=== PATIENT | female | born 1985 | race Caucasian/White ===

== ENCOUNTER 2023-06-21 17:48 | Inpatient (IN) | payer BC, SELFPAY ==
[2023-06-21] MEDS: DUONEB 3 ML INH ×2 (11:49→12:17)
--- NOTE | 2023-06-21 11:57 | ED.GENMED ---
History of Present Illness
General
Chief Complaint: Breathing Problem
Source: patient
Time Seen by Provider: 06/21/23 11:47
Travel History
Have you had any contact with someone who has COVID-19?: No
Do you have any symptoms of coronavirus? Fever > 100 degrees, chills, cough, shortness of breath, sore throat, loss of taste or smell, muscle aches, or headache?: Yes
Symptoms:: sob/cough
History of Present Illness
History of Present Illness:
37-year-old female presents to the emergency room for evaluation of increasing short of breath. Patient developed URI symptoms about a week ago. She was seen by her primary care doctor and started on doxycycline. Over the past 2 or 3 days she has
been having increasing shortness of breath and wheezing. No improvement with inhaler at home. 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
Phy Exam
Physical Exam
Physical Exam:
General: Awake, Alert, Oriented X3. Mildly increased work of breathing
Vitals: unremarkable
Head: Atraumatic
Eyes: Pupils equal, EOMI
Throat: Airway intact, no exudates
Neck: Trachea midline
Lungs: Expiratory wheezing
Heart: Regular rate, no murmurs
Abd: Soft, Nontender, No pulsatile mass
Neuro: Nonfocal
Skin: Warm, dry, no rash
Extremities: pulses equal b/l, no edema
Course
Orders/Labs/Results
Orders:
Orders
06/21/23 11:39
Ipratropium/Albuterol Sulfate [Duoneb] 3 ml .ROUTE .STK-MED ONE
06/21/23 11:40
Albuterol Nebs [Ventolin Nebules] 2.5 mg .ROUTE .STK-MED ONE
Dexamethasone Pf [Decadron] 10 mg .ROUTE .STK-MED ONE
06/21/23 11:49
Ipratropium/Albuterol Sulfate [Duoneb] 3 ml INH R NOW ONE
06/21/23 11:56
Dexamethasone Sod Phosphate [Decadron] 10 mg IV NOW STA
Ipratropium/Albuterol Sulfate [Duoneb] 3 ml INH R NOW ONE
06/21/23 11:57
Test Result ONCE
CR Chest - 2 Views Urgent
Comment:
Reason For Exam: fever, chough, sob
06/21/23 12:03
Basic Metabolic Panel Urgent
Complete Blood Count/With Diff Urgent
HCG, Serum Qualitative Screen Urgent
06/21/23 13:57
Albuterol Nebs [Ventolin Nebules] 2.5 mg INH R NOW STA
06/21/23 14:01
Acetaminophen [Tylenol] 1,000 mg PO NOW STA
Ketorolac [Toradol] 15 mg .ROUTE .STK-MED ONE
Abnormal Lab Results
06/21/23
12:03
WBC 12.9 H 10^3/uL
(4.8-10.8)
Hct 36.8 L %
(37.0-47.0)
MCV 77.8 L fL
(81.0-99.0)
MCH 26.6 L pg
(27.0-31.0)
RDW 14.9 H %
(11.5-14.5)
Plt Count 431 H 10^3/uL
(130-400)
Abs Immat Gran (auto) 0.1 H 10^3/uL
(0-0.05)
Absolute Neuts (auto) 7.8 H 10^3/uL
(1.4-6.5)
Absolute Lymphs (auto) 3.9 H 10^3/uL
(1.2-3.4)
Absolute Monos (auto) 0.7 H 10^3/uL
(0.1-0.6)
Immature Gran % 0.7 H %
(0-0.5)
Carbon Dioxide 19 L mmol/L
(22-30)
Glucose 102 H mg/dl
(70-99)
06/21/23 12:03
06/21/23 12:03
Vital Signs
Initial and Last Documented VS:
Initial Vital Signs
Temp Pulse Resp Pulse Ox
98.5 F 120 24 95
06/21/23 11:34 06/21/23 11:34 06/21/23 11:34 06/21/23 11:34
Last Documented Vital Signs
Temp Pulse Resp Pulse Ox
98.5 F 118 24 97
06/21/23 11:34 06/21/23 14:29 06/21/23 11:34 06/21/23 14:29
MDM/Problems Addressed
Differential Diagnosis Includes:
Asthma exacerbation, pneumonia, pneumothorax
MDM/Problems Addressed:
Patient presents with persistent increased work of breathing despite oral prednisone, doxycycline and inhalers at home. Chest x-ray does not show any acute abnormality. Patient was treated with several DuoNebs and albuterol here. No significant
improvement. Will admit for further care
Acute Exacerbation and/or Progression of Chronic Illness: Asthma
*Radiology
Radiology exam reviewed: preliminary read by ED provider (Personally reviewed the patient's chest x-ray and see no acute disease)
*Pulse Oximetry
Patient hypoxic: no
*Critical Care Note
Total Time (30-74mins, 75-104mins- exclusive of procedures): Not Applicable
Patient Management
Social determinants of health affecting care: Strong social support
ED Attending Note
-
Portions of this chart may have been created with voice recognition software.� Occasional wrong word or��sound alike� substitutions may have occurred due to the inherent limitations of voice recognition software.
Discharge Plan
Departure
Patient Disposition: Admit
Date of Disposition: 06/21/23
Time of Disposition: 15:26
Admit to: Med/Surg
Presentation/result/management discussed w/ accepting MD/DO: Hospitalist
Condition: Fair
Discharge Problem:
Asthma with acute exacerbation
Prescriptions:
No Action
tizanidine 4 mg Tablet
4 mg PO BID
famotidine [Pepcid] 40 mg Tablet
40 mg PO HS
sulfamethoxazole-trimethoprim [Bactrim DS] 800-160 mg Tablet
1 tab PO BID
Patient Comments:
patient black pickler on 06/15/23
doxycycline monohydrate 100 mg Capsule
100 mg PO BID
Patient Comments:
patient black pickler on 06/15/23
cephalexin 500 mg Capsule
500 mg PO QID
Patient Comments:
patient black pickler on 06/15/23
pantoprazole [Protonix] 40 mg Tablet,Delayed Release (Dr/Ec)
40 mg PO DAILY
cyanocobalamin (vitamin B-12) 1,000 mcg/mL Solution
1,000 mcg IM QMONTH
montelukast [Singulair] 10 mg Tablet
10 mg PO HS
hydroxyzine HCl 25 mg Tablet
25 mg PO BID
furosemide [Lasix] 20 mg Tablet
20 mg PO DAILYPRN PRN (Reason: with steriods)
levalbuterol HCl 1.25 mg/3 mL solution for nebulization
1.25 mg INHALATION R QIDPRN PRN (Reason: sob)
eszopiclone [Lunesta] 2 mg Tablet
2 mg PO HS
Xarelto 20 mg Tablet
20 mg PO QPM
Emgality Syringe 120 mg/mL Syringe
120 mg SC QMONTH
Referrals:
Nato Callejas Jr., DO [Family Provider] -
Interventions
Interventions:
*ED COVID-19 Vaccine History Last Done: 06/21/23 11:34
ED- Cardiac Assessment Last Done: 06/21/23 11:47
ED- Pulmonary Assessment Last Done: 06/21/23 11:47
[2023-06-21] MEDS: DECADRON 10 MG IV (12:09)
[2023-06-21 12:21] LABS: % Basophils 0.9 % (0-2); % Eosinophils 2.3 % (0-6); % Immature Granulocytes 0.7 % (0-0.5); % Lymphocytes 30.4 % (20.5-51.1); % Monocytes 5.7 % (1.7-9.3); Absolute Basophils 0.1 10^3/uL (0-0.2); Absolute Eosinophils 0.3 10^3/uL (0-0.7); Absolute Immature Granulocytes 0.1 10^3/uL (0-0.05); Absolute Lymphocytes 3.9 10^3/uL (1.2-3.4); Absolute Monocytes 0.7 10^3/uL (0.1-0.6); Absolute Neutrophils 7.8 10^3/uL (1.4-6.5); Hematocrit 36.8 % (37.0-47.0); Hemoglobin 12.6 g/dL (12.0-16.0); Mean Corp Hgb Conc. 34.2 g/dL (33.0-37.0); Mean Corpuscular Hgb 26.6 pg (27.0-31.0); Mean Corpuscular Volume 77.8 fL (81.0-99.0); Mean Platelet Volume 10.3 fL (7.4-10.4); Nucleated Red Blood Cells % 0 %; Platelet Count 431 10^3/uL (130-400); Red Blood Cell Count 4.73 10^6/uL (4.20-5.40); Red Cell Dist. Width 14.9 % (11.5-14.5); White Blood Cell Count 12.9 10^3/uL (4.8-10.8)
[2023-06-21 12:50] LABS: HCG, Serum Qualitative Screen Negative
[2023-06-21 13:09] LABS: Blood Urea Nitrogen 13 mg/dl (7-17); Calcium 9.8 mg/dl (8.4-10.2); Carbon Dioxide 19 mmol/L (22-30); Chloride 102 mmol/L (98-107); Estimated Creatinine Clearance 104 ml/min; Glucose 102 mg/dl (70-99); Potassium 3.7 mmol/L (3.5-5.1); Sodium 135 mmol/L (135-145); eGFR > 60.00
[2023-06-21] MEDS: VENTOLIN NEBULES 2.5 MG INH (14:08)
[2023-06-21] MEDS: TYLENOL 1000 MG PO (14:19)
--- NOTE | 2023-06-21 17:07 | HPS.HSE ---
Family Physician
-
Family Physician: Nato Callejas Jr.
Chief Complaint
-
Shortness of breath and dry cough
History of Present Illness
Patient is a 37 years old female with history of GBS, asthma, migraine, antiphospholipid syndrome on anticoagulation with Xarelto who presents to the emergency room with days of gradually worsening shortness of breath, nonproductive cough. Patient
reports subjective fever at home day prior to presentation. She denies any sick contacts. She was seen by primary physician and started on oral antibiotics. She states that antibiotics along with nebulizers at home have no relief.
The emergency room patient is afebrile, hemodynamically stable. Her physical exam relevant for persistent wheezing and dry cough. Her oxygen saturations are stable with no evidence of respiratory distress.
She was initiated on treatment with IV steroids and serial nebulizers with no significant relief shortness of breath and wheezing.
Medical History
Past Medical History
Past Medical History: Reports Asthma and Other (GBS, migraine, antiphospholipid syndrome on anticoagulation.)
Past Surgical History: Reports None
Social History
Tobacco: Non-smoker
Alcohol: None
Drug: None
Personal:
Living: With Family
Employment: Employed
Family History
Family History: Not pertinent
Allergies / Home Medications
Allergies reflects when Allergies were last updated in [employer].
Home Medications with original date entered in [employer]
Allergy/Medication List:
Allergies
Allergy/AdvReac Type Severity Reaction Status Date / Time
apixaban Allergy Unknown Verified 06/21/23 11:46
dog dander Allergy Unknown Verified 06/21/23 11:46
duloxetine Allergy Unknown Verified 06/21/23 11:46
iodine Allergy Unknown Verified 06/21/23 11:46
latex Allergy Unknown Verified 06/21/23 11:46
lidocaine Allergy Unknown Verified 06/21/23 11:37
menthol Allergy Unknown Verified 06/21/23 11:46
NSAIDS (Non-Steroidal Allergy Unknown Verified 06/21/23 11:37
Anti-Inflamma
sumatriptan Allergy Unknown Verified 06/21/23 11:46
Home Medications
cephalexin 500 mg capsule 500 mg PO QID 06/21/23
cyanocobalamin (vitamin B-12) 1,000 mcg/mL injection solution 1,000 mcg IM QMONTH 06/21/23
doxycycline monohydrate 100 mg capsule 100 mg PO BID 06/21/23
eszopiclone 2 mg tablet (Lunesta) 2 mg PO HS 06/21/23
famotidine 40 mg tablet (Pepcid) 40 mg PO HS 06/21/23
furosemide 20 mg tablet (Lasix) 20 mg PO DAILYPRN PRN with steriods 06/21/23
galcanezumab-gnlm 120 mg/mL subcutaneous syringe (Emgality) 120 mg SC QMONTH 06/21/23
hydroxyzine HCl 25 mg tablet 25 mg PO BID 06/21/23
levalbuterol HCl 1.25 mg/3 mL solution for nebulization 1.25 mg inhalation R QIDPRN PRN sob 06/21/23
montelukast 10 mg tablet (Singulair) 10 mg PO HS 06/21/23
pantoprazole 40 mg tablet,delayed release (Protonix) 40 mg PO DAILY 06/21/23
rivaroxaban 20 mg tablet (Xarelto) 20 mg PO QPM 06/21/23
sulfamethoxazole 800 mg-trimethoprim 160 mg tablet (Bactrim DS) 1 tab PO BID 06/21/23
tizanidine 4 mg tablet 4 mg PO BID 06/21/23
Review of Systems
-
A 12 point ROS was completed and negative except as noted: Yes
Respiratory: Reports See HPI
Cardiac: Reports No Symptoms
Abdomen/GI: Reports No Symptoms
Physical Exam
Vital Signs
Vital Signs
Temp Pulse Resp Pulse Ox
98.5 F 118 24 97
06/21/23 11:34 06/21/23 14:29 06/21/23 11:34 06/21/23 14:29
Physical Exam
General: Well Developed, Well Nourished and No Apparent Distress
HEENT: NormoCephalic, Moist mucous membranes and Atraumatic
Respiratory: Wheezes (Biphasic) and Rhonchi
Cardiac: S1/S2 and Regular Rhythm; No Murmur or Rub
GI: Soft, Non Tender, Non Distended and Normal Bowel Sounds; No Organomegaly
Rectal: Deferred by Provider
Musculoskeletal: No Clubbing, No Cyanosis and No Edema
Skin: No Rash
Neuro: Nonfocal/grossly intact
Laboratory Results
-
06/21/23 12:03
06/21/23 12:03
Data Reviewed
-
Diagnostic Radiology: Report Reviewed by me
Lab Data: Labs Reviewed by me
Impression/Plan
-
IMPRESSION:
Acute asthma exacerbation
Moderate persistent asthma by history.
Acute bronchitis suspected.
Conditions prior to admission:
Asthma as above
History of GBS syndrome with respiratory failure (admitted to [facility]23. Treated with plasmapheresis).
Antiphospholipid syndrome with history of DVT and PE.
Anticoagulation with Xarelto
Migraine headache
Obesity with BMI of 42
PLAN:
Asthma exacerbation
Suspect acute bronchitis
Persistent biphasic wheezing on exam, although no evidence of respiratory distress or hypoxia.
Chest x-ray with no evidence of infiltrate/pneumonia
Did not respond to initial treatment while in the emergency room.
Admit for close monitoring
Peak flow.
Systemic steroids Decadron 4 mg IV every 6
Basal bolus protocol with insulin coverage.
Short acting bronchodilators/Xopenex.
Cough suppressants Robitussin with codeine.
Continue Singulair
Continue PPI
Oral Zithromax for antibacterial/anti-inflammatory
Antiphospholipid syndrome with prior history of DVT and PE
Continuing Xarelto
[2023-06-21 18:20] VITALS: BP 152/78
[2023-06-21 18:40] VITALS: BP 155/115
[2023-06-21] MEDS: XOPENEX 1.25 MG INHALANT SOLUTION INH (18:47)
[2023-06-21] MEDS: PROTONIX 40 MG PO (19:18)
[2023-06-21] MEDS: ZITHROMAX 500 MG PO (19:18)
[2023-06-21] MEDS: XARELTO 20 MG PO (19:18)
[2023-06-21] MEDS: ATARAX 25 MG PO (19:18)
[2023-06-21] MEDS: DECADRON 4 MG IV (19:19)
--- NOTE | 2023-06-21 19:19 | PTCARENOTE ---
Received patient from ED via wheelchair. AAOx3, ambulated to bed. BL expiratory wheezes throughout. Assessed and oriented to room.
[2023-06-21] MEDS: ROBITUSSIN AC 10 ML PO (19:21)
--- NOTE | 2023-06-21 19:45 | PTCARENOTE ---
Patient with c/o moderate generalized pain/ bilateral rib pain from cough and asking for pain med. Had Tylenol at ED but still in pain. also HR consistently staying in 129-130s. bp-149/99. Patient stated 'had shingles on right eye' and on acyclovir
1gm X TID which she didn't take any dose today. Updated MARIA DE JESUS Badillo. See MAR for new orders
--- NOTE | 2023-06-21 20:40 | PTCARENOTE ---
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 No need of isolation as per advise.
[2023-06-21] MEDS: ProAIR HFA INHALER 2 PUFF INH (20:42)
[2023-06-21] MEDS: MORPHINE SULFATE 2 MG IV (20:46)
[2023-06-21] MEDS: ZANAFLEX 4 MG PO (20:48)
[2023-06-21] MEDS: PEPCID 40 MG PO (21:31)
[2023-06-21] MEDS: VALTREX 1000 MG PO (21:32)
[2023-06-21] MEDS: SINGULAIR 10 MG PO (21:32)
[2023-06-21 22:09] LABS: Glucose - Point of Care 252 mg/dl (70-99)
[2023-06-21 22:24] VITALS: BMI 41.2
[2023-06-21 23:00] VITALS: BP 153/93
[2023-06-21] MEDS: AMBIEN PO (23:41)
[2023-06-22] MEDS: MORPHINE SULFATE 2 MG IV ×5 (01:05→21:29)
[2023-06-22] MEDS: DECADRON 4 MG IV ×3 (01:05→15:09)
[2023-06-22] MEDS: ROBITUSSIN AC 10 ML PO ×4 (01:34→22:42)
[2023-06-22 07:30] VITALS: BP 160/98
[2023-06-22 07:56] LABS: Glucose - Point of Care 181 mg/dl (70-99)
[2023-06-22] MEDS: VALTREX 1000 MG PO (08:15)
[2023-06-22] MEDS: PROTONIX 40 MG PO (08:15)
[2023-06-22] MEDS: ZITHROMAX 500 MG PO (08:15)
[2023-06-22] MEDS: ATARAX 25 MG PO ×2 (08:15→20:32)
[2023-06-22] MEDS: ZANAFLEX 4 MG PO ×2 (08:16→20:32)
[2023-06-22 08:18] LABS: % Basophils 0.2 % (0-2); % Immature Granulocytes 1.3 % (0-0.5); % Lymphocytes 8.9 % (20.5-51.1); % Monocytes 1.5 % (1.7-9.3); % Neutrophils 88.1 % (42.2-75.2); Absolute Immature Granulocytes 0.3 10^3/uL (0-0.05); Absolute Lymphocytes 2.1 10^3/uL (1.2-3.4); Absolute Monocytes 0.4 10^3/uL (0.1-0.6); Absolute Neutrophils 21.1 10^3/uL (1.4-6.5); Hematocrit 35.7 % (37.0-47.0); Hemoglobin 12.4 g/dL (12.0-16.0); Mean Corp Hgb Conc. 34.7 g/dL (33.0-37.0); Mean Corpuscular Hgb 26.7 pg (27.0-31.0); Mean Corpuscular Volume 76.8 fL (81.0-99.0); Mean Platelet Volume 10.2 fL (7.4-10.4); Nucleated Red Blood Cells % 0 %; Platelet Count 472 10^3/uL (130-400); Red Blood Cell Count 4.65 10^6/uL (4.20-5.40); Red Cell Dist. Width 15.3 % (11.5-14.5)
[2023-06-22] MEDS: NOVOLOG FLEXPEN-LOW RESISTANCE 1 UNITS SC ×3 (08:23→16:54)
[2023-06-22 08:42] VITALS: BMI 41.2
[2023-06-22] MEDS: XOPENEX 1.25 MG INHALANT SOLUTION INH ×4 (08:43→19:36)
[2023-06-22 08:58] LABS: Blood Urea Nitrogen 8 mg/dl (7-17); Carbon Dioxide 20 mmol/L (22-30); Chloride 107 mmol/L (98-107); Estimated Creatinine Clearance > 125 ml/min; Glucose 175 mg/dl (70-99); Potassium 4.7 mmol/L (3.5-5.1); Sodium 135 mmol/L (135-145); eGFR > 60.00
[2023-06-22 11:50] LABS: Glucose - Point of Care 192 mg/dl (70-99)
--- NOTE | 2023-06-22 15:02 | CON.PUL ---
Consultation
Consultation Request
Date/Time Consultation Requested: 06/22/2023 - 134
Date/Time Consultation Performed: 06/22/2023 - 1500
Requesting Provider: Dr. Rahman
Performing Provider: Dr. Austin
Reason for Consultation: Asthma flare
Medical History
-
Chief Complaint: SOB
History of Present Illness:
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
dry cough ongoing for about 1 week. She was put on antibiotics by her PCP, and is taking nebulizers at home but her symptoms have been persistent so she came to the ER. She was afebrile in the ER to 98.5 �F, tachycardic to 119, saturating 97% on
room air and tachypneic to 24 breaths/min. She was in moderate respiratory distress with inspiratory/expiratory wheezing in the ER. Labs showed a mildly reduced serum bicarbonate level of 19, leukocytosis to 12.9 with an absolute eosinophil count
of 300, Hb 12.6, platelets 431. CXR showed no active cardiopulmonary disease. She was given Tylenol, nebulizers and Decadron and then admitted to the hospitalist service. She continues on Decadron 4 mg IV q6hr, azithromycin and levalbuterol. She
has not required oxygen and is saturating 96% on room air. Pulmonary now consulted for additional recommendations.
When I saw the pt she was in bed in [facility] on room air. She still feels SOB. Has productive cough with difficulty expectorating. Phlegm is yellow/green with red specks. Also has nasal congestion and wants to have something for this. She was
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 This was Tx at [facility] in [place] - she was admitted last Wednesday (06/12/2023). She had GBS in February 2023 and was
intubated x 2 weeks. 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 She was placed on antacids, Abx and Symbicort + advair, and told to use it all. She follows with a PCP, Dr. Santacruz. She says she had the flu ~3 weeks
ago and has been feelin gSOB since that time. Her PCP Rx her doxy x 10 days. 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 Moise, at [facility]. She is currently on Symbicort 160mcg, Singulair, Albuterol MDI prn and also takes nebulized xopenex and albuterol as
needed. She currently denies CP, MUKHERJEE, abd pain, N/V/f/c.
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
PSHx: Bilateral toenail removal, COMPUTER HELP DESK REPRESENTATIVE shunt, screw in right foot
Past Medical History
Past Medical History: Other (Above as per HPI)
Past Surgical History: Other (Above as per HPI)
Social History
Tobacco: Non-smoker
Alcohol: Occasional
Drug: None
Family History
Family History: Reviewed & Not Pertinent
Allergies / Home Medications
Allergies
Allergy/AdvReac Type Severity Reaction Status Date / Time
apixaban Allergy Unknown Verified 06/21/23 11:46
dog dander Allergy Unknown Verified 06/21/23 11:46
duloxetine Allergy Unknown Verified 06/21/23 11:46
iodine Allergy Unknown Verified 06/21/23 11:46
latex Allergy Unknown Verified 06/21/23 11:46
lidocaine Allergy Unknown Verified 06/21/23 11:37
menthol Allergy Unknown Verified 06/21/23 11:46
NSAIDS (Non-Steroidal Allergy Unknown Verified 06/21/23 11:37
Anti-Inflamma
sumatriptan Allergy Unknown Verified 06/21/23 11:46
Home Medications
Medication Instructions Recorded Confirmed Last Taken Type
acyclovir 1,000 mg PO TID Infection 06/21/23 06/21/23 06/20/23 History
cephalexin 500 mg capsule 500 mg PO QID Infection 06/21/23 06/21/23 06/21/23 History
cyanocobalamin (vitamin B-12) 1,000 mcg IM QMONTH Supplement 06/21/23 06/21/23 Unknown History
1,000 mcg/mL injection solution
doxycycline monohydrate 100 mg 100 mg PO BID Infection 06/21/23 06/21/23 06/21/23 History
capsule
eszopiclone 2 mg tablet (Lunesta) 2 mg PO HS Sleep 06/21/23 06/21/23 06/20/23 History
famotidine 40 mg tablet (Pepcid) 40 mg PO HS Gastrointestinal Issue 06/21/23 06/21/23 06/20/23 History
furosemide 20 mg tablet (Lasix) 20 mg PO DAILYPRN PRN with steriods 06/21/23 06/21/23 Unknown History
galcanezumab-gnlm 120 mg/mL 120 mg SC QMONTH Headaches 06/21/23 06/21/23 Unknown History
subcutaneous syringe (Emgality)
hydroxyzine HCl 25 mg tablet 25 mg PO BID Mental Health/Anxiety 06/21/23 06/21/23 06/20/23 History
levalbuterol HCl 1.25 mg/3 mL 1.25 mg inhalation R QIDPRN PRN sob 06/21/23 06/21/23 Unknown History
solution for nebulization
montelukast 10 mg tablet 10 mg PO HS Allergies 06/21/23 06/21/23 06/20/23 History
(Singulair)
pantoprazole 40 mg tablet,delayed 40 mg PO DAILY Gastrointestinal 06/21/23 06/21/23 06/20/23 History
release (Protonix) Issue
rivaroxaban 20 mg tablet (Xarelto) 20 mg PO QPM Blood Clot 06/21/23 06/21/23 06/20/23 History
Prevention/Tx
sulfamethoxazole 800 1 tab PO BID Infection 06/21/23 06/21/23 06/21/23 History
mg-trimethoprim 160 mg tablet
(Bactrim DS)
tizanidine 4 mg tablet 4 mg PO BID Muscle Spasms 06/21/23 06/21/23 06/20/23 History
Review of Systems
-
History Source: Patient
All other systems: Negative unless noted (12 point ROS performed and is negative unless mentioned above.)
Vitals / Labs / Diagnostic Testing
Vital Signs
Temp Pulse Resp BP Pulse Ox
97.7 F 91 18 160/98 96
06/22/23 07:30 06/22/23 11:51 06/22/23 11:51 06/22/23 07:30 06/22/23 11:51
Lab Data
06/22/23 07:33
06/22/23 07:33
Diagnostic Testing:
Physical Exam
-
HEENT: Normocephalic, Anicteric and Other (no stridor)
Cardiovascular: S1/S2 and Other (tachycardic)
Respiratory: Wheeze, Rales (bibasilar) and Other (no stridor)
GI: Soft and Non Distended
Neurology: AO x 3 and Tremors (n)
Skin: Warm and Dry
General: Comfortable, Chills (Negative) and Good Appetite
Assessment
-
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
breath with dry cough ongoing for about 1 week. Patient tachycardic in the ER and tachypneic, with diffuse wheezing. CXR showed no acute cardiopulmonary pathology. Steroids and nebulized bronchodilators were started and she was admitted to the
hospitalist service. She also was started on azithromycin. She continues to be managed on the floor and pulmonary service now consulted for additional recommendations.
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
Impression:
#Acute asthmatic exacerbation
#Leukocytosis -likely reactive in the setting of steroids
#Obesity
#GERD
#Migraine headaches
#APS with Hx of PE on Xarelto
Plan:
- Continue systemic steroids - currently on decadron 4mg IV q6hr --> change to solumedrol 60mg IV q6hr + wean as tolerated
- Start nasal saline TID and taper as her Sx improve
- Continue xopenex and add atrovent with prn nebs in between
- Encourage up OOB as tolerated
- Encourage incentive spirometer
- No need for Abx however it appears she is on chronic doxy, so will change to azithro for now given its anti-inflammatory effect
- Maintain MAP>65
- Keep BG >100 and <180mg/dL
- outpatient PFTs with asthma action plan and peak flow meter
- DVT ppx
Pulmonary service will continue to follow along
Data:
CXR 06-21-2023: No active cardiopulmonary disease.
[2023-06-22 15:20] VITALS: BP 168/88
[2023-06-22] MEDS: COMPAZINE 5 MG IV (15:22)
--- NOTE | 2023-06-22 16:04 | W.PN.HOSP.TC ---
Today's Communication/Plan
-
Remains bronchospastic with coarse rhonchi on exam, although stable respiratory status.
Continue IV steroids with unchanged dose for another 24 to 48 hours
Continue Zithromax
Antitussives.
Short acting bronchodilators
Pulmonology consultation.
Hypercoagulable state/antiphospholipid syndrome on Xarelto.
Assessment / Plan
Assessment / Plan
IMPRESSION:
Acute asthma exacerbation
Moderate persistent asthma by history.
Acute bronchitis suspected.
Conditions prior to admission:
Asthma as above
History of GBS syndrome with respiratory failure (admitted to [facility] February 2023.� Treated with plasmapheresis).
Antiphospholipid syndrome with history of DVT and PE.
Anticoagulation with Xarelto
Migraine headache
Obesity with BMI of 42
PLAN:
Asthma exacerbation
Suspect acute bronchitis
Persistent biphasic wheezing on exam, although no evidence of respiratory distress or hypoxia.
Chest x-ray with no evidence of infiltrate/pneumonia
Did not respond to initial treatment while in the emergency room.
Admit for close monitoring
Peak flow.
Systemic steroids Decadron 4 mg IV every 6
Basal bolus protocol with insulin coverage.
Short acting bronchodilators/Xopenex.
Cough suppressants Robitussin with codeine.
Continue Singulair
Continue PPI
Oral Zithromax for antibacterial/anti-inflammatory
Antiphospholipid syndrome with prior history of DVT and PE
Continuing Xarelto
Anticipated Discharge: 24 - 48 hours
Subjective/Interval History
-
Date of Service: June 22, 2023
Objective Data
-
Labs:
Laboratory Results
06/22/23
07:33
WBC 24.0 H
Hgb 12.4
Hct 35.7 L
Plt Count 472 H
Sodium 135
Potassium 4.7 D
Chloride 107
Carbon Dioxide 20 L
BUN 8
Creatinine 0.7
Glucose 175 H
Calcium 10.0
Vital Signs:
Vital Signs
Temp Pulse Resp BP Pulse Ox
97.2 F 110 18 168/88 96
06/22/23 15:20 06/22/23 15:32 06/22/23 15:32 06/22/23 15:20 06/22/23 15:32
I&O
06/21/23 06/22/23 06/23/23
06:59 06:59 06:59
Intake Total 480 / 480
Balance 480 / 480
Physical Exam
-
General: Well Developed and No Apparent Distress
HEENT: Normocephalic, Atraumatic and Moist Mucous Membranes
Respiratory: Clear to Auscultation
Cardiac: Regular Rhythm and S1/S2; Negative Murmur, Rub or Gallop
GI: Soft, Nontender, Nondistended and Normal Bowel Sounds; Negative Organomegaly
Rectal: Deferred by Provider
Musculoskeletal: No Clubbing, No Cyanosis and No Edema
Skin: Negative Rash
Neuro: Nonfocal/Grossly Intact
[2023-06-22 16:45] LABS: Glucose - Point of Care 169 mg/dl (70-99)
[2023-06-22] MEDS: XARELTO 20 MG PO (16:54)
--- NOTE | 2023-06-22 17:27 | CM ---
CM following re: d/c planning
Chart reviewed
CM met with the patient and her S.O. at bedside; IA completed
[place]
LEG BREAKER patent reports [facility] at baseline
Pt has no previous SNF/VN hx and has the following DME for use as needed: a r/w, nebulizer, shower chair, & pair of crutches
Pt has prescription coverage and rx's are filled at [facility] on [facility]
Pt PCP-Nato Callejas
Per PT eval. pt has no skilled PT needs
CM will continue to follow patient progress and assist with any needs at d/c as indicated
PLAN; d/c home no needs anticipated
[2023-06-22] MEDS: OCEAN, SALINE MIST 1 SPRAYS NASAL (20:31)
[2023-06-22] MEDS: MUCINEX 600 MG PO (20:32)
[2023-06-22] MEDS: SOLU-MEDROL PF 60 MG IV (20:33)
[2023-06-22] MEDS: PEPCID 40 MG PO (20:34)
[2023-06-22] MEDS: SINGULAIR 10 MG PO (20:34)
[2023-06-22 21:22] LABS: Glucose - Point of Care 198 mg/dl (70-99)
[2023-06-22] MEDS: AMBIEN 10 MG PO (22:42)
[2023-06-22 23:39] VITALS: BP 134/74
[2023-06-23] MEDS: SOLU-MEDROL PF 60 MG IV ×3 (02:50→15:58)
[2023-06-23] MEDS: MORPHINE SULFATE 2 MG IV ×4 (02:58→20:09)
[2023-06-23 07:00] VITALS: BP 161/84
[2023-06-23] MEDS: XOPENEX 1.25 MG INHALANT SOLUTION INH ×4 (07:14→19:26)
[2023-06-23 07:57] LABS: Glucose - Point of Care 165 mg/dl (70-99)
[2023-06-23] MEDS: OCEAN, SALINE MIST 1 SPRAYS NASAL ×3 (10:10→19:57)
[2023-06-23] MEDS: ZANAFLEX 4 MG PO ×2 (10:10→19:57)
[2023-06-23] MEDS: PROTONIX 40 MG PO (10:10)
[2023-06-23] MEDS: ATARAX 25 MG PO ×2 (10:10→19:57)
[2023-06-23] MEDS: MUCINEX 600 MG PO ×2 (10:10→19:57)
[2023-06-23] MEDS: ZITHROMAX 500 MG PO (10:10)
[2023-06-23] MEDS: COMPAZINE 5 MG IV (10:13)
[2023-06-23] MEDS: NOVOLOG FLEXPEN-LOW RESISTANCE SC (10:17)
[2023-06-23] MEDS: ROBITUSSIN AC 10 ML PO (10:19)
[2023-06-23 12:01] LABS: Glucose - Point of Care 173 mg/dl (70-99)
[2023-06-23] MEDS: NOVOLOG FLEXPEN-LOW RESISTANCE 1 UNITS SC ×2 (12:26→16:06)
--- NOTE | 2023-06-23 13:25 | W.PN.PUL3 ---
Today's Communication / Plan
-
Steroids
Afrin
Up OOB
Start Symbicort --> may need LAMA upon discharge given her severity of SOB
Outpatient ENT follow up --> no need for inpatient consult as she is not stridorous currently; if SOB not better then vocal cord dysfunction could be at play and could consider inpatient ENT consult with outpatient stroboscopy
Anti-tussants
IS
DVT ppx
Assessment
-
Assessment: 37-year-old obese female non-smoker with past medical history of asthma, history of PE with antiphospholipid syndrome on Xarelto, history of NPH s/p SHOE TURNER shunt, history of AIDP, anxiety and primary insomnia who presents with shortness of
breath with dry cough ongoing for about 1 week. Patient tachycardic in the ER and tachypneic, with diffuse wheezing. CXR showed no acute cardiopulmonary pathology. Steroids and nebulized bronchodilators were started and she was admitted to the
hospitalist service. She also was started on azithromycin. She continues to be managed on the floor and pulmonary service now consulted for additional recommendations.
Chronic medical conditions [employer]: History of asthma, migraine headache, antiphospholipid syndrome on Xarelto, history of PE, history of NPH s/p SHOE TURNER shunt, primary insomnia, anxiety, history of AIDP, GERD
Impression:
#Acute asthmatic exacerbation (baseline moderate persistent asthma on Symbicort)
#Leukocytosis -likely reactive in the setting of steroids
#Acute on chronic rhinitis with nasal congestion/stuffiness leading to worsening SOB
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
#Obesity
#GERD
#Migraine headaches
#APS with Hx of PE on Xarelto
Plan:
- Continue systemic steroids - previously was on decadron 4mg IV q6hr --> changed to solumedrol 60mg IV q6hr on 06/22 --> I will start to wean to 40mg IV q6hr; continue to wean as tolerated
- Continue nasal saline TID and taper as her Sx improve
- Start Afrin nasal spray HS --> I did warn her that usually the symptoms of nasal congestion improve in the beginning of Afrin use but then may dissipate with continued use especially after 3-6 doses
- Continue xopenex and atrovent with prn nebs in between
- Anti-tussants --> I will increase the frequency to q4hr from q6hr, but half the dose from 10mL to 5mL to avoid worsening her SOB
- Start Symbicort 160mcg as this is her home medication; may need to go home on triple therapy (i.e., Spiriva vs tudorza)
- Encourage up OOB as tolerated
- Encourage incentive spirometer
- Continue azithro given its anti-inflammatory effect - will give x 5 days
- Maintain MAP>65
- Keep BG >100 and <180mg/dL
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 I will arrange for outpatient office visit with me.
- DVT ppx
Pulmonary service will continue to follow along.
Data:
CXR 06-21-2023: No active cardiopulmonary disease.
Subjective Data
-
Date of Service:
Date of Service: June 23, 2023
Chief Complaint: Pulmonary Follow Up
Subjective:
Patient seen and evaluated today at bedside. Saturating 96% on room air. She feels better today. Still has nasal congestion. Still coughing up phlegm and having coughing spells throughout the day. Wants to have more frequent cough medicine.
She denies chest pain, headache, fevers or chills.
Review of Systems
General: Other (12 point ROS performed and is negative unless mentioned above.)
Objective Data
Data Reviewed
Vital Signs / I&O / Oxygen:
Vital Signs
Temp Pulse Resp BP Pulse Ox
97.6 F 105 18 161/84 96
06/23/23 07:00 06/23/23 11:07 06/23/23 11:07 06/23/23 07:00 06/23/23 08:00
Intake and Output
06/22/23 06/23/23 06/24/23
06:59 06:59 06:59
Intake Total 480 / 480 2099
Balance 480 / 480 2099
SaO2 96
Physical Exam
General: Respiratory Distress (negative), Comfortable and Chills (negative)
HEENT: Normocephalic and Anicteric
Cardiovascular: S1-S2, Peripheral Edema (negative) and Other (Tachycardic)
Respiratory: Wheeze (during forced expiration just prior to coughing, which is triggered by inspiratory effort), Crackles (bibasilar), Accessory Resp Muscle Use (negative) and Stridor (negative)
GI: Soft, Non Distended, Non Tender and Normal Bowel Sounds
Neurology: AO x 3 and Tremors (negative)
Skin: Warm and Dry
Labs/Micro/Reports
Lab Data
06/22/23 07:33
06/22/23 07:33
[2023-06-23 15:00] VITALS: BP 128/73
[2023-06-23 16:06] LABS: Glucose - Point of Care 174 mg/dl (70-99)
[2023-06-23] MEDS: LASIX 20 MG PO (17:26)
[2023-06-23] MEDS: XARELTO 20 MG PO (17:27)
--- NOTE | 2023-06-23 18:48 | W.PN.HOSP.TC ---
Today's Communication/Plan
-
Stable respiratory status with less bronchospasm on exam today.
Continue current steroid dose.
Continue Zithromax
Continue short and long-acting bronchodilators.
Complaints of peripheral edema while on steroids. Will provide single dose of oral Lasix 20 mg.
Assessment / Plan
Assessment / Plan
IMPRESSION:
Acute asthma exacerbation
Moderate persistent asthma by history.
Acute bronchitis suspected.
Conditions prior to admission:
Asthma as above
History of GBS syndrome with respiratory failure (admitted to [facility] February 2023.� Treated with plasmapheresis).
Antiphospholipid syndrome with history of DVT and PE.
Anticoagulation with Xarelto
Migraine headache
Obesity with BMI of 42
PLAN:
Asthma exacerbation
Suspect acute bronchitis
Persistent biphasic wheezing on exam, although no evidence of respiratory distress or hypoxia.
Chest x-ray with no evidence of infiltrate/pneumonia
Did not respond to initial treatment while in the emergency room.
Admit for close monitoring
Peak flow.
Systemic steroids Solu-Medrol
Basal bolus protocol with insulin coverage.
Short acting bronchodilators/Xopenex.
Cough suppressants Robitussin with codeine.
Continue Singulair
Continue PPI
Oral Zithromax for antibacterial/anti-inflammatory
Antiphospholipid syndrome with prior history of DVT and PE
Continuing Xarelto
Anticipated Discharge: 24 - 48 hours
Subjective/Interval History
-
Date of Service: June 23, 2023
Objective Data
-
Vital Signs:
Vital Signs
Temp Pulse Resp BP Pulse Ox
98.0 F 102 14 128/73 97
06/23/23 15:00 06/23/23 17:26 06/23/23 15:20 06/23/23 17:26 06/23/23 15:00
I&O
06/22/23 06/23/23 06/24/23
06:59 06:59 06:59
Intake Total 480 / 480 2099
Balance 480 / 480 2099
Physical Exam
-
General: Well Developed and No Apparent Distress
HEENT: Normocephalic, Atraumatic and Moist Mucous Membranes
Respiratory: Clear to Auscultation
Cardiac: Regular Rhythm and S1/S2; Negative Murmur, Rub or Gallop
GI: Soft, Nontender, Nondistended and Normal Bowel Sounds; Negative Organomegaly
Rectal: Deferred by Provider
Musculoskeletal: No Clubbing, No Cyanosis and No Edema
Skin: Negative Rash
Neuro: Nonfocal/Grossly Intact
[2023-06-23] MEDS: ATROVENT NEBULES 0.5 MG INH (19:26)
[2023-06-23] MEDS: SYMBICORT 160/4.5 MCG INHALER 2 PUFF INH (19:26)
[2023-06-23] MEDS: AFRIN NASAL SPRAY 30 SPRAYS NASAL (19:57)
[2023-06-23] MEDS: PEPCID 40 MG PO (19:57)
[2023-06-23] MEDS: SINGULAIR 10 MG PO (19:57)
[2023-06-23 21:11] LABS: Glucose - Point of Care 208 mg/dl (70-99)
[2023-06-23] MEDS: ROBITUSSIN AC 5 ML PO (21:54)
[2023-06-23] MEDS: AMBIEN 10 MG PO (21:54)
[2023-06-23] MEDS: SOLU-MEDROL PF 40 MG IV (21:54)
[2023-06-23 23:12] VITALS: BP 133/73
[2023-06-24] MEDS: SOLU-MEDROL PF 40 MG IV ×2 (03:58→09:05)
[2023-06-24] MEDS: MORPHINE SULFATE 2 MG IV ×5 (03:58→21:33)
[2023-06-24] MEDS: ProAIR HFA INHALER 2 PUFF INH (04:39)
[2023-06-24] MEDS: ROBITUSSIN AC 5 ML PO ×5 (04:47→21:33)
[2023-06-24 07:00] VITALS: BP 160/95
[2023-06-24] MEDS: ATROVENT NEBULES 0.5 MG INH ×4 (07:25→21:03)
[2023-06-24] MEDS: XOPENEX 1.25 MG INHALANT SOLUTION INH ×4 (07:25→21:03)
[2023-06-24] MEDS: SYMBICORT 160/4.5 MCG INHALER 2 PUFF INH ×2 (07:25→21:03)
[2023-06-24 07:53] LABS: Glucose - Point of Care 147 mg/dl (70-99)
[2023-06-24] MEDS: ZANAFLEX 4 MG PO ×2 (08:42→20:25)
[2023-06-24] MEDS: ATARAX 25 MG PO ×2 (08:43→20:25)
[2023-06-24] MEDS: NOVOLOG FLEXPEN-LOW RESISTANCE SC (08:43)
[2023-06-24] MEDS: MUCINEX 600 MG PO ×2 (08:43→20:25)
[2023-06-24] MEDS: OCEAN, SALINE MIST 50 SPRAYS NASAL ×2 (08:43→21:32)
[2023-06-24] MEDS: ZITHROMAX 500 MG PO (08:43)
[2023-06-24] MEDS: PROTONIX 40 MG PO (08:43)
[2023-06-24] MEDS: LINZESS 290 MCG PO (11:06)
[2023-06-24 12:16] LABS: Glucose - Point of Care 154 mg/dl (70-99)
[2023-06-24] MEDS: NOVOLOG FLEXPEN-LOW RESISTANCE 1 UNITS SC ×2 (12:35→16:53)
[2023-06-24 15:00] VITALS: BP 158/91
--- NOTE | 2023-06-24 15:55 | W.PN.PUL3 ---
Today's Communication / Plan
-
Decrease steroids
Continue azithromycin
GERD therapy
Continue nystatin
Assessment
-
Assessment: 37-year-old obese female non-smoker with past medical history of asthma, history of PE with antiphospholipid syndrome on Xarelto, history of NPH s/p COMPACTOR DRIVER shunt, history of AIDP, anxiety and primary insomnia who presents with shortness of
breath with dry cough ongoing for about 1 week. Patient tachycardic in the ER and tachypneic, with diffuse wheezing. CXR showed no acute cardiopulmonary pathology. Steroids and nebulized bronchodilators were started and she was admitted to the
hospitalist service. She also was started on azithromycin. She continues to be managed on the floor and pulmonary service now consulted for additional recommendations.
Chronic medical conditions [employer]: History of asthma, migraine headache, antiphospholipid syndrome on Xarelto, history of PE, history of NPH s/p COMPACTOR DRIVER shunt, primary insomnia, anxiety, history of AIDP, GERD
Impression:
#Acute asthmatic exacerbation (baseline moderate persistent asthma on Symbicort)
#Leukocytosis -likely reactive in the setting of steroids
#Acute on chronic rhinitis with nasal congestion/stuffiness leading to worsening SOB
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
#Obesity
#GERD
#Migraine headaches
#APS with Hx of PE on Xarelto
Plan:
Patient had difficult night. She does get short of breath with simple ambulation to the room but appears comfortable during my examination
Currently on room air
Upper airway wheeze noted
Improved with pursed lip breathing
Mild and expiratory wheeze
No crackles on exam
Moving forward
Continue with current steroid course, no change
Reviewed importance of pursed lip breathing
Suspect shortness of breath is multifactorial
Will decreased IV steroids
Hopefully will be able to transition to oral prednisone in the a.m.
Continue with Symbicort, Atrovent nebulizer
Continue nystatin for thrush
Continue nasal regimen for rhinitis
Continue azithro given its anti-inflammatory effect - will give x 5 days, end /
DVT prophylaxis: Remains on Xarelto
GI prophylaxis: Pantoprazole
Encourage ambulation
Disposition efforts
Data:
CXR 06-21-2023: No active cardiopulmonary disease.
Subjective Data
-
Date of Service:
Date of Service: June 24, 2023
Chief Complaint: Pulmonary Follow Up
Subjective:
Patient had terrible night. She does get short of breath with ambulating to the bathroom. Appears comfortable on room air. Coughing and wheezing noted, primarily upper airway but no stridor. Denies abdominal pain, nausea. Boyfriend at bedside
Objective Data
Data Reviewed
Vital Signs / I&O / Oxygen:
Vital Signs
Temp Pulse Resp BP Pulse Ox
98 F 100 18 158/91 96
06/24/23 15:00 06/24/23 15:51 06/24/23 15:51 06/24/23 15:00 06/24/23 15:51
Intake and Output
06/23/23 06/24/23 06/25/23
06:59 06:59 06:59
Intake Total 2099 2400 / 2400
Balance 2099 2400 / 2400
SaO2 96
Physical Exam
General: Comfortable and Other (Large neck)
HEENT: Normocephalic, Anicteric and Thrush (Mild)
Cardiovascular: S1-S2, Regular Rhythm, Murmur (n) and Peripheral Edema (negative)
Respiratory: Wheeze (during forced expiration just prior to coughing, which is triggered by inspiratory effort, primarily upper airway), Crackles (n), Non-Labored Respirations and Stridor (negative)
GI: Soft, Non Distended (Obese), Non Tender and Normal Bowel Sounds
Neurology: Awake and Alert
Skin: Cyanosis (n), Jaundice (n) and Rash (n)
Labs/Micro/Reports
Lab Data
06/22/23 07:33
06/22/23 07:33
[2023-06-24] MEDS: OCEAN, SALINE MIST 1 SPRAYS NASAL (16:21)
[2023-06-24] MEDS: SOLU-MEDROL PF IV (16:21)
[2023-06-24 16:53] LABS: Glucose - Point of Care 184 mg/dl (70-99)
--- NOTE | 2023-06-24 17:01 | W.PN.HOSP.TC ---
Today's Communication/Plan
-
Taper steroids with plan to transition to oral in a.m.
Continue Zithromax
Add nystatin
Assessment / Plan
Assessment / Plan
IMPRESSION:
Acute asthma exacerbation
Moderate persistent asthma by history.
Acute bronchitis suspected.
Conditions prior to admission:
Asthma as above
History of GBS syndrome with respiratory failure (admitted to [facility] February 2023.� Treated with plasmapheresis).
Antiphospholipid syndrome with history of DVT and PE.
Anticoagulation with Xarelto
Migraine headache
Obesity with BMI of 42
PLAN:
Asthma exacerbation
Suspect acute bronchitis
Persistent biphasic wheezing on exam, although no evidence of respiratory distress or hypoxia.
Chest x-ray with no evidence of infiltrate/pneumonia
Did not respond to initial treatment while in the emergency room.
Admit for close monitoring
Peak flow.
Systemic steroids Solu-Medrol taper with plan to transition to prednisone in the morning
Basal bolus protocol with insulin coverage.
Short acting bronchodilators/Xopenex.
Cough suppressants Robitussin with codeine.
Continue Singulair
Continue PPI
Oral Zithromax for antibacterial/anti-inflammatory
Antiphospholipid syndrome with prior history of DVT and PE
Continuing Xarelto
Anticipated Discharge: 24 - 48 hours
Subjective/Interval History
-
Date of Service: June 24, 2023
Objective Data
-
Vital Signs:
Vital Signs
Temp Pulse Resp BP Pulse Ox
98 F 100 18 158/91 96
06/24/23 15:00 06/24/23 15:51 06/24/23 15:51 06/24/23 15:00 06/24/23 15:51
I&O
06/23/23 06/24/23 06/25/23
06:59 06:59 06:59
Intake Total 2099
Balance 2099
Physical Exam
-
General: Well Developed and No Apparent Distress
HEENT: Normocephalic, Atraumatic and Moist Mucous Membranes
Respiratory: Clear to Auscultation
Cardiac: Regular Rhythm and S1/S2; Negative Murmur, Rub or Gallop
GI: Soft, Nontender, Nondistended and Normal Bowel Sounds; Negative Organomegaly
Rectal: Deferred by Provider
Musculoskeletal: No Clubbing, No Cyanosis and No Edema
Skin: Negative Rash
Neuro: Nonfocal/Grossly Intact
--- NOTE | 2023-06-24 17:20 | CM ---
CM following re: d/c planning
Chart reviewed
Pt discharge anticipated within the next day or so
Pt being followed by Pulm for continued respiratory management
Pt was ambulating some around the unit with her S.O.
Pt to continue antibiotic course through tomorrow and also transition to oral steroid to be tapered as directed
Pt is currently stable on RA
CM will continue to monitor patient progress and assist with any needs at d/c as applicable
PLAN; d/c home no needs anticipated
[2023-06-24] MEDS: XARELTO 20 MG PO (17:24)
[2023-06-24] MEDS: MYCOSTATIN ORAL SUSPENSION 5 ML PO ×2 (17:24→21:33)
[2023-06-24 21:23] LABS: Glucose - Point of Care 208 mg/dl (70-99)
[2023-06-24] MEDS: PEPCID 40 MG PO (21:32)
[2023-06-24] MEDS: AMBIEN 10 MG PO (21:32)
[2023-06-24] MEDS: AFRIN NASAL SPRAY 2 SPRAYS NASAL (21:32)
[2023-06-24] MEDS: SINGULAIR 10 MG PO (21:32)
[2023-06-24 23:09] VITALS: BP 117/61
[2023-06-25] MEDS: MORPHINE SULFATE 2 MG IV ×3 (04:16→12:51)
[2023-06-25] MEDS: ROBITUSSIN AC 5 ML PO ×3 (04:18→12:47)
[2023-06-25 07:25] LABS: Glucose - Point of Care 99 mg/dl (70-99)
[2023-06-25 07:35] VITALS: BP 172/102
[2023-06-25] MEDS: XOPENEX 1.25 MG INHALANT SOLUTION INH ×3 (07:39→15:17)
[2023-06-25] MEDS: ATROVENT NEBULES 0.5 MG INH ×2 (07:39→11:37)
[2023-06-25] MEDS: SYMBICORT 160/4.5 MCG INHALER 2 PUFF INH (07:40)
[2023-06-25] MEDS: NOVOLOG FLEXPEN-LOW RESISTANCE SC ×2 (08:06→12:21)
[2023-06-25] MEDS: MYCOSTATIN ORAL SUSPENSION 5 ML PO ×2 (08:08→12:59)
[2023-06-25] MEDS: OCEAN, SALINE MIST 2 SPRAYS NASAL (08:08)
[2023-06-25] MEDS: PROTONIX 40 MG PO (08:08)
[2023-06-25] MEDS: ZANAFLEX 4 MG PO (08:09)
[2023-06-25] MEDS: ZITHROMAX 500 MG PO (08:09)
[2023-06-25] MEDS: DELTASONE 40 MG PO (08:09)
[2023-06-25] MEDS: ATARAX 25 MG PO (08:09)
[2023-06-25] MEDS: COMPAZINE 5 MG IV (08:09)
[2023-06-25] MEDS: LINZESS 290 MCG PO (08:09)
[2023-06-25] MEDS: MUCINEX 600 MG PO (08:09)
--- NOTE | 2023-06-25 08:45 | W.PN.PUL3 ---
Today's Communication / Plan
-
Prednisone 40 mg, taper slowly, decrease by 10 mg every 5 days
Continue GERD therapy
Continue outpatient Symbicort, Singulair. Discussed importance of compliance
Patient does have nebulizer, okay to use albuterol and Atrovent every 6 hours as needed
Recommend outpatient sleep evaluation
Close follow-up with pulmonary within 1 week postdischarge (Dr. Moise at [facility])
Left our information in case patient requires
Assessment
-
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
breath with dry cough ongoing for about 1 week. Patient tachycardic in the ER and tachypneic, with diffuse wheezing. CXR showed no acute cardiopulmonary pathology. Steroids and nebulized bronchodilators were started and she was admitted to the
hospitalist service. She also was started on azithromycin. She continues to be managed on the floor and pulmonary service now consulted for additional recommendations.
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
Impression:
#Acute asthmatic exacerbation (baseline moderate persistent asthma on Symbicort)
#Leukocytosis -likely reactive in the setting of steroids
#Acute on chronic rhinitis with nasal congestion/stuffiness leading to worsening SOB
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
#Obesity
#GERD
#Migraine headaches
#APS with Hx of PE on Xarelto
Plan:
Overall, patient has improved objectively and subjectively although still mild wheezing on exam
This is improved with pursed lip breathing
No use of accessory muscles
Per respiratory, ambulated without difficulty, 96% on room air
Moving forward
Continue with current steroid course, transition to 40 mg a day prednisone
Would pursue slow taper, decrease by 10 mg every 5 days
Reviewed importance of pursed lip breathing
Suspect shortness of breath is multifactorial
Continue with Symbicort, Atrovent nebulizer
Patient should resume her Symbicort, discussed importance of compliance, 2 puffs twice a day
Okay to use Atrovent at home nebulizer every 6 hours as needed
She will benefit from evaluating need for bump up of inhaler therapy, add on for transition to Trelegy
This will be deferred to her director of cardiac cath lab who she will be able to see within [address] [facility] (Dr. Moise)
Continue nystatin for thrush
Continue nasal regimen for rhinitis
Continue azithro given its anti-inflammatory effect - will give x 5 days, end 06/25
Recommend outpatient sleep apnea evaluation
DVT prophylaxis: Remains on Xarelto
GI prophylaxis: Pantoprazole, this should continue while on steroids
Reviewed with patient at length that her symptoms will slowly improve, but I do expect some wheeze, cough and some shortness of breath
Strongly recommend she contact her primary director of cardiac cath lab and see him within 1 week
Our information was left in chart if needed
Disposition efforts
Okay for discharge later today from pulmonary standpoint
Data:
CXR 06-21-2023: No active cardiopulmonary disease.
Subjective Data
-
Date of Service:
Date of Service: June 25, 2023
Chief Complaint: Pulmonary Follow Up
Subjective:
Patient feels somewhat improved today although still with cough, wheeze. Slept better through the night. Denies chest pain, nausea, abdominal pain. Presently on room air
Objective Data
Data Reviewed
Vital Signs / I&O / Oxygen:
Vital Signs
Temp Pulse Resp BP Pulse Ox
98.7 F 102 18 172/102 100
06/25/23 07:35 06/25/23 07:45 06/25/23 07:45 06/25/23 07:35 06/25/23 07:45
Intake and Output
06/24/23 06/25/23 06/26/23
06:59 06:59 06:59
Intake Total 2400 / 2400 2760 / 2760
Balance 2400 / 2400 2760 / 2760
SaO2 100
Physical Exam
General: Comfortable and Other (Large neck)
HEENT: Normocephalic, Anicteric and Thrush (Mild)
Cardiovascular: S1-S2, Regular Rhythm, Murmur (n) and Peripheral Edema (negative)
Respiratory: Wheeze (Mild expiratory wheezing throughout, improved with pursed lip breathing), Crackles (n), Rhonchi (n), Non-Labored Respirations and Stridor (negative)
GI: Soft, Non Distended (Obese), Non Tender and Normal Bowel Sounds
Neurology: Awake and Alert
Skin: Cyanosis (n), Jaundice (n) and Rash (n)
Labs/Micro/Reports
Lab Data
06/22/23 07:33
06/22/23 07:33
[2023-06-25 09:02] VITALS: O2SAT 95; O2SAT 96
[2023-06-25 12:04] LABS: Glucose - Point of Care 131 mg/dl (70-99)
[2023-06-25] MEDS: ATROVENT NEBULES INH (15:17)
--- NOTE | 2023-06-25 15:25 | W.DS.TRANS ---
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
-
Discharge Instructions:
Discharge Diagnosis/Procedures IMPRESSION:
Acute asthma exacerbation
Moderate persistent asthma by history.
Acute bronchitis suspected.
Conditions prior to admission:
Asthma as above
History of GBS syndrome with respiratory failure
(admitted to [facility] February 2023
. Treated with plasmapheresis).
Antiphospholipid syndrome with history of DVT
and PE.
Anticoagulation with Xarelto
Migraine headache
Obesity with BMI of 42
Diet Regular
Instructions:
Stand-Alone Forms:
Changes to Home Medications: Yes
Discharge Medications:
DC Medications w/original date entered in [employer]
cyanocobalamin (vitamin B-12) 1,000 mcg/mL injection solution 1,000 mcg IM QMONTH Supplement 06/21/23
eszopiclone 2 mg tablet (Lunesta) 2 mg PO HS Sleep 06/21/23
famotidine 40 mg tablet (Pepcid) 40 mg PO HS Gastrointestinal Issue 06/21/23
furosemide 20 mg tablet (Lasix) 20 mg PO DAILYPRN PRN with steriods 06/21/23
galcanezumab-gnlm 120 mg/mL subcutaneous syringe (Emgality) 120 mg SC QMONTH Headaches 06/21/23
hydroxyzine HCl 25 mg tablet 25 mg PO BID Mental Health/Anxiety 06/21/23
levalbuterol HCl 1.25 mg/3 mL solution for nebulization 1.25 mg inhalation R QIDPRN PRN sob 06/21/23
montelukast 10 mg tablet (Singulair) 10 mg PO HS Allergies 06/21/23
pantoprazole 40 mg tablet,delayed release (Protonix) 40 mg PO DAILY Gastrointestinal Issue 06/21/23
rivaroxaban 20 mg tablet (Xarelto) 20 mg PO QPM Blood Clot Prevention/Tx 06/21/23
tizanidine 4 mg tablet 4 mg PO BID Muscle Spasms 06/21/23
linaclotide 290 mcg capsule (Linzess) 290 mcg PO DAILY 06/24/23
budesonide-formoterol HFA 160 mcg-4.5 mcg/actuation aerosol inhaler (Symbicort) 2 puff inhalation R BID #10.2 grams 06/25/23
guaifenesin 600 mg tablet, extended release 12 hr 600 mg PO Q12 #60 tabs 06/25/23
nystatin 100,000 unit/mL oral suspension 5 ml PO QID #200 mL 06/25/23
prednisone 10 mg tablet 10 mg PO DAILY #50 tabs 06/25/23
Home Medication Changes
Steroid taper
Pending Results: No
--- NOTE | 2023-06-25 15:34 | CM ---
CM following re: d/c planning
Chart reviewed
Pt is medically stable for d/c
Pt will be discharged on prednisone taper
Follow-up with Pulm outpatient is advised within the next couple of weeks
Pt has remained stable on RA
Pt is functionally independent with no skilled needs identified
PLAN; d/c home no needs
[2023-06-25 15:35] VITALS: BP 176/105
== END 2023-06-25 15:53 | disposition home or self-care (01) | DRG 202 ==
LOC: 4 EAST ACU 17:48
PROVIDERS: ADMITTING PHYSICIAN Internal Medicine; CONSULT PHYSICIAN Internal Medicine Critical Care Medicine; EMERGENCY PHYSICIAN Emergency Medicine; FAMILY PHYSICIAN Family Medicine
DX: J45.41 Moderate persistent asthma with (acute) exacerbation (principal); D68.61 Antiphospholipid syndrome; G61.0 Guillain-Barre syndrome; Z68.41 Body mass index [BMI] 40.0-44.9, adult; J20.9 Acute bronchitis, unspecified; Z79.01 Long term (current) use of anticoagulants; Z86.711 Personal history of pulmonary embolism; Z86.718 Personal history of other venous thrombosis and embolism; E66.9 Obesity, unspecified; F41.9 Anxiety disorder, unspecified; Z98.2 Presence of cerebrospinal fluid drainage device; K21.9 Gastro-esophageal reflux disease without esophagitis
CPT/HCPCS: 71046; 80048; 82962; 83036; 84703; 85025; 94640; 94761; 99285

== ENCOUNTER → 2023-07-08 11:11 | Outpatient (REF) | payer BC, SELFPAY ==
[2023-07-08 15:54] LABS: Mumps Virus IgG Positive; Rubeola (Measles) IgG Positive; Varicella Zoster IgG (VZV) Positive
[2023-07-08 20:26] LABS: Rubella Positive
[2023-07-09 00:04] LABS: Hepatitis B Surface Antibody Indeterminate
[2023-07-10 16:26] LABS: Quantiferon Mitogen minus NIL 9.27 IU/mL; Quantiferon NIL 0.02 IU/mL; Quantiferon Plus TB1 minus NIL 0.05 IU/mL (0.00-0.34); Quantiferon Plus TB2 minus NIL 0.04 IU/mL (0.00-0.34); Quantiferon TB Gold Plus Negative (Negative)
== END ==
LOC: OHS 11:11
PROVIDERS: ATTENDING PHYSICIAN Nurse Practitioner Family
DX: Z23 Encounter for immunization (principal)
CPT/HCPCS: 36415; 86480; 86706; 86735; 86762; 86765; 86787

== ENCOUNTER 2023-10-11 22:06 | Inpatient (IN) | payer OTHER, SELFPAY ==
[2023-10-11 17:38] VITALS: BP 198/108
--- NOTE | 2023-10-11 19:39 | ED.GENMED ---
History of Present Illness
General
Chief Complaint: Back Pain
Source: patient
Exam Limitations: none
Time Seen by Provider: 10/11/23 19:10
Travel History
Have you had any contact with someone who has COVID-19?: No
Do you have any symptoms of coronavirus? Fever > 100 degrees, chills, cough, shortness of breath, sore throat, loss of taste or smell, muscle aches, or headache?: No
History of Present Illness
History of Present Illness:
This is a 38 year old female that comes in with c/o back pain for the past 4 weeks. States that she is allergic to NSAIDS to she can't take them. States that she did 40mg daily for 2 weeks and then she was put on a steroid taper and nothing is
helping. States that she has had nausea and diarrhea, chest pain for the past 2 days and some SOB but she states she has Asthma. States that she has a headache across her forehead and urinary burning. States that last night she was incontinent
twice. Denies any fever, chills, abd pain, vomiting, dizziness.
Past History
Past History
ED Past Medical History: Asthma, Psychiatric (Anxiety) and Other (Guillan-Barberton, Migraine, Demyelination Poly Neuropathy, PE/DVT, IBS, Anemia, )
ED Past Surgical History: Gynecological (Hysterectomy), Orthopedic (Screw right foot) and Other ([employer] shunt, )
Social History
Tobacco: Non-smoker
Alcohol: None
Personal: Single
Living: alone
Review of Systems
Review of Systems
All Other Systems: ROS reviewed and negative except as documented in HPI and ROS
Constitutional: Reports no symptoms; Denies fever or chills
EENT: Reports no symptoms
Respiratory: Reports trouble breathing; Denies cough
Cardiac: Reports chest pain (for 2 days comes and goes)
ABD/GI: Reports nausea and diarrhea; Denies abdominal pain or vomiting
: Reports dysuria; Denies frequency or urgency
Musculoskeletal: Reports back pain
Skin: Reports no symptoms
Neurological: Reports headache; Denies dizzy
Psychiatric: Reports no symptoms
Phy Exam
General Physical Exam
General Presentation: no apparent distress
General age: appears stated age
General Skin: warm and dry
General Habitus: normal
General Mental: alert
General Hydration: appears well hydrated
ENT Exam
ENT Exam: TM's normal, pharynx normal and neck supple
Eye Exam
Eye Exam: EOMI
Cardiovascular Exam
Cardiovascular Exam: regular rate/rhythm, no edema, no murmur and normal peripheral pulses
Pulmonary Exam
Pulmonary Exam: lungs clear, no respiratory distress, no rales, chest non tender, no crackles, no rhonchi, no wheezing and no cough
Gastrointestinal Exam
Gastrointestinal Exam: normal bowel sounds, soft, no organomegaly, no pulsatile mass, non distended, tender (Slight left sided tenderness with palpation) and other (Strong rectal tone)
Musculoskeletal Exam
Musculoskeletal Exam: full ROM, no edema and other (Tenderness over the spine from the base of the cervical neck down to the lumbar area. )
Skin Exam
Skin Exam: normal color, warm/dry, no rash and no petechia
Psychiatric Exam
Psychiatric Exam: normal mood/affect
Course
Orders/Labs/Results
Orders:
Orders
10/11/23 Dinner
Regular
At Your Request: Full Participation
10/11/23 19:38
Acetaminophen [Tylenol] 1,000 mg PO NOW STA
10/11/23 19:43
Electrocardiogram (*1) Urgent
Reason for Study: Chest Pain
EKG- Treatment ONCE
10/11/23 20:04
CRP [C-Reactive Protein] Urgent
Complete Blood Count/With Diff Urgent
Comprehensive Metabolic Panel Urgent
Sed Rate [Erythrocyte Sed Rate] Urgent
Troponin I Urgent
Urinalysis Reflex To Culture Urgent
Date Specimen was Collected: 10/11/23
Time Specimen was Collected: 19:50
10/11/23 21:15
HYDROmorphone [Dilaudid] 1 mg IV NOW STA
10/11/23 21:17
HYDROmorphone [Dilaudid] 1 mg IV NOW STA
10/11/23 21:38
Admit/Transfer Patient As Directed
Co-Sign Provider:
Level of Care: Inpatient admission
Assign to:: Medical/Surgical
Physician / Group: prince
Diagnosis: recurrent GBS
Reason for Hospitalization: recurrent GBS
Expected length of stay greater than two midnights?: Yes
ELOS- Estimated Length of Stay in days: 2
I certify the patient meets the requirements for IP care: Yes
10/11/23 21:39
Code Status As Directed
Resuscitation Status: Full Code
10/11/23 21:51
Bladder Scan As Directed
Follow Bladder Retention/Intermittent Cath Algorithm?: Yes
PRN if no void in __ hours: 6
Frequency: Per Retention Algorithm
If Bladder Scan Result >: 400
then:: Straight cath
10/11/23 21:52
Straight Cath As Directed
Frequency: Per Retention Algorithm
Additional Instructions: straight cath as needed per acute urinary retention algorithm for 24 hrs
Additional Instructions: for bladder scan greater than 400 mL
10/11/23 22:18
HYDROmorphone [Dilaudid] 0.5 mg IV Q4HPRN PRN
10/11/23 23:13
Albuterol [ProAIR HFA INHALER] 1 puff INH R Q4HPRN PRN
Famotidine [Pepcid] 40 mg PO HS
Levalbuterol [Xopenex 1.25 mg Inhalant Solution] 1.25 mg INH R QIDPRN PRN
Montelukast Sodium [Singulair] 10 mg PO HS
Ondansetron Injectable [Zofran] 4 mg IV Q6HPRN PRN
Promethazine [Phenergan] 25 mg PO [id number] PRN
Tizanidine [Zanaflex] 4 mg PO TID
10/11/23 23:13
MR Cervical Spine Without & W Routine
Comment:
Reason For Exam: guillan barre, headache, back pain
Recent pill cam endoscopy?: No
MR Lumbar W/o & With Contrast Routine
Comment:
Reason For Exam: incontinence, sciatica, GBS
Recent pill cam endoscopy?: No
MR Thoracic Spine W/o & With Routine
Comment:
Reason For Exam: guillan barre, headache, back pain
Recent pill cam endoscopy?: No
MRI Brain [MR Brain W/o & With Contrast] Routine
Comment:
Reason For Exam: guillan barre, headache, back pain
Recent pill cam endoscopy?: No
Activity As Directed
Activity Level: As Tolerated
Vital Signs As Directed
Frequency: Per unit guidelines
Xopenex Reason for Use As Directed
Reason for ordering Xopenex instead of Albuterol: tachy
DX Deep Vein Thrombosis Video Routine
10/11/23 23:17
Cyclobenzaprine HCl [Flexeril] 5 mg PO HSPRN PRN
10/12/23 06:00
Complete Blood Count/With Diff IN AM
Comprehensive Metabolic Panel IN AM
10/12/23 08:00
Budesonide/Formoterol 160/4.5 [Symbicort 160/4.5 Mcg Inhaler] 2 puff INH R BID
Cyanocobalamin 1,000 mcg IM Q30D
Furosemide [Lasix] 20 mg PO BID@0800,1200
Heparin 5,000 units SC Q12
HydrOXYZINE [Atarax] 50 mg PO BID
Pantoprazole [Protonix] 40 mg PO DAILY
10/12/23 22:00
Zolpidem Tartrate [Ambien] 10 mg PO HS
Abnormal Lab Results
10/11/23
20:04
WBC 14.2 H 10^3/uL
(4.8-10.8)
Hct 35.4 L %
(37.0-47.0)
MCV 76.6 L fL
(81.0-99.0)
MCH 26.8 L pg
(27.0-31.0)
RDW 14.7 H %
(11.5-14.5)
Plt Count 448 H 10^3/uL
(130-400)
Abs Immat Gran (auto) 0.1 H 10^3/uL
(0-0.05)
Absolute Neuts (auto) 8.3 H 10^3/uL
(1.4-6.5)
Absolute Lymphs (auto) 4.5 H 10^3/uL
(1.2-3.4)
Absolute Monos (auto) 0.7 H 10^3/uL
(0.1-0.6)
Immature Gran % 0.6 H %
(0-0.5)
10/11/23 20:04
10/11/23 20:04
Leukocytosis, Anemia. Plt slightly elevated. CRP normal at <5.0, Sed rate normal at 10, Troponin <0.012, Urine negative for infection.
Vital Signs
Initial and Last Documented VS:
Initial Vital Signs
Temp Pulse Resp BP Pulse Ox
98.8 F 117 20 198/108 100
10/11/23 17:38 10/11/23 17:38 10/11/23 17:38 10/11/23 17:38 10/11/23 17:38
Last Documented Vital Signs
Temp Pulse Resp BP Pulse Ox
98.6 F 94 15 154/93 98
10/11/23 23:20 10/11/23 23:20 10/11/23 22:45 10/11/23 23:20 10/11/23 23:20
MDM/Problems Addressed
Differential Diagnosis Includes:
Chronic back pain. Demyelination syndrome,
MDM/Problems Addressed:
This is a 38 year old female that comes in with c/o back pain for the past 4 weeks. States that she has done 2 rounds of steroids and nothing is helping. States that she also started with chest pain 2 days ago that comes and goes. States that she
also has urinary burning and was incont last night.
Will get labs. ECG, Urine
Attempted to get MRI due to patient symptoms. Unable to get tonight. Patient post residual void was 186. Explained to patient that her urine is negative. Will admit patient for further evaluation and possible MRI tomorrow. Hospitalist notified.
Chronic conditions affecting care:
Demyelination Poly Neuropathy,
Acute Exacerbation and/or Progression of Chronic Illness:
NA
*Pulse Oximetry
Patient hypoxic: no
*EKG
Interpreted by ED Provider?: Yes
*Ip/Mosaic Technician Interpretation
Rate: Ip/Mosaic Technician- N/A
*Critical Care Note
Total Time (30-74mins, 75-104mins- exclusive of procedures): Not Applicable
ED Attending Note
-
Portions of this chart may have been created with voice recognition software.� Occasional wrong word or��sound alike� substitutions may have occurred due to the inherent limitations of voice recognition software.
Discharge Plan
Departure
Patient Disposition: Admit
Date of Disposition: 10/11/23
Time of Disposition: 20:58
Admit to: Med/Surg
Presentation/result/management discussed w/ accepting MD/DO: Hospitalist
Patient with high blood pressure during this ER visit?: Yes
Condition: Good
Discharge Problem:
Back pain
Interventions
Interventions:
*Risk Screen - Suicide Last Done: 10/11/23 23:30
*General Assessment Last Done: 10/11/23 17:38
*Neglect/Abuse Screening Last Done: 10/11/23 17:38
*Nursing Disposition Last Done: 10/11/23 22:53
ED-Musculoskeletal Assessment Last Done: 10/11/23 20:35
Discharge Date and Time
Discharge Date/Time: 10/11/23 22:53
[2023-10-11] MEDS: TYLENOL 1000 MG PO (20:04)
[2023-10-11 20:17] LABS: % Basophils 1.2 % (0-2); % Eosinophils 2.7 % (0-6); % Immature Granulocytes 0.6 % (0-0.5); % Lymphocytes 31.9 % (20.5-51.1); % Monocytes 4.9 % (1.7-9.3); % Neutrophils 58.7 % (42.2-75.2); Absolute Basophils 0.2 10^3/uL (0-0.2); Absolute Eosinophils 0.4 10^3/uL (0-0.7); Absolute Immature Granulocytes 0.1 10^3/uL (0-0.05); Absolute Lymphocytes 4.5 10^3/uL (1.2-3.4); Absolute Monocytes 0.7 10^3/uL (0.1-0.6); Absolute Neutrophils 8.3 10^3/uL (1.4-6.5); Hematocrit 35.4 % (37.0-47.0); Hemoglobin 12.4 g/dL (12.0-16.0); Mean Corpuscular Hgb 26.8 pg (27.0-31.0); Mean Corpuscular Volume 76.6 fL (81.0-99.0); Mean Platelet Volume 9.5 fL (7.4-10.4); Nucleated Red Blood Cells % 0 %; Platelet Count 448 10^3/uL (130-400); Red Blood Cell Count 4.62 10^6/uL (4.20-5.40); Red Cell Dist. Width 14.7 % (11.5-14.5); White Blood Cell Count 14.2 10^3/uL (4.8-10.8)
[2023-10-11 20:18] LABS: Urine Albumin Negative (Neg - Trace); Urine Bilirubin Negative (Negative); Urine Character Clear (Clear); Urine Color Yellow; Urine Glucose Negative (Negative); Urine Ketone Negative (Negative); Urine Leukocyte Negative (Negative); Urine Nitrite Negative (Negative); Urine Occult Blood Negative (Negative); Urine Urobilinogen Negative (Neg - 1+); Urine pH 6.5 (5.0-9.0)
[2023-10-11 20:27] LABS: Erythrocyte Sed Rate 10 mm/hour (0-20)
[2023-10-11 20:41] LABS: Troponin I < 0.012 ng/ml
[2023-10-11 20:42] LABS: ALT (SGPT) 21 U/L (0-35); AST (SGOT) 26 U/L (14-36); Albumin 4.5 g/dl (3.5-5.0); Alkaline Phosphatase 59 U/L (38-126); Blood Urea Nitrogen 14 mg/dl (7-17); C-Reactive Protein < 5.00 mg/L (0.0-10.00); Calcium 9.5 mg/dl (8.4-10.2); Carbon Dioxide 24 mmol/L (22-30); Chloride 104 mmol/L (98-107); Glucose 94 mg/dl (70-99); Sodium 138 mmol/L (135-145); Total Bilirubin 0.6 mg/dl (0.2-1.3); Total Protein 7.3 g/dl (6.3-8.2); eGFR > 60.00
[2023-10-11] MEDS: DILAUDID 1 MG IV (21:20)
[2023-10-11 21:32] VITALS: BP 148/79
--- NOTE | 2023-10-11 21:49 | HPS.HSE ---
Family Physician
-
Family Physician: Nato Callejas Jr.
Chief Complaint
-
back pain
History of Present Illness
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
Xarelto, SVT, IBS, migraines, obesity, presenting with severe back pain starting in the mid back bilaterally and above for the past month. Pain also radiates down her right leg associated numbness but both of her legs have been weak. She also has
numbness in her right arm. She is also having severe headaches and neck pain. She has been having difficulty walking. She denies any falls.
Patient was treated with course of steroids and taper which she completed recently. It did not help with the pain. She has also been taking hydrocodone without improvement in pain.
She had a fever 103 last week and cough which was attributed to URI. Cough and fever have since resolved. She has been having chest pressure is worse with movement and breathing and she is not sure if this is pain radiating from her back. She had
2 episodes of urinary incontinence last night. Denies any anal or genital numbness.
She does have a history of IBS but since the pain started she has been having severe diarrhea. She is also been having nausea and vomiting.
Medical History
Past Medical History
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
Xarelto, SVT, IBS, migraines, obesity)
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
Social History
Tobacco: Non-smoker
Alcohol: None
Drug: None
Family History
Family History: Not pertinent
Allergies / Home Medications
Allergies reflects when Allergies were last updated in [employer].
Home Medications with original date entered in [employer]
Allergy/Medication List:
Allergies
Allergy/AdvReac Type Severity Reaction Status Date / Time
apixaban Allergy Unknown Verified 06/21/23 11:46
dog dander Allergy Unknown Verified 06/21/23 11:46
duloxetine Allergy Unknown Verified 06/21/23 11:46
iodine Allergy Unknown Verified 06/21/23 11:46
latex Allergy Unknown Verified 06/21/23 11:46
lidocaine Allergy Unknown Verified 06/21/23 11:37
menthol Allergy Unknown Verified 06/21/23 11:46
NSAIDS (Non-Steroidal Allergy Unknown Verified 06/21/23 11:37
Anti-Inflamma
sumatriptan Allergy Unknown Verified 06/21/23 11:46
Home Medications
cyanocobalamin (vitamin B-12) 1,000 mcg/mL injection solution 1,000 mcg IM QMONTH Supplement 06/21/23
eszopiclone 2 mg tablet (Lunesta) 4 mg PO HS Sleep 06/21/23
famotidine 40 mg tablet (Pepcid) 40 mg PO HS Gastrointestinal Issue 06/21/23
furosemide 20 mg tablet (Lasix) 20 mg PO BID@0800,1200 06/21/23
galcanezumab-gnlm 120 mg/mL subcutaneous syringe (Emgality) 120 mg SC QMONTH Headaches 06/21/23
hydroxyzine HCl 25 mg tablet 50 mg PO BID Mental Health/Anxiety 06/21/23
levalbuterol HCl 1.25 mg/3 mL solution for nebulization 1.25 mg inhalation R QIDPRN PRN sob 06/21/23
montelukast 10 mg tablet (Singulair) 10 mg PO HS Allergies 06/21/23
pantoprazole 40 mg tablet,delayed release (Protonix) 40 mg PO DAILY Gastrointestinal Issue 06/21/23
rivaroxaban 20 mg tablet (Xarelto) 20 mg PO QPM Blood Clot Prevention/Tx 06/21/23
tizanidine 4 mg tablet 4 mg PO TID Muscle Spasms 06/21/23
linaclotide 290 mcg capsule (Linzess) 290 mcg PO DAILY 06/24/23
budesonide-formoterol HFA 160 mcg-4.5 mcg/actuation aerosol inhaler (Symbicort) 2 puff inhalation R BID #10.2 grams 06/25/23
albuterol sulfate 90 mcg/actuation aerosol inhaler 1 puff inhalation R Q4 PRN sob/wheezing 10/11/23
cyclobenzaprine 5 mg tablet 5 mg PO HS PRN muscle spasms 10/11/23
hydrocodone 5 mg-acetaminophen 325 mg tablet 1 tab PO BID PRN severe pain 10/11/23
promethazine 25 mg tablet 25 mg PO Q12H PRN upset stomach 10/11/23
Review of Systems
-
History Source: Patient
A 12 point ROS was completed and negative except as noted: Yes
Constitutional: Reports No Symptoms
EENT: Reports No Symptoms
Respiratory: Reports No Symptoms
Cardiac: Reports No Symptoms
Abdomen/GI: Reports No Symptoms
: Reports No Symptoms
Musculoskeletal: Reports See HPI
Skin: Reports No Symptoms
Neurological: Reports See HPI
Endocrine: Reports No Symptoms
Hematologic/Lymphatic: Reports No Symptoms
Psych: Reports No Symptoms
Physical Exam
Vital Signs
Vital Signs
Temp Pulse Resp BP Pulse Ox
98.8 F 91 16 148/79 98
10/11/23 17:38 10/11/23 21:32 10/11/23 21:32 10/11/23 21:32 10/11/23 21:32
Physical Exam
General: Well Developed, Well Nourished and No Apparent Distress
HEENT: NormoCephalic, Moist mucous membranes and Atraumatic
Respiratory: Clear
Cardiac: S1/S2 and Regular Rhythm; No Murmur or Rub
GI: Soft, Non Tender, Non Distended and Normal Bowel Sounds; No Organomegaly
Rectal: Deferred by Provider
Musculoskeletal: No Clubbing, No Cyanosis and No Edema
Skin: No Rash
Neuro: Nonfocal/grossly intact
Laboratory Results
-
10/11/23 20:04
10/11/23 20:04
Laboratory Results
Total Bilirubin 0.6 mg/dl (0.2-1.3) 10/11/23 20:04
AST 26 U/L (14-36) 10/11/23 20:04
ALT 21 U/L (0-35) 10/11/23 20:04
Alkaline Phosphatase 59 U/L (38-126) 10/11/23 20:04
Troponin I < 0.012 ng/ml 10/11/23 20:04
Data Reviewed
-
Lab Data: Labs Reviewed by me
Old Records: Reviewed
Impression/Plan
-
IMPRESSION:
PLAN:
# Severe mid back pain with numbness of the right upper extremity right lower extremity/urinary incontinence concerning for recurrent GBS versus spinal cord compression
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
-Patient with urine incontinence last night
-Urinalysis negative
-Postvoid residual 186 cc, bladder scan protocol, UA negative
-CRP normal
-Hold Xarelto
-Check MRI brain, cervical, thoracic, lumbar spine
-Continue cyclobenzaprine
-Neurology consulted
# Chest pressure likely radiation of pain from back
-EKG shows normal sinus rhythm
-Check troponin
# Diarrhea likely secondary to IBS/autonomic dysfunction from GBS
# History of IBS
-Hold Linzess
Pseudotumor cerebri status post [employer]CH[employer]ICIAN shunt in 2011
Antiphospholipid syndrome
History of DVT/PE
-hold xarelto in case LP required
Asthma
-Continue inhalers
-Continue montelukast
Migraine history
-On Emgality
-Continue Lunesta
-On Emgality
Lower extremity edema
-Continue Lasix
Obesity
Full code
DVT prophylaxis�heparin
Regular diet
[2023-10-11 23:20] VITALS: BP 154/93
[2023-10-11 23:29] VITALS: BMI 40.0
[2023-10-11] MEDS: AMBIEN 10 MG PO (23:42)
[2023-10-11] MEDS: SINGULAIR 10 MG PO (23:42)
[2023-10-11] MEDS: PEPCID 40 MG PO (23:42)
[2023-10-11] MEDS: ZANAFLEX 4 MG PO (23:43)
[2023-10-12] MEDS: DILAUDID 0.5 MG IV ×3 (00:45→08:16)
[2023-10-12 02:19] LABS: Troponin I < 0.012 ng/ml
[2023-10-12] MEDS: ZOFRAN 4 MG IV ×3 (03:55→17:08)
[2023-10-12 05:12] LABS: % Basophils 1.3 % (0-2); % Eosinophils 3.8 % (0-6); % Immature Granulocytes 0.6 % (0-0.5); % Lymphocytes 33.6 % (20.5-51.1); % Monocytes 5.2 % (1.7-9.3); % Neutrophils 55.5 % (42.2-75.2); Absolute Basophils 0.2 10^3/uL (0-0.2); Absolute Eosinophils 0.4 10^3/uL (0-0.7); Absolute Immature Granulocytes 0.1 10^3/uL (0-0.05); Absolute Lymphocytes 3.8 10^3/uL (1.2-3.4); Absolute Monocytes 0.6 10^3/uL (0.1-0.6); Absolute Neutrophils 6.2 10^3/uL (1.4-6.5); Hematocrit 34.8 % (37.0-47.0); Hemoglobin 11.5 g/dL (12.0-16.0); Mean Corpuscular Hgb 26.3 pg (27.0-31.0); Mean Corpuscular Volume 79.6 fL (81.0-99.0); Mean Platelet Volume 9.7 fL (7.4-10.4); Nucleated Red Blood Cells % 0 %; Platelet Count 363 10^3/uL (130-400); Red Blood Cell Count 4.37 10^6/uL (4.20-5.40); Red Cell Dist. Width 14.5 % (11.5-14.5); White Blood Cell Count 11.2 10^3/uL (4.8-10.8)
[2023-10-12 05:42] LABS: ALT (SGPT) 20 U/L (0-35); AST (SGOT) 17 U/L (14-36); Albumin 3.8 g/dl (3.5-5.0); Alkaline Phosphatase 58 U/L (38-126); Blood Urea Nitrogen 14 mg/dl (7-17); Carbon Dioxide 24 mmol/L (22-30); Chloride 105 mmol/L (98-107); Estimated Creatinine Clearance 98 ml/min; Glucose 104 mg/dl (70-99); Potassium 3.9 mmol/L (3.5-5.1); Sodium 138 mmol/L (135-145); Total Bilirubin 0.3 mg/dl (0.2-1.3); Total Protein 6.4 g/dl (6.3-8.2); eGFR > 60.00
--- NOTE | 2023-10-12 07:12 | PTCARENOTE ---
38-year-old female arrived from ED at 23:20. 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
year, PE on Xarelto, SVT, IBS, migraines, obesity, presenting with severe back pain starting in the mid back bilaterally and above for the past month. Admitted as M/S pt EKG normal, Troponin x 2 negative. PT AOx3, bed in low position, call light
within reach of pt.
[2023-10-12 07:50] VITALS: BP 143/50
[2023-10-12] MEDS: PROTONIX 40 MG PO (08:18)
[2023-10-12] MEDS: ZANAFLEX 4 MG PO ×3 (08:18→21:29)
[2023-10-12] MEDS: ATARAX 50 MG PO ×2 (08:19→21:26)
[2023-10-12] MEDS: PHENERGAN 25 MG PO ×2 (08:19→21:47)
[2023-10-12] MEDS: LASIX 20 MG PO ×2 (08:19→11:47)
[2023-10-12] MEDS: HEPARIN 5000 UNITS SC ×2 (08:20→21:26)
[2023-10-12] MEDS: CYANOCOBALAMIN 1000 MCG IM (08:24)
--- NOTE | 2023-10-12 08:51 | W.PN.HOSP.TC ---
Today's Communication/Plan
-
Transfer to [facility]
Assessment / Plan
Assessment / Plan
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
PE on Xarelto, SVT, IBS, migraines, obesity, presenting with severe back pain starting in the mid back bilaterally and above for the past month. Pain also radiates down her right leg associated numbness but both of her legs have been weak. She
also has numbness in her right arm. She is also having severe headaches and neck pain. She has been having difficulty walking. She denies any falls.
Patient was treated with course of steroids and taper which she completed recently. It did not help with the pain. She has also been taking hydrocodone without improvement in pain.
# Severe mid back pain with numbness of the right upper extremity right lower extremity/urinary incontinence concerning for recurrent GBS versus spinal cord compression
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
-Patient with urine incontinence, Urinalysis negative
-CRP normal
-Hold Xarelto
-Check MRI brain, cervical, thoracic, lumbar spine
-Continue cyclobenzaprine
-Appreciate neurology input, recommend transfer to [facility] where her [employer] shunt was done to have [employer] shunt evaluated
-Accepting physician Dr. Larson, transfer to [facility] after insurance authorization has been obtained
# Chest pressure likely radiation of pain from back
-EKG shows normal sinus rhythm
-Troponins negative
# Diarrhea likely secondary to IBS/autonomic dysfunction from GBS
# History of IBS
-Hold Linzess
Pseudotumor cerebri status post [employer] shunt in 2011
Antiphospholipid syndrome
History of DVT/PE
-hold xarelto in case LP required
Asthma
-Continue inhalers
-Continue montelukast
Migraine history
-On Emgality
-Continue Lunesta
-On Emgality
Lower extremity edema
-Continue Lasix
Morbid obesity due to excess calories
-Affects all aspects of care
Full code
DVT prophylaxis�SQ heparin
Regular diet
Total time spent to see the patient on the floor, examine the patient, review data and lab results, discuss treatment plan with patient, nursing staff around 55 minutes.
Physical Exam
General: Morbidly obese, no acute distress
HEENT: Normocephalic, Atraumatic, EOMI, MMM
Respiratory: Clear to Auscultation bilaterally
Cardiac: Normal S1/S2, Regular Rate and Rhythm
GI: Soft, Nontender, Nondistended, Normal Bowel Sounds
Extremities: No Clubbing, Cyanosis, or Edema
Neuro:
Bilateral lower extremity weakness noted, right greater than left
Psych: Calm, Cooperative
Derm: No Visible lesions
Anticipated Discharge: Within 24 hours
Subjective/Interval History
-
Date of Service: October 12, 2023
Continues to have bilateral lower extremity weakness, right greater than left. Also has urinary incontinence. Denies stool incontinence. No fever, no vomiting.
Objective Data
-
Labs:
Laboratory Results
10/12/23
05:01
WBC 11.2 H
Hgb 11.5 L
Hct 34.8 L
Plt Count 363
Sodium 138
Potassium 3.9
Chloride 105
Carbon Dioxide 24
BUN 14
Creatinine 0.9
Glucose 104 H
Calcium 9.0
Total Bilirubin 0.3
AST 17
ALT 20
Alkaline Phosphatase 58
Vital Signs:
Vital Signs
Temp Pulse Resp BP Pulse Ox
97.8 F 85 16 143/50 100
10/12/23 07:50 10/12/23 07:50 10/12/23 07:50 10/12/23 08:19 10/12/23 07:50
[2023-10-12] MEDS: DILAUDID 1 MG IV ×5 (10:19→23:18)
[2023-10-12] MEDS: MIRALAX PO (10:21)
--- NOTE | 2023-10-12 10:38 | CM ---
Addendum entered by Lizett Zaman RN 10/12/23 16:47:
CM contacted [facility] regarding e-mail sent. Unable to open e-mail. MIS contacted. MIS offered for [facility] to contact them to assist with opening e-mail. They were not receptive to the idea. CM notified them
that the patient is in their system since she normally is seen at their facility. They responded her insurance has . fishing manager and RN notified of issue. voucher clerk will attempt to fax during the shift when hopefully fax traffic is less.
Addendum entered by Lizett Zaman RN 10/12/23 12:52:
Multiple attempts to fax insurance information to [facility] ([phone] and [phone]) from multiple fax machines. Sent via secure e-mail to [email or web address].
Original Note:
Reviewed the chart notes and spoke with the patient at the bedside. The patient resides with her spouse in a two story home with six steps to enter. The patient reports having a rolling walker, shower chair, and crutches in the home. The patient
confirmed her pharmacy of choice is the [facility]. The patient anticipates being transferred to [facility] today. CM continues to be available to patient/family and is monitoring medical plan for needs at discharge.
Plan: Transfer to [facility] for further treatment.
[2023-10-12] MEDS: SYMBICORT 160/4.5 MCG INHALER 2 PUFF INH ×2 (11:15→18:21)
[2023-10-12] MEDS: ROXICODONE 10 MG PO ×3 (11:47→21:26)
--- NOTE | 2023-10-12 14:01 | PTCARENOTE ---
Pt c/o increased pain, and numbness in b/l LE, as well as RUE. Increased numbness mainly in RLE and RUE reported by patient. MD notified. MD advised patient to limit movement and rest as it increased pain and numbness. No new orders at this time.
[2023-10-12 16:00] VITALS: BP 161/102
[2023-10-12] MEDS: SINGULAIR 10 MG PO (21:29)
[2023-10-12] MEDS: PEPCID 40 MG PO (21:29)
[2023-10-12] MEDS: AMBIEN 10 MG PO (21:29)
[2023-10-12 23:32] VITALS: BP 150/72
[2023-10-13] MEDS: DILAUDID 1 MG IV ×2 (03:43→07:18)
[2023-10-13] MEDS: ZOFRAN 4 MG IV ×3 (03:43→16:32)
[2023-10-13 07:06] VITALS: BP 129/86
--- NOTE | 2023-10-13 07:21 | W.PN.HOSP.TC ---
Today's Communication/Plan
-
Transfer to [facility], awaiting insurance precertification
Assessment / Plan
Assessment / Plan
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
PE on Xarelto, SVT, IBS, migraines, obesity, presenting with severe back pain starting in the mid back bilaterally and above for the past month. Pain also radiates down her right leg associated numbness but both of her legs have been weak. She
also has numbness in her right arm. She is also having severe headaches and neck pain. She has been having difficulty walking. She denies any falls.
Patient was treated with course of steroids and taper which she completed recently. It did not help with the pain. She has also been taking hydrocodone without improvement in pain.
# Severe mid back pain with numbness of the right upper extremity right lower extremity/urinary incontinence concerning for recurrent GBS versus spinal cord compression
# New onset bilateral lower extremity weakness, right greater than left
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
-Patient with urine incontinence, Urinalysis negative, CRP normal
-Hold Xarelto for possible LP. Continue cyclobenzaprine
-Unable to get MRI brain, cervical, thoracic, lumbar spine due to CP shunt
-Appreciate neurology input, recommend transfer to [facility] where her METHODS ANALYST DATA PROCESSING shunt was done to have METHODS ANALYST DATA PROCESSING shunt evaluated
-Neurology ordered CT head, CT lumbar spine, EMG, Lyrica 100 mg twice a day, obtain records from [facility]
-Accepting physician Dr. Larson, transfer to [facility] after insurance precertification has been obtained
#Headache
Status post Maxalt
# Chest pressure likely radiation of pain from back
-EKG shows normal sinus rhythm
-Troponins negative
# Constipation
# History of IBS
Resume Brigid laxatives
Pseudotumor cerebri status post METHODS ANALYST DATA PROCESSING shunt in 2011
Antiphospholipid syndrome
History of DVT/PE
-hold xarelto in case LP required
Asthma
-Continue inhalers
-Continue montelukast
Migraine history
-On Emgality
-Continue Lunesta
-On Emgality
Lower extremity edema
-Continue Lasix
Morbid obesity due to excess calories
-Affects all aspects of care
DVT prophylaxis�SQ heparin
Full Code
Total time spent to see the patient on the floor, examine the patient, review data and lab results, discuss treatment plan with patient, nursing staff around 50 minutes.
Physical Exam
General: Morbidly obese, no acute distress
HEENT: Normocephalic, Atraumatic, EOMI, MMM
Respiratory: Clear to Auscultation bilaterally
Cardiac: Normal S1/S2, Regular Rate and Rhythm
GI: Soft, Nontender, Nondistended, Normal Bowel Sounds
Extremities: No Clubbing, Cyanosis, or Edema
Neuro:
Bilateral lower extremity weakness noted, right greater than left
Psych: Calm, Cooperative
Derm: No Visible lesions
Anticipated Discharge: Within 24 hours
Subjective/Interval History
-
Date of Service: October 13, 2023
Patient reports her lower extremity weakness has worsened. She continues to have urinary incontinence mixed with difficulty urinating. No fever, no vomiting.
Objective Data
-
Vital Signs:
Vital Signs
Temp Pulse Resp BP Pulse Ox
97.5 F 89 16 150/72 96
10/12/23 23:32 10/12/23 23:32 10/12/23 23:32 10/12/23 23:32 10/13/23 02:40
I&O
10/12/23 10/13/23 10/14/23
06:59 06:59 06:59
Intake Total 960 / 960 720 / 720
Balance 960 / 960 720 / 720
[2023-10-13] MEDS: ZANAFLEX 4 MG PO ×2 (08:28→15:06)
[2023-10-13] MEDS: ATARAX 50 MG PO (08:28)
[2023-10-13] MEDS: MIRALAX 17 GRAMS PO (08:28)
[2023-10-13] MEDS: LASIX 20 MG PO ×2 (08:28→11:21)
[2023-10-13] MEDS: PROTONIX 40 MG PO (08:28)
[2023-10-13] MEDS: HEPARIN 5000 UNITS SC (08:31)
[2023-10-13] MEDS: DUPHALAC/CHRONULAC 20 GRAMS PO (08:39)
[2023-10-13] MEDS: SENOKOT-S 2 TABLET PO (08:39)
[2023-10-13] MEDS: SYMBICORT 160/4.5 MCG INHALER 2 PUFF INH ×2 (08:45→16:46)
[2023-10-13] MEDS: LINZESS 290 MCG PO (08:49)
[2023-10-13] MEDS: ROXICODONE 15 MG PO ×2 (08:53→14:49)
[2023-10-13] MEDS: DILAUDID 1.5 MG IV ×3 (10:30→17:19)
[2023-10-13] MEDS: PHENERGAN 25 MG PO (10:35)
--- NOTE | 2023-10-13 13:25 | CM ---
Call placed to [facility], spoke to Abena. I made Abena aware that we tried multiple fax numbers yesterday to send demographic information on this patient to them without success. She stated she was aware. I also stated that we
offered to send the information in a secured e-mail, however they were unable to open and declined offer to have someone from our Help Desk walk them through it. I stated we are trying to facilitate the transfer of this patient who had had a PRE WAVE ASSEMBLER
shunt placed by them to their hospital to have it evaluated. She then transferred me to her Director. I spoke to Kiya who took the demographic information over the phone , and confirmed it matched the information that they had in their system.
She stated that currently they are at capacity throughout their Network, once a bed becomes available she stated they will call the ammunition assembly i laborer on the [address] to make her aware that a bed is available. I asked if we needed to get an auth and she
stated no. She then asked me to confirm that we can not do neurosurgery of the brain here at , and I stated that is correct. Update to
--- NOTE | 2023-10-13 13:44 | CON.NEURO4 ---
Addendum entered and electronically signed by Esa Kendrick MD 10/13/23 15:30:
Studies reviewed.
I have personally examined the patient. I reviewed and agree with the LUTE PACKER OR APPLIER's Note.
My addenda:
Awake, alert, interactive. No acute distress.
Speech intact.
Follows 2-step requests w/o difficulty. No tremor.
Extra-ocular movements grossly intact.
Facial movements full and symmetric. Hearing intact to normal conversational volume.
Normal UE movements bilaterally.
Neck: full ROM.
Chest: no dyspnea
Heart: no JVD
Ext: (-) Clubbing, (-) Cyanosis, (-) Edema
IMPRESSIONS/RECOMMENDATIONS:
Abrupt onset of contract both thoracic back pain, subjective urinary incontinence, right greater than left lower extremity weakness which is variable on examination and reported history of diagnosed Guillain-Mello� syndrome
This is for the patient's current discomfort is unclear. 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 Unlikely that
the patient's history of ventriculoperitoneal shunt in 2011 is related to the patient symptomatology.
Continue to monitor urinary incontinence
Continue supportive care for the patient's back pain
Check CAT scan of head due to new onset of significant headache
Check CAT scan of lumbar spine due to the patient's intractable pain
Patient is unable to undergo MRI of brain in an expedient fashion due to her ventriculoperitoneal shunt
Continue rehabilitation evaluations
Check EMG studies
Obtain records from [facility] where the patient was previously evaluated and diagnosed with Guillain-Mello� syndrome
Initiate pregabalin 100 mg twice a day to assist with intractable discomfort, consider oxcarbazepine as alternative agent
D/W patient / nursing
Will continue to follow patient.
Original Note:
Documented by User: Ibis Almeida NP 10/13/23 15:11
Consultation - Neurology 4
-
CONSULTING PHYSICIAN: Esa Kendrick MD
REFERRING PHYSICIAN: Hospitalists/Dr. Reyes
DICTATED BY: MARIA DE JESUS Lawson
DATE/TIME OF REQUEST: 10/13/23
DATE/TIME OF CONSULTATION: 10/13/23
Reason for Consultation: Back pain
History of Present Illness:
This is a 38-year-old right-handed female who has presented to the hospital on 10/11/23 with report of back pain. Patient has a history of idiopathic intracranial hypertension (IIH) s/p VPS in 2011 at [facility]. She is followed by Neurology as an
outpatient, Dr. Lara, at [facility] for IIH, migraines, and more recently Guillain-Roxbury syndrome (GBS). There are no medical records available and all of this information is obtained from the patient. She reports that last December 2022 she
started having transient episodes of not being able to feel her legs and she would randomly collapse. In February 2023 she lost sensation from her waist down to her feet and fell down a flight of stairs. She was hospitalized at [facility] and reports
having a spinal tap that demonstrated a high protein level. She was intubated for two weeks and was treated with plasmapheresis. She is unsure if she had EMG testing. She reports doing extensive rehab after this and was just discharged from
outpatient PT 3-4 weeks ago. 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
5-6 weeks ago she reports developing severe mid-back pain that radiated down her RLE to her right calf. The pain is now in the back of her left thigh too. Her RUE intermittently has a tingling sensation as well. Around the onset of back pain her
lower extremities started feeling weak R>L. She had several weeks of diarrhea at the onset of her symptoms but that has subsided. She reports having a few episodes of urinary incontinence over the past week, and now today she feels like she can't
empty her bladder. The back pain is severe, 10/10 and wakes her up from sleep. it is worse with movement, sitting upright, crossing her arms. It is somewhat relieved lying completely still. She completed two Medrol dose packs prior to coming to the
ER with no relief of symptoms. She has a history of migraine headaches that improved greatly after her VPS was placed. She is taking Emgality and uses Ubrelvy PRN but reports headaches have been rare until 2-3 weeks ago. Her headache is now a 10/10
stabbing sensation on the right side of her head. She denies any photo/phonophobia, nausea, or vomiting. Her neck has been feeling stiff and today it feels sore. She denies any head/neck/back injuries. She reports having a 103F fever last week with
associated cough that has since resolved.
Past Medical History: Migraine, IIH, GBS, asthma, RLE DVT/PE (Xarelto), IBS, obesity, Lupus, antiphospholipid antibody syndrome, anxiety, insomnia
Surgical History: Right-sided VPS, screw in R foot, b/l toe nail removal
Family History: Reviewed and noncontributory.
Social History: Denies tobacco, alcohol, and illicit drug use.
Allergies: Apixaban, dog dander, duloxetine, iodine, latex, lidocaine, menthol, NSAIDS, sumatriptan.
Home Medications: See below.
Review of Symptoms:
Patient denies any fever, chest pain, shortness of breath, and GI symptoms.
�Per the HPI.�All systems are reviewed negative except above.
Physical Exam:
The patient is afebrile, abdomen is nondistended
Neurologic Examination:
The patient is awake, alert and oriented x 3. She is able to follow commands and answer questions appropriately. There is no aphasia or dysarthria. On cranial nerve assessment, pupils are 3 mm bilateral, round and reactive to light and
accommodation. Visual garcia are full. Extraocular movements are intact. Facial sensations are intact and bilaterally symmetrical, there is no facial asymmetry. Hearing is intact bilaterally to normal conversation volume. Tongue palate and uvula are
midline. Sternocleidomastoid strengths are full bilaterally. Motor strengths are 5/5 bilateral upper and 3/5 bilateral lower extremities on medical research [place] scale. There is no drift or involuntary movement noted. Deep tendon reflexes are 2+
bilateral upper and absent bilateral lower extremities and Babinski is absent bilaterally. Sensations of touch and temperature are intact and bilaterally symmetrical. Sensation of vibration is absent in the RUE. There was no extinction noted on
double simultaneous stimulation. Coordination is intact by finger to nose and heel to victor bilaterally.
Lab Results: See below.
Neuro Imaging: None.
Differentials for the patient's presentation include:
1. Severe back pain with some concern for structural spine abnormality or demyelinating process causing symptoms.
2. Intractable headache, likely migraine, low concern for VPS malfunction but possible.
Patient has the following risk factors for their symptoms: VPS, migraines, GBS
Recommendations:
-Patient needs transfer to a tertiary facility with Neurosurgery capabilitiies as soon as possible for MRI brain/spine imaging. Unable to have MRI at this facility due to VPS.
-CT head and thoracic/lumbar spine pending.
-EMG pending.
-Initiate pregabalin 100mg TID for pain.
-Provide rizatriptan 10mg x1 now for headache.
-Continue PT/OT evaluations.
-OAC for DVT prophylaxis.
-Will follow pending results.
Discussed patient care with: Dr. Kendrick, the patient
Vital Signs and Labs
-
Vital Signs and Labs:
Vital Signs
Temp Pulse Resp BP Pulse Ox
97.3 F 86 16 129/86 100
10/13/23 07:06 10/13/23 08:56 10/13/23 08:56 10/13/23 07:06 10/13/23 08:56
Lab Results
10/12/23 05:01
10/12/23 05:01
Sodium 138 mmol/L (135-145) 10/12/23 05:01
Potassium 3.9 mmol/L (3.5-5.1) 10/12/23 05:01
BUN 14 mg/dl (7-17) 10/12/23 05:01
Glucose 104 mg/dl (70-99) H 10/12/23 05:01
Calcium 9.0 mg/dl (8.4-10.2) 10/12/23 05:01
Medications
-
Active Medications
Generic Name Dose Route Start Last Admin
Trade Name Freq PRN Reason Stop Dose Admin
Albuterol 1 puff 10/11/23 23:13
Albuterol Hfa [90 Mcg/Dose] Inhaler INH
R Q4HPRN PRN
sob/wheezing
Protocol
Budesonide/Formoterol Fumarate 2 puff 10/12/23 08:00 10/13/23 08:45
Symbicort Inhaler 160/4.5 INH 11/09/23 07:59 2 puff
R BID MICHA Administration
Protocol
Cyanocobalamin 1,000 mcg 10/12/23 08:00 10/12/23 08:24
Cyanocobalamin (1000 Mcg/Ml) 1 Ml Vial IM 11/09/23 07:59 1,000 mcg
Q30D MICHA Administration
Cyclobenzaprine HCl 5 mg 10/11/23 23:17
Cyclobenzaprine 10 Mg Tablet PO 11/08/23 23:16
HSPRN PRN
muscle spasms
Famotidine 40 mg 10/11/23 23:13 10/12/23 21:29
Famotidine 40 Mg Tablet PO 11/08/23 23:12 40 mg
HS MICHA Administration
Furosemide 20 mg 10/12/23 08:00 10/13/23 11:21
Furosemide 20 Mg Tablet PO 11/09/23 07:59 20 mg
BID@0800,1200 MICHA Administration
Heparin Sodium 5,000 units 10/12/23 08:00 10/13/23 08:31
Heparin 5,000 Units/Ml 1 Ml Vial SC 11/09/23 07:59 5,000 units
Q12 MICHA Administration
Hydromorphone HCl 1.5 mg 10/13/23 08:25 10/13/23 13:35
Hydromorphone 1 Mg/Ml Carpuject IV 10/26/23 09:37 1.5 mg
Q3HPRN PRN Administration
severe pain
Hydroxyzine HCl 50 mg 10/12/23 08:00 10/13/23 08:28
Hydroxyzine 25 Mg Tablet PO 11/09/23 07:59 50 mg
BID MICHA Administration
Lactulose 20 grams 10/13/23 09:00 10/13/23 08:39
Lactulose Solution (20 Grams/30 Ml) 30 Ml Cup PO 11/10/23 08:59 20 grams
BID IMCHA Administration
Levalbuterol HCl 1.25 mg 10/11/23 23:13
Levalbuterol 1.25 Mg/3 Ml Ampul INH
R QIDPRN PRN
sob
Protocol
Linaclotide 290 mcg 10/13/23 09:00 10/13/23 08:49
Linaclotide 290 Mcg Capsule PO 11/10/23 08:59 290 mcg
DAILY MICHA Administration
Montelukast Sodium 10 mg 10/11/23 23:13 10/12/23 21:29
Montelukast Sodium 10 Mg Tablet PO 11/08/23 23:12 10 mg
HS MICHA Administration
Naloxone HCl 0.4 mg 10/13/23 08:23
Naloxone (0.4 Mg/Ml) 1 Ml Injection IV 11/10/23 08:22
ONCE PRN PRN
overdose
Ondansetron HCl 4 mg 10/11/23 23:13 10/13/23 10:30
Ondansetron 4 Mg/2 Ml Vial IV 11/08/23 23:12 4 mg
Q6HPRN PRN Administration
nausea and vomiting
Oxycodone HCl 15 mg 10/13/23 08:42 10/13/23 08:53
Oxycodone 15 Mg Regular Release Tablet PO 10/27/23 08:41 15 mg
Q4HPRN PRN Administration
moderate pain
Pantoprazole Sodium 40 mg 10/12/23 08:00 10/13/23 08:28
Pantoprazole 40 Mg Delayed Release Tablet PO 11/09/23 07:59 40 mg
DAILY MICHA Administration
Polyethylene Glycol 17 grams 10/12/23 10:00 10/13/23 08:28
Polyethylene Glycol Powder 17 Grams Packet PO 11/09/23 09:59 17 grams
DAILY MICHA Administration
Pregabalin 100 mg 10/13/23 16:00
Pregabalin 100 Mg Capsule PO 11/10/23 15:59
TID MICHA
Promethazine HCl 25 mg 10/11/23 23:13 10/13/23 10:35
Promethazine 25 Mg Tablet PO 11/08/23 23:12 25 mg
[id number] PRN Administration
upset stomach
Senna/Docusate Sodium 2 tablet 10/13/23 09:00 10/13/23 08:39
Docusate W/Senna (Cinda-Colace) Tablet PO 11/10/23 08:59 2 tablet
BID MICHA Administration
Sodium Chloride 0 flush 10/11/23 23:00
Sodium Chloride 0.9% (Flush) Syringe IV 11/08/23 22:59
PER PROTOCOL MICHA
Tizanidine HCl 4 mg 10/11/23 23:13 10/13/23 08:28
Tizanidine 4 Mg Tablet PO 11/08/23 23:12 4 mg
TID MICHA Administration
Zolpidem Tartrate 10 mg 10/11/23 23:00 10/12/23 21:29
Zolpidem Tartrate 10 Mg Tablet PO 11/08/23 22:59 10 mg
HS MICHA Administration
Home Medications
�Medication �Instructions �Recorded
cyanocobalamin (vitamin B-12) 1,000 mcg IM QMONTH Supplement 06/21/23
1,000 mcg/mL injection solution
eszopiclone 2 mg tablet (Lunesta) 4 mg PO HS Sleep 06/21/23
famotidine 40 mg tablet (Pepcid) 40 mg PO HS Gastrointestinal Issue 06/21/23
furosemide 20 mg tablet (Lasix) 20 mg PO BID@0800,1200 Fluid 06/21/23
Retention/Swelling
galcanezumab-gnlm 120 mg/mL 120 mg SC QMONTH Headaches 06/21/23
subcutaneous syringe (Emgality)
hydroxyzine HCl 25 mg tablet 50 mg PO BID Mental Health/Anxiety 06/21/23
levalbuterol HCl 1.25 mg/3 mL 1.25 mg inhalation R QIDPRN PRN sob 06/21/23
solution for nebulization
montelukast 10 mg tablet 10 mg PO HS Allergies 06/21/23
(Singulair)
pantoprazole 40 mg tablet,delayed 40 mg PO DAILY Gastrointestinal 06/21/23
release (Protonix) Issue
rivaroxaban 20 mg tablet (Xarelto) 20 mg PO QPM Blood Clot 06/21/23
Prevention/Tx
tizanidine 4 mg tablet 4 mg PO TID Muscle Spasms 06/21/23
linaclotide 290 mcg capsule 290 mcg PO DAILY DIARRHEA 06/24/23
(Linzess)
budesonide-formoterol HFA 160 2 puff inhalation R BID #10.2 grams 06/25/23
mcg-4.5 mcg/actuation aerosol
inhaler (Symbicort)
albuterol sulfate 90 mcg/actuation 1 puff inhalation R Q4 PRN 10/11/23
aerosol inhaler sob/wheezing
cyclobenzaprine 5 mg tablet 5 mg PO HS PRN muscle spasms 10/11/23
hydrocodone 5 mg-acetaminophen 325 1 tab PO BID PRN severe pain 10/11/23
mg tablet
promethazine 25 mg tablet 25 mg PO Q12H PRN upset stomach 10/11/23

Documented by User: Esa Kendrick MD 10/13/23 15:14
Consultation - Neurology 4
-
CONSULTING PHYSICIAN: Esa Kendrick MD
REFERRING PHYSICIAN: Hospitalists/Dr. Reyes
DICTATED BY: MARIA DE JESUS Lawson
DATE/TIME OF REQUEST: 10/13/23
DATE/TIME OF CONSULTATION: 10/13/23
Reason for Consultation: Back pain
History of Present Illness:
This is a 38-year-old right-handed female who has presented to the hospital on 10/11/23 with report of back pain. Patient has a history of idiopathic intracranial hypertension (IIH) s/p VPS in 2011 at [facility]. She is followed by Neurology as an
outpatient, Dr. Lara, at [facility] for IIH, migraines, and more recently Guillain-Roxbury syndrome (GBS). There are no medical records available and all of this information is obtained from the patient. She reports that last December 2022 she
started having transient episodes of not being able to feel her legs and she would randomly collapse. In February 2023 she lost sensation from her waist down to her feet and fell down a flight of stairs. She was hospitalized at [facility] and reports
having a spinal tap that demonstrated a high protein level. She was intubated for two weeks and was treated with plasmapheresis. She is unsure if she had EMG testing. She reports doing extensive rehab after this and was just discharged from
outpatient PT 3-4 weeks ago. 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
5-6 weeks ago she reports developing severe mid-back pain that radiated down her RLE to her right calf. The pain is now in the back of her left thigh too. Her RUE intermittently has a tingling sensation as well. Around the onset of back pain her
lower extremities started feeling weak R>L. She had several weeks of diarrhea at the onset of her symptoms but that has subsided. She reports having a few episodes of urinary incontinence over the past week, and now today she feels like she can't
empty her bladder. The back pain is severe, 10/10 and wakes her up from sleep. it is worse with movement, sitting upright, crossing her arms. It is somewhat relieved lying completely still. She completed two Medrol dose packs prior to coming to the
ER with no relief of symptoms. She has a history of migraine headaches that improved greatly after her VPS was placed. She is taking Emgality and uses Ubrelvy PRN but reports headaches have been rare until 2-3 weeks ago. Her headache is now a 10/10
stabbing sensation on the right side of her head. She denies any photo/phonophobia, nausea, or vomiting. Her neck has been feeling stiff and today it feels sore. She denies any head/neck/back injuries. She reports having a 103F fever last week with
associated cough that has since resolved.
Past Medical History: Migraine, IIH, GBS, asthma, RLE DVT/PE (Xarelto), IBS, obesity, Lupus, antiphospholipid antibody syndrome, anxiety, insomnia
Surgical History: Right-sided VPS, screw in R foot, b/l toe nail removal
Family History: Reviewed and noncontributory.
Social History: Denies tobacco, alcohol, and illicit drug use.
Allergies: Apixaban, dog dander, duloxetine, iodine, latex, lidocaine, menthol, NSAIDS, sumatriptan.
Home Medications: See below.
Review of Symptoms:
Patient denies any fever, chest pain, shortness of breath, and GI symptoms.
�Per the HPI.�All systems are reviewed negative except above.
Physical Exam:
The patient is afebrile, abdomen is nondistended
Neurologic Examination:
The patient is awake, alert and oriented x 3. She is able to follow commands and answer questions appropriately. There is no aphasia or dysarthria. On cranial nerve assessment, pupils are 3 mm bilateral, round and reactive to light and
accommodation. Visual garcia are full. Extraocular movements are intact. Facial sensations are intact and bilaterally symmetrical, there is no facial asymmetry. Hearing is intact bilaterally to normal conversation volume. Tongue palate and uvula are
midline. Sternocleidomastoid strengths are full bilaterally. Motor strengths are 5/5 bilateral upper and 3/5 bilateral lower extremities on medical research [place] scale. There is no drift or involuntary movement noted. Deep tendon reflexes are 2+
bilateral upper and absent bilateral lower extremities and Babinski is absent bilaterally. Sensations of touch and temperature are intact and bilaterally symmetrical. Sensation of vibration is absent in the RUE. There was no extinction noted on
double simultaneous stimulation. Coordination is intact by finger to nose and heel to victor bilaterally.
Lab Results: See below.
Neuro Imaging: None.
Differentials for the patient's presentation include:
1. Severe back pain with some concern for structural spine abnormality or demyelinating process causing symptoms.
2. Intractable headache, likely migraine, low concern for VPS malfunction but possible.
Patient has the following risk factors for their symptoms: VPS, migraines, GBS
Recommendations:
-Patient needs transfer to a tertiary facility with Neurosurgery capabilitiies as soon as possible for MRI brain/spine imaging. Unable to have MRI at this facility due to VPS.
-CT head and thoracic/lumbar spine pending.
-EMG pending.
-Initiate pregabalin 100mg TID for pain.
-Provide rizatriptan 10mg x1 now for headache.
-Continue PT/OT evaluations.
-OAC for DVT prophylaxis.
-Will follow pending results.
Discussed patient care with: Dr. Kendrick, the patient
[2023-10-13] MEDS: LYRICA 100 MG PO (15:06)
[2023-10-13] MEDS: MAXALT MLT (ORALLY DISINTEGRATING) 10 MG PO (15:06)
[2023-10-13 15:34] VITALS: BP 151/82
--- NOTE | 2023-10-13 15:36 | W.DCSUMMARY ---
Discharge Summary
Discharge Data
Date of Admission: 10/11/23
Date of Discharge: 10/13/23
-
Pending Results: No
Hospital Course
Discharge diagnosis:
Severe mid back pain
Right upper extremity weakness
Bilateral lower extremity weakness, right greater than left
Urinary incontinence
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
Headache
Neck pain
Chest pressure
Constipation
Pseudotumor cerebri status post shunt in 2011
Antiphospholipid syndrome
History of deep vein thrombosis/pulmonary embolism
Asthma
History of migraines
Lower extremity edema
Obesity due to excess calories
Consults: Neurology
Hospital course:
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
presented with worsening neck pain, back pain, headache. Associated symptoms include bilateral lower extremity weakness, right upper extremity numbness, and urinary incontinence. Patient was seen in conjunction with neurology, who recommended
transfer to [facility] where she had her INNER TUBE INSERTER shunt done. MRI studies were unable to be obtained secondary to her INNER TUBE INSERTER shunt.
The patient was treated with IV Dilaudid, oral oxycodone, Maxalt. Neurology started her on Lyrica 100 mg twice a day. She did complain of chest pressure, likely radiation from her back pain. Her troponins were negative, EKG nonischemic.
Her Xarelto was held in case she needed a lumbar puncture. She received subcu heparin for DVT prophylaxis.
She was accepted by Dr. Larson, and transferred to [facility] in stable condition.
Disposition: Transfer to [facility]
Discharge planning: Required 60 minutes
Discharge Plan
-
Patient Disposition: Acute Care Hospital
Condition: Fair
Discharge Orders:
Discharge Patient (As Directed); Ordered 10/12/23
Ordered By: Galo Reyes
Discharge Date and Time
Discharge Date/Time: 10/13/23 19:03
Print Language: GERMAN
[2023-10-13] MEDS: ProAIR HFA INHALER 1 PUFF INH (16:46)
== END 2023-10-13 19:03 | disposition short-term general hospital (02) | DRG 552 ==
LOC: 2 SOUTH 22:06
PROVIDERS: Clinical Nurse Specialist Family Health; ADMITTING PHYSICIAN Hospitalist; ATTENDING PHYSICIAN Family Medicine; CONSULT PHYSICIAN Psychiatry & Neurology Neurology; EMERGENCY PHYSICIAN Emergency Medicine; FAMILY PHYSICIAN Family Medicine
DX: M54.6 Pain in thoracic spine (principal); G61.81 Chronic inflammatory demyelinating polyneuritis; D68.61 Antiphospholipid syndrome; Z68.41 Body mass index [BMI] 40.0-44.9, adult; M54.31 Sciatica, right side; R32 Unspecified urinary incontinence; R07.89 Other chest pain; K58.0 Irritable bowel syndrome with diarrhea; G93.2 Benign intracranial hypertension; J45.998 Other asthma; R53.1 Weakness; E66.09 Other obesity due to excess calories; Z88.6 Allergy status to analgesic agent; Z86.711 Personal history of pulmonary embolism; Z86.718 Personal history of other venous thrombosis and embolism; Z98.2 Presence of cerebrospinal fluid drainage device
CPT/HCPCS: 80053; 81003; 84484; 85025; 85652; 86140; 93005; 94640; 96374; 99285

== ENCOUNTER 2024-05-17 13:42 | Emergency (ER) | payer OTHER, SELFPAY ==
[2024-05-17 14:08] VITALS: BP 193/88
[2024-05-17 15:09] LABS: COVID-19 Antigen Negative (Negative)
--- NOTE | 2024-05-17 16:18 | ED.GENMED ---
History of Present Illness
General
Chief Complaint: Cold/Flu/URI Symptoms
Time Seen by Provider: 05/17/24 16:05
History of Present Illness
History of Present Illness:
Patient is a 38-year-old female presenting to the emergency department with URI symptoms. Patient states for the past few days she has been having fever sore throat cough body aches ear congestion. She is been getting chest pain with the cough.
She is also been nauseous with some vomiting. She also feels of her asthma has been flaring up. She has been taking her inhaler and nebulizer without any relief. She has been admitted for her asthma in the past before. Never been intubated. 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 She is compliant with her Xarelto. Patient states that her TORPEDO MAN shunt was placed over 10 years ago. She has not had any complications and
no adjustments with it. She denies any head fullness vision changes.
Past History
Past History
ED Past Medical History: Asthma, Psychiatric (Anxiety) and Other (Guillan-Hanover, Migraine, Demyelination Poly Neuropathy, PE/DVT, IBS, Anemia, )
ED Past Surgical History: Gynecological (Hysterectomy), Orthopedic (Screw right foot) and Other (TORPEDO MAN shunt, )
Social History
Tobacco: Non-smoker
Alcohol: None
Personal: Single
Living: alone
Phy Exam
Physical Exam
Physical Exam:
GENERAL: in no acute distress
HEENT: normocephalic, extraocular movements intact, dry oral mucosa, posterior oropharynx is erythematous with no significant tonsillar enlargement or exudates. Uvula is midline
NECK: normal inspection
RESPIRATORY: no respiratory distress, minimal air movement bilaterally with occasional wheeze
CARDIOVASCULAR: regular rate and rhythm
ABDOMEN/: soft, non-distended, left lower quadrant tenderness to palpation, no rebound or guarding
EXTREMITIES: non-tender, no edema/swelling
NEUROLOGIC: awake and alert, moves all extremities
SKIN: warm
Course
Orders/Labs/Results
Orders:
Orders
05/17/24 13:42
Electrocardiogram (*1) Urgent
Reason for Study: Chest Pain
EKG- Treatment ONCE
05/17/24 14:09
EKG [Electrocardiogram (*1)] Urgent
Reason for Study: Chest Pain
05/17/24 14:10
EKG- Treatment ONCE
05/17/24 14:32
COVID-19 Antigen Urgent
Source: Nasal Swab
Influenza A+B Rapid Molecular Urgent
NIRAJ Source: Nasal Swab
Specimen Description:
05/17/24 16:06
CR Chest - 2 Views Urgent
Comment:
Reason For Exam: cough
05/17/24 16:15
CT Abd/pelvis W Iv Cont Urgent
Comment:
Reason For Exam: llq pain
Dexamethasone Sod Phosphate [Decadron] 8 mg IV NOW STA
Ipratropium/Albuterol Sulfate [Duoneb] 3 ml INH R NOW STA
05/17/24 16:17
0.9% Sodium Chloride 1000 ml [Nss] 1,000 ml IV BOLUS
05/17/24 16:25
Acetaminophen [Tylenol] 1,000 mg PO NOW STA
05/17/24 16:34
Promethazine [Phenergan] 25 mg IM NOW STA
05/17/24 16:45
Diphenhydramine [Benadryl] 50 mg IV NOW STA
Hydrocortisone Sod Succinate [Solu-Cortef] 200 mg IV NOW STA
05/17/24 17:15
Promethazine [Phenergan] 6.25 mg 0.9% Sodium Chloride 50 ml [Nss] 50 ml IV NOW
05/17/24 17:19
Basic Metabolic Panel Urgent
Complete Blood Count/With Diff Urgent
05/17/24 17:56
Potassium Urgent
05/17/24 18:17
Acetaminophen 1000MG/100Ml [Ofirmev] 1,000 mg in 100 ml .ROUTE .STK-MED
05/17/24 18:23
Acetaminophen 1000MG/100Ml [Ofirmev] 1,000 mg IV NOW STA
05/17/24 19:41
Metoclopramide [Reglan] 10 mg IV NOW STA
05/17/24 19:51
Lactic Acid Q4H
Comment: CANCEL 2nd LACTIC ACID IF 1st LACTIC ACID IS LESS THAN 2
05/17/24 20:49
Urinalysis Reflex To Culture Urgent
Date Specimen was Collected: 05/17/24
Time Specimen was Collected: 20:45
Abnormal Lab Results
05/17/24
17:19
WBC 11.0 H 10^3/uL
(4.8-10.8)
MCV 80.6 L fL
(81.0-99.0)
MPV 10.8 H fL
(7.4-10.4)
Absolute Neuts (auto) 9.7 H 10^3/uL
(1.4-6.5)
Absolute Lymphs (auto) 0.4 L 10^3/uL
(1.2-3.4)
Absolute Monos (auto) 0.8 H 10^3/uL
(0.1-0.6)
Neutrophils % 87.4 H %
(42.2-75.2)
Lymphocytes % 3.7 L %
(20.5-51.1)
Carbon Dioxide 15 L mmol/L
(22-30)
05/17/24 17:19
05/17/24 17:56
Vital Signs
Initial and Last Documented VS:
Initial Vital Signs
Temp Pulse Resp Pulse Ox
100.5 F H 111 20 97
05/17/24 14:05 05/17/24 14:05 05/17/24 14:05 05/17/24 14:05
Last Documented Vital Signs
Temp Pulse Resp BP Pulse Ox
98.1 F 92 17 121/98 98
05/17/24 18:58 05/17/24 20:45 05/17/24 20:45 05/17/24 20:43 05/17/24 19:30
MDM/Problems Addressed
Differential Diagnosis Includes:
Patient is a 38-year-old female with history of GBS, pseudotumor cerebri with TORPEDO MAN shunt, PE on Xarelto, asthma presenting to the emergency department with fever cough sore throat body aches as well as nausea vomiting. Patient is febrile here. On
exam patient does have minimal air movement bilaterally and does have tenderness in her left lower quadrant. Differential diagnosis of COVID flu diverticulitis pneumonia asthma exacerbation. Will check blood work respiratory swabs give fluids as
well as antiemetics and pain control. Will give nebulizer treatment as well as steroids.
*Critical Care Note
Total Time (30-74mins, 75-104mins- exclusive of procedures): Not Applicable
Update Note
Update Note:
On reevaluation patient with some difficulty tolerating p.o. Will trial different antiemetic.
Blood work does show anion gap acidosis. Will add on lactate and urine to evaluate for ketones. She is receiving IV fluids. Otherwise CBC is slightly elevated. Patient does feel much better after receiving the nebulizer treatment.
Chest x-ray per my interpretation with no acute abnormality. CT scan with no acute abnormality. COVID and flu is negative. Her lactate is normal. Patient has not been able to tolerate p.o. She is feeling much better and face timing her friend.
I did discuss observation given the metabolic acidosis however patient would prefer to go home. She does have good follow-up patient is very well-appearing. Will discharge home with prednisone for the asthma exacerbation as well as Zofran as
needed for the vomiting. Strict return precautions given. Patient advised to follow with her PCP to get repeat blood work as well to make sure her bicarb has normalized.
ED Attending Note
-
Portions of this chart may have been created with voice recognition software.� Occasional wrong word or��sound alike� substitutions may have occurred due to the inherent limitations of voice recognition software.
Discharge Plan
Departure
Patient Disposition: Home (Routine Discharge)
Date of Disposition: 05/17/24
Time of Disposition: 21:26
Patient with high blood pressure during this ER visit?: Yes
Discharge Problem:
Viral illness, Asthma exacerbation
Instructions: Viral Syndrome (DC)
Prescriptions:
New
ondansetron 4 mg tablet,disintegrating
4 mg PO Q8H PRN (Reason: nausea and vomiting) 2 Days Qty: 6 0RF
prednisone 50 mg tablet
50 mg PO DAILY Qty: 5 0RF
No Action
tizanidine 4 mg Tablet
4 mg PO TID
famotidine [Pepcid] 40 mg Tablet
40 mg PO HS
pantoprazole [Protonix] 40 mg Tablet,Delayed Release (Dr/Ec)
40 mg PO DAILY
cyanocobalamin (vitamin B-12) 1,000 mcg/mL Solution
1,000 mcg IM QMONTH
montelukast [Singulair] 10 mg Tablet
10 mg PO HS
hydroxyzine HCl 25 mg Tablet
50 mg PO BID
furosemide [Lasix] 20 mg Tablet
20 mg PO BID@0800,1200
levalbuterol HCl 1.25 mg/3 mL solution for nebulization
1.25 mg INHALATION R QIDPRN PRN (Reason: sob)
eszopiclone [Lunesta] 2 mg Tablet
4 mg PO HS
Patient Comments:
10/11/2023: last filled 09/29/23, 15 tabs for 25 days from [facility]
Xarelto 20 mg Tablet
20 mg PO QPM
Emgality Syringe 120 mg/mL Syringe
120 mg SC QMONTH
Linzess 290 mcg Capsule
290 mcg PO DAILY
budesonide-formoterol [Symbicort] 160-4.5 mcg/actuation Hfa Aerosol Inhaler
2 puff inhalation R BID Qty: 10.2 0RF
hydrocodone-acetaminophen 5-325 mg tablet
1 tab PO BID PRN (Reason: severe pain)
Patient Comments:
10/11/2023: last filled 10/06/23, 10 tabs for 5 days from [facility]
promethazine 25 mg tablet
25 mg PO Q12H PRN (Reason: upset stomach)
albuterol sulfate 90 mcg/actuation HFA aerosol inhaler
1 puff INHALATION R Q4 PRN (Reason: sob/wheezing)
cyclobenzaprine 5 mg tablet
5 mg PO HS PRN (Reason: muscle spasms)
Referrals:
Nato Callejas Jr., DO [Family Provider] -
Activity Restrictions/Additional Instructions:
You were seen in the Emergency Department today for URI symptoms as well as vomiting and an asthma exacerbation.. While you were here we performed blood work, which was reassuring. Please make sure you have repeat blood work drawn to follow-up with
your PCP to have your bicarb level rechecked. Please take prednisone as prescribed. I did prescribe you Zofran which is to help with the nausea vomiting as needed.
We would like for you to follow up with your primary care physician for further evaluation. If you experience fever, worsening of your symptoms, or develop any other new or concerning symptoms, please return to the Emergency Department immediately.
Please see the attached sheet for additional information.
Thank you for choosing us for your care!
Interventions
Interventions:
ED- Fall Risk Assessment Last Done: 05/17/24 18:01
*ED COVID-19 Vaccine History Last Done: 05/17/24 14:08
ED- Pulmonary Assessment Last Done: 05/17/24 18:01
Discharge Date and Time
Print Language: ICELANDIC
[2024-05-17] MEDS: DUONEB 3 ML INH (16:35)
[2024-05-17] MEDS: NSS 1000 IV (17:05)
[2024-05-17] MEDS: SOLU-CORTEF 200 MG IV (17:07)
[2024-05-17] MEDS: BENADRYL 50 MG IV (17:07)
[2024-05-17] MEDS: PHENERGAN 25 MG IM (17:16)
[2024-05-17 17:25] LABS: % Basophils 0.7 % (0-2); % Eosinophils 0.6 % (0-6); % Immature Granulocytes 0.4 % (0-0.5); % Lymphocytes 3.7 % (20.5-51.1); % Monocytes 7.2 % (1.7-9.3); % Neutrophils 87.4 % (42.2-75.2); Absolute Basophils 0.1 10^3/uL (0-0.2); Absolute Eosinophils 0.1 10^3/uL (0-0.7); Absolute Lymphocytes 0.4 10^3/uL (1.2-3.4); Absolute Monocytes 0.8 10^3/uL (0.1-0.6); Absolute Neutrophils 9.7 10^3/uL (1.4-6.5); Hematocrit 39.1 % (37.0-47.0); Hemoglobin 13.2 g/dL (12.0-16.0); Mean Corp Hgb Conc. 33.8 g/dL (33.0-37.0); Mean Corpuscular Hgb 27.2 pg (27.0-31.0); Mean Corpuscular Volume 80.6 fL (81.0-99.0); Mean Platelet Volume 10.8 fL (7.4-10.4); Nucleated Red Blood Cells % 0 %; Platelet Count 336 10^3/uL (130-400); Red Blood Cell Count 4.85 10^6/uL (4.20-5.40); Red Cell Dist. Width 14.5 % (11.5-14.5)
[2024-05-17 17:48] LABS: Blood Urea Nitrogen 8 mg/dl (7-17); Calcium 9.5 mg/dl (8.4-10.2); Carbon Dioxide 15 mmol/L (22-30); Chloride 104 mmol/L (98-107); Glucose 90 mg/dl (70-99); Sodium 135 mmol/L (135-145); eGFR > 60.00
[2024-05-17 18:00] VITALS: BMI 39.4
[2024-05-17 18:10] LABS: Potassium 3.7 mmol/L (3.5-5.1)
[2024-05-17] MEDS: OFIRMEV 1000 MG IV (18:33)
[2024-05-17] MEDS: REGLAN 10 MG IV (20:00)
[2024-05-17 20:16] LABS: Lactic Acid 1.4 mmol/L (0.7-2.0)
[2024-05-17 20:43] VITALS: BP 121/98
[2024-05-17 21:16] LABS: Urine Albumin Negative (Neg - Trace); Urine Bilirubin Negative (Negative); Urine Character Clear (Clear); Urine Color Yellow; Urine Glucose Negative (Negative); Urine Ketone Negative (Negative); Urine Leukocyte Negative (Negative); Urine Nitrite Negative (Negative); Urine Occult Blood Negative (Negative); Urine Urobilinogen Negative (Neg - 1+)
== END 2024-05-17 22:01 | disposition home or self-care (01) ==
LOC: EMR 13:42
PROVIDERS: Emergency Medicine; EMERGENCY PHYSICIAN Student in an Organized Health Care Education/Training Program; FAMILY PHYSICIAN Family Medicine
DX: B34.9 Viral infection, unspecified (principal); J45.901 Unspecified asthma with (acute) exacerbation; Z79.01 Long term (current) use of anticoagulants; F41.9 Anxiety disorder, unspecified; K58.9 Irritable bowel syndrome, unspecified; D64.9 Anemia, unspecified; Z45.41 Encounter for adjustment and management of cerebrospinal fluid drainage device; Z86.718 Personal history of other venous thrombosis and embolism; Z90.710 Acquired absence of both cervix and uterus; Z98.2 Presence of cerebrospinal fluid drainage device
CPT/HCPCS: 99284; 94640; 96374; 96375; 96361; 71046; 74177; 80048; 81003; 83605; 84132; 85025; 87502; 87811; 93005; Q9967

== ENCOUNTER 2024-05-18 21:46 | Inpatient (IN) | payer OTHER, SELFPAY ==
[2024-05-18] VITALS (7 sets, daily range): BP systolic 126–148; BP diastolic 53–90; BMI 40.0; BMI 38.2
--- NOTE | 2024-05-18 14:31 | ED.GENMED ---
ED Provider Triage
<Musa Greene PA-C - Last Filed: 05/22/24 07:02>
-
Patient seen by provider in Triage?: Seen in Triage
38-year-old female with history of asthma presents for reevaluation. She was here yesterday for fever nausea vomiting cough and wheezing. She had a CT scan of her abdomen pelvis as well as an x-ray of her chest yesterday.
She notes worsening symptoms today.
Does seem to be slightly tachypneic and wheezy through triage. Will check labs. Deferred on imaging secondary to recent studies performed yesterday
Patient seen by medical provider at triage but does warrant further assessment
History of Present Illness
<Musa Greene PA-C - Last Filed: 05/22/24 07:02>
General
Chief Complaint: Cold/Flu/URI Symptoms
Time Seen by Provider: 05/18/24 18:38
<Viktor Sharpe DO - Last Filed: 05/18/24 20:25>
General
Source: patient and records
Exam Limitations: none
Nursing documentation reviewed up to this point in time: agreed with
History of Present Illness
History of Present Illness:
38-year-old female returns with nausea vomiting fevers abdominal pain decreased p.o. intake wheezing seen here yesterday with the same had a chest x-ray CT of the abdomen pelvis discharged home with steroids states she has been out keeping down
likewise she has not able to keep down her Xarelto for 3 days, got a nebulizer here in triage feeling a bit better but still audibly wheezing, with cramps in her upper abdomen
Past History
<Musa Greene PA-C - Last Filed: 05/22/24 07:02>
Past History
ED Past Medical History: Asthma, Psychiatric (Anxiety) and Other (Guill[place], Migraine, Demyelination Poly Neuropathy, PE/DVT, IBS, Anemia, )
ED Past Surgical History: Gynecological (Hysterectomy), Orthopedic (Screw right foot) and Other ([employer] shunt, )
Social History
Tobacco: Non-smoker
Alcohol: None
Personal: Single
Living: alone
<Viktor Sharpe DO - Last Filed: 05/18/24 20:25>
Social History
Drug: None
Employment: Employed
Review of Systems
<Viktor Sharpe DO - Last Filed: 05/18/24 20:25>
Review of Systems
All Other Systems: Not applicable
Constitutional: Reports fever
Respiratory: Reports cough and trouble breathing
ABD/GI: Reports abdominal pain, nausea and vomiting
: Reports no symptoms
Musculoskeletal: Reports joint pain and muscle stiffness
Skin: Reports no symptoms
Neurological: Reports weakness
Phy Exam
<Viktor Sharpe DO - Last Filed: 05/18/24 20:25>
Physical Exam
Physical Exam:
Physical Exam
General: 38-year-old female warm to touch with rigors, wheezing audible
Neck: Lips are
Heart: Regular
Lungs: Diffuse wheeze fair air movement
Abdomen: Tender in the epigastric
Neuro: alert and oriented. no focal neurological deficits
Skin: no rash
Psychiatric: well kept. interactive and cooperative
Extremities: Edema is present
Course
<Musa Greene PA-C - Last Filed: 05/22/24 07:02>
Orders/Labs/Results
Orders:
Orders
05/18/24 Dinner
NPO
Allow oral meds: Yes
Allow clear liquids: Sips of Clears
NPO with Ice Chips: Yes
05/18/24 17:15
Ipratropium/Albuterol Sulfate [Duoneb] 3 ml .ROUTE .STK-MED ONE
05/18/24 17:55
Acetaminophen [Tylenol] 1,000 mg .ROUTE .STK-MED ONE
05/18/24 17:56
Acetaminophen [Tylenol] 1,000 mg PO NOW STA
05/18/24 18:18
Complete Blood Count/With Diff Urgent
Comprehensive Metabolic Panel Urgent
Lipase Urgent
05/18/24 18:48
Dexamethasone Sod Phosphate [Decadron] 10 mg IV NOW STA
05/18/24 18:49
Albuterol Sulfate [Ventolin Nebules] 10 mg INH R NOW STA
CR Chest Portable - 1 View Urgent
Comment:
Reason For Exam: fever
Reason Study Needs to be Portable: Patient Unstable
05/18/24 19:21
Rectal Temp- Treatment ONCE
05/18/24 19:33
Blood Culture Q30M
NIRAJ Source: Blood/Venous
Specimen Description:
Blood Culture Q30M
NIRAJ Source: Blood/Venous
Specimen Description:
05/18/24 19:43
Acetaminophen 1000MG/100Ml [Ofirmev] 1,000 mg in 100 ml IV ONCE
Acetaminophen IV Indication:: No VT & No Enteral Access
Lorazepam [Ativan] 1 mg IV NOW STA
05/18/24 20:08
Azithromycin [Zithromax] 500 mg PO NOW STA
05/18/24 20:25
Magnesium Sulfate 2 Gram/50 ml [Magnesium Sulfate] 2 gram in 50 ml IV NOW
05/18/24 20:49
Admit/Transfer Patient As Directed
Co-Sign Provider:
Level of Care: Inpatient admission
Assign to:: Telemetry
Physician / Group: David Shafer
Diagnosis: URI, viral gastritis
Reason for Telemetry: Arrhythmia
Date to Stop Telemetry: 05/21/24
Time to Stop Telemetry: 11:00
Reason for Hospitalization: URI, viral gastritis
Expected length of stay greater than two midnights?: Yes
ELOS- Estimated Length of Stay in days: 3
I certify the patient meets the requirements for IP care: Yes
PRN Pain Medication Management As Directed
May give lesser potent ordered pain med per pt: Yes
preference::
Protocol:: Medication orders for pain may be administered in a
manner that supports deferring to patient preference
when the pt is:
- Requesting an ordered lesser potent pain medication.
Least to most potent pain medications are defined
as: acetaminophen < NSAID < tramadol < opioids
(morphine, oxycodone, hydromorphone).
- Requesting a lesser dose of the same medication IF
ORDERED.
- Requesting a less intrusive route of administration
if both routes are prescribed by the provider (PO <
IV).
05/18/24 20:51
Code Status As Directed
Resuscitation Status: Full Code
05/18/24 20:59
Heparin Protocol- PTT Orders As Directed
PTT per Heparin protocol: -Obtain CBC and baseline PTT - if not already collected.
-Obtain PTT 6 hours from start of infusion. Then, every 6 hours until 2 consecutive
PTT's are therapeutic. Then, PTT Daily.
-With each rate change, obtain PTT every 6 hours until 2 consecutive PTT's are
therapeutic. Then, PTT Daily.
Notify MD As Directed
Notify physician if: PTT is greater than or equal to 200.
05/18/24 21:00
Heparin 46252 Units/250 ml 25,000 units in 250 ml IV PER PROTOCOL
Weight to be used for heparin protocol in kilograms (kg):: 105.5
Protocol:: DVT/PE
PTT Goal Range to be used:: PTT 73 to 111 seconds
Order type:: Initial
INITIAL Infusion Dose (UNITS/KG/hr) & then follow protocol:: 18 units/kg/hr
Infusion Dose in UNITS/hr & then follow protocol (UNITS/hr):: 1,900
INFUSION RATE in mL/hr & then follow protocol (mL/hr):: 19
For DVT/PE algorithm, re-bolus for low PTT?: Yes
PTT less than or equal to 64 seconds:: Re-bolus 80 units/kg (max 10,000units). Increase by 400 units/hr
(+ 4mL/hr)
PTT 64.1 to 72.9 seconds:: Re-bolus 40 units/kg (max 5,000 units). Increase by 200 units/hr
(+ 2mL/hr)
PTT 73 to 111 seconds:: Target Range. No change in rate.
PTT 111.1 to 130.9 seconds:: Decrease rate by 200 units/hr (- 2 mL/hr)
PTT 131 to 199.9 seconds:: HOLD for 1 hr. Then decrease by 300 units/hr (- 3mL/hr)
PTT greater than or equal to 200 seconds:: HOLD for 2 hrs & Notify Provider. Then decrease by 400 units/hr
(- 4mL/hr)
Lab follow-up:: Each change, PTT q6h until 2 consecutive are therapeutic. Then
PTT daily.
05/18/24 21:06
C DIFF [C difficile Antigen & Toxins] Routine
NIRAJ Source: Feces/Stool
Specimen Description:
Norovirus by PCR Routine
NIRAJ Source: Feces/Stool
Specimen Description:
05/18/24 21:22
Heparin 8,400 units IV PRN PRN
05/18/24 21:23
Heparin 4,200 units IV PRN PRN
05/18/24 21:26
PTT Stat
05/18/24 22:40
0.9% Sodium Chloride 1000 ml [Nss] 1,000 ml IV 100 mls/hr
Ipratropium/Albuterol Sulfate [Duoneb] 3 ml INH R Q4HPRN PRN
Ondansetron Injectable [Zofran] 4 mg IV Q6HPRN PRN
05/18/24 22:40
Activity As Directed
Activity Level: Out of Bed-Early Mobility
Vital Signs As Directed
Frequency: Per unit guidelines
Weight As Directed
Frequency: Once
O2 Therapy [RESP] Routine
Titrate/Wean O2 to maintain O2 sat greater than (%): 93
DX Deep Vein Thrombosis Video Routine
05/19/24 00:00
Doxycycline Hyclate [Vibramycin] 100 mg 0.9% Sodium Chloride 250 ml [Nss] 250 ml IV Q12H
05/19/24 02:00
Acetaminophen 1000MG/100Ml [Ofirmev] 1,000 mg in 100 ml IV Q6HPRN
Acetaminophen IV Indication:: Targeted Temp Management
Dexamethasone Sod Phosphate [Decadron] 4 mg IV Q6H
05/19/24 04:25
Basic Metabolic Panel IN AM
Complete Blood Count/No Diff IN AM
05/19/24 08:00
Ipratropium/Albuterol Sulfate [Duoneb] 3 ml INH R QID
05/21/24 11:00
DC Protocol for Telemetry ONCE
05/22/24 05:58
Complete Blood Count/No Diff Q2D
Comment: Notify MD if platelet count is <130,000 or decreases by 50% from baseline
05/24/24 06:00
Complete Blood Count/No Diff Q2D
Comment: Notify MD if platelet count is <130,000 or decreases by 50% from baseline
05/26/24 06:00
Complete Blood Count/No Diff Q2D
Comment: Notify MD if platelet count is <130,000 or decreases by 50% from baseline
05/28/24 06:00
Complete Blood Count/No Diff Q2D
Comment: Notify MD if platelet count is <130,000 or decreases by 50% from baseline
05/30/24 06:00
Complete Blood Count/No Diff Q2D
Comment: Notify MD if platelet count is <130,000 or decreases by 50% from baseline
06/01/24 06:00
Complete Blood Count/No Diff Q2D
Comment: Notify MD if platelet count is <130,000 or decreases by 50% from baseline
06/03/24 06:00
Complete Blood Count/No Diff Q2D
Comment: Notify MD if platelet count is <130,000 or decreases by 50% from baseline
Abnormal Lab Results
05/18/24
18:18
Hct 36.4 L %
(37.0-47.0)
MCV 80.2 L fL
(81.0-99.0)
RDW 14.9 H %
(11.5-14.5)
Absolute Lymphs (auto) 1.0 L 10^3/uL
(1.2-3.4)
Neutrophils % 78.6 H %
(42.2-75.2)
Lymphocytes % 12.2 L %
(20.5-51.1)
Carbon Dioxide 18 L mmol/L
(22-30)
05/18/24 20:59
05/18/24 18:18
Vital Signs
Initial and Last Documented VS:
Initial Vital Signs
Temp Pulse Resp BP Pulse Ox
98.3 F 100 18 148/79 100
05/18/24 14:28 05/18/24 14:28 05/18/24 14:28 05/18/24 14:28 05/18/24 14:28
Last Documented Vital Signs
Temp Pulse Resp BP Pulse Ox
97.6 F 56 16 112/53 97
05/22/24 02:33 05/22/24 02:33 05/22/24 02:33 05/22/24 02:33 05/22/24 02:33
mani;Viktor Sharpe, - Last Filed: 05/18/24 20:25>
Orders/Labs/Results
Orders:
Orders
05/18/24 Dinner
NPO
Allow oral meds: Yes
Allow clear liquids: Sips of Clears
NPO with Ice Chips: Yes
05/18/24 17:15
Ipratropium/Albuterol Sulfate [Duoneb] 3 ml .ROUTE .STK-MED ONE
05/18/24 17:55
Acetaminophen [Tylenol] 1,000 mg .ROUTE .STK-MED ONE
05/18/24 17:56
Acetaminophen [Tylenol] 1,000 mg PO NOW STA
05/18/24 18:18
Complete Blood Count/With Diff Urgent
Comprehensive Metabolic Panel Urgent
Lipase Urgent
05/18/24 18:48
Dexamethasone Sod Phosphate [Decadron] 10 mg IV NOW STA
05/18/24 18:49
Albuterol Sulfate [Ventolin Nebules] 10 mg INH R NOW STA
CR Chest Portable - 1 View Urgent
Comment:
Reason For Exam: fever
Reason Study Needs to be Portable: Patient Unstable
05/18/24 19:21
Rectal Temp- Treatment ONCE
05/18/24 19:33
Blood Culture Q30M
NIRAJ Source: Blood/Venous
Specimen Description:
Blood Culture Q30M
NIRAJ Source: Blood/Venous
Specimen Description:
05/18/24 19:43
Acetaminophen 1000MG/100Ml [Ofirmev] 1,000 mg in 100 ml IV ONCE
Acetaminophen IV Indication:: No VT & No Enteral Access
Lorazepam [Ativan] 1 mg IV NOW STA
05/18/24 20:08
Azithromycin [Zithromax] 500 mg PO NOW STA
05/18/24 20:25
Magnesium Sulfate 2 Gram/50 ml [Magnesium Sulfate] 2 gram in 50 ml IV NOW
05/18/24 20:49
Admit/Transfer Patient As Directed
Co-Sign Provider:
Level of Care: Inpatient admission
Assign to:: Telemetry
Physician / Group: David Shafer
Diagnosis: URI, viral gastritis
Reason for Telemetry: Arrhythmia
Date to Stop Telemetry: 05/21/24
Time to Stop Telemetry: 11:00
Reason for Hospitalization: URI, viral gastritis
Expected length of stay greater than two midnights?: Yes
ELOS- Estimated Length of Stay in days: 3
I certify the patient meets the requirements for IP care: Yes
PRN Pain Medication Management As Directed
May give lesser potent ordered pain med per pt: Yes
preference::
Protocol:: Medication orders for pain may be administered in a
manner that supports deferring to patient preference
when the pt is:
- Requesting an ordered lesser potent pain medication.
Least to most potent pain medications are defined
as: acetaminophen < NSAID < tramadol < opioids
(morphine, oxycodone, hydromorphone).
- Requesting a lesser dose of the same medication IF
ORDERED.
- Requesting a less intrusive route of administration
if both routes are prescribed by the provider (PO <
IV).
05/18/24 20:51
Code Status As Directed
Resuscitation Status: Full Code
05/18/24 20:59
Heparin Protocol- PTT Orders As Directed
PTT per Heparin protocol: -Obtain CBC and baseline PTT - if not already collected.
-Obtain PTT 6 hours from start of infusion. Then, every 6 hours until 2 consecutive
PTT's are therapeutic. Then, PTT Daily.
-With each rate change, obtain PTT every 6 hours until 2 consecutive PTT's are
therapeutic. Then, PTT Daily.
Notify MD As Directed
Notify physician if: PTT is greater than or equal to 200.
05/18/24 21:00
Heparin 95119 Units/250 ml 25,000 units in 250 ml IV PER PROTOCOL
Weight to be used for heparin protocol in kilograms (kg):: 105.5
Protocol:: DVT/PE
PTT Goal Range to be used:: PTT 73 to 111 seconds
Order type:: Initial
INITIAL Infusion Dose (UNITS/KG/hr) & then follow protocol:: 18 units/kg/hr
Infusion Dose in UNITS/hr & then follow protocol (UNITS/hr):: 1,900
INFUSION RATE in mL/hr & then follow protocol (mL/hr):: 19
For DVT/PE algorithm, re-bolus for low PTT?: Yes
PTT less than or equal to 64 seconds:: Re-bolus 80 units/kg (max 10,000units). Increase by 400 units/hr
(+ 4mL/hr)
PTT 64.1 to 72.9 seconds:: Re-bolus 40 units/kg (max 5,000 units). Increase by 200 units/hr
(+ 2mL/hr)
PTT 73 to 111 seconds:: Target Range. No change in rate.
PTT 111.1 to 130.9 seconds:: Decrease rate by 200 units/hr (- 2 mL/hr)
PTT 131 to 199.9 seconds:: HOLD for 1 hr. Then decrease by 300 units/hr (- 3mL/hr)
PTT greater than or equal to 200 seconds:: HOLD for 2 hrs & Notify Provider. Then decrease by 400 units/hr
(- 4mL/hr)
Lab follow-up:: Each change, PTT q6h until 2 consecutive are therapeutic. Then
PTT daily.
05/18/24 21:06
C DIFF [C difficile Antigen & Toxins] Routine
NIRAJ Source: Feces/Stool
Specimen Description:
Norovirus by PCR Routine
NIRAJ Source: Feces/Stool
Specimen Description:
05/18/24 21:22
Heparin 8,400 units IV PRN PRN
05/18/24 21:23
Heparin 4,200 units IV PRN PRN
05/18/24 21:26
PTT Stat
05/18/24 22:40
0.9% Sodium Chloride 1000 ml [Nss] 1,000 ml IV 100 mls/hr
Ipratropium/Albuterol Sulfate [Duoneb] 3 ml INH R Q4HPRN PRN
Ondansetron Injectable [Zofran] 4 mg IV Q6HPRN PRN
05/18/24 22:40
Activity As Directed
Activity Level: Out of Bed-Early Mobility
Vital Signs As Directed
Frequency: Per unit guidelines
Weight As Directed
Frequency: Once
O2 Therapy [RESP] Routine
Titrate/Wean O2 to maintain O2 sat greater than (%): 93
DX Deep Vein Thrombosis Video Routine
05/19/24 00:00
Doxycycline Hyclate [Vibramycin] 100 mg 0.9% Sodium Chloride 250 ml [Nss] 250 ml IV Q12H
05/19/24 02:00
Acetaminophen 1000MG/100Ml [Ofirmev] 1,000 mg in 100 ml IV Q6HPRN
Acetaminophen IV Indication:: Targeted Temp Management
Dexamethasone Sod Phosphate [Decadron] 4 mg IV Q6H
05/19/24 04:25
Basic Metabolic Panel IN AM
Complete Blood Count/No Diff IN AM
05/19/24 08:00
Ipratropium/Albuterol Sulfate [Duoneb] 3 ml INH R QID
05/21/24 11:00
DC Protocol for Telemetry ONCE
05/22/24 05:58
Complete Blood Count/No Diff Q2D
Comment: Notify if platelet count is <130,000 or decreases by 50% from baseline
05/24/24 06:00
Complete Blood Count/No Diff Q2D
Comment: Notify MD if platelet count is <130,000 or decreases by 50% from baseline
05/26/24 06:00
Complete Blood Count/No Diff Q2D
Comment: Notify MD if platelet count is <130,000 or decreases by 50% from baseline
05/28/24 06:00
Complete Blood Count/No Diff Q2D
Comment: Notify MD if platelet count is <130,000 or decreases by 50% from baseline
05/30/24 06:00
Complete Blood Count/No Diff Q2D
Comment: Notify MD if platelet count is <130,000 or decreases by 50% from baseline
06/01/24 06:00
Complete Blood Count/No Diff Q2D
Comment: Notify MD if platelet count is <130,000 or decreases by 50% from baseline
06/03/24 06:00
Complete Blood Count/No Diff Q2D
Comment: Notify MD if platelet count is <130,000 or decreases by 50% from baseline
Abnormal Lab Results
05/18/24
18:18
Hct 36.4 L %
(37.0-47.0)
MCV 80.2 L fL
(81.0-99.0)
RDW 14.9 H %
(11.5-14.5)
Absolute Lymphs (auto) 1.0 L 10^3/uL
(1.2-3.4)
Neutrophils % 78.6 H %
(42.2-75.2)
Lymphocytes % 12.2 L %
(20.5-51.1)
Carbon Dioxide 18 L mmol/L
(22-30)
05/18/24 20:59
05/18/24 18:18
Vital Signs
Initial and Last Documented VS:
Initial Vital Signs
Temp Pulse Resp BP Pulse Ox
98.3 F 100 18 148/79 100
05/18/24 14:28 05/18/24 14:28 05/18/24 14:28 05/18/24 14:28 05/18/24 14:28
Last Documented Vital Signs
Temp Pulse Resp BP Pulse Ox
97.6 F 56 16 112/53 97
05/22/24 02:33 05/22/24 02:33 05/22/24 02:33 05/22/24 02:33 05/22/24 02:33
<Viktor Sharpe DO - Last Filed: 05/18/24 20:25>
MDM/Problems Addressed
Differential Diagnosis Includes:
Asthma viral syndrome dehydration DVT PE chronically lupus anticoagulant
MDM/Problems Addressed:
Shortness of breath fever cough rigors
Chronic conditions affecting care: Asthma, Neurological disorder and Immunosuppressed
Acute Exacerbation and/or Progression of Chronic Illness: Asthma, Neurological disorder and Immunosuppressed
<Musa Greene PA-C - Last Filed: 05/22/24 07:02>
*Critical Care Note
Total Time (30-74mins, 75-104mins- exclusive of procedures): Not Applicable
<Viktor Sharpe DO - Last Filed: 05/18/24 20:25>
Update Note
Update Note:
Update still wheezing tachycardic prior pulmonary note noted
Zithromax ordered
Will try some IV magnesium she could require admission
ED Attending Note
<Musa Greene PA-C - Last Filed: 05/22/24 07:02>
-
Portions of this chart may have been created with voice recognition software.� Occasional wrong word or��sound alike� substitutions may have occurred due to the inherent limitations of voice recognition software.
Discharge Plan
Departure
Patient Disposition: Admit
Date of Disposition: 05/18/24
Time of Disposition: 20:25
Admit to: IMU
Presentation/result/management discussed w/ accepting MD/DO: Hospitalist
Patient with high blood pressure during this ER visit?: No
Condition: Fair
Covid-19: Not Applicable
Discharge Problem:
Asthma with acute exacerbation
Interventions
Interventions:
*Risk Screen - Suicide Last Done: 05/18/24 14:31
*General Assessment Last Done: 05/18/24 17:16
*Neglect/Abuse Screening Last Done: 05/18/24 14:31
ED- Fall Risk Assessment Last Done: 05/18/24 18:24
*ED COVID-19 Vaccine History Last Done: 05/18/24 17:16
*Nursing Disposition Last Done: 05/18/24 22:35
ED- Pulmonary Assessment Last Done: 05/18/24 18:07
Discharge Date and Time
Discharge Date/Time: 05/18/24 22:36
[2024-05-18] MEDS: TYLENOL 1000 MG PO (17:57)
[2024-05-18 18:25] LABS: % Basophils 0.9 % (0-2); % Eosinophils 0.6 % (0-6); % Immature Granulocytes 0.4 % (0-0.5); % Lymphocytes 12.2 % (20.5-51.1); % Monocytes 7.3 % (1.7-9.3); % Neutrophils 78.6 % (42.2-75.2); Absolute Basophils 0.1 10^3/uL (0-0.2); Absolute Eosinophils 0.1 10^3/uL (0-0.7); Absolute Monocytes 0.6 10^3/uL (0.1-0.6); Absolute Neutrophils 6.3 10^3/uL (1.4-6.5); Hematocrit 36.4 % (37.0-47.0); Hemoglobin 12.5 g/dL (12.0-16.0); Mean Corp Hgb Conc. 34.3 g/dL (33.0-37.0); Mean Corpuscular Hgb 27.5 pg (27.0-31.0); Mean Corpuscular Volume 80.2 fL (81.0-99.0); Mean Platelet Volume 9.8 fL (7.4-10.4); Nucleated Red Blood Cells % 0 %; Platelet Count 337 10^3/uL (130-400); Red Blood Cell Count 4.54 10^6/uL (4.20-5.40); Red Cell Dist. Width 14.9 % (11.5-14.5)
[2024-05-18 18:39] LABS: ALT (SGPT) 20 U/L (0-35); AST (SGOT) 19 U/L (14-36); Albumin 4.5 g/dl (3.5-5.0); Alkaline Phosphatase 72 U/L (38-126); Blood Urea Nitrogen 10 mg/dl (7-17); Calcium 9.3 mg/dl (8.4-10.2); Carbon Dioxide 18 mmol/L (22-30); Chloride 107 mmol/L (98-107); Estimated Creatinine Clearance 89 ml/min; Glucose 95 mg/dl (70-99); Lipase 119 U/L (23-300); Potassium 3.5 mmol/L (3.5-5.1); Sodium 138 mmol/L (135-145); Total Bilirubin 0.4 mg/dl (0.2-1.3); Total Protein 7.3 g/dl (6.3-8.2); eGFR > 60.00
[2024-05-18] MEDS: VENTOLIN NEBULES 10 MG INH (19:05)
[2024-05-18] MEDS: DECADRON 10 MG IV (19:32)
[2024-05-18] MEDS: OFIRMEV 100 IV (19:48)
[2024-05-18] MEDS: ATIVAN 1 MG IV (19:48)
--- NOTE | 2024-05-18 20:12 | HPS.HSE ---
Family Physician
-
Family Physician: Nato Callejas Jr.
Chief Complaint
-
URI
History of Present Illness
Patient is [id number] female with past medical history significant for asthma, Guillain-Mello� syndrome, hypercoagulable state, Hx PE, normal pressure hydrocephalus with shunt and acute inflammatory demyelinating polyneuropathy who presented to
[facility] for evaluation of persistent URI symptoms. Patient seen in ED yesterday for same symptoms, negative for covid and influenza and all imaging looked good. Patient returned today for worsening symptoms. Patient reported that yesterday
morning she woke with fever at 105 and significant wheezing and cough. Following treatment in ED she felt good enough to go home, on her ride home she stated was the first episode of emesis and then loose stools started this morning. She continues
with non-productive cough and wheezing. Patient denies any palpitations, chest pain, constipation or urinary symptoms.
Medical History
Past Medical History
Past Medical History: Reports Other
Additional Past Medical History:
asthma
Guillain-Mello� syndrome
hypercoagulable state
Hx PE
normal pressure hydrocephalus with shunt
acute inflammatory demyelinating polyneuropathy
Past Surgical History: Reports Other
Additional Past Surgical History:
DITCH RIDER shunt
right foot repair
cholecystectomy
hysterectomy
Social History
Tobacco: Non-smoker
Alcohol: None
Drug: None
Personal: Single
Living: With Roomate
Employment: Employed
Family History
Family History: Other (Brother: DM; Sister: GBS; Maternal Grandmother: Colon ca)
Allergies / Home Medications
Allergies reflects when Allergies were last updated in [facility].
Home Medications with original date entered in [facility]
Allergy/Medication List:
Allergies
Allergy/AdvReac Type Severity Reaction Status Date / Time
apixaban Allergy Unknown Verified 06/21/23 11:46
dog dander Allergy Unknown Verified 06/21/23 11:46
duloxetine Allergy Unknown Verified 06/21/23 11:46
iodine Allergy Unknown Verified 06/21/23 11:46
latex Allergy Unknown Verified 06/21/23 11:46
lidocaine Allergy Unknown Verified 06/21/23 11:37
menthol Allergy Unknown Verified 06/21/23 11:46
NSAIDS (Non-Steroidal Allergy Unknown Verified 06/21/23 11:37
Anti-Inflamma
sumatriptan Allergy Unknown Verified 06/21/23 11:46
Home Medications
cyanocobalamin (vitamin B-12) 1,000 mcg/mL injection solution 1,000 mcg IM QMONTH Supplement 06/21/23
furosemide 20 mg tablet (Lasix) 20 mg PO BID@0800,1200 Fluid Retention/Swelling 06/21/23
galcanezumab-gnlm 120 mg/mL subcutaneous syringe (Emgality) 120 mg SC QMONTH Headaches 06/21/23
hydroxyzine HCl 25 mg tablet 25 mg PO BID Mental Health/Anxiety 06/21/23
montelukast 10 mg tablet (Singulair) 10 mg PO HS Allergies 06/21/23
rivaroxaban 20 mg tablet (Xarelto) 20 mg PO QPM Blood Clot Prevention/Tx 06/21/23
tizanidine 4 mg tablet 4 mg PO TID Muscle Spasms 06/21/23
albuterol sulfate 90 mcg/actuation aerosol inhaler 1 puff inhalation R Q4HPRN PRN sob/wheezing 10/11/23
promethazine 25 mg tablet 25 mg PO Q12H upset stomach 10/11/23
eszopiclone 3 mg tablet (Lunesta) 3 mg PO HS 05/18/24
famotidine 20 mg tablet (Pepcid) 20 mg PO HS 05/18/24
potassium chloride 10 mEq tablet,extended release(part/cryst) (Klor-Con M) 10 meq PO DAILY 05/18/24
sertraline 50 mg tablet 50 mg PO HS 05/18/24
Review of Systems
-
History Source: Patient
Constitutional: Reports Fever, Fatigue, Sleep Disturbance, Night Sweats and Chills
EENT: Reports No Symptoms
Respiratory: Reports Cough and Other (wheezing)
Cardiac: Reports No Symptoms
Abdomen/GI: Reports Nausea, Vomiting and Diarrhea
: Reports No Symptoms
Musculoskeletal: Reports Other (body aches)
Skin: Reports No Symptoms
Neurological: Reports No Symptoms
Endocrine: Reports No Symptoms
Hematologic/Lymphatic: Reports No Symptoms
Psych: Reports No Symptoms
Physical Exam
Vital Signs
Vital Signs
Temp Pulse Resp BP Pulse Ox
101.2 F H 102 20 137/90 99
05/18/24 19:41 05/18/24 18:00 05/18/24 18:08 05/18/24 17:09 05/18/24 18:07
Physical Exam
General: Well Developed, Well Nourished, No Apparent Distress, Conversant, Fever and Poor Appetite
HEENT: NormoCephalic, Moist mucous membranes, Atraumatic, PERRLA, [place] Conjunctivae, Nose Appears Normal and Ears Appear Normal
Respiratory: Wheezes
Cardiac: S1/S2 and Tachycardia; No Murmur, Rub or Gallop
Breast: Deferred by me
GI: Soft, Non Tender, Non Distended and Normal Bowel Sounds; No Organomegaly
Rectal: Deferred by Provider
Genito-urinary: Deferred by me
Musculoskeletal: No Clubbing, No Cyanosis and No Edema
Skin: Warm and IV/Catheter Site; No Rash
Neuro: Awake, Alert, AO x 3 and Nonfocal/grossly intact
Psych: Calm and Intact Judgment/Insight
Laboratory Results
-
05/18/24 18:18
05/18/24 18:18
Laboratory Results
Total Bilirubin 0.4 mg/dl (0.2-1.3) 05/18/24 18:18
AST 19 U/L (14-36) 05/18/24 18:18
ALT 20 U/L (0-35) 05/18/24 18:18
Alkaline Phosphatase 72 U/L (38-126) 05/18/24 18:18
Lipase 119 U/L (23-300) 05/18/24 18:18
Data Reviewed
-
Diagnostic Radiology: Report Reviewed by me
CT Scan: Report Reviewed by me
Lab Data: Labs Reviewed by me
Impression/Plan
-
IMPRESSION/PLAN:
#Sepsis 2/2 acute bronchitis/asthma vs. viral gastroenteritis
CXR: no infiltrates seen although report pending
Abd/Pelvis CT: No acute findings in the abdomen or pelvis.
Partially visualized right-sided ventriculoperitoneal shunt catheter which appears continuous throughout its visualized course and terminates in the right lower quadrant.
Multiple cysts within the right ovary with a 2.4 cm dominant follicle.
Mild splenomegaly.
- Admit to Telemetry
- stool for c. diff and norovirus pending
- blood cultures pending
- supportive care
- IVF NSS 100cc/hr
- PRN Zofran
- PRN acetaminophen
- IV Doxycycline
#asthma
- PRN DuoNebs
- dexamethasone
#hypercoagulable state
#Hx PE
patient concerned unable to tolerate PO medications and will throw clot
- IV Heparin gtt until able to tolerate PO
#normal pressure hydrocephalus with shunt
#acute inflammatory demyelinating polyneuropathy
Code Status: Full Code
DVT Prophylaxis: Heparin gtt
--- NOTE | 2024-05-18 20:49 | W.PN.UPDATE ---
Update Note
Progress Note Update
This is an addendum to the H&P written by Ibis Clancy on 05/18/2024. Seen and examined independently with [employer].
38-year-old female past medical history of Guillain-Mello� syndrome status post plasmapheresis, pseudotumor cerebri status post shunt, antiphospholipid syndrome, DVT/PE on Eliquis, migraines, IBS, asthma, morbid obesity, who presented to the ER
yesterday with fever, nausea, vomiting, cough and wheezing.
She underwent CT abdomen pelvis yesterday which showed no acute findings and subsequently discharged. Chest x-ray was also negative. COVID and influenza were negative yesterday.
Patient has worsening symptoms today with fever of 101.
Bilateral wheezing with diminished air entry bilaterally.
Patient clinically with sepsis likely secondary to acute bronchitis/asthma flare. Also concern for viral gastroenteritis. Chest x-ray does not appear to show any infiltrates although report is pending. IV fluids. Check blood cultures.
Doxycycline. DuoNebs. Dexamethasone. Check stool studies, norovirus, C. difficile. Fever control.
Patient cannot tolerate p.o. medications and is concern for developing venous thromboembolism off of Xarelto. Will start IV heparin drip while patient cannot tolerate p.o. medications.
[2024-05-18] MEDS: MAGNESIUM SULFATE 50 IV (21:21)
[2024-05-18 21:44] LABS: APTT 34.1 Sec (23.4-35.0)
[2024-05-18] MEDS: HEPARIN 25000 UNITS/250 ML IV (22:15)
--- NOTE | 2024-05-18 22:30 | PTCARENOTE ---
Pt received from ED at 2210. Pt pleasant, AAOX3, VSS, and able to ambulate into room with assistance. Pt SOB and dizzy with movement and exhibits expiratory wheezing. Pt currently nauseous and complains of chest pain when coughing. [employer] notified and
ordered PRN medications administered, see MAR. Pt receptive to room and call avelar. Pt bed in lowest position and call avelar within reach. Pt educated on importance of call avelar usage, pt relays understanding and cooperation. Will continue with
current plan of care.
[2024-05-18] MEDS: DUONEB 3 ML INH (23:10)
[2024-05-18] MEDS: NSS 1000 IV (23:35)
[2024-05-18] MEDS: ZOFRAN 4 MG IV (23:35)
[2024-05-19] MEDS: ROBITUSSIN DM 10 ML PO (00:06)
[2024-05-19] MEDS: ATIVAN 0.5 MG IV ×2 (00:07→22:58)
[2024-05-19] MEDS: NSS (PRESERVATIVE FREE) 0.25 ML IV ×2 (00:09→22:58)
[2024-05-19] MEDS: VIBRAMYCIN 260 MG IV (01:03)
[2024-05-19] MEDS: DECADRON 4 MG IV ×4 (01:04→20:19)
[2024-05-19 03:05] VITALS: BP 132/73
[2024-05-19] MEDS: DILAUDID 0.5 MG IV ×3 (04:11→20:19)
[2024-05-19 04:38] LABS: Hematocrit 33.4 % (37.0-47.0); Hemoglobin 11.5 g/dL (12.0-16.0); Mean Corp Hgb Conc. 34.4 g/dL (33.0-37.0); Mean Corpuscular Hgb 27.2 pg (27.0-31.0); Mean Platelet Volume 9.8 fL (7.4-10.4); Platelet Count 319 10^3/uL (130-400); Red Blood Cell Count 4.23 10^6/uL (4.20-5.40); Red Cell Dist. Width 14.7 % (11.5-14.5); White Blood Cell Count 7.3 10^3/uL (4.8-10.8)
[2024-05-19 05:03] LABS: APTT 160.2 Sec (23.4-35.0)
[2024-05-19 05:33] LABS: Blood Urea Nitrogen 9 mg/dl (7-17); Calcium 8.2 mg/dl (8.4-10.2); Carbon Dioxide 15 mmol/L (22-30); Chloride 110 mmol/L (98-107); Estimated Creatinine Clearance 108 ml/min; Glucose 165 mg/dl (70-99); Potassium 4.3 mmol/L (3.5-5.1); Sodium 139 mmol/L (135-145); eGFR > 60.00
[2024-05-19] MEDS: ZOFRAN 4 MG IV ×3 (05:50→20:34)
[2024-05-19 07:45] VITALS: BP 144/83
[2024-05-19] MEDS: DUONEB 3 ML INH ×3 (07:53→19:36)
[2024-05-19] MEDS: MORPHINE SULFATE 2 MG IV (09:24)
[2024-05-19 10:06] LABS: D-Dimer < 0.27 ug/mlFEU (0.00-0.50)
[2024-05-19 10:32] LABS: Procalcitonin < 0.05 ng/ml (0.0-0.25)
[2024-05-19 11:22] VITALS: BP 132/80
--- NOTE | 2024-05-19 11:56 | CON.NEURO4 ---
Addendum entered and electronically signed by Esa Kendrick MD 05/19/24 13:54:
Studies reviewed.
I have personally examined the patient. I reviewed and agree with the DEVELOPMENT WRITER's Note.
My addenda:
Awake, alert, interactive. No acute distress.
Speech intact. Inappropriately tearful
Follows 2-step requests w/o difficulty. No tremor.
Extra-ocular movements grossly intact.
Facial movements full and symmetric. Hearing intact to normal conversational volume.
Normal UE movements bilaterally.
Neck: full ROM.
Chest: no dyspnea
Heart: no JVD
Ext: (-) Clubbing, (-) Cyanosis, (-) Edema
IMPRESSIONS/RECOMMENDATIONS:
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
Supportive care
Rehabilitation evaluations and treatment
Consider EMG study if the patient reports further worsening of gait and/or worsening of sensation
Again, attempt to obtain records from [facility]
Check blood work for potential metabolic abnormalities
Provide metoclopramide if needed for headache
D/W patient
All questions answered.
Will continue to follow pending results.
Original Note:
Documented by User: MARIA DE JESUS Souza 05/19/24 13:24
Consultation - Neurology 4
-
CONSULTING PHYSICIAN: Dr. Esa Kendrick
REFERRING PHYSICIAN: Dr. Huseyin Scott
DICTATED BY: MARIA DE JESUS Souza
DATE/TIME OF REQUEST: 05/19/2024
DATE/TIME OF CONSULTATION: 05/19/2024
Reason for Consultation: LE numbness/weakness
History of Present Illness:
This is a 38 year old female patient with a past medical history of Migraine, IIH, GBS, asthma, RLE DVT/PE (Xarelto), IBS, obesity, Lupus, antiphospholipid antibody syndrome, anxiety, insomnia who presented to the ER with GI and upper respiratory
symptoms. Today she reported to the hospitalist that she had numbness and weakness, b/l LE. She states she has numbness, weakness and shakiness that is that is intermittent. Symptoms had gradual onset a few days ago that started in b/l feet
first then gradually began to travel up in the legs. No upper extremity numbness or weakness. She is significantly concerned about leg numbness/weakness as she endorses a history of GB with complications requiring intubation last year. She can
stand and use the commode but requires assistance d/t leg weakness and shakiness. She does admit that this all started after GI and respiratory illness onset. She also reports chronic neck and back pain. She has a history of migraines and feels
her neck pain is worse today d/t onset of migraine. She has suffered with migraines for years that improved after shunt was placed fro [facility]. She continues to take Emgality as prevention but only uses Tylenol as a breaker. She has been having
migraines daily since . At baseline she gets them 1-2 times a month.
From Consultation Ibis Almeida 10/13/2023
'This is a 38-year-old right-handed female who has presented to the hospital on 10/11/23 with report of back pain. Patient has a history of idiopathic intracranial hypertension (IIH) s/p VPS in 2011 at [facility]. She is followed by Neurology as an
outpatient, Dr. Lara, at [facility] for IIH, migraines, and more recently Guillain-Sidney syndrome (GBS). There are no medical records available and all of this information is obtained from the patient. She reports that last December 2022 she
started having transient episodes of not being able to feel her legs and she would randomly collapse. In February 2023 she lost sensation from her waist down to her feet and fell down a flight of stairs. She was hospitalized at [facility] and reports
having a spinal tap that demonstrated a high protein level. She was intubated for two weeks and was treated with plasmapheresis. She is unsure if she had EMG testing. She reports doing extensive rehab after this and was just discharged from
outpatient PT 3-4 weeks ago. 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
5-6 weeks ago she reports developing severe mid-back pain that radiated down her RLE to her right calf. The pain is now in the back of her left thigh too. Her RUE intermittently has a tingling sensation as well. Around the onset of back pain her
lower extremities started feeling weak R>L. She had several weeks of diarrhea at the onset of her symptoms but that has subsided. She reports having a few episodes of urinary incontinence over the past week, and now today she feels like she can't
empty her bladder. The back pain is severe, 10/10 and wakes her up from sleep. it is worse with movement, sitting upright, crossing her arms. It is somewhat relieved lying completely still. She completed two Medrol dose packs prior to coming to the
ER with no relief of symptoms. She has a history of migraine headaches that improved greatly after her VPS was placed. She is taking Emgality and uses Ubrelvy PRN but reports headaches have been rare until 2-3 weeks ago. Her headache is now a 10/10
stabbing sensation on the right side of her head. She denies any photo/phonophobia, nausea, or vomiting. Her neck has been feeling stiff and today it feels sore. She denies any head/neck/back injuries. She reports having a 103F fever last week with
associated cough that has since resolved.'
Past Medical History: Migraine, IIH, GBS, asthma, RLE DVT/PE (Xarelto), IBS, obesity, Lupus, antiphospholipid antibody syndrome, anxiety, insomnia
Surgical History: Right-sided VPS, screw in R foot, b/l toe nail removal
Family History: Reviewed and noncontributory.
Social History: Denies tobacco, alcohol, and illicit drug use.
Allergies: Apixaban, dog dander, duloxetine, iodine, latex, lidocaine, menthol, NSAIDS, sumatriptan.
Home Medications: see below
Review of Symptoms:
Patient denies any fever, chest pain. She is currently using a nebulizer, audibly wheezing and reports N/V.
Physical Exam:
The patient is afebrile, abdomen is nondistended, currently on nebulizer
Neurologic Examination:
The patient is awake, alert and oriented x 3. She is able to follow commands and answer questions appropriately. There is no aphasia or dysarthria. On cranial nerve assessment, pupils are 3 mm bilateral, round and reactive to light and
accommodation. Visual garcia are full. Extraocular movements are intact. Facial sensations are intact and bilaterally symmetrical, there is no facial asymmetry. Hearing is intact bilaterally to normal conversation volume. Tongue palate and uvula are
midline. Sternocleidomastoid strengths are full bilaterally. Motor strengths are 5/5 bilateral upper and 4+/5 bilateral lower extremities on medical research Tribe scale. (+) fuchs's sign b/l. There is no drift or involuntary movement noted.
Deep tendon reflexes are 1+ bilateral upper and absent bilateral lower extremities and Babinski is absent bilaterally. Sensation of light touch intact bilaterally symmetrical. There was no extinction noted on double simultaneous stimulation.
Coordination is intact by finger to nose and heel to victor bilaterally.
Lab Results: See below.
Neuro Imaging:
CT head 05/19/2024-
1. No acute intracranial abnormalities appreciated.
2. Right frontal approach ventriculostomy catheter is in expected position. No significant ventricular dilation.
Impression:
REJI MAYS is a 38 year old F who has presented to the hospital with GI distress and upper respiratory symptoms with history or asthma who reports increased weakness/numbness of b/l LE.
Differentials for the patient's presentation include metabolic disturbance vs functional neurologic disorder, not likely exacerbation of GB, not likely related to VPS
Recommendations:
-reviewed CT head, no need for further neurologic imaging at this time
-consider EMG and imaging should symptoms worsen
-avoid narcotics if possible as narcotics can lead to rebound headache/migraine
-Tylenol as headache, migraine breaker
-continue to encourage hydration
-will draw labs for additional metabolic causes
-need records form [facility] admission and Shunt placement as well as follow up office visits, Dr. Ibarra
-PT/OT evaluation and treatment
-monitor neurologic status as was on Heparin gtt as unable tot tolerate Xarelto, Heparin gtt currently on hold d/t coffee ground emesis
-DVT prophylaxis
Discussed patient care with patient, hospitalist and Dr. Kendrick
Medication and Allergies
Home Medications
Home Medications
�Medication �Instructions �Recorded
cyanocobalamin (vitamin B-12) 1,000 mcg IM QMONTH Supplement 06/21/23
1,000 mcg/mL injection solution
furosemide 20 mg tablet (Lasix) 20 mg PO BID@0800,1200 Fluid 06/21/23
Retention/Swelling
galcanezumab-gnlm 120 mg/mL 120 mg SC QMONTH Headaches 06/21/23
subcutaneous syringe (Emgality)
hydroxyzine HCl 25 mg tablet 25 mg PO BID Mental Health/Anxiety 06/21/23
montelukast 10 mg tablet 10 mg PO HS Allergies 06/21/23
(Singulair)
rivaroxaban 20 mg tablet (Xarelto) 20 mg PO QPM Blood Clot 06/21/23
Prevention/Tx
tizanidine 4 mg tablet 4 mg PO TID Muscle Spasms 06/21/23
albuterol sulfate 90 mcg/actuation 1 puff inhalation R Q4HPRN PRN 10/11/23
aerosol inhaler sob/wheezing
promethazine 25 mg tablet 25 mg PO Q12H upset stomach 10/11/23
eszopiclone 3 mg tablet (Lunesta) 3 mg PO HS 05/18/24
famotidine 20 mg tablet (Pepcid) 20 mg PO HS 05/18/24
potassium chloride 10 mEq 10 meq PO DAILY 05/18/24
tablet,extended
release(part/cryst) (Klor-Con M)
sertraline 50 mg tablet 50 mg PO HS 05/18/24
Allergies
Allergies
Allergy/AdvReac Type Severity Reaction Status Date / Time
apixaban Allergy Unknown Verified 06/21/23 11:46
dog dander Allergy Unknown Verified 06/21/23 11:46
duloxetine Allergy Unknown Verified 06/21/23 11:46
iodine Allergy Unknown Verified 06/21/23 11:46
latex Allergy Unknown Verified 06/21/23 11:46
lidocaine Allergy Unknown Verified 06/21/23 11:37
menthol Allergy Unknown Verified 06/21/23 11:46
NSAIDS (Non-Steroidal Allergy Unknown Verified 06/21/23 11:37
Anti-Inflamma
sumatriptan Allergy Unknown Verified 06/21/23 11:46
Vital Signs / Labs
-
Vital Signs and Labs:
Temp Pulse Resp BP Pulse Ox
98.8 F 112 24 132/80 97
05/19/24 11:22 05/19/24 11:55 05/19/24 11:55 05/19/24 11:22 05/19/24 11:55
05/19/24 04:25
05/18/24 05/19/24 05/19/24
18:18 04:25 11:35
Hgb 11.5 L
Hct 36.4 L 33.4 L
MCV 80.2 L 79.0 L
RDW 14.9 H 14.7 H
Absolute Lymphs (auto) 1.0 L
Neutrophils % 78.6 H
Lymphocytes % 12.2 L
APTT 160.2 H*
Chloride 110 H
Carbon Dioxide 18 L 15 L
Glucose 165 H
Calcium 8.2 L
Urine Opiates Screen Positive H
U Benzodiazepines Scrn Positive H
U Marijuana (THC) Screen Positive H
05/19/24
11:37
Hgb
Hct
MCV
RDW
Absolute Lymphs (auto)
Neutrophils %
Lymphocytes %
APTT 199.8 H*
Chloride
Carbon Dioxide
Glucose
Calcium
Urine Opiates Screen
U Benzodiazepines Scrn
U Marijuana (THC) Screen

Documented by User: Esa Kendrick MD 05/19/24 13:41
Consultation - Neurology 4
-
CONSULTING PHYSICIAN: Dr. Esa Kendrick
REFERRING PHYSICIAN: Dr. Huseyin Scott
DICTATED BY: MARIA DE JESUS Souza
DATE/TIME OF REQUEST: 05/19/2024
DATE/TIME OF CONSULTATION: 05/19/2024
Reason for Consultation: LE numbness/weakness
History of Present Illness:
This is a 38 year old female patient with a past medical history of Migraine, IIH, GBS, asthma, RLE DVT/PE (Xarelto), IBS, obesity, Lupus, antiphospholipid antibody syndrome, anxiety, insomnia who presented to the ER with GI and upper respiratory
symptoms. Today she reported to the hospitalist that she had numbness and weakness, b/l LE. She states she has numbness, weakness and shakiness that is that is intermittent. Symptoms had gradual onset a few days ago that started in b/l feet
first then gradually began to travel up in the legs. No upper extremity numbness or weakness. She is significantly concerned about leg numbness/weakness as she endorses a history of GB with complications requiring intubation last year. She can
stand and use the commode but requires assistance d/t leg weakness and shakiness. She does admit that this all started after GI and respiratory illness onset. She also reports chronic neck and back pain. She has a history of migraines and feels
her neck pain is worse today d/t onset of migraine. She has suffered with migraines for years that improved after shunt was placed fro [facility]. She continues to take Emgality as prevention but only uses Tylenol as a breaker. She has been having
migraines daily since . At baseline she gets them 1-2 times a month.
From Consultation Ibis Almeida 10/13/2023
'This is a 38-year-old right-handed female who has presented to the hospital on 10/11/23 with report of back pain. Patient has a history of idiopathic intracranial hypertension (IIH) s/p VPS in 2011 at [facility]. She is followed by Neurology as an
outpatient, Dr. Lara, at [facility] for IIH, migraines, and more recently Guillain-Sidney syndrome (GBS). There are no medical records available and all of this information is obtained from the patient. She reports that last December 2022 she
started having transient episodes of not being able to feel her legs and she would randomly collapse. In February 2023 she lost sensation from her waist down to her feet and fell down a flight of stairs. She was hospitalized at [facility] and reports
having a spinal tap that demonstrated a high protein level. She was intubated for two weeks and was treated with plasmapheresis. She is unsure if she had EMG testing. She reports doing extensive rehab after this and was just discharged from
outpatient PT 3-4 weeks ago. 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
5-6 weeks ago she reports developing severe mid-back pain that radiated down her RLE to her right calf. The pain is now in the back of her left thigh too. Her RUE intermittently has a tingling sensation as well. Around the onset of back pain her
lower extremities started feeling weak R>L. She had several weeks of diarrhea at the onset of her symptoms but that has subsided. She reports having a few episodes of urinary incontinence over the past week, and now today she feels like she can't
empty her bladder. The back pain is severe, 10/10 and wakes her up from sleep. it is worse with movement, sitting upright, crossing her arms. It is somewhat relieved lying completely still. She completed two Medrol dose packs prior to coming to the
ER with no relief of symptoms. She has a history of migraine headaches that improved greatly after her VPS was placed. She is taking Emgality and uses Ubrelvy PRN but reports headaches have been rare until 2-3 weeks ago. Her headache is now a 10/10
stabbing sensation on the right side of her head. She denies any photo/phonophobia, nausea, or vomiting. Her neck has been feeling stiff and today it feels sore. She denies any head/neck/back injuries. She reports having a 103F fever last week with
associated cough that has since resolved.'
Past Medical History: Migraine, IIH, GBS, asthma, RLE DVT/PE (Xarelto), IBS, obesity, Lupus, antiphospholipid antibody syndrome, anxiety, insomnia
Surgical History: Right-sided VPS, screw in R foot, b/l toe nail removal
Family History: Reviewed and noncontributory.
Social History: Denies tobacco, alcohol, and illicit drug use.
Allergies: Apixaban, dog dander, duloxetine, iodine, latex, lidocaine, menthol, NSAIDS, sumatriptan.
Home Medications: see below
Review of Symptoms:
Patient denies any fever, chest pain. She is currently using a nebulizer, audibly wheezing and reports N/V.
Physical Exam:
The patient is afebrile, abdomen is nondistended, currently on nebulizer
Neurologic Examination:
The patient is awake, alert and oriented x 3. She is able to follow commands and answer questions appropriately. There is no aphasia or dysarthria. On cranial nerve assessment, pupils are 3 mm bilateral, round and reactive to light and
accommodation. Visual garcia are full. Extraocular movements are intact. Facial sensations are intact and bilaterally symmetrical, there is no facial asymmetry. Hearing is intact bilaterally to normal conversation volume. Tongue palate and uvula are
midline. Sternocleidomastoid strengths are full bilaterally. Motor strengths are 5/5 bilateral upper and 4+/5 bilateral lower extremities on medical research Tribe scale. (+) fuchs's sign b/l. There is no drift or involuntary movement noted.
Deep tendon reflexes are 1+ bilateral upper and absent bilateral lower extremities and Babinski is absent bilaterally. Sensation of light touch intact bilaterally symmetrical. There was no extinction noted on double simultaneous stimulation.
Coordination is intact by finger to nose and heel to victor bilaterally.
Lab Results: See below.
Neuro Imaging:
CT head 05/19/2024-
1. No acute intracranial abnormalities appreciated.
2. Right frontal approach ventriculostomy catheter is in expected position. No significant ventricular dilation.
Impression:
REJI MAYS is a 38 year old F who has presented to the hospital with GI distress and upper respiratory symptoms with history of asthma who reports increased weakness/numbness of b/l LE.
Differentials for the patient's presentation include metabolic disturbance vs functional neurologic disorder, not likely exacerbation of GB, not likely related to VPS
Recommendations:
-reviewed CT head, no need for further neurologic imaging at this time
-consider EMG and imaging should symptoms worsen
-avoid narcotics if possible as narcotics can lead to rebound headache/migraine
-Tylenol as headache, migraine breaker
-continue to encourage hydration
-will draw labs for additional metabolic causes
-need records form [facility] admission and Shunt placement as well as follow up office visits, Dr. Ibarra
-PT/OT evaluation and treatment
-monitor neurologic status as was on Heparin gtt as unable tot tolerate Xarelto, Heparin gtt currently on hold d/t coffee ground emesis
-DVT prophylaxis
Discussed patient care with patient, hospitalist and Dr. Kendrick
--- NOTE | 2024-05-19 12:10 | W.PN.HOSP.TC ---
Today's Communication/Plan
-
see PN
Assessment / Plan
Assessment / Plan
38yo F with PMHx of NPH s/p [employer] shunt, Asthma, anxiety, Hx of VTE on Xarelto, Hx of GBS, Hx of acute inflammatory demilyelinating neuropathy admitted with 3 days of nausea, vomiting, cough and SOB. FOund febrile in ED. CT abd/pelvis without signs of
acute pathology. Lipase and LFT WNL, ddimer neg, procalcitonin neg. Had episode of reported coffee ground emesis in CT. Also developed intermittent weakness in b/l LE with numbness, on physical exam had no effort to move but was able to ambulate for
CT scan
A/P:
#Asthma exacerbation most likely 2/2 viral disease/bronchitis
Bronchodilators/Steroids taper
Azythromycin for immunomodulatory properties
#Hematemesis, nausea
no clear reason
follow serial H&H
hold anticoagulation
PPI drip
GI consult
#b/l intermittent LE weakness
#Hx of GBS
#Hx of acute inflammatory demyelinating neuropathy
#NPH with [employer] shunt
#Migraine headaches
abdominal portion of the shunt in appropriate position without fluid collection
Head CT - no ventricular dilation, shunt in appropriate position
Neurology consult
#Severe epigastric and retrosternal pain
no signs of ST elevation on EKG
serial troponin
Possible 2/[address] to eval esophagus and mediastinum
#Hx of VTE
#Anxiety d/o
#Antiphospholipid syndrome
Challenging situation with hematemesis
DDimer neg, questionable benefit risk for acute AC since hematemesis
DVT ppx on SCDs
Full code
I have spent at least 59min reviewing chart, test results, communication with cosnultants and direct patient care
Anticipated Discharge: 24 - 48 hours
Subjective/Interval History
-
Date of Service: May 19, 2024
Objective Data
-
Labs:
Laboratory Results
05/19/24 05/19/24 05/19/24
04:25 11:37 11:41
WBC 7.3
Hgb 11.5 L Pending
Hct 33.4 L Pending
Plt Count 319
APTT 160.2 H* Pending
Sodium 139
Potassium 4.3
Chloride 110 H
Carbon Dioxide 15 L
BUN 9
Creatinine 0.8
Glucose 165 H
Calcium 8.2 L
Vital Signs:
Vital Signs
Temp Pulse Resp BP Pulse Ox
98.8 F 112 24 132/80 97
05/19/24 11:22 05/19/24 11:55 05/19/24 11:55 05/19/24 11:22 05/19/24 11:55
I&O
05/18/24 05/19/24 05/20/24
06:59 06:59 06:59
Intake Total 1250 / 1250
Output Total 200 / 200
Balance 1050 / 1050
Review of Systems
-
History Source: Patient
All other systems: Reviewed and negative
Respiratory: Reports Cough and Trouble Breathing
Cardiac: Reports Chest Pain
Abdomen/GI: Reports Abdominal Pain, Nausea and Vomiting
Musculoskeletal: Reports Muscle Weakness
Neuro: Reports Weakness and Numbness
Physical Exam
-
General: No Apparent Distress
HEENT: Normocephalic, Atraumatic and Moist Mucous Membranes
Respiratory: Wheezes
Cardiac: Regular Rhythm
GI: Soft, Nondistended and Tender (epigastrium)
Musculoskeletal: No Clubbing, No Cyanosis and No Edema
Skin: Warm
Neuro: Awake, Alert, Oriented, AO x 3 and Other (cannot assess LE strength since patient does not make effort)
Psych: Anxious
[2024-05-19] MEDS: PROTONIX IV 80 MG IV (12:15)
[2024-05-19] MEDS: NSS (PRESERVATIVE FREE) 20 ML IV (12:15)
[2024-05-19] MEDS: PROTONIX 100 IV (12:15)
[2024-05-19 12:26] LABS: Troponin I < 0.012 ng/ml
[2024-05-19 12:34] LABS: Amphetamines Negative (Negative); Barbiturates Negative (Negative); Benzodiazepines Positive (Negative); Buprenorphine Negative (Negative); Cocaine Negative (Negative); Marijuana Positive (Negative); Methadone Negative (Negative); Methamphetamines Negative (Negative); Opiates Positive (Negative); Phencyclidine Negative (Negative); Tricyclic Antidepressants Negative (Negative)
[2024-05-19 12:37] LABS: APTT 199.8 Sec (23.4-35.0)
[2024-05-19 12:54] LABS: Fentanyl, Urine Negative (Negative)
[2024-05-19 13:14] LABS: Hematocrit 33.5 % (37.0-47.0); Hemoglobin 11.8 g/dL (12.0-16.0)
[2024-05-19] MEDS: ZITHROMAX INFUSION 250 IV (14:02)
[2024-05-19 14:03] LABS: Erythrocyte Sed Rate 24 mm/hour (0-20)
[2024-05-19] MEDS: SOLU-CORTEF 200 MG IV (14:12)
[2024-05-19] MEDS: BENADRYL 25 MG IV (14:12)
[2024-05-19] MEDS: HEPARIN 25000 UNITS/250 ML IV (14:33)
[2024-05-19] MEDS: NSS 1000 IV (14:43)
--- NOTE | 2024-05-19 14:58 | CON.GI ---
Addendum entered and electronically signed by Phoenix Mock MD 05/19/24 18:30:
I saw and examined the patient.
The PA's note was reviewed and I agree with the note.
Comment:
38 year old female with multiple medical issues consulted for persistent nausea/vomiting and 1 episode of coffee ground emesis. No further emesis. Hgb stable. Agree with PPI, conservative mx and monitoring for her questionable coffee ground
emesis. Antiemetics. She can f/u with her GI at [facility].
Original Note:
Consultation
-
Date/Time Consultation Requested: 05/19/24 1144
Date/Time Consultation Performed: 05/19/24 1300
Requesting Provider: Dr. Scott
Performing Provider: Dr. Mock/MARIA DE JESUS Chen
Reason for Consultation: N/V/D
Medical History
Chief Complaint / HPI
Chief Complaint: persistent upper respiratory symptoms
History of Present Illness:
38-year-old female with past medical history of asthma, chronic pain, palpitations, insomnia, B12 deficiency, vitamin D deficiency, biliary colic status post cholecystectomy, normal pressure hydrocephalus status post RAILROAD CAR PAINTER shunt, acute inflammatory
demyelinating polyneuropathy, intermittent fevers, chronic edema, history of pulmonary embolism, antiphospholipid antibody syndrome, DVT, PE on chronic anticoagulation, history of chronic constipation resolved after cholecystectomy now with bile
salt diarrhea, Guilian Mello� syndrome, history of acute respiratory failure with intubation, anxiety, major depressive disorder with arthralgia multiple joints with recent referral to rheumatology who presents to the emergency room initially on
05/17/2024 with intermittent fevers, weakness, nausea, vomiting and diarrhea as well as cough and wheezing. The patient tested negative for COVID and flu. She was given a prescription for prednisone and Zofran. She went home and filled
prescription however vomited up the prednisone. She presented back to the emergency room on 05/18/2024 for worsening nonproductive cough and wheezing. Diarrhea resolved. We are asked to evaluate for persistent nausea and vomiting. She did have 1
episode of coffee-ground emesis. This is in the setting of chronic anticoagulation. 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 She did test negative for both.
She has been exposed to multiple illnesses. She states that she felt very weak. She also has had fevers which she states was up to 105.0 �F. Her Tmax here was 101.2 Fahrenheit. She states that she was not able to take her Xarelto for 2 days as
she had vomiting. She states that she is having continuous coughing and wheezing. She has a hoarse voice. She feels like her throat is raw. She was started on a heparin drip here. She did have 1 episode of emesis with some coffee grounds in it.
No signs of other bleeding. She has no black stools. No further bowel movement since arrival. Hemoglobin has remained stable and is currently 11.8. This is her baseline. BUN is currently 9. She continues on a pantoprazole drip. She continues
on Decadron and Zithromax. She does have some left sided chest discomfort which increases with movement, inspiration or cough. She has splenomegaly on CT imaging. She denies any melena, hematochezia, dysphagia or odynophagia. No early satiety or
unintentional weight loss. She does follow-up with GI at [facility].
Past Medical History
Past Medical History: Other (asthma, chronic pain, palpitations, insomnia, B12 deficiency, vitamin D deficiency, biliary colic status post cholecystectomy, normal pressure hydrocephalus status post RAILROAD CAR PAINTER shunt, acute inflammatory demyelinating
polyneuropathy, intermittent fevers, chronic edema, history of pulmonary embolism, antip)
Past Surgical History: Other (Bilateral toenail removal, RAILROAD CAR PAINTER shunt, screw right foot, cholecystectomy)
Social History
Tobacco: Non-Smoker
Alcohol: None
Drug: None
Employment: Employed
Family History
Family History: Other (Maternal grandmother history of colon cancer)
Allergies / Home Medications
Allergy/AdvReac Type Severity Reaction Status Date / Time
apixaban Allergy Unknown Verified 06/21/23 11:46
dog dander Allergy Unknown Verified 06/21/23 11:46
duloxetine Allergy Unknown Verified 06/21/23 11:46
iodine Allergy Unknown Verified 06/21/23 11:46
latex Allergy Unknown Verified 06/21/23 11:46
lidocaine Allergy Unknown Verified 06/21/23 11:37
menthol Allergy Unknown Verified 06/21/23 11:46
NSAIDS (Non-Steroidal Allergy Unknown Verified 06/21/23 11:37
Anti-Inflamma
sumatriptan Allergy Unknown Verified 06/21/23 11:46
�Medication �Instructions �Recorded
cyanocobalamin (vitamin B-12) 1,000 mcg IM QMONTH Supplement 06/21/23
1,000 mcg/mL injection solution
furosemide 20 mg tablet (Lasix) 20 mg PO BID@0800,1200 Fluid 06/21/23
Retention/Swelling
galcanezumab-gnlm 120 mg/mL 120 mg SC QMONTH Headaches 06/21/23
subcutaneous syringe (Emgality)
hydroxyzine HCl 25 mg tablet 25 mg PO BID Mental Health/Anxiety 06/21/23
montelukast 10 mg tablet 10 mg PO HS Allergies 06/21/23
(Singulair)
rivaroxaban 20 mg tablet (Xarelto) 20 mg PO QPM Blood Clot 06/21/23
Prevention/Tx
tizanidine 4 mg tablet 4 mg PO TID Muscle Spasms 06/21/23
albuterol sulfate 90 mcg/actuation 1 puff inhalation R Q4HPRN PRN 10/11/23
aerosol inhaler sob/wheezing
promethazine 25 mg tablet 25 mg PO Q12H upset stomach 10/11/23
eszopiclone 3 mg tablet (Lunesta) 3 mg PO HS Sleep 05/18/24
famotidine 20 mg tablet (Pepcid) 20 mg PO HS Gastrointestinal Issue 05/18/24
potassium chloride 10 mEq 10 meq PO DAILY Supplement 05/18/24
tablet,extended
release(part/cryst) (Klor-Con M)
sertraline 50 mg tablet 50 mg PO HS Depression 05/18/24
Review of Systems
-
All other systems: A 12 pt ROS was Negative except as stated above in HPI
Vital Signs
Temp Pulse Resp BP Pulse Ox
98.8 F 112 24 132/80 97
05/19/24 11:22 05/19/24 11:55 05/19/24 11:55 05/19/24 11:22 05/19/24 11:55
Physical Exam
Exam
General: No Apparent Distress
HEENT: Anicteric
Respiratory: Wheezes (Bilateral wheezes)
Cardiac: Regular Rhythm
GI: Soft, Non Tender, Non Distended, Normal Bowel Sounds and Other (Some left chest wall tenderness)
Musculoskeletal: Edema (Bilateral lower extremity +1 edema)
Skin: Warm and Dry
Neuro: AO x 3
Psych: Calm
Results
WBC 7.3 10^3/uL (4.8-10.8) 05/19/24 04:25
Hgb 11.8 g/dL (12.0-16.0) L 05/19/24 12:40
Hct 33.5 % (37.0-47.0) L 05/19/24 12:40
MCV 79.0 fL (81.0-99.0) L 05/19/24 04:25
Plt Count 319 10^3/uL (130-400) 05/19/24 04:25
Absolute Neuts (auto) 6.3 10^3/uL (1.4-6.5) 05/18/24 18:18
APTT 199.8 Sec (23.4-35.0) H* 05/19/24 11:37
Sodium 139 mmol/L (135-145) 05/19/24 04:25
Potassium 4.3 mmol/L (3.5-5.1) 05/19/24 04:25
Chloride 110 mmol/L (98-107) H 05/19/24 04:25
Carbon Dioxide 15 mmol/L (22-30) L 05/19/24 04:25
BUN 9 mg/dl (7-17) 05/19/24 04:25
Creatinine 0.8 mg/dL (0.6-1.0) 05/19/24 04:25
Calcium 8.2 mg/dl (8.4-10.2) L 05/19/24 04:25
Total Bilirubin 0.4 mg/dl (0.2-1.3) 05/18/24 18:18
AST 19 U/L (14-36) 05/18/24 18:18
ALT 20 U/L (0-35) 05/18/24 18:18
Alkaline Phosphatase 72 U/L (38-126) 05/18/24 18:18
Lipase 119 U/L (23-300) 05/18/24 18:18
Diagnostic Image Results:
CT Head 05/19/24:
1. No acute intracranial abnormalities appreciated.
2. Right frontal approach ventriculostomy catheter is in expected position. No significant ventricular dilation.
CXR 05/18/24:
IMPRESSION:
No acute disease of the chest.
CT Abd/Pelvis 05/17/24:
IMPRESSION:
No acute findings in the abdomen or pelvis.
Partially visualized right-sided ventriculoperitoneal shunt catheter which appears continuous throughout its visualized course and terminates in the right lower quadrant.
Multiple cysts within the right ovary with a 2.4 cm dominant follicle.
Mild splenomegaly.
Prior GI Procedures:
EGD: [facility], records unavailable to me
Colonoscopy: [facility], records unavaliable to me
Assessment / Plan
-
38-year-old female with past medical history of asthma, chronic pain, palpitations, insomnia, B12 deficiency, vitamin D deficiency, biliary colic status post cholecystectomy, normal pressure hydrocephalus status post RAILROAD CAR PAINTER shunt, acute inflammatory
demyelinating polyneuropathy, intermittent fevers, chronic edema, history of pulmonary embolism, antiphospholipid antibody syndrome, DVT, PE on chronic anticoagulation, history of chronic constipation resolved after cholecystectomy now with bile
salt diarrhea, Guilian Mello� syndrome, history of acute respiratory failure with intubation, anxiety, major depressive disorder with arthralgia multiple joints with recent referral to rheumatology who presents to the emergency room initially on
05/17/2024 with intermittent fevers, weakness, nausea, vomiting and diarrhea as well as cough and wheezing. The patient tested negative for COVID and flu. She was given a prescription for prednisone and Zofran. She went home and filled
prescription however vomited up the prednisone. She presented back to the emergency room on 05/18/2024 for worsening nonproductive cough and wheezing. Diarrhea resolved. We are asked to evaluate for persistent nausea and vomiting. She did have 1
episode of coffee-ground emesis. This is in the setting of chronic anticoagulation. Patient without any further vomiting since this am. Hgb remains stable. Given prior hx of hypercoaguable state and prior DVT/PE would continue chronic
anticoagulation with GI prophylaxis.
Impression:
N/V/D
--Diarrhea resolved, if returns check stool studies, especially norovirus as she had exposure.
--Continue Pantoprazole 40 mg IV BID, change to po when able to tolate
--Can use Pepcid as well prn, patient was using this at home.
--Ok to resume AC, currently on heparin gtt until can tolerate oral
--Continue antiemetics.
--Reviewed patient outpatient PCP records and they were adjusting some antidepressants secondary to N/V side effects in early April.
--Continue current care for current asthma exacerbation, B/L LE weakness, fevers per IM/Neurology. Patient was to follow up with Rheumatology as well.
--Follow up with primary GI at [facility].
-
-
Thank you for consultation and allowing me to participate in the patient's care. Please call the software configuration specialist GI physician during the after hours with any questions or concerns.
[2024-05-19] MEDS: DILAUDID 0.25 MG IV (16:13)
[2024-05-19 17:03] LABS: Free T4 0.98 ng/dl (0.78-2.19)
[2024-05-19 17:17] LABS: TSH 0.45 uIU/ml (0.47-4.68)
[2024-05-19 17:21] LABS: Ferritin 38.8 ng/ml (6.24-137)
[2024-05-19] MEDS: DUONEB INH (17:22)
[2024-05-19 17:32] LABS: Monotest Negative (Negative)
[2024-05-19 17:53] LABS: Folate 7.1 ng/ml (2.76-20); Vitamin B12 613 pg/ml (239-931)
[2024-05-19 20:16] VITALS: BP 120/83
[2024-05-19 20:34] LABS: Hematocrit 33.2 % (37.0-47.0); Hemoglobin 11.5 g/dL (12.0-16.0)
[2024-05-19 20:46] LABS: APTT 69.6 Sec (23.4-35.0)
[2024-05-19] MEDS: PROTONIX IV 40 MG IV (21:05)
[2024-05-19] MEDS: NSS (PRESERVATIVE FREE) 10 ML IV (21:05)
[2024-05-19 21:59] LABS: Troponin I 0.013 ng/ml
[2024-05-19 23:00] VITALS: BP 118/58
[2024-05-20] MEDS: NSS 1000 IV ×2 (02:12→09:16)
[2024-05-20] MEDS: DECADRON 4 MG IV ×4 (02:13→19:50)
[2024-05-20] MEDS: DILAUDID 0.5 MG IV ×5 (02:13→21:35)
[2024-05-20 02:42] LABS: % Basophils 0.1 % (0-2); % Immature Granulocytes 0.3 % (0-0.5); % Lymphocytes 13.6 % (20.5-51.1); Absolute Monocytes 0.4 10^3/uL (0.1-0.6); Absolute Neutrophils 5.8 10^3/uL (1.4-6.5); Hematocrit 32.1 % (37.0-47.0); Hemoglobin 10.9 g/dL (12.0-16.0); Mean Corpuscular Hgb 26.8 pg (27.0-31.0); Mean Corpuscular Volume 79.1 fL (81.0-99.0); Mean Platelet Volume 9.9 fL (7.4-10.4); Nucleated Red Blood Cells % 0 %; Platelet Count 307 10^3/uL (130-400); Red Blood Cell Count 4.06 10^6/uL (4.20-5.40); Red Cell Dist. Width 14.9 % (11.5-14.5); White Blood Cell Count 7.1 10^3/uL (4.8-10.8)
[2024-05-20 02:54] LABS: APTT 87.4 Sec (23.4-35.0)
[2024-05-20 03:18] LABS: ALT (SGPT) 26 U/L (0-35); AST (SGOT) 27 U/L (14-36); Albumin 3.9 g/dl (3.5-5.0); Alkaline Phosphatase 56 U/L (38-126); Blood Urea Nitrogen 10 mg/dl (7-17); Calcium 8.7 mg/dl (8.4-10.2); Carbon Dioxide 18 mmol/L (22-30); Chloride 110 mmol/L (98-107); Estimated Creatinine Clearance 96 ml/min; Glucose 137 mg/dl (70-99); Potassium 4.3 mmol/L (3.5-5.1); Sodium 140 mmol/L (135-145); Total Bilirubin 0.2 mg/dl (0.2-1.3); Total Protein 6.6 g/dl (6.3-8.2); eGFR > 60.00
[2024-05-20 03:45] VITALS: BP 131/87
[2024-05-20] MEDS: HEPARIN 25000 UNITS/250 ML IV (06:32)
[2024-05-20] MEDS: ZOFRAN 4 MG IV ×2 (06:36→21:35)
[2024-05-20 07:45] VITALS: BP 143/76
[2024-05-20] MEDS: DUONEB 3 ML INH (08:24)
[2024-05-20] MEDS: NSS (PRESERVATIVE FREE) 10 ML IV ×2 (09:08→19:50)
[2024-05-20] MEDS: PROTONIX IV 40 MG IV ×2 (09:08→19:50)
[2024-05-20] MEDS: SYMBICORT 160/4.5 MCG INHALER 2 PUFF INH ×2 (09:26→20:25)
[2024-05-20] MEDS: ATIVAN 0.5 MG IV (10:43)
[2024-05-20] MEDS: NSS (PRESERVATIVE FREE) 0.25 ML IV (10:48)
[2024-05-20] MEDS: ZITHROMAX INFUSION 250 IV (11:04)
[2024-05-20 11:41] VITALS: BP 144/81
--- NOTE | 2024-05-20 11:49 | W.PN.HOSP.TC ---
Today's Communication/Plan
-
start diet, if tolerated - switch to Xarelto
Pulm consult
minimize pain meds
Assessment / Plan
Assessment / Plan
38yo F with PMHx of NPH s/p PARISH WORKER shunt, Asthma, anxiety, Hx of VTE on Xarelto, Hx of GBS, Hx of acute inflammatory demilyelinating neuropathy admitted with 3 days of nausea, vomiting, cough and SOB. FOund febrile in ED. CT abd/pelvis without signs of
acute pathology. Lipase and LFT WNL, ddimer neg, procalcitonin neg. Had episode of reported coffee ground emesis in CT. Also developed intermittent weakness in b/l LE with numbness, on physical exam had no effort to move but was able to ambulate for
CT scan
A/P:
#Asthma exacerbation most likely 2/2 viral disease/bronchitis
Bronchodilators/Steroids taper
Azithromycin for immunomodulatory properties
With upper airways localized wheezing - question n vocal cord etiology vs intentional
Pulm consult
#Hematemesis, nausea - seems resolved
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
no clear reason
follow serial H&H - remained stable
hold anticoagulation
PPI drip
GI consult: no objections to AC
#b/l intermittent LE weakness
#Hx of GBS
#Hx of acute inflammatory demyelinating neuropathy
#NPH with PARISH WORKER shunt
#Migraine headaches
abdominal portion of the shunt in appropriate position without fluid collection
Head CT - no ventricular dilation, shunt in appropriate position
Neurology consult: functional d/o
Previous MRI showed no abnormalities
#Severe epigastric and retrosternal pain, on chronic whole-body aches, managed by PCP
no signs of ST elevation on EKG
No abnormality on CT chest
serial troponin neg
Possible 2/[address] chest neg for significant pathology. Some reactive lymph nodes
#Recurrent fevers
continued for some time now
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
#Hx of VTE
#Anxiety d/o
#Antiphospholipid syndrome
COnt AC
No DVT on LE US
cotn home meds
DVT ppx on Heparin drip
Full code
I have spent at least 59min reviewing chart, test results, communication with consultants and direct patient care
Anticipated Discharge: > 48 hours
Subjective/Interval History
-
Date of Service: May 20, 2024
Objective Data
-
Labs:
Laboratory Results
05/20/24 05/20/24
02:34 04:00
WBC 7.1
Hgb 10.9 L Cancelled
Hct 32.1 L Cancelled
Plt Count 307
APTT 87.4 H
Sodium 140
Potassium 4.3
Chloride 110 H
Carbon Dioxide 18 L
BUN 10
Creatinine 0.9
Glucose 137 H
Calcium 8.7
Total Bilirubin 0.2
AST 27
ALT 26
Alkaline Phosphatase 56
Vital Signs:
Vital Signs
Temp Pulse Resp BP Pulse Ox
97.9 F 82 18 144/81 96
05/20/24 11:41 05/20/24 11:41 05/20/24 11:41 05/20/24 11:41 05/20/24 11:41
I&O
05/19/24 05/20/24 05/21/24
06:59 06:59 06:59
Intake Total 1250 / 1250
Output Total 200 / 200
Balance 1050 / 1050
Review of Systems
-
History Source: Patient
All other systems: Reviewed and negative
Constitutional: Reports Fatigue
Respiratory: Reports Cough and Wheezing
Physical Exam
-
General: Comfortable
HEENT: Moist Mucous Membranes
Respiratory: Wheezes (localized to upper ariways, present only on auscultation, not present during conversation )
Cardiac: Regular Rhythm
Skin: Warm
Neuro: Awake, Alert and Oriented
Psych: Calm
[2024-05-20] MEDS: MUCINEX 600 MG PO ×2 (12:24→19:50)
[2024-05-20] MEDS: XOPENEX 1.25 MG INHALANT SOLUTION INH ×2 (12:37→17:21)
[2024-05-20 15:00] VITALS: BP 137/81
--- NOTE | 2024-05-20 16:00 | PTCARENOTE ---
Patient sitting in chair. Patient SELENA COULTER, with a harsh NPC. Tessalon and Robitussin given. Patient c/o 10/10 chest wall pain from coughing-Dilaudid given. Patient assisted back to bed. Patient is weak and tremulous when ambulating. Call avelar in
reach, ice pack given for headache.
[2024-05-20] MEDS: ROBITUSSIN DM 10 ML PO ×2 (16:52→21:35)
[2024-05-20] MEDS: TESSALON PERLES 100 MG PO ×2 (16:52→19:50)
[2024-05-20 16:53] LABS: APTT 84.2 Sec (23.4-35.0)
--- NOTE | 2024-05-20 17:16 | CON.PUL ---
Consultation
Consultation Request
Date/Time Consultation Requested: 05/20
Date/Time Consultation Performed: 05/20
Reason for Consultation: Shortness of breath
Medical History
-
History of Present Illness:
History obtained from the chart, and patient. Patient is a 38-year-old female with history of asthma followed by pulmonology at [facility] who presents with wheezing, nausea, emesis along with abdominal discomfort. She apparently was in the ER
05/17 for similar symptoms. She had a chest x-ray and CT abdomen which were normal. Symptoms worsened which prompted reevaluation in the ED. Upon arrival, afebrile, pulse 100, breathing at 18, blood pressure 148/79, 100% saturation. She was
given nebulized treatment, steroids, cultures. White count was normal, creatinine was normal. She was admitted for possible asthma exacerbation. We are asked to comment on her pulmonary process
Unfortunate, after her recent hospital stay earlier this year, patient has not seen her Primary plant manager at [facility]. She does admit to taking her inhaler as prescribed
.
PMH: history of asthma, pulmonary embolism with antiphospholipid syndrome on Xarelto, NPH with MOUNTAIN OR GLACIER GUIDE shunt, AIDP, anxiety, insomnia, GERD. Bilateral toenail removal, MOUNTAIN OR GLACIER GUIDE shunt, screw in right foot
Past Medical History
Past Medical History: None (See above)
Past Surgical History: None (See above)
Social History
Tobacco: Non-smoker
Alcohol: Occasional
Drug: None
Allergies / Home Medications
Allergies
Allergy/AdvReac Type Severity Reaction Status Date / Time
apixaban Allergy Unknown Verified 06/21/23 11:46
dog dander Allergy Unknown Verified 06/21/23 11:46
duloxetine Allergy Unknown Verified 06/21/23 11:46
iodine Allergy Unknown Verified 06/21/23 11:46
latex Allergy Unknown Verified 06/21/23 11:46
lidocaine Allergy Unknown Verified 06/21/23 11:37
menthol Allergy Unknown Verified 06/21/23 11:46
NSAIDS (Non-Steroidal Allergy Unknown Verified 06/21/23 11:37
Anti-Inflamma
sumatriptan Allergy Unknown Verified 06/21/23 11:46
Home Medications
�Medication �Instructions �Recorded �Confirmed �Last Taken �Type
cyanocobalamin (vitamin B-12) 1,000 mcg IM QMONTH Supplement 06/21/23 05/18/24 Unknown History
1,000 mcg/mL injection solution
furosemide 20 mg tablet (Lasix) 20 mg PO BID@0800,1200 Fluid 06/21/23 05/18/24 10/11/23 08:00 History
Retention/Swelling
galcanezumab-gnlm 120 mg/mL 120 mg SC QMONTH Headaches 06/21/23 05/18/24 Unknown History
subcutaneous syringe (Emgality)
hydroxyzine HCl 25 mg tablet 25 mg PO BID Mental Health/Anxiety 06/21/23 05/18/24 06/20/23 History
montelukast 10 mg tablet 10 mg PO HS Allergies 06/21/23 05/18/24 10/10/23 History
(Singulair)
rivaroxaban 20 mg tablet (Xarelto) 20 mg PO QPM Blood Clot 06/21/23 05/18/24 10/10/23 History
Prevention/Tx
tizanidine 4 mg tablet 4 mg PO TID Muscle Spasms 06/21/23 05/18/24 06/20/23 History
albuterol sulfate 90 mcg/actuation 1 puff inhalation R Q4HPRN PRN 10/11/23 05/18/24 Unknown History
aerosol inhaler sob/wheezing
promethazine 25 mg tablet 25 mg PO Q12H upset stomach 10/11/23 05/18/24 Unknown History
eszopiclone 3 mg tablet (Lunesta) 3 mg PO HS Sleep 05/18/24 05/18/24 Unknown History
famotidine 20 mg tablet (Pepcid) 20 mg PO HS Gastrointestinal Issue 05/18/24 05/18/24 Unknown History
potassium chloride 10 mEq 10 meq PO DAILY Supplement 05/18/24 05/18/24 Unknown History
tablet,extended
release(part/cryst) (Klor-Con M)
sertraline 50 mg tablet 50 mg PO HS Depression 05/18/24 05/18/24 Unknown History
Review of Systems
-
All other systems: Negative unless noted
Vitals / Labs / Diagnostic Testing
Vital Signs
Temp Pulse Resp BP Pulse Ox
97.9 F 76 18 137/81 96
05/20/24 15:00 05/20/24 15:00 05/20/24 15:00 05/20/24 15:00 05/20/24 15:00
Lab Data
05/20/24 04:00
05/20/24 02:34
Laboratory Results
05/19/24 05/20/24 05/20/24
20: 02:34 16:34
APTT 69.6 H 87.4 H 84.2 H
Microbiology
05/18/24 19:33 Blood/Venous Blood Culture - Preliminary
No Growth in 24 hours- Final report to follow
05/18/24 19:33 Blood/Venous Blood Culture - Preliminary
No Growth in 24 hours- Final report to follow
Diagnostic Testing:
Physical Exam
-
HEENT: Normocephalic, Anicteric and Other (Large neck)
Cardiovascular: S1/S2, Regular Rhythm, Murmur (n), Rub (n) and Peripheral Edema (n)
Respiratory: Wheeze (Upper airway), Rales (n), Rhonchi (few), Non-Labored Respirations and Other (No stridor)
GI: Soft and Non Distended (Obese)
Neurology: Awake, Alert and No Motor Deficits
Skin: Good Color
General: Comfortable
Assessment
-
38-year-old female with history of asthma, history of PE with antiphospholipid syndrome on Xarelto, history of NPH s/p MOUNTAIN OR GLACIER GUIDE shunt, history of AIDP, anxiety and primary insomnia who presents with shortness of breath with dry cough ongoing for about 3
to 5 days. Patient remains compliant with inhaler therapy but does not routinely follow-up with her primary plant manager in [facility]. We are asked to comment on her pulmonary process
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
Acute asthmatic exacerbation
Predominantly upper airway wheeze
No stridor
Obesity
GERD
Migraine headaches
APS with Hx of PE on Xarelto
Plan/recommendations
At this time, patient appears to be nontoxic
She presented in similar fashion earlier this year. At that time she was noncompliant with her inhalers but presently states she is compliant
She does have a cat
She likely has sleep disordered breathing, has yet to follow-up with workup and her primary plant manager
Doubt any vocal cord issues given lack of inspiratory wheeze, inspiratory stridor
Wheeze resolved with pursed lip breathing
Moving forward
Reviewed pursed lip breathing techniques. With this her wheeze resolves
Unfortunately at this time we will need to continue with nebulized therapy, Symbicort. Would continue with azithromycin, can transition to oral
Decrease IV Decadron dose
Continue PPI therapy
GI following
Anticoagulation per primary service. Presently on heparin, off Xarelto
Discussed absolute importance of avoiding smoking, marijuana
We will follow
- Continue systemic steroids - currently on decadron 4mg IV q6hr --> change to solumedrol 60mg IV q6hr + wean as tolerated
- Start nasal saline TID and taper as her Sx improve
- Continue xopenex and add atrovent with prn nebs in between
- Encourage up OOB as tolerated
- Encourage incentive spirometer
- No need for Abx however it appears she is on chronic doxy, so will change to azithro for now given its anti-inflammatory effect
- Maintain MAP>65
- Keep BG >100 and <180mg/dL
- outpatient PFTs with asthma action plan and peak flow meter
- DVT ppx
Pulmonary service will continue to follow along
[2024-05-20 19:32] VITALS: BP 120/74
[2024-05-20 23:15] VITALS: BP 110/58
[2024-05-21] MEDS: HEPARIN 25000 UNITS/250 ML IV ×2 (01:37→18:15)
[2024-05-21] MEDS: DILAUDID 0.5 MG IV ×5 (01:46→18:44)
[2024-05-21] MEDS: ROBITUSSIN DM 10 ML PO ×3 (01:46→10:15)
[2024-05-21 03:05] VITALS: BP 119/66
[2024-05-21] MEDS: TESSALON PERLES 100 MG PO ×2 (05:15→10:15)
[2024-05-21 06:17] LABS: % Basophils 0.1 % (0-2); % Immature Granulocytes 0.7 % (0-0.5); % Lymphocytes 14.9 % (20.5-51.1); % Monocytes 5.5 % (1.7-9.3); % Neutrophils 78.8 % (42.2-75.2); Absolute Immature Granulocytes 0.1 10^3/uL (0-0.05); Absolute Lymphocytes 1.4 10^3/uL (1.2-3.4); Absolute Monocytes 0.5 10^3/uL (0.1-0.6); Absolute Neutrophils 7.6 10^3/uL (1.4-6.5); Hematocrit 31.3 % (37.0-47.0); Hemoglobin 10.6 g/dL (12.0-16.0); Mean Corp Hgb Conc. 33.9 g/dL (33.0-37.0); Mean Corpuscular Hgb 26.9 pg (27.0-31.0); Mean Corpuscular Volume 79.4 fL (81.0-99.0); Mean Platelet Volume 9.6 fL (7.4-10.4); Nucleated Red Blood Cells % 0 %; Platelet Count 303 10^3/uL (130-400); Red Blood Cell Count 3.94 10^6/uL (4.20-5.40); Red Cell Dist. Width 14.8 % (11.5-14.5); White Blood Cell Count 9.7 10^3/uL (4.8-10.8)
[2024-05-21 06:28] LABS: APTT 79.5 Sec (23.4-35.0)
[2024-05-21 07:00] VITALS: BP 140/87
[2024-05-21] MEDS: NSS (PRESERVATIVE FREE) 10 ML IV ×2 (08:20→20:51)
[2024-05-21] MEDS: MUCINEX 600 MG PO ×2 (08:20→20:51)
[2024-05-21] MEDS: DECADRON 4 MG IV ×2 (08:20→20:51)
[2024-05-21] MEDS: PROTONIX IV 40 MG IV ×2 (08:21→20:51)
[2024-05-21] MEDS: ZOFRAN 4 MG IV (08:47)
[2024-05-21] MEDS: XOPENEX 1.25 MG INHALANT SOLUTION INH (09:06)
[2024-05-21] MEDS: SYMBICORT 160/4.5 MCG INHALER 2 PUFF INH ×2 (09:06→17:49)
[2024-05-21 09:57] LABS: Iron 107 ug/dl (37-170)
[2024-05-21 10:15] LABS: Percent Saturation 36 % (20-50); Total Iron Binding Capacity 293 ug/dl (265-497)
[2024-05-21 10:42] LABS: Ferritin 47.5 ng/ml (6.24-137)
[2024-05-21 11:00] VITALS: BP 132/79
--- NOTE | 2024-05-21 12:13 | W.PN.HOSP.TC ---
Today's Communication/Plan
-
cont solumedrol as per Pulm
switch to reglan, encourage oral intake, if can keep food down - switch to Xarelto
Assessment / Plan
Assessment / Plan
38yo F with PMHx of NPH s/p RUSSIAN LANGUAGE PROFESSOR shunt, Asthma, anxiety, Hx of VTE on Xarelto, Hx of GBS, Hx of acute inflammatory demilyelinating neuropathy admitted with 3 days of nausea, vomiting, cough and SOB. FOund febrile in ED. CT abd/pelvis without signs of
acute pathology. Lipase and LFT WNL, ddimer neg, procalcitonin neg. Had episode of reported coffee ground emesis in CT. Also developed intermittent weakness in b/l LE with numbness, on physical exam had no effort to move but was able to ambulate for
CT scan
A/P:
#Asthma exacerbation most likely 2/2 viral disease/bronchitis
Bronchodilators/Steroids taper
Azithromycin for immunomodulatory properties
With upper airways localized wheezing - question n vocal cord etiology vs intentional
Pulm consult: started IV solumedrol
#Hematemesis, nausea - seems resolved
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
no clear reason as per CT
follow serial H&H - remained stable
PPI drip
GI consult: no objections to AC
advance diet
#hyperglycemia with PMHx of preDM
check HgbA1c
#b/l intermittent LE weakness
#Hx of GBS
#Hx of acute inflammatory demyelinating neuropathy
#NPH with RUSSIAN LANGUAGE PROFESSOR shunt
#Migraine headaches
abdominal portion of the shunt in appropriate position without fluid collection
Head CT - no ventricular dilation, shunt in appropriate position
Neurology consult: functional d/o
Previous MRI showed no abnormalities
#Severe epigastric and retrosternal pain, on chronic whole-body aches, managed by PCP
no signs of ST elevation on EKG
No abnormality on CT chest
serial troponin neg
Possible 2/[address] chest neg for significant pathology. Some reactive lymph nodes
#Recurrent fevers
continued for some time now
Outpatient case resource manager - already was referred by PCP
#Hx of VTE
#Anxiety d/o
#Antiphospholipid syndrome
COnt AC
No DVT on LE US
cotn home meds
DVT ppx on Heparin drip
Full code
I have spent at least 39min reviewing chart, test results, communication with consultants and direct patient care
Anticipated Discharge: > 48 hours
Subjective/Interval History
-
Date of Service: May 21, 2024
Objective Data
-
Labs:
Laboratory Results
05/21/24 05/21/24
06:04 06:07
WBC 9.7
Hgb 10.6 L
Hct 31.3 L
Plt Count 303
APTT 79.5 H
Vital Signs:
Vital Signs
Temp Pulse Resp BP Pulse Ox
97.7 F 71 20 140/87 96
05/21/24 07:00 05/21/24 09:11 05/21/24 09:11 05/21/24 07:00 05/21/24 09:11
I&O
05/20/24 05/21/24 05/22/24
06:59 06:59 06:59
Intake Total 1919
Balance 1919
Review of Systems
-
History Source: Patient
All other systems: Reviewed and negative
Respiratory: Reports Cough and Trouble Breathing
Abdomen/GI: Reports Nausea
Physical Exam
-
General: No Apparent Distress
HEENT: Normocephalic
Respiratory: Wheezes
Cardiac: Regular Rhythm
GI: Soft, Nontender and Nondistended
Musculoskeletal: No Clubbing, No Cyanosis and No Edema
Neuro: Awake, Alert, Oriented and AO x 3
Psych: Calm
[2024-05-21] MEDS: REGLAN 10 MG IV ×2 (12:24→18:24)
[2024-05-21] MEDS: ZITHROMAX INFUSION 250 IV (12:28)
[2024-05-21 15:00] VITALS: BP 127/79
--- NOTE | 2024-05-21 15:52 | CM ---
Patient seen at bedside
IA Completed.
PMH: [place] syndrome 2022
Lives in a townhouse with her boyfriend, no steps to enter, flight to second floor
PLOF: independent
DME: [facility]
PCP: Nato Callejas
Pharmacy: [facility]
Plan: Home, no needs anticipated
--- NOTE | 2024-05-21 15:52 | W.PN.PUL3 ---
Today's Communication / Plan
-
No change in current steroids
Continue nebulizer, inhaler
Pursed lip breathing
Encourage ambulation
Remains on heparin at this time
Assessment
-
38-year-old female with history of asthma, history of PE with antiphospholipid syndrome on Xarelto, history of NPH s/p MULTIFOCAL LENS ASSEMBLER shunt, history of AIDP, anxiety and primary insomnia who presents with shortness of breath with dry cough ongoing for about 3
to 5 days. Patient remains compliant with inhaler therapy but does not routinely follow-up with her primary consumer credit counselor in [facility]. We are asked to comment on her pulmonary process
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
Acute asthmatic exacerbation
Predominantly upper airway wheeze
No stridor
Obesity
GERD
Migraine headaches
APS with Hx of PE on Xarelto
Plan/recommendations
At this time, patient appears to be somewhat improved per my review
Nontoxic-appearing on room air but primary complaint is sore throat, cough and wheezing
She presented in similar fashion earlier this year. At that time she was noncompliant with her inhalers but presently states she is compliant
She does have a cat
She likely has sleep disordered breathing, has yet to follow-up with workup and her primary consumer credit counselor
Doubt any vocal cord issues given lack of inspiratory wheeze, inspiratory stridor
Wheeze resolved with pursed lip breathing
Moving forward
Reviewed pursed lip breathing techniques. With this her wheeze resolves
Unfortunately at this time we will need to continue with nebulized therapy, Symbicort. Would continue with azithromycin, can transition to oral
Continue current IV Decadron dose, no change
Continue PPI therapy
GI following
Anticoagulation per primary service. Presently on heparin, off Xarelto
History of antiphospholipid antibody syndrome
Also reviewed importance of follow-up with pulmonary. She has not seen her consumer credit counselor since February 2023 despite recommendations after recent hospital stay earlier this year
Discussed absolute importance of avoiding smoking, marijuana
We will follow
Subjective Data
-
Date of Service:
Date of Service: May 21, 2024
Subjective:
Patient seen and examined earlier today, late entry. Patient sitting in chair. She feels no improvement in breathing but she appears to be more comfortable less wheezy. She denies nausea, abdominal pain but describes sore throat, cough and chest
discomfort with coughing. She is on room air
Objective Data
Data Reviewed
Vital Signs / I&O / Oxygen:
Vital Signs
Temp Pulse Resp BP Pulse Ox
98.1 F 75 18 132/79 97
05/21/24 11:00 05/21/24 11:00 05/21/24 11:00 05/21/24 11:00 05/21/24 11:00
Intake and Output
05/20/24 05/21/24 05/22/24
06:59 06:59 06:59
Intake Total 1919
Balance 1919
SaO2 97
Nasal Cannula flow liters per 3
minute
Physical Exam
General: Comfortable (Large neck, no thrush)
HEENT: Normocephalic and Anicteric
Cardiovascular: S1-S2, Regular Rhythm, Murmur (n), Rub (n) and Peripheral Edema (n)
Respiratory: Wheeze (Both upper and lower airway expiratory wheeze, no stridor), Crackles (n), Rhonchi (Few) and Non-Labored Respirations
GI: Soft, Non Distended (Obese) and Non Tender
Neurology: Awake, Alert and No Motor Deficits
Skin: Cyanosis (n), Jaundice (n) and Rash (n)
Labs/Micro/Reports
Lab Data
05/21/24 06:04
05/20/24 02:34
Laboratory Results
05/20/24 05/21/24
16:34 06:07
APTT 84.2 H 79.5 H
Microbiology
05/18/24 19:33 Blood/Venous Blood Culture - Preliminary
No Growth in 48 hours- Final report to follow
05/18/24 19:33 Blood/Venous Blood Culture - Preliminary
No Growth in 48 hours- Final report to follow
[2024-05-21 19:50] VITALS: BP 141/84
--- NOTE | 2024-05-21 22:20 | PTCARENOTE ---
Pt's HR decreased to 36 from 50s-70s. Pt is drowsy but verbally arousable after IV Dilaudid 0.5mg admin at 1844. CAUSTIC PURIFICATION OPERATOR Edith Freed notified, order placed for PO Tylenol PRN. Will hold off on further IV Dilaudid doses for the rest of the night. Pt
sleeping, no further complaints of pain.
[2024-05-21 23:21] VITALS: BP 148/83
[2024-05-22] MEDS: TYLENOL 650 MG PO (01:43)
[2024-05-22] MEDS: REGLAN 10 MG IV ×2 (01:44→09:23)
[2024-05-22] MEDS: ROBITUSSIN DM 10 ML PO ×3 (01:44→15:30)
[2024-05-22 02:33] VITALS: BP 112/53
[2024-05-22 06:11] LABS: Hematocrit 31.4 % (37.0-47.0); Hemoglobin 10.7 g/dL (12.0-16.0); Mean Corp Hgb Conc. 34.1 g/dL (33.0-37.0); Mean Corpuscular Hgb 27.3 pg (27.0-31.0); Mean Corpuscular Volume 80.1 fL (81.0-99.0); Mean Platelet Volume 9.8 fL (7.4-10.4); Platelet Count 297 10^3/uL (130-400); Red Blood Cell Count 3.92 10^6/uL (4.20-5.40); Red Cell Dist. Width 14.9 % (11.5-14.5); White Blood Cell Count 14.4 10^3/uL (4.8-10.8)
[2024-05-22 06:17] LABS: APTT 62.8 Sec (23.4-35.0)
[2024-05-22 07:41] VITALS: BP 117/79
[2024-05-22] MEDS: MUCINEX 600 MG PO ×2 (08:10→21:08)
[2024-05-22] MEDS: TESSALON PERLES 100 MG PO ×2 (08:10→15:30)
[2024-05-22] MEDS: PROTONIX IV 40 MG IV ×2 (08:11→21:08)
[2024-05-22] MEDS: NSS (PRESERVATIVE FREE) 10 ML IV ×2 (08:11→21:07)
[2024-05-22] MEDS: SYMBICORT 160/4.5 MCG INHALER 2 PUFF INH ×2 (08:12→19:59)
[2024-05-22] MEDS: DECADRON 4 MG IV (08:12)
[2024-05-22] MEDS: XOPENEX 1.25 MG INHALANT SOLUTION INH ×3 (08:13→18:34)
[2024-05-22 09:11] LABS: Glycohemoglobin (HgbA1c) 5.7 % (4.0-5.6)
--- NOTE | 2024-05-22 09:12 | W.PN.PUL3 ---
Today's Communication / Plan
-
Change steroids from IV Decadron to Solu-Medrol
Maintain euglycemia while on high-dose steroid
She gets very antsy/anxious with the steroids and may need something to calm her down; can consider Seroquel at night, at least a one-time tonight to see if she tolerates this
Continue nebulizer, inhaler; add Spiriva
Pain control
Antitussants
Pursed lip breathing for worsening wheezing
Encourage ambulation as tolerated
Outpatient pulmonary office follow-up with full PFTs and symptom management
Assessment
-
38-year-old female with history of asthma, history of PE with antiphospholipid syndrome on Xarelto, history of NPH s/p CHIEF EXECUTIVE shunt, history of AIDP, anxiety and primary insomnia who presents with shortness of breath with dry cough ongoing for about 3
to 5 days. Patient remains compliant with inhaler therapy but does not routinely follow-up with her primary restaurant floor manager in [facility]. We are asked to comment on her pulmonary process
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
Impression:
Acute asthmatic exacerbation
Predominantly upper airway wheeze
No stridor
Obesity
GERD
Migraine headaches
APS with Hx of PE on Xarelto
Plan/recommendations
At this time, patient is worsening with continued wheezing, cough with SOB
Nontoxic-appearing on room air but primary complaint is sore throat, cough and wheezing
She presented in similar fashion earlier this year. At that time she was noncompliant with her inhalers but presently states she is compliant
She does have a cat
She likely has sleep disordered breathing, has yet to follow-up with workup and her primary restaurant floor manager
Doubt any vocal cord issues given lack of inspiratory wheeze, inspiratory stridor
Wheeze resolves with pursed lip breathing
Moving forward
Reviewed pursed lip breathing techniques. With this her wheeze resolves
Unfortunately at this time we will need to continue with nebulized therapy with scheduled albuterol; continue Symbicort 160mcg and add spiriva respimat 2.5mcg/act
Continue with azithromycin, can transition to oral
Given that she continues to have wheezing with shortness of breath, change IV Decadron to Solu-Medrol 40 mg q6hr; monitor blood glucose while on high-dose steroids with goal BG >100 and <180
Anti-tussants with Phenergan with codeine
Continue PPI therapy
GI following
Anticoagulation per primary service.
History of antiphospholipid antibody syndrome on xarelto
Also reviewed importance of follow-up with pulmonary. She has not seen her restaurant floor manager since February 2023 despite recommendations after recent hospital stay earlier this year; she wishes to follow-up with us now after discharge; will obtain full
PFTs in the office
Discussed absolute importance of avoiding smoking, marijuana
We will follow
Total time spent today was 41 minutes for this encounter. Time includes reviewing laboratory test/imaging results, reviewing pertinent medical records, obtaining and reviewing medical history, performing an appropriate exam, ordering medications,
tests and procedures. Time also includes documentation of this encounter, coordinating patient care and communicating with other healthcare professionals. Total time does not include separately billed tests performed on this date of service.
Subjective Data
-
Date of Service:
Date of Service: May 22, 2024
Chief Complaint: Pulmonary Follow Up
Subjective:
Patient seen and evaluated today at bedside. Currently on room air breathing comfortably but says she remains short of breath and is still wheezing. Also has sharp substernal chest pain as well as pain in her upper abdomen. Still coughing and
would like something to help stop her cough. Also still nauseous and vomited this morning. Currently denies MUKHERJEE, diarrhea, fevers or chills. Last fever was on 05/18/2024 to 101.2 �F.
Review of Systems
General: Other (Negative unless mentioned above)
Objective Data
Data Reviewed
Vital Signs / I&O / Oxygen:
Vital Signs
Temp Pulse Resp BP Pulse Ox
97.9 F 58 18 117/79 96
05/22/24 07:41 05/22/24 08:16 05/22/24 08:16 05/22/24 07:41 05/22/24 08:16
Intake and Output
05/21/24 05/22/24 05/23/24
06:59 06:59 06:59
Intake Total 1919 3240 / 3240
Balance 1919 3240 / 3240
SaO2 96
Nasal Cannula flow liters per 3
minute
Physical Exam
General: Respiratory Distress (negative), Comfortable (Large neck, no thrush), Chills (negative) and Sweats (negative)
HEENT: Normocephalic and Anicteric
Cardiovascular: S1-S2, Murmur (n), Rub (n) and Peripheral Edema (n)
Respiratory: Wheeze (Both upper and lower airway expiratory wheeze, no stridor), Crackles (n), Rhonchi (negative), Non-Labored Respirations and Stridor (negative)
GI: Soft, Non Distended (Obese) and Non Tender
Neurology: AO x 3 and Tremors (negative)
Skin: Warm, Dry, Cyanosis (n), Jaundice (n) and Rash (n)
Labs/Micro/Reports
Lab Data
05/22/24 05:58
05/20/24 02:34
Laboratory Results
05/22/24
05:58
APTT 62.8 H
Microbiology
05/18/24 19:33 Blood/Venous Blood Culture - Preliminary
No Growth in 72 hours- Final report to follow
05/18/24 19:33 Blood/Venous Blood Culture - Preliminary
No Growth in 72 hours- Final report to follow
[2024-05-22] MEDS: PERCOCET 5/325 1 TABLET PO ×3 (09:40→21:18)
--- NOTE | 2024-05-22 09:43 | PTCARENOTE ---
Patient with audible inspiratory and expiratory wheezing this am, resp aware and provided treatment. Patient received meds for cough, moist nonproductive. Complained of pain in rib and chest area with cough, received Percocet . Resting at
present, no acute distress ,call avelar in reach .
--- NOTE | 2024-05-22 11:06 | CM ---
Addendum entered by Megha Velasquez 05/22/24 14:30:
CM received call from Debra, Maintenance Aide at [facility] offering discharge planning if needed- [phone] ext [phone]
Original Note:
CM reviewed chart, patient seen bedside. Patient reports no needs to CM at this time. Pulmonary following patient. CM will continue to follow for all discharge planning needs.
Plan; home no needs anticipated.
[2024-05-22 11:09] VITALS: BP 152/78
[2024-05-22] MEDS: HEPARIN 8400 UNITS IV (11:47)
[2024-05-22] MEDS: HEPARIN 25000 UNITS/250 ML IV (11:48)
[2024-05-22] MEDS: ZITHROMAX INFUSION 250 IV (11:52)
--- NOTE | 2024-05-22 14:20 | W.PN.HOSP.TC ---
Today's Communication/Plan
-
Assessment / Plan
Assessment / Plan
#Asthma exacerbation most likely 2/2 viral disease/bronchitis
--- COVID and mono negative. Flu negative. Blood culture no growth to date.
--- Stop IV Dilaudid for pleuritic chest discomfort. Start Percocet
Bronchodilators/Steroids taper
Azithromycin for immunomodulatory properties
Wheezing noted throughout all lung garcia including upper airway even with pursed lip breathing
Pulmonary following
Nebulizer treatments ATC
IV dexamethasone
#Hematemesis, nausea - seems resolved
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
Hematemesis resolved however now with emesis
Continue antiemetic
Low residue diet. If persistent then will make n.p.o. changed to CLD
Prediabetic
Continue diet/lifestyle modification
#b/l intermittent LE weakness
#Hx of GBS
#Hx of acute inflammatory demyelinating neuropathy
#NPH with LUMBER TAILER shunt
#Migraine headaches
abdominal portion of the shunt in appropriate position without fluid collection
Head CT - no ventricular dilation, shunt in appropriate position
Neurology consult: functional d/o
Previous MRI showed no abnormalities
#Severe epigastric and retrosternal pain, on chronic whole-body aches, managed by PCP
no signs of ST elevation on EKG
No abnormality on CT chest
serial troponin neg
Possible 2/[address] chest neg for significant pathology. Some reactive lymph nodes
#Recurrent fevers
Has been afebrile since 05/18 1945
Outpatient languages and literature instructor - already was referred by PCP
#Hx of VTE
#Anxiety d/o
#Antiphospholipid syndrome
No DVT on LE US
Xarelto held due to fact of vomiting. On heparin drip. Once vomiting free for 24 hours will discontinue heparin drip and start Xarelto
DVT ppx on Heparin drip
Full code
Anticipated Discharge: 24 - 48 hours
Subjective/Interval History
-
Date of Service: May 22, 2024
Seen and examined.
States that this morning had an episode of vomiting
Continues to feel nauseous
Continues to have chest discomfort retrosternal sharp worse with breathing
Continues to have wheezing
Also complaining of some anxiety
Required 2 nebulizer treatments this a.m.
Objective Data
-
Labs:
Laboratory Results
05/21/24 05/22/24 05/22/24
06:04 05:58 18:00
WBC 9.7 14.4 H
Hgb 10.6 L 10.7 L
Hct 31.3 L 31.4 L
Plt Count 303 297
APTT 62.8 H Pending
Vital Signs:
Vital Signs
Temp Pulse Resp BP Pulse Ox
98.7 F 67 20 152/78 95
05/22/24 11:09 05/22/24 11:09 05/22/24 11:09 05/22/24 11:09 05/22/24 11:09
I&O
05/21/24 05/22/24 05/23/24
06:59 06:59 06:59
Intake Total 1919 3240 / 3240
Balance 1919 3240 / 3240
Physical Exam
-
General: Well Developed and Well Nourished
HEENT: Normocephalic and Atraumatic
Respiratory: Wheezes
Cardiac: Regular Rhythm and S1/S2
GI: Soft, Nontender, Nondistended and Normal Bowel Sounds
Musculoskeletal: No Clubbing, No Cyanosis and No Edema
Skin: Warm and Dry
Neuro: Awake, Alert, Oriented and AO x 3
Psych: Anxious
[2024-05-22 15:28] VITALS: BP 148/92
[2024-05-22] MEDS: SOLU-MEDROL PF 40 MG IV ×2 (16:39→21:07)
[2024-05-22] MEDS: PHENERGAN WITH CODEINE SYRUP 5 ML PO ×2 (16:41→21:18)
[2024-05-22 19:11] VITALS: BP 139/69
[2024-05-22] MEDS: VENTOLIN NEBULES INH (20:12)
[2024-05-22] MEDS: SEROQUEL 50 MG PO (21:08)
[2024-05-22 23:29] VITALS: BP 145/72
[2024-05-23 03:54] VITALS: BP 127/56
[2024-05-23] MEDS: PHENERGAN WITH CODEINE SYRUP 5 ML PO ×4 (04:23→22:03)
[2024-05-23] MEDS: PERCOCET 5/325 1 TABLET PO ×2 (04:23→09:24)
[2024-05-23] MEDS: SOLU-MEDROL PF 40 MG IV ×4 (04:24→20:55)
--- NOTE | 2024-05-23 06:58 | PN.CDI ---
CDI
- -
CDI:
Physician Documentation Request
Admit Date: 05/18/24 21:46
Dear Doctor Humza,
Please review the following and provide your response in the progress notes.
Clinical Indicators:
The diagnosis of sepsis was documented on 05/18 H&P but is not consistently noted in subsequent documentation.
- On admission: Tmax 101.2, HR 100s, RR 20s
- IV abx Azithromycin, Doxycycline
- 4L IVF
- 05/18 H&P 'Sepsis 2/2 acute bronchitis/asthma vs. viral gastroenteritis'
- 05/22 PN 'Asthma exacerbation most likely 2/2 viral disease/bronchitis'
Please clarify the following:
____ - Sepsis was present on admission and is now resolved.
____ - Sepsis was present on admission and is still being monitored, evaluated or treated
____ - Sepsis was ruled out
____ - Other
Use of terms such as suspected, likely, concern for, or probable (associated with a specific diagnosis that is being evaluated, monitored, or treated as if it exists) are acceptable and can be coded in the inpatient setting, when documented at the
time of discharge.
Thank you,
Niels Lopez RN
CDI Specialist
Please use your independent medical judgment in providing your response.
[2024-05-23] MEDS: SPIRIVA RESPIMAT 2.5 MCG 2 PUFF INH (07:33)
[2024-05-23] MEDS: SYMBICORT 160/4.5 MCG INHALER 2 PUFF INH (07:33)
[2024-05-23] MEDS: VENTOLIN NEBULES 2.5 MG INH ×2 (07:33→13:50)
[2024-05-23] MEDS: MUCINEX 600 MG PO (08:40)
[2024-05-23] MEDS: PROTONIX IV 40 MG IV ×2 (08:40→20:49)
[2024-05-23] MEDS: NSS (PRESERVATIVE FREE) 10 ML IV ×2 (08:40→20:49)
[2024-05-23] MEDS: TESSALON PERLES 100 MG PO (08:41)
[2024-05-23] MEDS: TYLENOL 650 MG PO (09:03)
--- NOTE | 2024-05-23 09:07 | W.PN.PUL3 ---
Addendum entered and electronically signed by Rakesh Austin MD 05/24/24 02:17:
Patient was seen and evaluated on 05/23/2024
Original Note:
Today's Communication / Plan
-
Continue high dose steroids with IV Solu-Medrol - wean as she clinically improves
Change all inhalers to nebulized form --> DuoNebs + Budesonide
Maintain euglycemia while on high-dose steroids
She gets very antsy/anxious with the steroids and may need something to calm her down; continue prn ativan; once she can swallow then would resume Seroquel HS
Pain control
Antitussants
Pursed lip breathing for worsening wheezing
Recommend ENT consult
Encourage ambulation as tolerated
Outpatient pulmonary office follow-up with full PFTs and symptom management
Assessment
-
38-year-old female with history of asthma, history of PE with antiphospholipid syndrome on Xarelto, history of NPH s/p FOOD AND BEVERAGE SERVER shunt, history of AIDP, anxiety and primary insomnia who presents with shortness of breath with dry cough ongoing for about 3
to 5 days. Patient remains compliant with inhaler therapy but does not routinely follow-up with her primary twisting press operator in [facility]. We are asked to comment on her pulmonary process
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
Impression:
Acute asthmatic exacerbation
Predominantly upper airway wheeze
No stridor
Obesity
GERD
Migraine headaches
APS with Hx of PE on Xarelto
Plan/recommendations
At this time, patient is worsening with continued wheezing, cough with SOB, although stable compared to 05/22/2024
Nontoxic-appearing on room air but primary complaint is sore throat, cough and wheezing; as well as gagging when trying to take pills
She presented in similar fashion earlier this year in 2023. At that time she was noncompliant with her inhalers but presently states she is compliant
She does have a cat
She likely has sleep disordered breathing, has yet to follow-up with workup and her primary twisting press operator
Doubt any vocal cord issues given lack of inspiratory wheeze, inspiratory stridor
Wheeze resolves with pursed lip breathing
Moving forward
Dr. Allen reviewed pursed lip breathing techniques. With this her wheeze resolves
Unfortunately at this time we will need to continue with nebulized therapy - trialed Symbicort 160mcg and spiriva respimat 2.5mcg/act, but she is not able to hold breath
Change all inhalers to nebs --> DuoNebs QID + budesonide
Continue with azithromycin
Given she is producing green phlegm, check sputum Cx
Blood Cx from 05/18/2024 shows NGTD
Given that she continues to have wheezing with shortness of breath, on 05/22 Dr. Austin changed IV Decadron to Solu-Medrol 40 mg q6hr; monitor blood glucose while on high-dose steroids with goal BG >100 and <180
Anti-tussants with Phenergan with codeine
Given her difficulty swallowing pills, recommend ENT consult to evaluate further, and to perform laryngoscopy
Continue PPI therapy
GI following
Anticoagulation per primary service.
History of antiphospholipid antibody syndrome on xarelto --> now on therapeutic LMWH given difficulty swallowing pills
Also reviewed importance of follow-up with pulmonary. She has not seen her twisting press operator since February 2023 despite recommendations after recent hospital stay earlier this year; she wishes to follow-up with us now after discharge; will obtain full
PFTs in the office
Discussed absolute importance of avoiding smoking, marijuana
We will follow
Total time spent today was 38 minutes for this encounter. Time includes reviewing laboratory test/imaging results, reviewing pertinent medical records, obtaining and reviewing medical history, performing an appropriate exam, ordering medications,
tests and procedures. Time also includes documentation of this encounter, coordinating patient care and communicating with other healthcare professionals. Total time does not include separately billed tests performed on this date of service.
Subjective Data
-
Date of Service:
Date of Service: May 23, 2024
Chief Complaint: Pulmonary Follow Up
Subjective:
Pt was seen this AM on 05/23/2024 - late note entry. She continues to feel poorly. Having difficulty swallowing pills due to gagging. Currently on room air breathing comfortably. Bringing up green phlegm - non-bloody. Has chest pain with
coughing. She denies MUKHERJEE, abd pain, N/V/f/c.
Review of Systems
General: Other (negative unless mentioned above)
Objective Data
Data Reviewed
Vital Signs / I&O / Oxygen:
Vital Signs
Temp Pulse Resp BP Pulse Ox
97.8 F 82 20 127/56 96
05/23/24 03:54 05/23/24 09:37 05/23/24 09:37 05/23/24 03:54 05/23/24 09:37
Intake and Output
05/22/24 05/23/24 05/24/24
06:59 06:59 06:59
Intake Total 3240 / 3240 2040 / 2040
Output Total 800 / 800
Balance 3240 / 3240 1240 / 1240
SaO2 96
Nasal Cannula flow liters per 3
minute
Physical Exam
General: Respiratory Distress (negative), Comfortable, Chills (negative), Sweats (negative) and Poor Appetite
HEENT: Normocephalic, Anicteric, Thrush (negative) and Other (Thick neck)
Cardiovascular: S1-S2, Murmur (n), Rub (n) and Peripheral Edema (n)
Respiratory: Wheeze (Both upper and lower airway expiratory wheeze), Crackles (n), Rhonchi (negative), Non-Labored Respirations and Stridor (negative)
GI: Soft, Non Distended (Obese), Non Tender and Normal Bowel Sounds
Neurology: AO x 3 and Tremors (negative)
Skin: Warm, Dry, Cyanosis (n), Jaundice (n) and Rash (n)
Labs/Micro/Reports
Lab Data
05/22/24 05:58
05/20/24 02:34
Laboratory Results
05/22/24
18:02
APTT 172.0 H*
Microbiology
05/18/24 19:33 Blood/Venous Blood Culture - Preliminary
No Growth in 4 days- Final report to follow
05/18/24 19:33 Blood/Venous Blood Culture - Preliminary
No Growth in 4 days- Final report to follow
[2024-05-23 09:56] VITALS: BP 150/77
--- NOTE | 2024-05-23 09:58 | PTCARENOTE ---
patient wanted to sleep.Patient did not want to be disturbed RN notified.
[2024-05-23 11:30] VITALS: BP 144/79
[2024-05-23] MEDS: ZITHROMAX INFUSION 250 IV (11:39)
[2024-05-23] MEDS: LOVENOX 100 MG SC ×2 (11:40→20:49)
[2024-05-23] MEDS: DILAUDID 0.5 MG IV ×3 (11:49→22:03)
[2024-05-23 15:00] VITALS: BP 146/69
--- NOTE | 2024-05-23 15:36 | W.PN.HOSP.TC ---
Today's Communication/Plan
-
Assessment / Plan
Assessment / Plan
#Asthma exacerbation most likely 2/2 viral disease/bronchitis
--- COVID and mono negative. Flu negative. Blood culture no growth to date.
--- Stop po Percocet for pleuritic chest discomfort. Resume IV Dilaudid
Bronchodilators/Steroids taper
Azithromycin for immunomodulatory properties
Wheezing noted throughout all lung garcia including upper airway even with pursed lip breathing
Pulmonary following
Nebulizer treatments ATC
IV methylpred
-Will discuss with pulmonary about having ENT eval for nasopharyngeal laryngoscope
Steroid induced anxiety
-IV Ativan
#Hematemesis, nausea - seems resolved
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
Hematemesis resolved however now with emesis
Continue antiemetic
Low residue diet. If persistent then will make n.p.o. changed to CLD
Prediabetic
Continue diet/lifestyle modification
#b/l intermittent LE weakness
#Hx of GBS
#Hx of acute inflammatory demyelinating neuropathy
#NPH with INTERACTIVE VIDEO TECHNICIAN shunt
#Migraine headaches
abdominal portion of the shunt in appropriate position without fluid collection
Head CT - no ventricular dilation, shunt in appropriate position
Neurology consult: functional d/o
Previous MRI showed no abnormalities
#Severe epigastric and retrosternal pain, on chronic whole-body aches, managed by PCP
no signs of ST elevation on EKG
No abnormality on CT chest
serial troponin neg
Possible 2/[address] chest neg for significant pathology. Some reactive lymph nodes
#Recurrent fevers
Has been afebrile since 05/18 1945
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
#Hx of VTE
#Anxiety d/o
#Antiphospholipid syndrome
No DVT on LE US
Xarelto held due to fact of vomiting. On heparin drip. Once vomiting free for 24 hours will discontinue heparin drip and start Xarelto
DVT ppx on Heparin drip
Full code
Anticipated Discharge: 24 - 48 hours
Subjective/Interval History
-
Date of Service: May 23, 2024
seen and examiend. no new complaitns. no acute overnight events
did not sleep overnight
pain was not controlled by percocet
was not able to take percocet AM dose
Objective Data
-
Vital Signs:
Vital Signs
Temp Pulse Resp BP Pulse Ox
98.2 F 68 20 144/79 96
05/23/24 11:30 05/23/24 11:30 05/23/24 11:30 05/23/24 11:30 05/23/24 11:30
I&O
05/22/24 05/23/24 05/24/24
06:59 06:59 06:59
Intake Total 3240 / 3240 2040 / 2040
Output Total 800 / 800
Balance 3240 / 3240 1240 / 1240
Physical Exam
-
General: Well Developed and Well Nourished
HEENT: Normocephalic and Atraumatic
Respiratory: Wheezes (mainly focused in upper airways, improves in lower airway)
Cardiac: Regular Rhythm and S1/S2
GI: Soft, Nontender, Nondistended and Normal Bowel Sounds
Neuro: Awake, Alert, Oriented and AO x 3
Psych: Calm
[2024-05-23] MEDS: ATIVAN 1 MG IV ×2 (15:53→22:02)
[2024-05-23] MEDS: PULMICORT 0.5 MG INH (20:04)
[2024-05-23] MEDS: DUONEB 3 ML INH (20:05)
[2024-05-23] MEDS: MUCINEX PO (20:55)
[2024-05-24 01:30] VITALS: BP 159/80
[2024-05-24] MEDS: SOLU-MEDROL PF 40 MG IV ×4 (04:25→21:37)
[2024-05-24] MEDS: DILAUDID 0.5 MG IV ×5 (04:26→23:15)
[2024-05-24] MEDS: PHENERGAN WITH CODEINE SYRUP 5 ML PO ×5 (04:26→23:14)
[2024-05-24 07:30] VITALS: BP 138/84
[2024-05-24] MEDS: PULMICORT 0.5 MG INH ×2 (07:35→21:12)
[2024-05-24] MEDS: DUONEB 3 ML INH ×4 (07:35→21:12)
[2024-05-24 08:47] LABS: C-Reactive Protein < 5.00 mg/L (0.0-10.00)
[2024-05-24 08:47] LABS: Blood Urea Nitrogen 15 mg/dl (7-17); Calcium 9.7 mg/dl (8.4-10.2); Carbon Dioxide 20 mmol/L (22-30); Chloride 102 mmol/L (98-107); Estimated Creatinine Clearance 96 ml/min; Glucose 173 mg/dl (70-99); Potassium 4.4 mmol/L (3.5-5.1); Sodium 136 mmol/L (135-145); eGFR > 60.00
[2024-05-24] MEDS: TESSALON PERLES 100 MG PO (08:50)
[2024-05-24] MEDS: MUCINEX 600 MG PO (08:50)
[2024-05-24] MEDS: NSS (PRESERVATIVE FREE) 10 ML IV ×2 (08:51→19:10)
[2024-05-24] MEDS: PROTONIX IV 40 MG IV ×2 (08:51→19:10)
[2024-05-24 09:00] LABS: Procalcitonin < 0.05 ng/ml (0.0-0.25)
[2024-05-24 09:32] LABS: Hematocrit 34.4 % (37.0-47.0); Hemoglobin 11.9 g/dL (12.0-16.0); Mean Corp Hgb Conc. 34.6 g/dL (33.0-37.0); Mean Corpuscular Hgb 27.3 pg (27.0-31.0); Mean Corpuscular Volume 78.9 fL (81.0-99.0); Mean Platelet Volume 9.5 fL (7.4-10.4); Platelet Count 399 10^3/uL (130-400); Red Blood Cell Count 4.36 10^6/uL (4.20-5.40); Red Cell Dist. Width 14.6 % (11.5-14.5); White Blood Cell Count 18.6 10^3/uL (4.8-10.8)
[2024-05-24] MEDS: ATIVAN 1 MG IV ×2 (10:43→19:13)
[2024-05-24] MEDS: LOVENOX 100 MG SC ×2 (10:44→21:38)
[2024-05-24] MEDS: ZITHROMAX INFUSION 250 IV (12:33)
--- NOTE | 2024-05-24 13:12 | CON.MD ---
Consultation - Medical
-
Hoarseness, cough and dysphagia
38 yo c Hx asthma, Guillain-[place], PE, hydrocephalus c shunt presented c several days of cough, wheezing and fever
Also developed GI Sx of nausea, diarrhea and swallowing issues
Dx'ed c upper respiratory infection/bronchitis
On steroids , antibx and inhalers
Also on Protonix for years for GERD
Asked to evaluate larynx and cords
PE - Voice mild raspy
No stridor or distress
Endoscopy shows normal vocal cords, motion bilaterally
Mild edema of hypopharynx, no lesions
A/P Hoarseness/ cough/ dysphagia
Inflammation noted, mild, likely due to acute respiratory issue but also GERD
Already on steroids, antibx and Protonix
No new recommendations, continue Protonix even after steroids tapered
Follow up as outpt
[2024-05-24 15:00] VITALS: BP 179/89
--- NOTE | 2024-05-24 15:20 | W.PN.HOSP.TC ---
Addendum entered and electronically signed by Patricio Ching MD 05/24/24 16:15:
sepsis secondary to acute viral syndrome
Original Note:
Today's Communication/Plan
-
Assessment / Plan
Assessment / Plan
#Asthma exacerbation most likely 2/2 viral disease/bronchitis
--- COVID and mono negative. Flu negative. Blood culture no growth to date.
--- Stop po Percocet for pleuritic chest discomfort. Resume IV Dilaudid
Bronchodilators/Steroids taper
Azithromycin for immunomodulatory properties
Wheezing noted throughout all lung garcia including upper airway even with pursed lip breathing
Pulmonary following
Nebulizer treatments ATC
IV methylpred
-S/p nasopharyngeal laryngoscope. Noted mild edema. Already on steroids and PPIs. Outpatient ENT follow-up
Steroid induced anxiety
-IV Ativan
#Hematemesis, nausea - seems resolved
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
Hematemesis resolved however now with emesis
Continue antiemetic
Low residue diet. If persistent then will make n.p.o. changed to CLD
Prediabetic
Continue diet/lifestyle modification
#b/l intermittent LE weakness
#Hx of GBS
#Hx of acute inflammatory demyelinating neuropathy
#NPH with NURSES' AIDE shunt
#Migraine headaches
abdominal portion of the shunt in appropriate position without fluid collection
Head CT - no ventricular dilation, shunt in appropriate position
Neurology consult: functional d/o
Previous MRI showed no abnormalities
#Severe epigastric and retrosternal pain, on chronic whole-body aches, managed by PCP
no signs of ST elevation on EKG
No abnormality on CT chest
serial troponin neg
Possible 2/[address] chest neg for significant pathology. Some reactive lymph nodes
#Recurrent fevers
Has been afebrile since 05/18 1945
Outpatient corporate administrator - already was referred by PCP
#Hx of VTE
#Anxiety d/o
#Antiphospholipid syndrome
No DVT on LE US
Xarelto held due to fact of vomiting. On heparin drip. Once vomiting free for 24 hours will discontinue heparin drip and start Xarelto
DVT ppx on Heparin drip
Full code
Anticipated Discharge: 24 - 48 hours
Subjective/Interval History
-
Date of Service: May 24, 2024
Seen and examined. No new complaints. No acute overnight events.
Continues to state that she is not sleeping cough is harsh medications really not help
Throat feels raw
Objective Data
-
Labs:
Laboratory Results
05/24/24 05/24/24
08:14 09:06
WBC 18.6 H
Hgb 11.9 L
Hct 34.4 L
Plt Count 399 D
Sodium 136
Potassium 4.4
Chloride 102
Carbon Dioxide 20 L
BUN 15
Creatinine 0.9
Glucose 173 H
Calcium 9.7
Vital Signs:
Vital Signs
Temp Pulse Resp BP Pulse Ox
98.1 F 86 22 138/84 95
05/24/24 07:30 05/24/24 08:01 05/24/24 08:01 05/24/24 07:30 05/24/24 08:50
I&O
05/23/24 05/24/24 05/25/24
06:59 06:59 06:59
Intake Total 2039 / 2039 1800 / 1800
Output Total 800 / 800
Balance 1240 / 1240 1800 / 1800
Physical Exam
-
General: Well Developed, Well Nourished and No Apparent Distress
HEENT: Normocephalic and Atraumatic
Respiratory: Clear to Auscultation (Lower lung garcia) and Wheezes (Upper lung garcia)
Cardiac: Regular Rhythm
Musculoskeletal: No Clubbing, No Cyanosis, No Edema and Clubbing
Neuro: Awake, Alert, Oriented and AO x 3
Psych: Calm and Anxious
--- NOTE | 2024-05-24 17:24 | W.PN.PUL3 ---
Today's Communication / Plan
-
Continue nebulizer DuoNeb/Pulmicort
Azithromycin for anti-inflammatory properties
Antitussives
Mucolytics
IV corticosteroids without change
Will add 25 mg of IV p.o. at bedtime for insomnia. Patient unable to take orals
Assessment
-
38-year-old female with history of asthma, history of PE with antiphospholipid syndrome on Xarelto, history of NPH s/p CIRCULATOR shunt, history of AIDP, anxiety and primary insomnia who presents with shortness of breath with dry cough ongoing for about 3
to 5 days. Patient remains compliant with inhaler therapy but does not routinely follow-up with her primary metal hanging supervisor in [facility]. We are asked to comment on her pulmonary process
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
Impression:
Acute asthmatic exacerbation
Predominantly upper airway wheeze
No stridor
Obesity
GERD
Migraine headaches
APS with Hx of PE on Xarelto
Plan/recommendations
Reports slight improvement compared to few days ago. Continues to have cough and expiratory wheezing and shortness of breath.
Not on oxygen supplementation.
Nontoxic-appearing on room air but primary complaint is sore throat, cough and wheezing; as well as gagging when trying to take pills-unable to tolerate orals
She presented in similar fashion earlier this year in 2023. At that time she was noncompliant with her inhalers but presently states she is compliant
She does have a cat
She likely has sleep disordered breathing, has yet to follow-up with workup and her primary metal hanging supervisor
Doubt any vocal cord issues given lack of inspiratory wheeze, inspiratory stridor
ENT evaluated the patient: Subtle vocal cord edema but no other abnormality. No additional recommendations.
Plan:
Dr. Allen reviewed pursed lip breathing techniques. With this her wheeze resolves
Unfortunately at this time we will need to continue with nebulized therapy - trialed Symbicort 160mcg and spiriva respimat 2.5mcg/act, but she is not able to hold breath
Changed all inhalers to nebs --> DuoNebs QID + budesonide-this will be the discharge recommendation until she improves
Continue with azithromycin, eventually transition to 250 mg every other day for 4 weeks for anti-inflammatory properties.
Given she is producing green phlegm, check sputum Cx-unable to produce as of 05/24/2024.
Blood Cx from 05/18/2024 shows NGTD
Given that she continues to have wheezing with shortness of breath, on 05/22 Dr. Austin changed IV Decadron to Solu-Medrol 40 mg q6hr; monitor blood glucose while on high-dose steroids with goal BG >100 and <180
Anti-tussants with Phenergan with codeine
Given her difficulty swallowing pills, ENT correspondence reviewed, no other abnormalities other than vocal cord edema.
Continue PPI therapy
GI following
Reports significant insomnia despite Ativan
She states that she has high tolerance to sedatives, during multiple surgeries she has received significant amounts of doses.
Insomnia may be triggered by high dose of steroids
Unfortunately unable to take any oral medications. Discussed with patient. No good options at this point.
Will add 25 mg of IV Benadryl as needed at bedtime
Anticoagulation per primary service.
History of antiphospholipid antibody syndrome on xarelto --> now on therapeutic LMWH given difficulty swallowing pills
Also reviewed importance of follow-up with pulmonary. She has not seen her metal hanging supervisor since February 2023 despite recommendations after recent hospital stay earlier this year; she wishes to follow-up with us now after discharge; will obtain full
PFTs in the office
Discussed absolute importance of avoiding smoking, marijuana
We will follow
Total time spent today was 39 minutes for this encounter. Time includes reviewing laboratory test/imaging results, reviewing pertinent medical records, obtaining and reviewing medical history, performing an appropriate exam, ordering medications,
tests and procedures. Time also includes documentation of this encounter, coordinating patient care and communicating with other healthcare professionals. Total time does not include separately billed tests performed on this date of service.
Subjective Data
-
Date of Service:
Date of Service: May 24, 2024
Chief Complaint: Pulmonary Follow Up (Asthma exacerbation)
Subjective:
Continues to report hoarse voice
Intermittent wheezing
No significant phlegm production
Review of Systems
Cardiopulmonary: Dyspnea and Dyspnea on Exertion
Objective Data
Data Reviewed
Vital Signs / I&O / Oxygen:
Vital Signs
Temp Pulse Resp BP Pulse Ox
99.2 F 92 18 179/89 97
05/24/24 15:00 05/24/24 16:02 05/24/24 16:02 05/24/24 15:00 05/24/24 16:02
Intake and Output
05/23/24 05/24/24 05/25/24
06:59 06:59 06:59
Intake Total 2040 / 2040 1800 / 1800
Output Total 800 / 800
Balance 1240 / 1240 1800 / 1800
SaO2 97
Nasal Cannula flow liters per 3
minute
Physical Exam
General: Respiratory Distress (negative), Comfortable, Chills (negative), Sweats (negative) and Poor Appetite
HEENT: Normocephalic, Anicteric, Thrush (negative) and Other (Thick neck)
Cardiovascular: S1-S2, Murmur (n), Rub (n) and Peripheral Edema (n)
Respiratory: Wheeze (Both upper and lower airway expiratory wheeze), Crackles (n), Rhonchi (negative), Non-Labored Respirations and Stridor (negative)
GI: Soft, Non Distended (Obese), Non Tender and Normal Bowel Sounds
Neurology: AO x 3 and Tremors (negative)
Skin: Warm, Dry, Cyanosis (n), Jaundice (n) and Rash (n)
Labs/Micro/Reports
Lab Data
05/24/24 09:06
05/24/24 08:14
Microbiology
05/18/24 19:33 Blood/Venous Blood Culture - Final
No Growth - Final Report
05/18/24 19:33 Blood/Venous Blood Culture - Final
No Growth - Final Report
[2024-05-24] MEDS: MUCINEX PO (19:10)
[2024-05-24] MEDS: BENADRYL 25 MG IV (19:12)
[2024-05-24 23:30] VITALS: BP 148/86
[2024-05-25] MEDS: PHENERGAN WITH CODEINE SYRUP 5 ML PO ×4 (03:57→21:10)
[2024-05-25] MEDS: DILAUDID 0.5 MG IV ×4 (03:59→21:08)
[2024-05-25] MEDS: ATIVAN 1 MG IV ×4 (03:59→21:06)
[2024-05-25] MEDS: SOLU-MEDROL PF 40 MG IV ×4 (03:59→21:09)
[2024-05-25] MEDS: DUONEB 3 ML INH ×4 (07:25→19:18)
[2024-05-25] MEDS: PULMICORT 0.5 MG INH ×2 (07:25→19:29)
[2024-05-25 07:30] VITALS: BP 161/91
[2024-05-25] MEDS: MUCINEX PO ×3 (08:10→20:20)
[2024-05-25] MEDS: NSS (PRESERVATIVE FREE) 10 ML IV ×2 (08:10→20:04)
[2024-05-25] MEDS: PROTONIX IV 40 MG IV ×2 (08:10→20:04)
--- NOTE | 2024-05-25 08:54 | W.PN.PUL3 ---
Today's Communication / Plan
-
Continue nebulizer DuoNeb/Pulmicort
Azithromycin for anti-inflammatory properties
Antitussives
Mucolytics
IV corticosteroids without change
Continue Benadryl with sleep - Patient unable to take PO meds at this time due to gagging; seen by ENT, mild edema seen in the hypopharynx
Pulmonary service will continue to follow along and outpatient follow-up strongly encouraged
Assessment
-
38-year-old female with history of asthma, history of PE with antiphospholipid syndrome on Xarelto, history of NPH s/p BOARD CERTIFIED MUSIC THERAPIST shunt, history of AIDP, anxiety and primary insomnia who presents with shortness of breath with dry cough ongoing for about 3
to 5 days. Patient remains compliant with inhaler therapy but does not routinely follow-up with her primary command and control systems integrator in [facility]. We are asked to comment on her pulmonary process
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
Impression:
Acute asthmatic exacerbation
Predominantly upper airway wheeze
No stridor
Obesity
GERD
Migraine headaches
APS with Hx of PE on Xarelto
Plan/recommendations
Reports slight improvement compared to few days ago. Continues to have cough and expiratory wheezing and shortness of breath.
Not on oxygen supplementation.
Nontoxic-appearing on room air but primary complaint is sore throat, cough and wheezing; as well as gagging when trying to take pills-unable to tolerate orals
She presented in similar fashion earlier this year in 2023. At that time she was noncompliant with her inhalers but presently states she is compliant
She does have a cat
She likely has sleep disordered breathing, has yet to follow-up with workup and her primary command and control systems integrator
Doubt any vocal cord issues given lack of inspiratory wheeze, inspiratory stridor
ENT evaluated the patient: Subtle vocal cord edema but no other abnormality. GERD is also likely a contributing factor here. No additional recommendations.
Plan:
Dr. Allen reviewed pursed lip breathing techniques. With this her wheeze resolves
At this time we will need to continue with nebulized therapy - trialed Symbicort 160mcg and spiriva respimat 2.5mcg/act, but she is not able to hold breath
Changed all inhalers to nebs --> DuoNebs QID + budesonide-this will be the discharge recommendation until she improves
Continue with azithromycin, eventually transition to 250 mg every other day for 4 weeks for anti-inflammatory properties.
Given she is producing green phlegm, check sputum Cx-unable to produce as of 05/24/2024.
Blood Cx from 05/18/2024 shows NGTD
Given that she continues to have wheezing with shortness of breath, on 05/22 Dr. Austin changed IV Decadron to Solu-Medrol 40 mg q6hr; monitor blood glucose while on high-dose steroids with goal BG >100 and <180
Anti-tussants with Phenergan with codeine
Will try a one-time dose of racemic epi
Given her difficulty swallowing pills, ENT correspondence reviewed, no other abnormalities other than vocal cord edema.
Continue PPI therapy
GI following
Reports significant insomnia despite Ativan
She states that she has high tolerance to sedatives, during multiple surgeries she has received significant amounts of doses.
Insomnia may be triggered by high dose of steroids
Unfortunately unable to take any oral medications. Discussed with patient. No good options at this point.
Continue Benadryl as needed at bedtime
Anticoagulation per primary service.
History of antiphospholipid antibody syndrome on xarelto --> now on therapeutic LMWH given difficulty swallowing pills
Also reviewed importance of follow-up with pulmonary. She has not seen her command and control systems integrator since February 2023 despite recommendations after recent hospital stay earlier this year; she wishes to follow-up with us now after discharge; will obtain full
PFTs in the office
Discussed absolute importance of avoiding smoking, marijuana
We will follow
Total time spent today was 37 minutes for this encounter. Time includes reviewing laboratory test/imaging results, reviewing pertinent medical records, obtaining and reviewing medical history, performing an appropriate exam, ordering medications,
tests and procedures. Time also includes documentation of this encounter, coordinating patient care and communicating with other healthcare professionals. Total time does not include separately billed tests performed on this date of service.
Subjective Data
-
Date of Service:
Date of Service: May 25, 2024
Chief Complaint: Pulmonary Follow Up (Asthma exacerbation)
Subjective:
Patient seen and evaluated today. She continues to feel uncomfortable and short of breath. She denies MUKHERJEE, abdominal pain, nausea, fevers chills. Still having difficulty swallowing pills due to gagging. Also not getting sleep and has generalized
body pain/aches, and would like her medications to be increased if possible.
Review of Systems
General: Other (Negative unless mentioned above)
Objective Data
Data Reviewed
Vital Signs / I&O / Oxygen:
Vital Signs
Temp Pulse Resp BP Pulse Ox
97.5 F 103 20 148/86 94
05/24/24 23:30 05/25/24 07:29 05/25/24 07:29 05/24/24 23:30 05/25/24 07:29
Intake and Output
05/24/24 05/25/24 05/26/24
06:59 06:59 06:59
Intake Total 1800 / 1800 2039
Balance 1800 / 1800 2039
SaO2 94
Nasal Cannula flow liters per 3
minute
Physical Exam
General: Respiratory Distress (negative), Chills (negative), Sweats (negative), Poor Appetite and Other (Appears uncomfortable)
HEENT: Normocephalic, Anicteric, Thrush (negative) and Other (Thick neck)
Cardiovascular: S1-S2, Murmur (n), Rub (n) and Peripheral Edema (n)
Respiratory: Wheeze (Both upper and lower airway expiratory wheeze), Crackles (Bibasilar), Rhonchi (negative), Non-Labored Respirations and Stridor (negative)
GI: Soft, Non Distended (Obese), Non Tender and Normal Bowel Sounds
Neurology: AO x 3 and Tremors (negative)
Skin: Warm, Dry, Cyanosis (n), Jaundice (n) and Rash (n)
Labs/Micro/Reports
Microbiology
05/18/24 19:33 Blood/Venous Blood Culture - Final
No Growth - Final Report
05/18/24 19:33 Blood/Venous Blood Culture - Final
No Growth - Final Report
[2024-05-25 09:43] LABS: Hematocrit 34.3 % (37.0-47.0); Hemoglobin 11.7 g/dL (12.0-16.0); Mean Corp Hgb Conc. 34.1 g/dL (33.0-37.0); Mean Corpuscular Hgb 27.3 pg (27.0-31.0); Mean Platelet Volume 9.7 fL (7.4-10.4); Platelet Count 386 10^3/uL (130-400); Red Blood Cell Count 4.29 10^6/uL (4.20-5.40); Red Cell Dist. Width 14.7 % (11.5-14.5); White Blood Cell Count 18.7 10^3/uL (4.8-10.8)
[2024-05-25] MEDS: LOVENOX 100 MG SC ×2 (09:58→21:06)
[2024-05-25 10:17] LABS: Blood Urea Nitrogen 17 mg/dl (7-17); Calcium 9.5 mg/dl (8.4-10.2); Carbon Dioxide 21 mmol/L (22-30); Chloride 99 mmol/L (98-107); Estimated Creatinine Clearance 96 ml/min; Glucose 185 mg/dl (70-99); Potassium 4.5 mmol/L (3.5-5.1); Sodium 136 mmol/L (135-145); eGFR > 60.00
[2024-05-25] MEDS: ZITHROMAX INFUSION 250 IV (10:56)
--- NOTE | 2024-05-25 12:31 | W.PN.HOSP.TC ---
Today's Communication/Plan
-
Assessment / Plan
Assessment / Plan
#Asthma exacerbation most likely 2/2 viral disease/bronchitis
--- COVID and mono negative. Flu negative. Blood culture no growth to date.
--- Stop po Percocet for pleuritic chest discomfort. Resume IV Dilaudid
Bronchodilators/Steroids taper
Azithromycin for immunomodulatory properties
Wheezing noted throughout all lung garcia including upper airway even with pursed lip breathing
Pulmonary following
Nebulizer treatments ATC
IV methylpred
-S/p nasopharyngeal laryngoscope. Noted mild edema. Already on steroids and PPIs. Outpatient ENT follow-up
-Will discuss with pulmonary racemic epi
Steroid induced anxiety
-IV Ativan
#Hematemesis, nausea - seems resolved
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
Hematemesis resolved however now with emesis
Continue antiemetic
Low residue diet. If persistent then will make n.p.o. changed to CLD
Prediabetic
Continue diet/lifestyle modification
#b/l intermittent LE weakness
#Hx of GBS
#Hx of acute inflammatory demyelinating neuropathy
#NPH with CUSTOMS AGENT shunt
#Migraine headaches
abdominal portion of the shunt in appropriate position without fluid collection
Head CT - no ventricular dilation, shunt in appropriate position
Neurology consult: functional d/o
Previous MRI showed no abnormalities
#Severe epigastric and retrosternal pain, on chronic whole-body aches, managed by PCP
no signs of ST elevation on EKG
No abnormality on CT chest
serial troponin neg
Possible 2/[address] chest neg for significant pathology. Some reactive lymph nodes
#Recurrent fevers
Has been afebrile since 05/18 1945
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
#Hx of VTE
#Anxiety d/o
#Antiphospholipid syndrome
No DVT on LE US
Xarelto held due to fact of vomiting. On heparin drip. Once vomiting free for 24 hours will discontinue heparin drip and start Xarelto
DVT ppx on Heparin drip
Full code
Anticipated Discharge: 24 - 48 hours
Subjective/Interval History
-
Date of Service: May 25, 2024
Seen and examined. Still not sleeping well. Still not able to swallow tabs.
Objective Data
-
Labs:
Laboratory Results
05/25/24
07:47
WBC 18.7 H
Hgb 11.7 L
Hct 34.3 L
Plt Count 386
Sodium 136
Potassium 4.5
Chloride 99
Carbon Dioxide 21 L
BUN 17
Creatinine 0.9
Glucose 185 H
Calcium 9.5
Vital Signs:
Vital Signs
Temp Pulse Resp BP Pulse Ox
98.3 F 83 18 161/91 95
05/25/24 07:30 05/25/24 11:16 05/25/24 11:16 05/25/24 07:30 05/25/24 11:16
I&O
05/24/24 05/25/24 05/26/24
06:59 06:59 06:59
Intake Total 1800 / 1799
Balance 1800 / 1800 2039
Physical Exam
-
General: Well Developed and Well Nourished
HEENT: Normocephalic and Atraumatic
Respiratory: Wheezes (Upper airway wheezing, lower airways continue to room minimal wheezing noted throughout)
Cardiac: Regular Rhythm and S1/S2
GI: Soft, Nontender, Nondistended and Normal Bowel Sounds
Skin: Warm
Neuro: Awake, Alert, Oriented and AO x 3
Psych: Calm
[2024-05-25] MEDS: BENADRYL 50 MG IV ×2 (12:35→21:04)
[2024-05-25] MEDS: NSS (PRESERVATIVE FREE) 0.5 ML IV (12:36)
[2024-05-25] MEDS: VAPONEFRIN NEBS 0.5 ML INH (12:49)
[2024-05-25 15:00] VITALS: BP 145/85
[2024-05-25 23:24] VITALS: BP 148/77
[2024-05-26] MEDS: SOLU-MEDROL PF 40 MG IV ×4 (04:12→21:29)
[2024-05-26] MEDS: ATIVAN 1 MG IV ×4 (04:12→23:48)
[2024-05-26] MEDS: DILAUDID 0.5 MG IV ×2 (04:13→08:24)
[2024-05-26] MEDS: PHENERGAN WITH CODEINE SYRUP 5 ML PO ×3 (04:39→13:45)
[2024-05-26 07:30] VITALS: BP 161/91
[2024-05-26] MEDS: DUONEB 3 ML INH ×4 (07:32→18:56)
[2024-05-26] MEDS: PULMICORT 0.5 MG INH ×2 (07:33→18:56)
[2024-05-26] MEDS: MUCINEX PO ×2 (07:36→20:54)
[2024-05-26] MEDS: PROTONIX IV 40 MG IV ×2 (08:23→20:54)
[2024-05-26] MEDS: NSS (PRESERVATIVE FREE) 10 ML IV ×2 (08:24→20:55)
[2024-05-26 08:43] LABS: Hematocrit 34.7 % (37.0-47.0); Hemoglobin 11.9 g/dL (12.0-16.0); Mean Corp Hgb Conc. 34.3 g/dL (33.0-37.0); Mean Corpuscular Hgb 27.4 pg (27.0-31.0); Mean Platelet Volume 9.8 fL (7.4-10.4); Platelet Count 400 10^3/uL (130-400); Red Blood Cell Count 4.34 10^6/uL (4.20-5.40); Red Cell Dist. Width 14.6 % (11.5-14.5); White Blood Cell Count 22.5 10^3/uL (4.8-10.8)
--- NOTE | 2024-05-26 08:46 | W.PN.PUL3 ---
Today's Communication / Plan
-
Continue nebulizer DuoNeb/Pulmicort
Azithromycin for anti-inflammatory properties
Antitussives
Mucolytics
IV corticosteroids without change - can consider raising dose to 60mg q6hr or 125mg q6hr, but with her CRP being WNL and large component of her wheezing is upper airway, unclear if this high dose will benefit her
Continue Benadryl with sleep (raise dose to 100mg - hold for sedation)- Patient unable to take PO meds at this time due to gagging; seen by ENT, mild edema seen in the hypopharynx
Pulmonary service will continue to follow along and outpatient follow-up strongly encouraged
Assessment
-
38-year-old female with history of asthma, history of PE with antiphospholipid syndrome on Xarelto, history of NPH s/p NUCLEAR TECHNOLOGIST shunt, history of AIDP, anxiety and primary insomnia who presents with shortness of breath with dry cough ongoing for about 3
to 5 days. Patient remains compliant with inhaler therapy but does not routinely follow-up with her primary melt helper in [facility]. We are asked to comment on her pulmonary process
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
Impression:
Acute asthmatic exacerbation
Predominantly upper airway wheeze
No stridor
Dysphagia to pills
Obesity
GERD
Migraine headaches
APS with Hx of PE on Xarelto
Plan/recommendations
Continues to have cough and expiratory wheezing and shortness of breath.
Not on oxygen supplementation.
Nontoxic appearing on room air but primary complaint is sore throat, cough and wheezing; as well as gagging when trying to take pills-unable to tolerate orals
She presented in similar fashion earlier this year in 2023. At that time she was noncompliant with her inhalers but presently states she is compliant
She does have a cat
She likely has sleep disordered breathing, has yet to follow-up with workup and her primary melt helper
Doubt any vocal cord issues given lack of inspiratory wheeze, inspiratory stridor
ENT evaluated the patient: Subtle vocal cord edema but no other abnormality. GERD is also likely a contributing factor here. No additional recommendations.
Plan:
Dr. Allen reviewed pursed lip breathing techniques. With this her wheeze had resolved/improved
At this time we will need to continue with nebulized therapy - trialed Symbicort 160mcg and spiriva respimat 2.5mcg/act, but she is not able to hold breath
Changed all inhalers to nebs --> DuoNebs QID + budesonide-this will be the discharge recommendation until she improves
Continue with azithromycin, eventually transition to 250 mg every other day for 4 weeks for anti-inflammatory properties.
Given she is producing green phlegm, check sputum Cx-unable to produce as of 05/24/2024.
Blood Cx from 05/18/2024 shows NGTD
Given that she continues to have wheezing with shortness of breath, on 05/22 Dr. Austin changed IV Decadron to Solu-Medrol 40 mg q6hr; monitor blood glucose while on high-dose steroids with goal BG >100 and <180
- CRP is WNL at <5 on 05/24/2024, so I am not sure if raising dose of solumedrol will benefit this patient further; we can consider raising dose further if she continues to have no improvement in SOB over next 1-2 days
Anti-tussants with Phenergan with codeine
She did not feel much better s/p one-time dose of racemic epi
Given her difficulty swallowing pills, ENT correspondence reviewed, no other abnormalities other than vocal cord edema.
Continue PPI therapy
GI following
Reports significant insomnia despite Ativan
She states that she has high tolerance to sedatives, during multiple surgeries she has received significant amounts of doses.
Insomnia may be triggered by high dose of steroids
Unfortunately unable to take any oral medications. Discussed with patient. No good options at this point.
Continue Benadryl as needed at bedtime - raise dose to 100mg - hold for sedation
Anticoagulation per primary service.
History of antiphospholipid antibody syndrome on xarelto --> now on therapeutic LMWH given difficulty swallowing pills
Also reviewed importance of follow-up with pulmonary. She has not seen her melt helper since February 2023 despite recommendations after recent hospital stay earlier this year; she wishes to follow-up with us now after discharge; will obtain full
PFTs in the office
Discussed absolute importance of avoiding smoking, marijuana
We will follow
Total time spent today was 36 minutes for this encounter. Time includes reviewing laboratory test/imaging results, reviewing pertinent medical records, obtaining and reviewing medical history, performing an appropriate exam, ordering medications,
tests and procedures. Time also includes documentation of this encounter, coordinating patient care and communicating with other healthcare professionals. Total time does not include separately billed tests performed on this date of service.
Subjective Data
-
Date of Service:
Date of Service: May 26, 2024
Chief Complaint: Pulmonary Follow Up (Asthma exacerbation)
Subjective:
Patient was seen and evaluated today at bedside. She is on room air breathing comfortably although when she exerts self she is still very short of breath. Unable to lay flat due to shortness of breath and feels like she is gagging on her
secretions. Still unable to swallow pills due to gagging. Also has generalized body pain and the Dilaudid helps. Getting little sleep due to shortness of breath and body pain, asking for Benadryl dose to be increased. Otherwise, currently denies
MUKHERJEE, nausea, vomiting, diarrhea, fevers or chills.
Review of Systems
General: Other (Negative unless mentioned above)
Objective Data
Data Reviewed
Vital Signs / I&O / Oxygen:
Vital Signs
Temp Pulse Resp BP Pulse Ox
97.5 F 99 18 161/91 95
05/26/24 07:30 05/26/24 07:35 05/26/24 07:35 05/26/24 07:30 05/26/24 07:35
Intake and Output
05/25/24 05/26/24 05/27/24
06:59 06:59 06:59
Intake Total 2039
Balance 2039
SaO2 95
Nasal Cannula flow liters per 3
minute
Physical Exam
General: Respiratory Distress (negative), Chills (negative), Sweats (negative), Poor Appetite and Other (Appears uncomfortable)
HEENT: Normocephalic, Anicteric, Thrush (negative) and Other (Thick neck)
Cardiovascular: S1-S2, Murmur (n), Rub (n) and Peripheral Edema (n)
Respiratory: Wheeze (Both upper and lower airway expiratory wheeze), Crackles (Bibasilar), Rhonchi (negative), Non-Labored Respirations and Stridor (negative)
GI: Soft, Non Distended (Obese), Non Tender and Normal Bowel Sounds
Neurology: AO x 3 and Tremors (negative)
Skin: Warm, Dry, Cyanosis (n), Jaundice (n) and Rash (n)
Labs/Micro/Reports
Lab Data
05/26/24 07:23
05/26/24 07:23
Microbiology
05/18/24 19:33 Blood/Venous Blood Culture - Final
No Growth - Final Report
05/18/24 19:33 Blood/Venous Blood Culture - Final
No Growth - Final Report
[2024-05-26 09:37] LABS: Blood Urea Nitrogen 19 mg/dl (7-17); Calcium 9.6 mg/dl (8.4-10.2); Carbon Dioxide 25 mmol/L (22-30); Chloride 100 mmol/L (98-107); Estimated Creatinine Clearance 96 ml/min; Glucose 122 mg/dl (70-99); Potassium 4.6 mmol/L (3.5-5.1); Sodium 136 mmol/L (135-145); eGFR > 60.00
[2024-05-26] MEDS: ROBITUSSIN DM 10 ML PO (10:23)
[2024-05-26] MEDS: NSS (PRESERVATIVE FREE) 0.5 ML IV (10:26)
[2024-05-26] MEDS: LOVENOX 100 MG SC ×2 (10:27→21:29)
[2024-05-26] MEDS: BENADRYL 25 MG IV (10:57)
[2024-05-26] MEDS: ZITHROMAX INFUSION 250 IV (12:29)
[2024-05-26] MEDS: DILAUDID 1 MG IV ×3 (13:51→22:55)
[2024-05-26 15:30] VITALS: BP 180/86
[2024-05-26] MEDS: TYLENOL ORAL SOLUTION 650 MG PO ×2 (15:40→23:48)
--- NOTE | 2024-05-26 16:46 | PTCARENOTE ---
Assumed care of pt from previous nurse. pt with pain to center of chest, throat and back. Dilaudid increased to 1mg which has provided pt with relief. Pt conts with coarse lungs, exp and insp wheezes, luciano. Feels better with dilaudid increase.
Resting more comfortably. call avelar is within reach, pt rings lito. will cont to monitor.
--- NOTE | 2024-05-26 17:21 | W.PN.HOSP.TC ---
Today's Communication/Plan
-
Assessment / Plan
Assessment / Plan
#Asthma exacerbation most likely 2/2 viral disease/bronchitis
--- COVID and mono negative. Flu negative. Blood culture no growth to date.
--- Stop po Percocet for pleuritic chest discomfort. Resume IV Dilaudid
Bronchodilators/Steroids taper
Azithromycin for immunomodulatory properties
Wheezing noted throughout all lung garcia including upper airway even with pursed lip breathing
Pulmonary following
Nebulizer treatments ATC
IV methylpred
-S/p nasopharyngeal laryngoscope. Noted mild edema. Already on steroids and PPIs. Outpatient ENT follow-up
-Will discuss with pulmonary racemic epi
Steroid induced anxiety
-IV Ativan
#Hematemesis, nausea - seems resolved
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
Hematemesis resolved however now with emesis
Continue antiemetic
Low residue diet. If persistent then will make n.p.o. changed to CLD
Prediabetic
Continue diet/lifestyle modification
#b/l intermittent LE weakness
#Hx of GBS
#Hx of acute inflammatory demyelinating neuropathy
#NPH with EXPERIMENTAL BOX TESTER shunt
#Migraine headaches
abdominal portion of the shunt in appropriate position without fluid collection
Head CT - no ventricular dilation, shunt in appropriate position
Neurology consult: functional d/o
Previous MRI showed no abnormalities
#Severe epigastric and retrosternal pain, on chronic whole-body aches, managed by PCP
no signs of ST elevation on EKG
No abnormality on CT chest
serial troponin neg
Possible 2/[address] chest neg for significant pathology. Some reactive lymph nodes
#Recurrent fevers
Has been afebrile since 05/18 1945
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
#Hx of VTE
#Anxiety d/o
#Antiphospholipid syndrome
No DVT on LE US
Xarelto held due to fact of vomiting. On heparin drip. Once vomiting free for 24 hours will discontinue heparin drip and start Xarelto
DVT ppx on Heparin drip
Full code
Anticipated Discharge: > 48 hours
Subjective/Interval History
-
Date of Service: May 26, 2024
Still not able to swallow and not able to sleep
Continue IV steroids IV Benadryl inhaler/MDIs mucolytic's
Objective Data
-
Labs:
Laboratory Results
05/26/24
07:23
WBC 22.5 H
Hgb 11.9 L
Hct 34.7 L
Plt Count 400
Sodium 136
Potassium 4.6
Chloride 100
Carbon Dioxide 25
BUN 19 H
Creatinine 0.9
Glucose 122 H
Calcium 9.6
Vital Signs:
Vital Signs
Temp Pulse Resp BP Pulse Ox
103 F H 85 18 180/86 95
05/26/24 14:07 05/26/24 16:03 05/26/24 16:03 05/26/24 15:30 05/26/24 16:03
I&O
05/25/24 05/26/24 05/27/24
06:59 06:59 06:59
Intake Total 2039
Balance 2039
Physical Exam
-
General: Well Developed and Well Nourished
HEENT: Normocephalic and Atraumatic
Respiratory: Wheezes (Upper airway)
Cardiac: Regular Rhythm and S1/S2
GI: Soft, Nontender and Nondistended
Skin: Warm
Neuro: Awake, Alert, Oriented and AO x 3
[2024-05-26] MEDS: PHENERGAN WITH CODEINE SYRUP 10 ML PO ×2 (17:44→22:55)
[2024-05-26] MEDS: BENADRYL 100 MG IV (22:56)
[2024-05-26 23:42] VITALS: BP 134/87
[2024-05-27] MEDS: PHENERGAN WITH CODEINE SYRUP 10 ML PO ×5 (04:20→22:18)
[2024-05-27] MEDS: DILAUDID 1 MG IV ×5 (04:20→22:17)
[2024-05-27] MEDS: SOLU-MEDROL PF 40 MG IV ×4 (04:21→22:12)
[2024-05-27] MEDS: ATIVAN 1 MG IV ×3 (05:57→22:18)
[2024-05-27] MEDS: DUONEB 3 ML INH ×4 (07:25→20:29)
[2024-05-27] MEDS: PULMICORT 0.5 MG INH ×2 (07:29→20:29)
[2024-05-27 07:30] VITALS: BP 114/70
[2024-05-27] MEDS: MUCINEX PO ×2 (08:34→20:37)
[2024-05-27] MEDS: FLUSH (NSS) 1 FLUSH IV (08:40)
[2024-05-27] MEDS: PROTONIX IV 40 MG IV ×2 (08:42→22:17)
[2024-05-27] MEDS: NSS (PRESERVATIVE FREE) 10 ML IV ×2 (08:42→22:17)
[2024-05-27 09:28] LABS: Hemoglobin 12.1 g/dL (12.0-16.0); Mean Corp Hgb Conc. 33.6 g/dL (33.0-37.0); Mean Corpuscular Hgb 26.8 pg (27.0-31.0); Mean Corpuscular Volume 79.8 fL (81.0-99.0); Mean Platelet Volume 9.1 fL (7.4-10.4); Platelet Count 373 10^3/uL (130-400); Red Blood Cell Count 4.51 10^6/uL (4.20-5.40); Red Cell Dist. Width 14.7 % (11.5-14.5); White Blood Cell Count 17.6 10^3/uL (4.8-10.8)
[2024-05-27 09:56] LABS: Blood Urea Nitrogen 18 mg/dl (7-17); Calcium 9.5 mg/dl (8.4-10.2); Carbon Dioxide 26 mmol/L (22-30); Chloride 98 mmol/L (98-107); Estimated Creatinine Clearance 96 ml/min; Glucose 195 mg/dl (70-99); Potassium 4.4 mmol/L (3.5-5.1); Sodium 135 mmol/L (135-145); eGFR > 60.00
[2024-05-27] MEDS: LOVENOX 100 MG SC (11:04)
[2024-05-27] MEDS: NSS (PRESERVATIVE FREE) 0.5 ML IV (12:40)
[2024-05-27] MEDS: ZITHROMAX INFUSION 250 IV (12:42)
[2024-05-27] MEDS: TYLENOL ORAL SOLUTION 650 MG PO (12:58)
--- NOTE | 2024-05-27 14:11 | CM ---
Chart reviewed. Care ongoing.
Per hospitalist, pt is not ready for d/c yet
Pulmonary following
Plan: Home; no needs
CM will cont to follow
[2024-05-27 14:38] LABS: Hematocrit 32.9 % (37.0-47.0); Hemoglobin 11.5 g/dL (12.0-16.0); Mean Corpuscular Volume 80.2 fL (81.0-99.0); Mean Platelet Volume 9.6 fL (7.4-10.4); Platelet Count 334 10^3/uL (130-400); Red Cell Dist. Width 14.6 % (11.5-14.5); White Blood Cell Count 17.6 10^3/uL (4.8-10.8)
[2024-05-27 14:46] LABS: APTT 27.3 Sec (23.4-35.0)
--- NOTE | 2024-05-27 15:10 | W.PN.HOSP.TC ---
Today's Communication/Plan
-
Assessment / Plan
Assessment / Plan
General: Well Developed and Well Nourished
HEENT: Normocephalic and Atraumatic
Respiratory: Wheezes (Upper airway)
Cardiac: Regular Rhythm and S1/S2
GI: Soft, Nontender and Nondistended
Skin: Warm
Neuro: Awake, Alert, Oriented and AO x 3
#Asthma exacerbation most likely 2/2 viral disease/bronchitis
--- COVID and mono negative. Flu negative. Blood culture no growth to date.
--- Stop po Percocet for pleuritic chest discomfort. Resume IV Dilaudid
Bronchodilators/Steroids taper
Azithromycin for immunomodulatory properties
Wheezing noted throughout all lung garcia including upper airway even with pursed lip breathing
Pulmonary following
Nebulizer treatments ATC
IV methylpred
-S/p nasopharyngeal laryngoscope. Noted mild edema. Already on steroids and PPIs. Outpatient ENT follow-up
-Will discuss with pulmonary racemic epi
Steroid induced anxiety
-IV Ativan
#Hematemesis, nausea - seems resolved
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
Hematemesis resolved however now with emesis
Continue antiemetic
Low residue diet. If persistent then will make n.p.o. changed to CLD
Prediabetic
Continue diet/lifestyle modification
#b/l intermittent LE weakness
#Hx of GBS
#Hx of acute inflammatory demyelinating neuropathy
#NPH with RESEARCH NUTRITIONIST shunt
#Migraine headaches
abdominal portion of the shunt in appropriate position without fluid collection
Head CT - no ventricular dilation, shunt in appropriate position
Neurology consult: functional d/o
Previous MRI showed no abnormalities
#Severe epigastric and retrosternal pain, on chronic whole-body aches, managed by PCP
no signs of ST elevation on EKG
No abnormality on CT chest
serial troponin neg
Possible 2/[address] chest neg for significant pathology. Some reactive lymph nodes
#Recurrent fevers
Has been afebrile since 05/18 1945
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
#Hx of VTE
#Anxiety d/o
#Antiphospholipid syndrome
No DVT on LE US
Xarelto held due to fact of vomiting. On heparin drip. Once vomiting free for 24 hours will discontinue heparin drip and start Xarelto
DVT ppx on Heparin drip
Full code
Anticipated Discharge: > 48 hours
Subjective/Interval History
-
Date of Service: May 27, 2024
Seen and examined. No new complaints. No acute overnight events.
Still not able to tolerate p.o. intake swallow pills
Continues to have upper airway wheezing
Feels like her throat is raw and on fire
States that she does not want Lovenox injections anymore wants to be on a heparin drip. Understands that she will get every 6 hour PTTs and blood draws.
Objective Data
-
Labs:
Laboratory Results
05/27/24 05/27/24
09:22 14:22
WBC 17.6 H 17.6 H
Hgb 12.1 11.5 L
Hct 36.0 L 32.9 L
Plt Count 373 334
APTT 27.3
Sodium 135
Potassium 4.4
Chloride 98
Carbon Dioxide 26
BUN 18 H
Creatinine 0.9
Glucose 195 H
Calcium 9.5
Vital Signs:
Vital Signs
Temp Pulse Resp BP Pulse Ox
97.7 F 64 16 114/70 98
05/27/24 07:30 05/27/24 11:33 05/27/24 11:33 05/27/24 07:30 05/27/24 08:10
I&O
05/26/24 05/27/24 05/28/24
06:59 06:59 06:59
Intake Total 2520 / 2520 960 / 960
Balance 2520 / 2520 960 / 960
[2024-05-27 15:37] VITALS: BP 156/100
[2024-05-27] MEDS: HEPARIN 25000 UNITS/250 ML IV (16:56)
--- NOTE | 2024-05-27 18:23 | PTCARENOTE ---
Assumed care of pt from previous nurse. Heparin drip initiated. Pt reminded for the need for a stool sample. Hat placed in bathroom. pt call avelar is within reach, pt rings lito. Pt with noted white patches and pain to tongue. TT. to Latosha Ching MD,
nystatin ordered. will provide. will cont to monitor.
[2024-05-27] MEDS: BENADRYL 100 MG IV (22:13)
[2024-05-27] MEDS: MYCOSTATIN ORAL SUSPENSION 5 ML PO (22:17)
[2024-05-27 23:49] LABS: APTT 61.1 Sec (23.4-35.0)
[2024-05-27 23:59] VITALS: BP 152/88
[2024-05-28 00:45] VITALS: BP 184/104
[2024-05-28] MEDS: SOLU-MEDROL PF 40 MG IV ×4 (04:20→22:56)
[2024-05-28] MEDS: PHENERGAN WITH CODEINE SYRUP 10 ML PO ×5 (04:20→22:53)
[2024-05-28] MEDS: ATIVAN 1 MG IV ×4 (04:21→22:53)
[2024-05-28] MEDS: DILAUDID 1 MG IV ×5 (04:21→22:52)
[2024-05-28 06:21] LABS: Hematocrit 33.3 % (37.0-47.0); Hemoglobin 11.3 g/dL (12.0-16.0); Mean Corp Hgb Conc. 33.9 g/dL (33.0-37.0); Mean Corpuscular Hgb 27.2 pg (27.0-31.0); Mean Platelet Volume 9.6 fL (7.4-10.4); Platelet Count 369 10^3/uL (130-400); Red Blood Cell Count 4.16 10^6/uL (4.20-5.40); Red Cell Dist. Width 14.8 % (11.5-14.5); White Blood Cell Count 23.2 10^3/uL (4.8-10.8)
[2024-05-28] MEDS: HEPARIN 25000 UNITS/250 ML IV ×2 (06:34→19:37)
[2024-05-28] MEDS: DUONEB 3 ML INH ×4 (07:24→20:58)
[2024-05-28] MEDS: PULMICORT 0.5 MG INH ×2 (07:24→20:58)
[2024-05-28 07:30] VITALS: BP 153/85
[2024-05-28 07:39] LABS: Blood Urea Nitrogen 21 mg/dl (7-17); Calcium 9.3 mg/dl (8.4-10.2); Carbon Dioxide 27 mmol/L (22-30); Chloride 100 mmol/L (98-107); Estimated Creatinine Clearance 108 ml/min; Glucose 163 mg/dl (70-99); Potassium 4.5 mmol/L (3.5-5.1); Sodium 136 mmol/L (135-145); eGFR > 60.00
[2024-05-28] MEDS: MYCOSTATIN ORAL SUSPENSION 5 ML PO (09:27)
[2024-05-28] MEDS: PROTONIX IV 40 MG IV ×2 (09:28→20:39)
[2024-05-28] MEDS: NSS (PRESERVATIVE FREE) 10 ML IV ×3 (09:28→20:39)
[2024-05-28] MEDS: MUCINEX PO ×2 (09:28→20:38)
[2024-05-28] MEDS: TYLENOL ORAL SOLUTION 650 MG PO (09:48)
[2024-05-28] MEDS: BENADRYL 50 MG IV (09:57)
[2024-05-28] MEDS: SOLU-CORTEF 200 MG IV (09:57)
--- NOTE | 2024-05-28 10:48 | PHA.VAN.IN ---
Assessment
- Assessment
Renal Function: Appears similar to baseline
Renal Function may be Overestimated due to: Obesity. BMI = 38.2
Maximum Temperature: 103
Minimum Temperature: 98
Concomitant Antimicrobials: Azithromycin, cefepime
AUC Dosing Plan
- Dosing Variables
Dosing Weight (kg): 100.8
Dosing CrCl (ml/min): 108
Vd coefficient (L/kg): 0.6
- Empiric Dosing
Initial / Loading Dose: Vanc 2000mg--administration pending
Maintenance Regimen: Vanc 1000mg IV q8H. Begin at 2200 05/28
Estimated AUC (mcg*h/mL): 552.3
Estimated Peak (mcg*h/mL): 31.27
Estimated Trough (mcg/ml): 16.19
Estimated Half Life (H): 7.4
- Monitoring
No levels ordered at this time: Consider levels after 05/29 2200 dose.
Pharmacokinetics Vancomycin I
- -
Patient Age: 38
Patient Sex: Female
Vancomycin Day #: 1
Indication: Other
Requesting Provider: Modesto Ching
Height / Weight:
Height 5 ft 4 in
Actual Weight 100.839 kg
IBW in k.7
Adjusted BW in k.2
Pertinent Past Medical History: BMI = 38.2
- Vital Signs / Lab Results
Temp Pulse Resp BP Pulse Ox
103 F H 88 16 153/85 97
05/28/24 09:45 05/28/24 08:12 05/28/24 08:12 05/28/24 07:30 05/28/24 07:30
Lab Results - Hematology
05/26/24 05/27/24 05/27/24
07:23 09:22 14:22
WBC 22.5 H 17.6 H 17.6 H
05/28/24
06:10
WBC 23.2 H
Lab Results - Chemistry
05/26/24 05/27/24 05/28/24
07:23 09:22 06:10
BUN 19 H 18 H 21 H
Creatinine 0.9 0.9 0.8
Estimated Creat Clear 96 96 108
Microbiology Results
05/28/24 10:05 Streptococcus Rapid Screen - Final
Throat/Pharynx Rapid Strep Screen (Group A) Negative
--- NOTE | 2024-05-28 12:03 | PTCARENOTE ---
Assumed care of pt from previous nurse. Pt went to CT and back without incident. Pt ordered antibiotics not compatible with heparin. IV team contacted for new line. call avelar is within reach, pt rings lito. will cont to monitor.
[2024-05-28 12:39] LABS: APTT 94.1 Sec (23.4-35.0)
--- NOTE | 2024-05-28 14:17 | CON.ID ---
Consultation
-
Date/Time Consultation Requested: May 28, 2024 1007
Date/Time Consultation Performed: May 28, 2024 1415
Requesting Provider: Dr. Patricio Ching
Performing Provider: Dr. Shawnee Carolina
Reason for Consultation: Fever, wheezing, cough
Chief Complaint / Past History
Chief Complaint
Cough wheezing, throat pain, fever
History of Present Illness
38-year-old female with history of intracranial hypertension with LEAF STRIPPER shunt, lupus, antiphospholipid antibody syndrome, history of Creon Mello� syndrome status post plasmapheresis 2022, acute inflammatory demyelinating polyneuropathy, asthma who
presented to ED on May 17 with acute onset of cough, wheezing, fever, rhinorrhea, sore throat. Chest x-ray negative. COVID and influenza negative. CT of abdomen pelvis no acute pathology. She was discharged on steroid. However, her
condition worsened and she returned to the ER May 24. Patient was febrile and has been having fevers since then up to 103. Procalcitonin negative on May 19 and May 24. Patient has been having upper airway wheezing. She is on systemic
steroid, nebulizer treatments, and azithromycin for anti-inflammatory effect without improvement of her cough, wheezing, throat pain. ENT examined her on May 24 with finding of mild edema/inflammation of the hypopharynx. CT of the neck
unremarkable. CT of the sinus no sinusitis, + dental caries with few lucencies. Patient reports no dental discomfort. Many of her teeth were broken during intubation last year. She complains of coughing up green sputum. No sinus pain.
Continues to have dysphagia with difficulty in swallowing pills. Complains of thrush. No further nausea or vomiting. No current diarrhea. No urinary symptoms. No abdominal pain. No recent travel. 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 No ill contacts at home. She is not around young children. She is n.p.o. after midnight for upper GI series tomorrow.
Past History
Additional Past Medical History:
Idiopathic intracranial hypertension status post right-sided LEAF STRIPPER shunt (2011)
Lupus
Antiphospholipid antibody syndrome
RLE DVT/PE
Acute inflammatory demyelinating polyneuropathy
Asthma
Migraine headaches
Anxiety
IBS
History of Guillain-Mello� syndrome status post plasmapheresis (2022)
Right foot surgery with screws
Cholecystectomy
Allergy History:
apixaban Allergy (Verified 06/21/23 11:46)
Unknown
dog dander Allergy (Verified 06/21/23 11:46)
Unknown
duloxetine Allergy (Verified 06/21/23 11:46)
Unknown
iodine Allergy (Verified 06/21/23 11:46)
Unknown
latex Allergy (Verified 06/21/23 11:46)
Unknown
lidocaine Allergy (Verified 06/21/23 11:37)
Unknown
menthol Allergy (Verified 06/21/23 11:46)
Unknown
NSAIDS (Non-Steroidal Anti-Inflamma Allergy (Verified 06/21/23 11:37)
Unknown
sumatriptan Allergy (Verified 06/21/23 11:46)
Unknown
Medications Reviewed: Yes
Current Antibiotics:
Azithromycin IV d8
Social History
Tobacco: Non-Smoker
Alcohol: None
Drug: Marijuana
Personal: Single
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
Family History
Family History: Not Pertinent
Review of Systems
Review of Systems
General: Fever, Chills and Change in Appetite
HEENT: Pharyngitis; Negative Sinus Problems
Cardiovascular: Negative Edema
Respiratory: Dyspnea and Cough
Gasteroenterology: Negative Nausea, Vomiting or Diarrhea
Genital / Urological: Negative Dysuria or Flank Pain
Endocrine: Weakness
Skin / Hair / Nails: Negative Rash
Neurological: Negative Dizziness
All systems: All other systems were reviewed and were negative
Vital Signs
Temp Pulse Resp BP Pulse Ox
103 F H 84 16 153/85 97
05/28/24 09:45 05/28/24 11:49 05/28/24 11:49 05/28/24 07:30 05/28/24 08:30
Physical Exam
Physical Exam
Constitutional: No Acute Distress
Eyes: No Conjunctival Hemorrhage and Sclera Anicteric
Pharynx: Negative Erythema
Oral: Thrush (posterior pharynx) and No Ulcers
Pulmonary: Clear and Wheezes (audible upper airway wheezing)
Gastrointestinal: Soft, Non Tender, Non Distended and Normal Bowel Sounds
Genito-Urinary: Negative CVA Tenderness
Extremities: Negative Edema
Neurological: AO x 3; Negative Meningeal Signs
Lab / Diagnostic Study Results
05/28/24 06:10
05/28/24 06:10
Abs Immat Gran (auto) 0.1 10^3/uL (0-0.05) H 05/21/24 06:04
Absolute Neuts (auto) 7.6 10^3/uL (1.4-6.5) H 05/21/24 06:04
Absolute Lymphs (auto) 1.4 10^3/uL (1.2-3.4) 05/21/24 06:04
Absolute Monos (auto) 0.5 10^3/uL (0.1-0.6) 05/21/24 06:04
Absolute Basos (auto) 0.0 10^3/uL (0-0.2) 05/21/24 06:04
Immature Gran % 0.7 % (0-0.5) H 05/21/24 06:04
Neutrophils % 78.8 % (42.2-75.2) H 05/21/24 06:04
Lymphocytes % 14.9 % (20.5-51.1) L 05/21/24 06:04
Monocytes % 5.5 % (1.7-9.3) 05/21/24 06:04
Eosinophils % 0.0 % (0-6) 05/21/24 06:04
Basophils % 0.1 % (0-2) 05/21/24 06:04
ESR Cancelled 05/19/24 13:22
C-Reactive Protein < 5.00 mg/L (0.0-10.00) 05/24/24 08:24
Procalcitonin < 0.05 ng/ml (0.0-0.25) 05/24/24 08:24
Microbiology Results
Micro:
05/28/24 12:46 Blood Culture - Pending
Blood/Venous
05/28/24 10:05 Streptococcus Screen (NIRAJ) - Pending
Throat/Pharynx Streptococcus Rapid Screen - Final
Rapid Strep Screen (Group A) Negative
05/18/24 19:33 Blood Culture - Final
Blood/Venous No Growth - Final Report
05/18/24 19:33 Blood Culture - Final
Blood/Venous No Growth - Final Report
05/17/24 CT a/p: No acute findings in the abdomen or pelvis. Partially visualized right-sided ventriculoperitoneal shunt catheter which appears continuous throughout its visualized course and terminates in the right lower quadrant.
05/19/[address]: No evidence of pulmonary embolism. Bibasilar atelectasis, more pronounced on the right. Mild prominence of the mediastinal lymph nodes which may be reactive.
05/19/24 Peripheral vascular US: No sonographic evidence for lower extremity venous thrombosis.
05/28/24 CT neck: No CT evidence for an acute process in the neck.
05/28/24 CT sinuses: No evidence for significant sinusitis. Dental caries and periapical lucencies for which dental consultation is suggested.
Assessment / Plan
# Suspect bronchitis.
# Persistent fevers
- pt reports coughing up green sputum -?Pseudomonas
- send sputum for culture
- CT neck no epiglottitis
- CT sinus: dental caries and lucencies, but patient without dental symptoms.
-Procal x 2 negative
-COVID, Influenza negative
- blood cx's neg.
- DC Vancomycin.
- Can start cefepime 1g IV q6.
- Follow temps/WBC.
# Asthma with persistent upper airway wheezing
# Leukocytosis due to steroid
- Pulmonary managing
# Dysphagia
- Mild edema of hypopharynx per ENT
- For UGI series tomorrow, per
- Will treat empirically for esophageal candidiasis
Replace Nystatin with fluconazole.
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
Idiopathic intracranial hypertension status post right-sided LEAF STRIPPER shunt (2011)
Lupus
Antiphospholipid antibody syndrome
RLE DVT/PE
Acute inflammatory demyelinating polyneuropathy
Asthma
Migraine headaches
Anxiety
IBS
History of Guillain-Mello� syndrome status post plasmapheresis (2022)
Right foot surgery with screws
Cholecystectomy
--- NOTE | 2024-05-28 14:29 | W.PN.GI.CBS2 ---
Today's Communication / Plan
-
She self reports oral intolerance but observe to eat 100% of low residue meals
CLD and NPO at [facility] for UGI series tomorrow
Add carafate
Assessment / Plan
-
Yohana is a 38yo W with h/o asthma, chronic pain, palpitations, insomnia, normal pressure hydrocephalus status post FINAL CIGAR AND BOX EXAMINER shunt, acute inflammatory demyelinating polyneuropathy, intermittent fevers, chronic edema, history of pulmonary embolism,
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 GI was initially consulted for diarrhea that
has since resolved.
Reconsulted 05/28 for 'inability to tolerate oral intake and pills.' However RN reports 100% of all meals eaten, [employer] eats of [employer] last night. There is also no documented vomiting. She had EGD/colon at [facility] unclear timing or results.
Impression:
- Self reported PO intolerance and vomiting
- GERD
- Acute asthmatic exacerbation
- APS with h/o PE
- Migraines
- Obesity
- IV steroid and abx use
- S/p CYY
Recommendations
- She is high risk for EGD given pulm issues. Recommend UGI series
- Since she reports vomiting post low residue meals. Will change to CLD now and NPO at [facility] for UGI series tomorrow
- C/w protonix BID
- Add carafate QID
- Asked her to show RN all vomitus
- C/w nystatin swish and swallow for thrush
- Monitor stool output thus far formed
Above d/w RN. Will follow with you
Subjective
Subjective
Date of Service: May 28, 2024
GI reconsulted today for 'inability to eat oral intake and swallow pills.' Upon discussion with patient's nurse she is seen eating 100% of all low residue meals and ordered [employer] eats with [employer] last night for dinner. Today her lunch tray is
100% empty but she reports to me vomiting of 60% of all intake. Unfortunately she has not saved any of it for view. I encouraged her to do so going forward. She also does not like to take pills although no issues prior to hospitalization.
Interview is limited as she is in process of getting a 2nd midline
Objective
Data Reviewed
Laboratory Data:
Laboratory Results
05/28/24 06:10
05/28/24 06:10
Laboratory Results
APTT 94.1 Sec (23.4-35.0) H 05/28/24 12:17
Total Bilirubin 0.2 mg/dl (0.2-1.3) 05/20/24 02:34
AST 27 U/L (14-36) 05/20/24 02:34
ALT 26 U/L (0-35) 05/20/24 02:34
Alkaline Phosphatase 56 U/L (38-126) 05/20/24 02:34
Lipase 119 U/L (23-300) 05/18/24 18:18
Vital Signs and I&O:
Vital Signs
Temp Pulse Resp BP Pulse Ox
103 F H 84 16 153/85 97
05/28/24 09:45 05/28/24 11:49 05/28/24 11:49 05/28/24 07:30 05/28/24 08:30
I&O
05/27/24 05/28/24 05/29/24
06:59 06:59 06:59
Intake Total 960 / 960 2340 / 2340
Balance 960 / 960 2340 / 2340
Physical Exam
Physical Exam
GEN: No acute distress, conversant, obese
HEENT: anicteric, extraocular movements intact, clear oropharynx without exudates
GI: soft, obese, mild-distended, not tender to palpation, normal active bowel sounds, no hepatosplenomegaly
EXT: warm, well perfused, no edema bilaterally
NEURO: AAOx3, non-focal
[2024-05-28 15:30] VITALS: BP 140/100
--- NOTE | 2024-05-28 15:45 | W.PN.HOSP.TC ---
Today's Communication/Plan
-
Follow-up on blood cultures
IV antibiotics
IV steroids
Pulmonary following, will need to discuss with them prior to tapering, I would not increase as she has been on high dose for some time and she does not have lower respiratory tract wheezing at all that is coming from the upper airway
GI following planning on upper GI series tomorrow
CLD
Add Carafate per GI
Assessment / Plan
Assessment / Plan
General: Well Developed and Well Nourished
HEENT: Normocephalic and Atraumatic
Respiratory: Wheezes (Upper airway)
Cardiac: Regular Rhythm and S1/S2
GI: Soft, Nontender and Nondistended
Skin: Warm
Neuro: Awake, Alert, Oriented and AO x 3
#Asthma exacerbation most likely 2/2 viral disease/bronchitis
--- COVID and mono negative. Flu negative. Blood culture no growth to date.
--- Stop po Percocet for pleuritic chest discomfort. Resume IV Dilaudid
Bronchodilators/Steroids taper
Azithromycin for immunomodulatory properties
Wheezing noted throughout all lung garcia including upper airway even with pursed lip breathing
Pulmonary following
Nebulizer treatments ATC
IV methylpred
-S/p nasopharyngeal laryngoscope. Noted mild edema. Already on steroids and PPIs. Outpatient ENT follow-up
---GI recommends to add Carafate
-Will discuss with pulmonary racemic epi
Sepsis
-Potential source neck/throat
-Broad-spectrum antibiotics
-Blood cultures x 2
-ID consult
-CT neck and sinuses ordered
Oral thrush
-Nystatin swish and swallow
Steroid induced anxiety
-IV Ativan
#Hematemesis, nausea - seems resolved
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
Hematemesis resolved however now with emesis
Continue antiemetic
Low residue diet. If persistent then will make n.p.o. changed to CLD
Prediabetic
Continue diet/lifestyle modification
#b/l intermittent LE weakness
#Hx of GBS
#Hx of acute inflammatory demyelinating neuropathy
#NPH with MOTOR SETTER shunt
#Migraine headaches
abdominal portion of the shunt in appropriate position without fluid collection
Head CT - no ventricular dilation, shunt in appropriate position
Neurology consult: functional d/o
Previous MRI showed no abnormalities
#Severe epigastric and retrosternal pain, on chronic whole-body aches, managed by PCP
no signs of ST elevation on EKG
No abnormality on CT chest
serial troponin neg
Possible 2/[address] chest neg for significant pathology. Some reactive lymph nodes
#Recurrent fevers
Has been afebrile since 05/18 1945
Outpatient lifestyle coordinator - already was referred by PCP
#Hx of VTE
#Anxiety d/o
#Antiphospholipid syndrome
No DVT on LE US
Xarelto held due to fact of vomiting. On heparin drip. Once vomiting free for 24 hours will discontinue heparin drip and start Xarelto
DVT ppx on Heparin drip
Full code
Anticipated Discharge: 24 - 48 hours
Subjective/Interval History
-
Date of Service: May 28, 2024
Seen and examined. No new complaints. No acute overnight events.
States that she little bit of sleep however continues to work through the role and unable to swallow difficulty swallowing hot teas. However per nursing staff was able to order [employer] by [employer] and is on a low residual diet. Nursing staff
asking if we can advance diet however I stated she is having difficulty swallowing how would be to advance her diet. She reported that she is able to swallow and eat but brings it back up as well on that which was not reported to me
Objective Data
-
Labs:
Laboratory Results
05/28/24 05/28/24
06:10 12:17
WBC 23.2 H
Hgb 11.3 L
Hct 33.3 L
Plt Count 369
APTT 104.0 H 94.1 H
Sodium 136
Potassium 4.5
Chloride 100
Carbon Dioxide 27
BUN 21 H
Creatinine 0.8
Glucose 163 H
Calcium 9.3
Vital Signs:
Vital Signs
Temp Pulse Resp BP Pulse Ox
103 F H 99 14 153/85 96
05/28/24 09:45 05/28/24 15:16 05/28/24 15:16 05/28/24 07:30 05/28/24 15:16
I&O
05/27/24 05/28/24 05/29/24
06:59 06:59 06:59
Intake Total 960 / 960 2340 / 2340
Balance 960 / 960 2340 / 2340
[2024-05-28] MEDS: DIFLUCAN 200 MG 100 IV (15:58)
[2024-05-28] MEDS: MYCOSTATIN ORAL SUSPENSION PO (16:03)
[2024-05-28] MEDS: ZITHROMAX INFUSION 250 IV (16:14)
[2024-05-28] MEDS: CARAFATE SUSPENSION 1 GM PO ×2 (16:24→22:56)
[2024-05-28] MEDS: NSS (PRESERVATIVE FREE) 0.5 ML IV ×2 (16:53→22:58)
[2024-05-28] MEDS: STERILE WATER FOR INJECTION 10 ML IV ×2 (17:29→23:17)
[2024-05-28] MEDS: MAXIPIME 1000 MG IV ×2 (17:29→23:17)
--- NOTE | 2024-05-28 18:16 | W.PN.PUL3 ---
Today's Communication / Plan
-
Continue IV PPI
Carafate
Reduce Solu-Medrol to every every 8 hours-has developed thrush
Nystatin
Fluconazole IV
Symptomatic management
Nebulizers
Upper GI series
Assessment
-
38-year-old female with history of asthma, history of PE with antiphospholipid syndrome on Xarelto, history of NPH s/p DENTAL AIDE shunt, history of AIDP, anxiety and primary insomnia who presents with shortness of breath with dry cough ongoing for about 3
to 5 days. Patient remains compliant with inhaler therapy but does not routinely follow-up with her primary instrumentation engineering technician in [facility]. We are asked to comment on her pulmonary process
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
Impression:
Acute asthmatic exacerbation
Predominantly upper airway wheeze
No stridor
Dysphagia to pills
Obesity
GERD
Migraine headaches
APS with Hx of PE on Xarelto
Plan/recommendations
Continues to have cough and expiratory wheezing and shortness of breath.
Not on oxygen supplementation.
Nontoxic appearing on room air but primary complaint is sore throat, cough and wheezing; as well as gagging when trying to take pills-unable to tolerate orals
She presented in similar fashion earlier this year in 2023. At that time she was noncompliant with her inhalers but presently states she is compliant
She does have a cat
She likely has sleep disordered breathing, has yet to follow-up with workup and her primary instrumentation engineering technician
Doubt any vocal cord issues given lack of inspiratory wheeze, inspiratory stridor
ENT evaluated the patient: Subtle vocal cord edema but no other abnormality. GERD is also likely a contributing factor here. No additional recommendations.
Plan:
After discussion with Dr. Ching due to the ongoing upper airway symptoms CT of the neck 05/28/2024: Showed no evidence for acute process.
CT of the sinuses 05/28/2024: No evidence for significant sinusitis.
ENT: No need for repeat laryngoscopy continue with PPI and antiacid's
GI evaluated the patient: Recommended an upper GI series. Diet modification. Carafate 4 times daily has been added.
Nystatin swish and swallow has been added for thrush infectious disease added fluconazole IV
-
From the pulmonary perspective: Continue budesonide nebulized twice daily, DuoNebs 4 times a day and as needed
Given lack of improvement with high-dose of steroids, thrush I will reduce methylprednisolone to 40 mg IV Q8.
-
Continue pursed lip breathing techniques. With this her wheeze had resolved/improved
rialed Symbicort 160mcg and spiriva respimat 2.5mcg/act, but she is not able to hold breath
If able to swallow can transition to azithromycin 250 mg every other day for anti-inflammatory properties.
-
Given she is producing green phlegm, check sputum Cx-unable to produce as of 05/24/2024.
Blood Cx from 05/18/2024 shows NGTD
Given that she continues to have wheezing with shortness of breath, on 05/22 Dr. Austin changed IV Decadron to Solu-Medrol 40 mg q6hr; monitor blood glucose while on high-dose steroids with goal BG >100 and <180
- CRP is WNL at <5 on 05/24/2024, doubt increases doses of steroids will be helpful.
Anti-tussants with Phenergan with codeine
She did not feel much better s/p one-time dose of racemic epi
Given her difficulty swallowing pills, ENT correspondence reviewed, no other abnormalities other than vocal cord edema.
GI evaluation as above
Continue PPI therapy/Carafate has been added
Reports significant insomnia despite Ativan
She states that she has high tolerance to sedatives, during multiple surgeries she has received significant amounts of doses.
Insomnia may be triggered by high dose of steroids
Unfortunately unable to take any oral medications. Discussed with patient. No good options at this point.
Continue Benadryl as needed at bedtime - raise dose to 100mg - hold for sedation
Anticoagulation per primary service.
History of antiphospholipid antibody syndrome on xarelto --> now on therapeutic LMWH given difficulty swallowing pills
Also reviewed importance of follow-up with pulmonary. She has not seen her instrumentation engineering technician since February 2023 despite recommendations after recent hospital stay earlier this year; she wishes to follow-up with us now after discharge; will obtain full
PFTs in the office
Discussed absolute importance of avoiding smoking, marijuana
We will follow
Dr. Davis discussed with Dr. Ching multiple times 05/28/2024. Recommended above imaging and GI reevaluation.
Subjective Data
-
Date of Service:
Date of Service: May 28, 2024
Chief Complaint: Pulmonary Follow Up (Asthma exacerbation)
Subjective:
Continues to report coughing
Difficulty swallowing
Sore throat
Shortness of breath
Objective Data
Data Reviewed
Vital Signs / I&O / Oxygen:
Vital Signs
Temp Pulse Resp BP Pulse Ox
98.2 F 113 18 140/100 95
05/28/24 15:30 05/28/24 15:30 05/28/24 15:30 05/28/24 15:30 05/28/24 15:30
Intake and Output
05/27/24 05/28/24 05/29/24
06:59 06:59 06:59
Intake Total 960 / 960 2340 / 2340
Balance 960 / 960 2340 / 2340
SaO2 95
Nasal Cannula flow liters per 3
minute
Physical Exam
General: Respiratory Distress (negative), Chills (negative), Sweats (negative), Poor Appetite and Other (Appears uncomfortable)
HEENT: Normocephalic, Anicteric, Thrush (negative) and Other (Thick neck)
Cardiovascular: S1-S2, Murmur (n), Rub (n) and Peripheral Edema (n)
Respiratory: Wheeze (Both upper and lower airway expiratory wheeze), Crackles (Bibasilar), Rhonchi (negative), Non-Labored Respirations and Stridor (negative)
GI: Soft, Non Distended (Obese), Non Tender and Normal Bowel Sounds
Neurology: AO x 3 and Tremors (negative)
Skin: Warm, Dry, Cyanosis (n), Jaundice (n) and Rash (n)
Labs/Micro/Reports
Lab Data
05/28/24 06:10
05/28/24 06:10
Laboratory Results
05/27/24 05/28/24 05/28/24
23:28 06:10 12:17
APTT 61.1 H 104.0 H 94.1 H
Microbiology
05/28/24 10:05 Throat/Pharynx Streptococcus Rapid Screen - Final
Rapid Strep Screen (Group A) Negative
--- NOTE | 2024-05-28 21:40 | PTCARENOTE ---
Pt stated having a formed BM this evening but stated she has hemorrhoids and they are 'acting up' and she had blood when she wiped and in the toilet. Blood not seen in toilet(pt had already flushed) but some blood noted on the tissues in the trash
can. Will continue to monitor.
[2024-05-28] MEDS: BENADRYL 100 MG IV (22:53)
[2024-05-29] MEDS: PHENERGAN WITH CODEINE SYRUP 10 ML PO ×5 (03:58→21:15)
[2024-05-29] MEDS: MAXIPIME 1000 MG IV ×4 (05:01→23:44)
[2024-05-29] MEDS: STERILE WATER FOR INJECTION 10 ML IV ×4 (05:02→23:44)
[2024-05-29] MEDS: ATIVAN 1 MG IV ×4 (05:02→23:45)
[2024-05-29] MEDS: HEPARIN 25000 UNITS/250 ML IV ×2 (05:02→09:09)
[2024-05-29] MEDS: NSS (PRESERVATIVE FREE) 0.5 ML IV ×2 (05:02→23:46)
[2024-05-29] MEDS: SOLU-MEDROL PF 40 MG IV ×3 (05:02→21:09)
[2024-05-29 06:33] LABS: APTT > 200 Sec (23.4-35.0)
[2024-05-29 06:34] LABS: Hematocrit 31.2 % (37.0-47.0); Hemoglobin 10.8 g/dL (12.0-16.0); Mean Corp Hgb Conc. 34.6 g/dL (33.0-37.0); Mean Corpuscular Hgb 27.5 pg (27.0-31.0); Mean Corpuscular Volume 79.4 fL (81.0-99.0); Mean Platelet Volume 9.9 fL (7.4-10.4); Platelet Count 311 10^3/uL (130-400); Red Blood Cell Count 3.93 10^6/uL (4.20-5.40); Red Cell Dist. Width 14.6 % (11.5-14.5)
--- NOTE | 2024-05-29 06:36 | PTCARENOTE ---
Pt's PTT was >200. Heparin stopped, Edith Freed NP notified. will resume in 2 hrs and decrease by 400 units per protocol.
[2024-05-29 06:57] LABS: Blood Urea Nitrogen 20 mg/dl (7-17); Carbon Dioxide 28 mmol/L (22-30); Chloride 100 mmol/L (98-107); Estimated Creatinine Clearance 108 ml/min; Glucose 163 mg/dl (70-99); Potassium 4.6 mmol/L (3.5-5.1); Sodium 136 mmol/L (135-145); eGFR > 60.00
[2024-05-29] MEDS: PULMICORT 0.5 MG INH ×2 (07:26→20:47)
[2024-05-29] MEDS: DUONEB 3 ML INH ×4 (07:26→20:47)
[2024-05-29 07:30] VITALS: BP 195/97
[2024-05-29] MEDS: DILAUDID 1 MG IV ×4 (08:15→21:09)
[2024-05-29] MEDS: PROTONIX IV 40 MG IV ×2 (08:16→19:47)
[2024-05-29] MEDS: NSS (PRESERVATIVE FREE) 10 ML IV ×2 (08:16→19:48)
[2024-05-29] MEDS: CARAFATE SUSPENSION PO (08:50)
[2024-05-29] MEDS: MUCINEX PO (08:50)
--- NOTE | 2024-05-29 10:40 | W.PN.HOSP.TC ---
Today's Communication/Plan
-
MRSA positive
Start vancomycin
upper GI series today
Heparin stopped this a.m.
Recheck PTT
Assessment / Plan
Assessment / Plan
Impression
Acute exacerbation most likely secondary to viral disease/bronchitis
MRSA positive
Vomiting and nausea with p.o. intolerance
GERD
Steroid-induced anxiety
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
APS with history of PE
Plan
Asthma exacerbation most likely 2/2 viral disease/bronchitis
COVID and mono negative. Flu negative. Blood culture no growth to date.
Continue IV Dilaudid
Bronchodilators/Steroids taper
Azithromycin for immunomodulatory properties
Wheezing noted throughout all lung garcia including upper airway even with pursed lip breathing
Pulmonary following
Nebulizer treatments ATC
IV methylpred
S/p nasopharyngeal laryngoscope. Noted mild edema. Already on steroids and PPIs. Outpatient ENT follow-up
MRSA positive
ID following
Start IV vancomycin
Continue cefepime 1 g IV every 6
Blood culture negative, repeat pending
Follow temperature curve and WBC
#Vomiting and nausea with p.o. intolerance
#GERD
Upper GI series today
Continue IV PPI twice daily per GI
Continue Carafate
Nystatin swish and swallow for thrush
Low residue diet
GI following
Steroid induced anxiety
-IV Ativan
#B/l intermittent LE weakness
#Hx of GBS
#Hx of acute inflammatory demyelinating neuropathy
#NPH with SAMPLE MOUNTER shunt
#Migraine headaches
abdominal portion of the shunt in appropriate position without fluid collection
Head CT - no ventricular dilation, shunt in appropriate position
Neurology consult: functional d/o
Previous MRI showed no abnormalities
Recurrent fevers
Has been afebrile since 05/18 1945
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
APS with history of PE
No DVT on LE US
PTT >200 . Repeat PTT
Heparin drip was stopped this a.m.
DVT ppx on Heparin drip
Full code
Anticipated Discharge: > 48 hours
Subjective/Interval History
-
Date of Service: May 29, 2024
PTT >200, heparin stopped this am. Patient was feeling anxious prior to upper GI series. BP increased to 200 systolic. Patient was given IV Ativan before the imaging.
Objective Data
-
Labs:
Laboratory Results
05/29/24 05/29/24
05:43 14:30
WBC 23.0 H
Hgb 10.8 L
Hct 31.2 L
Plt Count 311
APTT > 200 H* Pending
Sodium 136
Potassium 4.6
Chloride 100
Carbon Dioxide 28
BUN 20 H
Creatinine 0.8
Glucose 163 H
Calcium 9.0
Vital Signs:
Vital Signs
Temp Pulse Resp BP Pulse Ox
98.7 F 92 18 195/97 95
05/29/24 07:30 05/29/24 07:30 05/29/24 07:30 05/29/24 07:30 05/29/24 07:30
I&O
05/28/24 05/29/24 05/30/24
06:59 06:59 06:59
Intake Total 0 / 2340 2099
Balance 2340 / 2340 2099
Review of Systems
-
All other systems: Reviewed and negative (except mentioned )
Respiratory: Reports Cough, Wheezing and Other (chest pain )
Physical Exam
-
General: Comfortable
HEENT: Normocephalic, Atraumatic and Other (horse voice )
Respiratory: Wheezes (expiratory bilaterally ) and Decreased Breath Sounds (diffuse B/L ); Negative Rales, Rhonchi or Crackles
Cardiac: Regular Rhythm and S1/S2
Neuro: AO x 3
Data Reviewed
-
Labs: Labs Reviewed by me and Discussed with Physician
--- NOTE | 2024-05-29 10:53 | PHA.VAN.IN ---
Assessment
- Assessment
Renal Function: Appears similar to baseline
Concomitant Antimicrobials: cefepime; fluconazole
- Previous Dosing Experience
vanc pharm to dose was ordered 05/28/24 with a 2gm LD and sched dosing 1000 mg q8h Predicting AUC 552; P/T ; T1/2 7.4. The orders were DCD - no doses were given. Will restart that regimen today
AUC Dosing Plan
- Dosing Variables
Dosing Weight (kg): 100
Dosing CrCl (ml/min): 108
Vd coefficient (L/kg): 0.6
- Empiric Dosing
Initial / Loading Dose: 2000 mg x 1 dose now
Maintenance Regimen: 1000 mg q8h - start at 2200 05/29
- Monitoring
No levels ordered at this time: consider levels after 05/30 2200 dose
Pharmacokinetics Vancomycin I
- -
Patient Age: 38
Patient Sex: Female
Vancomycin Day #: 1
Indication: Bacteremia
Requesting Provider: Liliana
Pertinent Antimicrobial Allergies:
latex, doxycycline
Height / Weight:
Height 5 ft 4 in
Actual Weight 100.839 kg
Pertinent Past Medical History: BMI = 38.2
- Vital Signs / Lab Results
Temp Pulse Resp BP Pulse Ox
98.7 F 92 18 195/97 95
05/29/24 07:30 05/29/24 07:30 05/29/24 07:30 05/29/24 07:30 05/29/24 07:30
Lab Results - Hematology
05/27/24 05/27/24 05/28/24
09:22 14:22 06:10
WBC 17.6 H 17.6 H 23.2 H
05/29/24
05:43
WBC 23.0 H
Lab Results - Chemistry
05/27/24 05/28/24 05/29/24
09:22 06:10 05:43
BUN 18 H 21 H 20 H
Creatinine 0.9 0.8 0.8
Estimated Creat Clear 96 108 108
Microbiology Results
05/28/24 17:43 Nasal Screen MRSA (PCR) - Final
Nose Staph aureus MRSA
05/28/24 10:05 Streptococcus Rapid Screen - Final
Throat/Pharynx Rapid Strep Screen (Group A) Negative
--- NOTE | 2024-05-29 11:14 | W.PN.PUL.V3 ---
Today's Communication / Plan
-
No change in steroids.
Nebulizers and inhalers.
Antibiotics..
Anticoagulation
Assessment
-
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
to 5 days. 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 We are asked to comment on her pulmonary process
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
Acute asthmatic exacerbation-in a patient likely has asthma-moderate. Persistent
Predominantly upper airway wheeze
No stridor
Dysphagia to pills
Obesity
GERD
Migraine headaches
APS with Hx of PE on Xarelto
Leukocytosis.
Anemia.
Hyperglycemia
Plan
Respiratory status is only minimally improved-continues with significant wheezing-had similar presentation earlier in 2023 at which time she was noncompliant with her inhalers
Supplemental oxygen as needed.
Mucolytic-on Mucinex
Antitussives.
Steroids-Methylprednisolone 40 mg IV every 8 hours
Symbicort and Spiriva.
Azithromycin for immunomodulating effects
Nebulizers-dual nebs and Pulmicort
Mucus clearing devices...
CT chest 05/19/24-no evidence for PE, basilar atelectasis, mildly prominent mediastinal lymph nodes which may be reactive
CT neck 05/28/24-no evidence for acute process.
CT sinus, 05/28/24-no evidence for acute sinusitis
Check cultures..
Infectious disease following-correspondence reviewed
MRSA positive.
Vancomycin initiated-Also on cefepime and azithromycin
GI following.
Upper GI pending.
Oral thrush therapy for GI or ENT.
ENT-no need for repeat laryngoscopy.
Continue PPI and acids and Carafate.
GI following-correspondence reviewed.
Upper GI 05/29/24 without acute pathology
Reports significant insomnia despite Ativan
She states that she has high tolerance to sedatives, during multiple surgeries she has received significant amounts of doses.
Insomnia may be triggered by high dose of steroids
Unfortunately unable to take any oral medications
Continue Benadryl as needed at bedtime - raise dose to 100mg - hold for sedation.
Smoking and marijuana cessation counseling. Ongoing
DVT prophylaxis-on heparin.
Nutrition
Early mobilization
Also reviewed importance of follow-up with pulmonary. She has not seen her 1st grade teacher since February 2023 despite recommendations after recent hospital stay earlier this year; she wishes to follow-up with us now after discharge; will obtain full
PFTs in the office
Subjective Data
-
Date of Service:
Date of Service: May 29, 2024
Chief Complaint: Pulmonary Follow Up (Asthma exacerbation) and Dyspnea Follow Up
Subjective:
Feels about the same, still with wheezing, cough, some productive sputum, minimal abdominal pain
Review of Systems
General: Other (. Her HPI)
Objective Data
Data Reviewed
Vital Signs / I&O:
Vital Signs
Temp Pulse Resp BP Pulse Ox
98.7 F 92 18 195/97 95
05/29/24 07:30 05/29/24 07:30 05/29/24 07:30 05/29/24 07:30 05/29/24 07:30
Intake and Output
05/28/24 05/29/24 05/30/24
06:59 06:59 06:59
Intake Total 2340 / 2340 2099 / 2099
Balance 2340 / 2340 2099 / 2099
SaO2: 95
Nasal Cannula flow liters per minute: 3
Physical Exam
General: Respiratory Distress (negative), Chills (negative), Sweats (negative), Poor Appetite and Other (Appears uncomfortable)
HEENT: Normocephalic, Anicteric, Thrush (negative) and Other (Thick neck)
Cardiovascular: Regular Rhythm, Murmur (n), Rub (n) and Peripheral Edema (n)
Respiratory: Wheeze (Both upper and lower airway expiratory wheeze), Crackles (Bibasilar), Rhonchi (negative), Non-Labored Respirations and Stridor (negative)
GI: Soft, Non Distended (Obese), Non Tender and Normal Bowel Sounds
Neurology: Awake, Alert, No Motor Deficits and Tremors (negative)
Skin: Warm, Dry, Cyanosis (n), Jaundice (n) and Rash (n)
Labs/Micro/Reports
Lab Data
05/29/24 05:43
05/29/24 05:43
Laboratory Results
05/28/24 05/28/24 05/29/24
12:17 19:00 05:43
APTT 94.1 H Cancelled > 200 H*
Microbiology
05/28/24 10:05 Throat/Pharynx Streptococcus Screen (NIRAJ) - Preliminary
Culture in Progress
05/28/24 10:05 Throat/Pharynx Streptococcus Rapid Screen - Final
Rapid Strep Screen (Group A) Negative
05/28/24 17:43 Nose Nasal Screen MRSA (PCR) - Final
Staph aureus MRSA
[2024-05-29] MEDS: CARAFATE SUSPENSION 1 GM PO ×3 (11:59→21:08)
[2024-05-29] MEDS: VANCOCIN 540 MG IV (12:00)
--- NOTE | 2024-05-29 12:08 | W.PN.UPDATE ---
Update Note
Progress Note Update
I saw and evaluated the patient. I reviewed the resident�s note and agree with findings and plan as documented in the resident�s note.
Pt seen and examined with nurse Missy Cortes present at bedside for the entirety of the interview and physical exam. c/o persistent pleuritic chest and abdominal pain.
Gen: NAD, AAOx3.
Eyes: EOMI, PERRLA, no scleral icterus.
Neck: supple.
CV: RRR, +S1/S2, no m/r/g.
Resp: B/L wheezes and rhonchi
Skin: No rashes.
Neuro: CN 2-12 intact, non-focal.
Psych: Normal mood and affect.
05/28/24 10:05 Throat/Pharynx Streptococcus Screen (NIRAJ) - Preliminary
Culture in Progress
05/28/24 10:05 Throat/Pharynx Streptococcus Rapid Screen - Final
Rapid Strep Screen (Group A) Negative
05/28/24 17:43 Nose Nasal Screen MRSA (PCR) - Final
Staph aureus MRSA
05/18/24 19:33 Blood/Venous Blood Culture - Final
No Growth - Final Report
05/18/24 19:33 Blood/Venous Blood Culture - Final
No Growth - Final Report
CTA chest 05/19/24:
1. No evidence of pulmonary embolism.
2. Bibasilar atelectasis, more pronounced on the right.
3. Mild prominence of the mediastinal lymph nodes which may be reactive.
CT neck 05/28/24: No CT evidence for an acute process in the neck.
CT sinuses 05/28/24: No evidence for significant sinusitis. Dental caries and periapical lucencies for which dental consultation is suggested.
Acute asthma exacerbation:
-likely due to viral disease/bronchitis
-COVID/Flu/mono negative
-pulm following
-CT neck and sinuses unremarkable as above
-cont Solumedrol
-cont Pulmicort/IBDA
-s/p NPL by ENT. Noted mild edema. Already on steroids and PPIs. Outpatient ENT follow-up.
Dysphagia:
-pt has been witnessed to eat entire meals and has not had any witnessed vomiting. Just prior to my visit today nursing stated that the pt had and entire cheesesteak.
-discussed with GI at length
-UGI ordered, follow results
Fever:
-no source of infection identified as of yet
-BCxs NGTD
-currently on Fluconazole for oral thrush (not the cause of fever)
-currently on Cefepime/Vanco as per ID
-pt has referral to outpt rheum already for recurrent fevers
Severe epigastric and retrosternal pain:
-underlying chronic whole-body aches, managed by PCP
-no signs of ST elevation on EKG
-No abnormality on CT chest
-serial troponin NEG
Other problems:
Steroid induced anxiety: IV Ativan PRN
Obesity due to excess calories
Prediabetes
B/L intermittent LE weakness
h/o of GBS
h/o AIDP, NPH with [facility] RN shunt, Migraine headaches: Abdominal portion of the shunt in appropriate position without fluid collection. CT brain without ventricular dilation, shunt in appropriate position. Previous MRI brain showed no abnormalities.
Neurology saw in c/s and diagnosed pt currently with functional d/o.
h/o VTE, APLAb syndrome: Pt is eating and heparin gtt is not appropriate or acceptable. Stop heparin gtt, resume home Xarelto.
Anxiety d/o
FULL/Xarelto
Total time spent on today's encounter was 61 minutes which included time spent in counseling the patient/family regarding diagnosis and treatment plan as listed above, goals of care, and symptom management. Case was discussed with nursing staff,
specialists, and care coordinators/case management. All labs and imaging personally reviewed by me. Remainder the time spent in detailed review of previous records, lab data, imaging, and other medical provider documentation.
--- NOTE | 2024-05-29 13:26 | W.PN.ID1 ---
Date of Service
Date of Service: May 29, 2024
Today's Communication
Continue abx's.
Assessment / Plan
# Suspect bronchitis.
# Persistent fevers, afebrile x 24hrs
- pt reports coughing up green sputum -?Pseudomonas
- sputum for culture not sent yet
- CT neck no epiglottitis
- CT sinus: dental caries and lucencies, but patient without dental symptoms.
-Procal x 2 negative
-COVID, Influenza negative
- blood cx's neg.
- Continue cefepime 1g IV q6 (d2)
- Hospitalist added Vancomycin for positive MRSA screen.
- Follow temps/WBC.
# Asthma with persistent upper airway wheezing
# Leukocytosis due to steroid
- Pulmonary managing
# Dysphagia
- Mild edema/inflammation of hypopharynx per ENT
- UGI series: no aspiration or stricture. Small sliding hiatal hernia.
- Treat empirically for esophageal candidiasis with fluconazole (d2)
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
Idiopathic intracranial hypertension status post right-sided FIELD STAFF MANAGER shunt (2011)
Lupus
Antiphospholipid antibody syndrome
RLE DVT/PE
Acute inflammatory demyelinating polyneuropathy
Asthma
Migraine headaches
Anxiety
IBS
History of Guillain-Mello� syndrome status post plasmapheresis (2022)
Right foot surgery with screws
Cholecystectomy
Chief Complaint
-: Fever
Subjective / Review of Systems
Continues to have significant throat pain. Throat feels raw especially with food.
Can tolerate pudding.
Vital Signs / Physical Exam
Vital Signs
Vital Signs
Temp Pulse Resp BP Pulse Ox
98.7 F 96 16 195/97 95
05/29/24 07:30 05/29/24 11:19 05/29/24 11:19 05/29/24 07:30 05/29/24 11:14
Physical Exam
Constitutional: No Acute Distress and Comfortable
Oropharyngeal: Negative Erythema
Cardiovascular: Regular Rate and S1/S2
Pulmonary: Clear
Gastrointestinal: Soft, Non Tender, Non Distended and Normal Bowel Sounds
Genito-Urinary: Negative CVA Tenderness
Extremities: Negative Edema
Neurological: AO x 3
Objective Data
Lab Data
Lab Results
05/29/24 05:43
05/29/24 05:43
ESR Cancelled 05/19/24 13:22
APTT > 200 Sec (23.4-35.0) H* 05/29/24 05:43
Estimated Creat Clear 108 ml/min 05/29/24 05:43
Total Bilirubin 0.2 mg/dl (0.2-1.3) 05/20/24 02:34
AST 27 U/L (14-36) 05/20/24 02:34
ALT 26 U/L (0-35) 05/20/24 02:34
Alkaline Phosphatase 56 U/L (38-126) 05/20/24 02:34
C-Reactive Protein < 5.00 mg/L (0.0-10.00) 05/24/24 08:24
Most recent labs reviewed.
Micro Results:
05/28/24 10:05 Streptococcus Screen (NIRAJ) - Preliminary
Throat/Pharynx Culture in Progress
Streptococcus Rapid Screen - Final
Rapid Strep Screen (Group A) Negative
05/28/24 17:43 Nasal Screen MRSA (PCR) - Final
Nose Staph aureus MRSA
05/28/24 14:22 Blood Culture - Pending
Blood/Venous
05/28/24 12:46 Blood Culture - Pending
Blood/Venous
05/18/24 19:33 Blood Culture - Final
Blood/Venous No Growth - Final Report
05/18/24 19:33 Blood Culture - Final
Blood/Venous No Growth - Final Report
05/17/24 CT a/p: No acute findings in the abdomen or pelvis. Partially visualized right-sided ventriculoperitoneal shunt catheter which appears continuous throughout its visualized course and terminates in the right lower quadrant.
05/19/[address]: No evidence of pulmonary embolism. Bibasilar atelectasis, more pronounced on the right. Mild prominence of the mediastinal lymph nodes which may be reactive.
05/19/24 Peripheral vascular US: No sonographic evidence for lower extremity venous thrombosis.
05/28/24 CT neck: No CT evidence for an acute process in the neck.
05/28/24 CT sinuses: No evidence for significant sinusitis. Dental caries and periapical lucencies for which dental consultation is suggested.
--- NOTE | 2024-05-29 13:31 | W.PN.GI.CBS2 ---
Today's Communication / Plan
-
UGI without acute pathology
C/w PPI and carafate
Tolerating LRD
GI will sign off please call for ?
Assessment / Plan
-
Yohana is a 38yo W with h/o asthma, chronic pain, palpitations, insomnia, normal pressure hydrocephalus status post THERAPIST ASST shunt, acute inflammatory demyelinating polyneuropathy, intermittent fevers, chronic edema, history of pulmonary embolism,
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 GI was initially consulted for diarrhea that
has since resolved.
Reconsulted 05/28 for 'inability to tolerate oral intake and pills.' However RN reports 100% of all meals eaten, uber eats of [employer] last night. There is also no documented vomiting. She had EGD/colon at [facility] unclear timing or results.
Impression:
- Self reported PO intolerance and vomiting with dysphagia
Observed to eat 100% of low residue meals without issue
No witnessed vomitus
- GERD
- Acute asthmatic exacerbation
- APS with h/o PE
- Migraines
- Obesity
- IV steroid and abx use
- S/p CYY
Recommendations
- UGI series without acute pathology or strictures. There is a small hiatal hernia
- C/w protonix BID
- C/w carafate QID
- Tolerating LRD observed eating 100% of meals
- Asked her to show RN all vomitus. She has not been doing so.
- C/w nystatin swish and swallow for thrush
- Monitor stool output thus far formed
At this juncture no new GI recs. Will sign off please call for ?
Above d/w hospitalist
Subjective
Subjective
Date of Service: May 29, 2024
She reports continued dysphagia but tolerating CLD without issues. Upon return from UGI series diet advanced and she was observed finishing cheese steak without issue. Reports 2 BM yesterday
Objective
Data Reviewed
Laboratory Data:
Laboratory Results
05/29/24 05:43
05/29/24 05:43
Laboratory Results
APTT > 200 Sec (23.4-35.0) H* 05/29/24 05:43
Total Bilirubin 0.2 mg/dl (0.2-1.3) 05/20/24 02:34
AST 27 U/L (14-36) 05/20/24 02:34
ALT 26 U/L (0-35) 05/20/24 02:34
Alkaline Phosphatase 56 U/L (38-126) 05/20/24 02:34
Lipase 119 U/L (23-300) 05/18/24 18:18
Vital Signs and I&O:
Vital Signs
Temp Pulse Resp BP Pulse Ox
98.7 F 96 16 195/97 95
05/29/24 07:30 05/29/24 11:19 05/29/24 11:19 05/29/24 07:30 05/29/24 11:14
I&O
05/28/24 05/29/24 05/30/24
06:59 06:59 06:59
Intake Total 2340 / 2340 2099
Balance 2340 / 2340 2099
Physical Exam
Physical Exam
GEN: No acute distress, conversant, pleasant
HEENT: anicteric, extraocular movements intact, clear oropharynx +white exudates
GI: soft, obese, non-distended, not tender to palpation, normal active bowel sounds, no hepatosplenomegaly
EXT: warm, well perfused, no edema bilaterally
NEURO: AAOx3, non-focal
[2024-05-29 15:15] VITALS: BP 183/101
[2024-05-29] MEDS: DIFLUCAN 200 MG 100 IV (16:24)
--- NOTE | 2024-05-29 16:37 | CM ---
CM received chart, anticipated discharge >48 hours. Patient remains on IV antibiotics. CM will continue to follow for all discharge planning needs.
Plan; home no needs anticipated.
[2024-05-29 16:43] VITALS: BP 136/95
[2024-05-29] MEDS: XARELTO 20 MG PO (17:45)
[2024-05-29] MEDS: MUCINEX 600 MG PO (19:47)
[2024-05-29] MEDS: VANCOCIN 200 IV (21:10)
[2024-05-29] MEDS: BENADRYL 100 MG IV (21:11)
[2024-05-29 23:50] VITALS: BP 130/81
[2024-05-30] MEDS: DILAUDID 1 MG IV ×5 (04:42→22:26)
[2024-05-30] MEDS: PHENERGAN WITH CODEINE SYRUP 10 ML PO ×4 (04:42→22:25)
[2024-05-30] MEDS: VANCOCIN 200 IV ×2 (05:44→13:39)
[2024-05-30] MEDS: SOLU-MEDROL PF 40 MG IV ×3 (05:44→21:35)
[2024-05-30] MEDS: STERILE WATER FOR INJECTION 10 ML IV ×4 (05:44→23:43)
[2024-05-30] MEDS: MAXIPIME 1000 MG IV ×4 (05:44→23:43)
[2024-05-30] MEDS: NSS (PRESERVATIVE FREE) 0.5 ML IV ×2 (05:45→12:16)
[2024-05-30] MEDS: ATIVAN 1 MG IV ×2 (05:45→12:17)
[2024-05-30 07:29] VITALS: BP 170/94
[2024-05-30] MEDS: DUONEB 3 ML INH ×4 (07:51→20:43)
[2024-05-30] MEDS: PULMICORT 0.5 MG INH ×2 (07:51→20:43)
[2024-05-30 08:44] LABS: Hematocrit 31.6 % (37.0-47.0); Hemoglobin 10.9 g/dL (12.0-16.0); Mean Corp Hgb Conc. 34.5 g/dL (33.0-37.0); Mean Corpuscular Hgb 27.7 pg (27.0-31.0); Mean Corpuscular Volume 80.2 fL (81.0-99.0); Mean Platelet Volume 9.3 fL (7.4-10.4); Platelet Count 283 10^3/uL (130-400); Red Blood Cell Count 3.94 10^6/uL (4.20-5.40); White Blood Cell Count 20.6 10^3/uL (4.8-10.8)
--- NOTE | 2024-05-30 08:48 | W.PN.HOSP.TC ---
Today's Communication/Plan
-
see bold
Assessment / Plan
Assessment / Plan
Pt seen and examined with nurse Anupama Bhagat present at bedside for the entirety of the interview and physical exam. c/o persistent pleuritic chest and abdominal pain.
Pt reports LLQ abd pain. Also reports that she had massive vaginal bleeding in the bathroom, stated it was all over her legs and the floor. As per discussion with Anupama Bhagat there was not evidence of blood on the floor of the bathroom. The was a
small amount of blood on the pt's towel.
Gen: NAD, AAOx3.
Eyes: EOMI, PERRLA, no scleral icterus.
Neck: supple.
CV: remains RRR, +S1/S2, no m/r/g.
Resp: remains B/L wheezes and rhonchi
Abd: +BS, soft, ND, LLQ TTP with guarding
Skin: No rashes.
Neuro: CN 2-12 intact, non-focal.
Psych: Normal mood and affect.
05/28/24 10:05 Throat/Pharynx Streptococcus Screen (NIRAJ) - Final
No Beta Hemolytic Streptococci Isolated
05/28/24 10:05 Throat/Pharynx Streptococcus Rapid Screen - Final
Rapid Strep Screen (Group A) Negative
05/28/24 14:22 Blood/Venous Blood Culture - Preliminary
No Growth in 24 hours- Final report to follow
05/28/24 12:46 Blood/Venous Blood Culture - Preliminary
No Growth in 24 hours- Final report to follow
05/28/24 17:43 Nose Nasal Screen MRSA (PCR) - Final
Staph aureus MRSA
05/18/24 19:33 Blood/Venous Blood Culture - Final
No Growth - Final Report
05/18/24 19:33 Blood/Venous Blood Culture - Final
No Growth - Final Report
CTA chest 05/19/24:
1. No evidence of pulmonary embolism.
2. Bibasilar atelectasis, more pronounced on the right.
3. Mild prominence of the mediastinal lymph nodes which may be reactive.
CT neck 05/28/24: No CT evidence for an acute process in the neck.
CT sinuses 05/28/24: No evidence for significant sinusitis. Dental caries and periapical lucencies for which dental consultation is suggested.
Acute asthma exacerbation:
-likely due to viral disease/bronchitis
-COVID/Flu/mono negative
-pulm following
-CT neck and sinuses unremarkable as above
-cont Solumedrol (discussed with Dr. Landa)
-cont Pulmicort/IBDA
-s/p NPL by ENT. Noted mild edema. Already on steroids and PPIs. Outpatient ENT follow-up.
Dysphagia:
-pt had been witnessed to eat entire meals and has not had any witnessed vomiting. Just prior to my visit on 05/29/23 nursing stated that the pt had an entire cheesesteak.
-discussed with GI at length on 05/29/24
-UGI-series 05/29/24: Small sliding-type hiatal hernia with mild esophageal dysmotility. No evidence of stricture or obstructing lesion. No aspiration or penetration was noted on cervical portion of the examination.
Fever:
-no source of infection identified as of yet
-BCxs NGTD
-currently on Fluconazole for oral thrush (not the cause of fever)
-currently on Cefepime/Vanco as per ID
-pt has referral to outpt rheum already for recurrent fevers
Severe epigastric and retrosternal pain:
-underlying chronic whole-body aches, managed by PCP
-no signs of ST elevation on EKG
-No abnormality on CT chest
-serial troponin NEG
Reports of vaginal bleeding:
-unwitnessed, pt stated that she 'clean it up.' Nursing did not see any evidence of blood on the floor, only a small amount of blood on the pt's towel. Hb stable, cont to trend. Reports h/o histerectomy in 2019.
LLQ Abd pain:
-CT A/P w/IV 05/17/24: No acute findings in the abdomen or pelvis. Partially visualized right-sided ventriculoperitoneal shunt catheter which appears continuous throughout its visualized course and terminates in the right lower quadrant. Multiple
cysts within the right ovary with a 2.4 cm dominant follicle. Mild splenomegaly.
-check CT A/P with PO and IV contrast
Other problems:
Steroid induced anxiety: IV Ativan PRN
Obesity due to excess calories
Prediabetes
B/L intermittent LE weakness
h/o of GBS
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 CT brain without ventricular dilation, shunt in appropriate position. Previous MRI brain showed no abnormalities.
Neurology saw in c/s and diagnosed pt currently with functional d/o.
h/o VTE, APLAb syndrome: cont Xarelto
Anxiety d/o
FULL/Xarelto
Total time spent on today's encounter was 53 minutes which included time spent in counseling the patient/family regarding diagnosis and treatment plan as listed above, goals of care, and symptom management. Case was discussed with nursing staff,
specialists, and care coordinators/case management. All labs and imaging personally reviewed by me. Remainder the time spent in detailed review of previous records, lab data, imaging, and other medical provider documentation.
Anticipated Discharge: 24 - 48 hours
Subjective/Interval History
-
Date of Service: May 30, 2024
Objective Data
-
Labs:
Laboratory Results
05/30/24
08:20
WBC 20.6 H
Hgb 10.9 L
Hct 31.6 L
Plt Count 283
Vital Signs:
Vital Signs
Temp Pulse Resp BP Pulse Ox
97.7 F 92 16 170/94 96
05/30/24 07:29 05/30/24 07:57 05/30/24 07:57 05/30/24 07:29 05/30/24 07:57
I&O
05/29/24 05/30/24 05/31/24
06:59 06:59 06:59
Intake Total 2099
Balance 2099
[2024-05-30] MEDS: MUCINEX PO ×2 (09:42→21:27)
[2024-05-30] MEDS: CARAFATE SUSPENSION PO ×3 (09:42→16:32)
[2024-05-30] MEDS: PROTONIX IV 40 MG IV ×2 (09:45→21:27)
[2024-05-30] MEDS: NSS (PRESERVATIVE FREE) 10 ML IV ×2 (09:46→21:28)
--- NOTE | 2024-05-30 09:51 | PHA.VAN.FU ---
Vancomycin Assessment / Plan
- Assessment
Renal Function: Stable
WBC's are: Trending Down
Concomitant Antimicrobials: cefepime, fluconazole
- Dosing Plan
Adjust Regimen to: Vanc 1500mg Q12H starting 05/31 599
New Regimen Predicts: AUC (488), Peak (31.7), Trough (11.8)
Given age > 35 y/o, will start with Q12H regimen empirically
received 3 doses of Q8 to date in last 24H, will hold off on further dosing today
- Monitoring Plan
No level(s) ordered at this time: consider levels in next few days
- Follow Up
Pharmacy will continue to follow.
Vancomycin Follow UP
- -
Patient Age: 38
Patient Sex: Female
Vancomycin Day #: 2
Indication: Bacteremia
Requesting Provider: Dr. Ford (resident) / Dr. Carolina
Pertinent Antimicrobial Allergies:
latex, doxycycline
Height / Weight:
Height 5 ft 4 in
Actual Weight 100.839 kg
IBW in k.7
Adjusted BW in k.2
Pertinent Past Medical History: BMI ~38
- Vital Signs / Lab Results
Temp Pulse Resp BP Pulse Ox
97.7 F 92 16 170/94 96
05/30/24 07:29 05/30/24 07:57 05/30/24 07:57 05/30/24 07:29 05/30/24 07:57
Lab Results - Hematology
05/27/24 05/28/24 05/29/24
14:22 06:10 05:43
WBC 17.6 H 23.2 H 23.0 H
05/30/24
08:20
WBC 20.6 H
Lab Results - Chemistry
05/27/24 05/28/24 05/29/24
09:22 06:10 05:43
BUN 18 H 21 H 20 H
Creatinine 0.9 0.8 0.8
Estimated Creat Clear 96 108 108
Microbiology Results
05/28/24 10:05 Streptococcus Screen (NIRAJ) - Final
Throat/Pharynx No Beta Hemolytic Streptococci Isolated
Streptococcus Rapid Screen - Final
Rapid Strep Screen (Group A) Negative
05/28/24 14:22 Blood Culture - Preliminary
Blood/Venous No Growth in 24 hours- Final report to follow
05/28/24 12:46 Blood Culture - Preliminary
Blood/Venous No Growth in 24 hours- Final report to follow
05/28/24 17:43 Nasal Screen MRSA (PCR) - Final
Nose Staph aureus MRSA
[2024-05-30] MEDS: FLUSH (NSS) 3 FLUSH IV ×2 (10:15→12:09)
--- NOTE | 2024-05-30 10:40 | W.PN.PUL.V3 ---
Today's Communication / Plan
-
.
Increase activity.
CT abdomen and pelvis pending.
No change in methylprednisolone today-hopefully can reduce tomorrow and converts to oral prednisone 60 mg in the next week-72 hours
Assessment
-
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
to 5 days. Patient remains compliant with inhaler therapy but does not routinely follow-up with her primary i o psychologist in [facility]. We are asked to comment on her pulmonary process
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
Acute asthmatic exacerbation-in a patient likely has asthma-moderate. Persistent
Predominantly upper airway wheeze
No stridor
Dysphagia to pills
Obesity
GERD
Migraine headaches
APS with Hx of PE on Xarelto
Leukocytosis.
Anemia.
Hyperglycemia
Plan
Respiratory status slightly improved-continues with significant wheezing-had similar presentation earlier in 2023 at which time she was noncompliant with her inhalers
Supplemental oxygen as needed-room air 96% saturation
Mucolytic-on Mucinex
Antitussives.
Steroids-Methylprednisolone 40 mg IV every 8 hours-begin to reduce in the next 24 hours if continues to slowly improve
Symbicort and Spiriva.
Azithromycin for immunomodulating effects
Nebulizers-dual nebs and Pulmicort
Mucus clearing devices...
CT chest 05/19/24-no evidence for PE, basilar atelectasis, mildly prominent mediastinal lymph nodes which may be reactive
CT neck 05/28/24-no evidence for acute process.
CT sinus, 05/28/24-no evidence for acute sinusitis
Check cultures..
Infectious disease following-correspondence reviewed-continue current antibiotics
MRSA positive.
Vancomycin initiated-Also on cefepime and azithromycin
GI following.
Upper GI pending.
Oral thrush therapy for GI or ENT.
ENT-no need for repeat laryngoscopy.
Continue PPI and acids and Carafate..
CT abdomen and pelvis for left lower quadrant abdominal pain 05/30/24-pending
GI following-correspondence reviewed.
Upper GI 05/29/24 without acute pathology
Reports significant insomnia despite Ativan
She states that she has high tolerance to sedatives, during multiple surgeries she has received significant amounts of doses.
Insomnia may be triggered by high dose of steroids
Unfortunately unable to take any oral medications
Continue Benadryl as needed at bedtime - raise dose to 100mg - hold for sedation.
Smoking and marijuana cessation counseling. Ongoing
DVT prophylaxis-on Xarelto
Nutrition
Increase activity/physical therapy
.
Consider Biologics if difficult to control asthma with recurrent exacerbations requiring prednisone.
Importance of pulmonary follow-up. Reviewed with her. She has not seen her i o psychologist since February 2023 despite recommendations after recent hospital stay earlier this year; she wishes to follow-up with us now after discharge; will obtain full
PFTs in the office
Subjective Data
-
Date of Service:
Date of Service: May 30, 2024
Chief Complaint: Pulmonary Follow Up (Asthma exacerbation) and Dyspnea Follow Up
Subjective:
Reportedly had some vaginal bleeding, still has some shortness of breath with exertion, overall slightly improved, no chest pain , mild left lower quadrant abdominal pain
Review of Systems
General: Other ( per HPI)
Objective Data
Data Reviewed
Vital Signs / I&O:
Vital Signs
Temp Pulse Resp BP Pulse Ox
97.7 F 92 16 170/94 96
05/30/24 07:29 05/30/24 07:57 05/30/24 07:57 05/30/24 07:29 05/30/24 07:57
Intake and Output
05/29/24 05/30/24 05/31/24
06:59 06:59 06:59
Intake Total 2099
Balance 2099
SaO2: 96
Nasal Cannula flow liters per minute: 2
Physical Exam
General: Respiratory Distress (negative), Chills (negative), Sweats (negative), Poor Appetite and Other (Appears uncomfortable)
HEENT: Normocephalic, Anicteric, Thrush (negative) and Other (Thick neck)
Cardiovascular: Regular Rhythm, Murmur (n), Rub (n) and Peripheral Edema (n)
Respiratory: Wheeze (Both upper and lower airway expiratory wheeze), Crackles (Bibasilar), Rhonchi (negative), Non-Labored Respirations and Stridor (negative)
GI: Soft, Non Distended (Obese), Non Tender and Normal Bowel Sounds
Neurology: Awake, Alert, No Motor Deficits and Tremors (negative)
Skin: Warm, Dry, Cyanosis (n), Jaundice (n) and Rash (n)
Labs/Micro/Reports
Lab Data
05/30/24 08:20
05/29/24 05:43
Laboratory Results
05/29/24
14:30
APTT Cancelled
Microbiology
05/28/24 10:05 Throat/Pharynx Streptococcus Screen (NIRAJ) - Final
No Beta Hemolytic Streptococci Isolated
05/28/24 10:05 Throat/Pharynx Streptococcus Rapid Screen - Final
Rapid Strep Screen (Group A) Negative
05/28/24 14:22 Blood/Venous Blood Culture - Preliminary
No Growth in 24 hours- Final report to follow
05/28/24 12:46 Blood/Venous Blood Culture - Preliminary
No Growth in 24 hours- Final report to follow
05/28/24 17:43 Nose Nasal Screen MRSA (PCR) - Final
Staph aureus MRSA
[2024-05-30] MEDS: OMNIPAQUE 50 ML PO (12:05)
--- NOTE | 2024-05-30 12:39 | W.PN.ID1 ---
Date of Service
Date of Service: May 30, 2024
Today's Communication
Continue current abx's.
Assessment / Plan
# Bronchitis.
# Persistent fevers resolving
# MRSA colonized
- CT neck no epiglottitis
- CT sinus: dental caries and lucencies, but patient without dental symptoms.
-Procal x 2 negative
-COVID, Influenza negative
- blood cx's neg.
- Continue cefepime 1g IV q6 (d3 of 5)
- Continue Vancomycin (d2)
- Follow temps
# Asthma with persistent upper airway wheezing
# Leukocytosis due to steroid
- Pulmonary managing
# Dysphagia
- Mild edema/inflammation of hypopharynx per ENT
- UGI series: no aspiration or stricture. Small sliding hiatal hernia.
- Treat empirically for esophageal candidiasis with fluconazole (d3)
# Vaginal bleeding
# LLQ abd pain
For CT a/p
# Conditions HAND UPPER AND BOTTOM LACER
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
Lupus
Antiphospholipid antibody syndrome
RLE DVT/PE
Acute inflammatory demyelinating polyneuropathy
Asthma
Migraine headaches
Anxiety
IBS
History of Guillain-Mello� syndrome status post plasmapheresis (2022)
Right foot surgery with screws
Cholecystectomy
Chief Complaint
-: Fever
Subjective / Review of Systems
c/o left lower abd pain and vaginal bleeding today. hx hysterectomy
Pharynx still raw.
Vital Signs / Physical Exam
Vital Signs
Vital Signs
Temp Pulse Resp BP Pulse Ox
97.7 F 92 16 170/94 96
05/30/24 07:29 05/30/24 07:57 05/30/24 07:57 05/30/24 07:29 05/30/24 10:40
Physical Exam
Cardiovascular: Regular Rate and S1/S2
Pulmonary: Clear
Gastrointestinal: Soft, Tender (LLQ ) and Non Tender
Neurological: AO x 3
Objective Data
Lab Data
Lab Results
05/30/24 08:20
05/29/24 05:43
ESR Cancelled 05/19/24 13:22
APTT Cancelled 05/29/24 14:30
Estimated Creat Clear 108 ml/min 05/29/24 05:43
Total Bilirubin 0.2 mg/dl (0.2-1.3) 05/20/24 02:34
AST 27 U/L (14-36) 05/20/24 02:34
ALT 26 U/L (0-35) 05/20/24 02:34
Alkaline Phosphatase 56 U/L (38-126) 05/20/24 02:34
C-Reactive Protein < 5.00 mg/L (0.0-10.00) 05/24/24 08:24
Most recent labs reviewed.
Micro Results:
05/28/24 10:05 Streptococcus Screen (NIRAJ) - Final
Throat/Pharynx No Beta Hemolytic Streptococci Isolated
Streptococcus Rapid Screen - Final
Rapid Strep Screen (Group A) Negative
05/28/24 14:22 Blood Culture - Preliminary
Blood/Venous No Growth in 24 hours- Final report to follow
05/28/24 12:46 Blood Culture - Preliminary
Blood/Venous No Growth in 24 hours- Final report to follow
05/28/24 17:43 Nasal Screen MRSA (PCR) - Final
Nose Staph aureus MRSA
05/18/24 19:33 Blood Culture - Final
Blood/Venous No Growth - Final Report
05/18/24 19:33 Blood Culture - Final
Blood/Venous No Growth - Final Report
05/17/24 CT a/p: No acute findings in the abdomen or pelvis. Partially visualized right-sided ventriculoperitoneal shunt catheter which appears continuous throughout its visualized course and terminates in the right lower quadrant.
05/19/[address]: No evidence of pulmonary embolism. Bibasilar atelectasis, more pronounced on the right. Mild prominence of the mediastinal lymph nodes which may be reactive.
05/19/24 Peripheral vascular US: No sonographic evidence for lower extremity venous thrombosis.
05/28/24 CT neck: No CT evidence for an acute process in the neck.
05/28/24 CT sinuses: No evidence for significant sinusitis. Dental caries and periapical lucencies for which dental consultation is suggested.
[2024-05-30] MEDS: FLUSH (NSS) 2 FLUSH IV (13:42)
[2024-05-30] MEDS: BENADRYL 50 MG IV (14:02)
[2024-05-30 15:00] VITALS: BP 164/94
[2024-05-30] MEDS: DIFLUCAN 200 MG 100 IV (16:32)
[2024-05-30] MEDS: XARELTO 20 MG PO (18:22)
[2024-05-30] MEDS: FLUSH (NSS) 1 FLUSH IV (18:25)
[2024-05-30] MEDS: CARAFATE SUSPENSION 1 GM PO (21:35)
[2024-05-30] MEDS: BENADRYL 100 MG IV (22:22)
[2024-05-30 23:13] VITALS: BP 153/89
[2024-05-31] MEDS: ATIVAN 1 MG IV ×2 (00:04→06:12)
[2024-05-31] MEDS: NSS (PRESERVATIVE FREE) 0.5 ML IV (00:06)
[2024-05-31] MEDS: DILAUDID 1 MG IV ×2 (02:46→08:08)
[2024-05-31] MEDS: PHENERGAN WITH CODEINE SYRUP 10 ML PO ×4 (02:46→22:14)
[2024-05-31] MEDS: STERILE WATER FOR INJECTION 10 ML IV ×4 (05:11→23:57)
[2024-05-31] MEDS: MAXIPIME 1000 MG IV ×4 (05:11→23:57)
[2024-05-31] MEDS: SOLU-MEDROL PF 40 MG IV ×3 (05:14→22:12)
[2024-05-31] MEDS: VANCOCIN 530 MG IV ×2 (05:18→17:05)
[2024-05-31 07:00] VITALS: BP 152/89
[2024-05-31] MEDS: PROTONIX IV 40 MG IV ×2 (08:01→19:40)
[2024-05-31] MEDS: MUCINEX 600 MG PO ×2 (08:01→19:39)
[2024-05-31] MEDS: NSS (PRESERVATIVE FREE) 10 ML IV ×2 (08:02→19:40)
[2024-05-31] MEDS: PULMICORT 0.5 MG INH ×2 (08:29→19:11)
[2024-05-31] MEDS: DUONEB 3 ML INH ×4 (08:29→19:11)
[2024-05-31] MEDS: CARAFATE SUSPENSION 1 GM PO ×4 (08:41→22:14)
--- NOTE | 2024-05-31 10:10 | W.PN.PUL.V3 ---
Today's Communication / Plan
-
.
Change methylprednisolone to prednisone 50 mg daily when able to swallow.
CT abdomen and pelvis pending.
Antibiotics per infectious disease.
Continue nebulizers and mucus clearing
Assessment
-
38-year-old female with history of asthma, history of PE with antiphospholipid syndrome on Xarelto, history of NPH s/p STRUCTURAL STEEL TRADES WORKER shunt, history of AIDP, anxiety and primary insomnia who presents with shortness of breath with dry cough ongoing for about 3
to 5 days. Patient remains compliant with inhaler therapy but does not routinely follow-up with her primary clinical operations manager in [facility]. We are asked to comment on her pulmonary process
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
Acute asthmatic exacerbation-in a patient likely has asthma-moderate. Persistent
Predominantly upper airway wheeze
No stridor
Dysphagia to pills
Obesity
GERD
Migraine headaches
APS with Hx of PE on Xarelto
Leukocytosis.
Anemia.
Hyperglycemia
Plan
Respiratory status slightly improved-continues with significant wheezing-had similar presentation earlier in 2023 at which time she was noncompliant with her inhalers
Supplemental oxygen as needed-room air 96% saturation
Mucolytic-on Mucinex
Antitussives.
Steroids-Methylprednisolone 40 mg IV every 8 hours- converted to prednisone 50 mg daily, slow taper when able to swallow
Symbicort and Spiriva.
Azithromycin for immunomodulating effects
Nebulizers-dual nebs and Pulmicort
Mucus clearing devices...
CT chest 05/19/24-no evidence for PE, basilar atelectasis, mildly prominent mediastinal lymph nodes which may be reactive
CT neck 05/28/24-no evidence for acute process.
CT sinus, 05/28/24-no evidence for acute sinusitis..
CT abdomen and pelvis 05/31/24-pending
Check cultures..
Infectious disease following-correspondence reviewed-continue current antibiotics
MRSA positive.
Vancomycin initiated-Also on cefepime and azithromycin
GI following.
Upper GI pending.
Oral thrush therapy for GI or ENT.
ENT-no need for repeat laryngoscopy.
Continue PPI and acids and Carafate..
CT abdomen and pelvis for left lower quadrant abdominal pain 05/30/2400-[id number] due to incomplete elimination of previous barium study
GI following-correspondence reviewed.
Upper GI 05/29/24 without acute pathology
Reports significant insomnia despite Ativan
She states that she has high tolerance to sedatives, during multiple surgeries she has received significant amounts of doses.
Insomnia may be triggered by high dose of steroids
Unfortunately unable to take any oral medications
Continue Benadryl as needed at bedtime - raise dose to 100mg - hold for sedation.
Smoking and marijuana cessation counseling. Ongoing
DVT prophylaxis-on Xarelto
Nutrition
Increase activity/physical therapy.
Reviewed with Dr. Umaña
Consider Biologics if difficult to control asthma with recurrent exacerbations requiring prednisone.
Importance of pulmonary follow-up. Reviewed with her. She has not seen her clinical operations manager since February 2023 despite recommendations after recent hospital stay earlier this year; she wishes to follow-up with us now after discharge; will obtain full
PFTs in the office
Subjective Data
-
Date of Service:
Date of Service: May 31, 2024
Chief Complaint: Pulmonary Follow Up (Asthma exacerbation) and Dyspnea Follow Up
Subjective:
Slightly improved, continues with wheezing and dyspnea on exertion, now on room air, some left lower quadrant abdominal pain
Review of Systems
General: Other (per HPI)
Objective Data
Data Reviewed
Vital Signs / I&O:
Vital Signs
Temp Pulse Resp BP Pulse Ox
97.4 F 88 18 152/89 96
05/31/24 07:00 05/31/24 07:00 05/31/24 08:32 05/31/24 07:00 05/31/24 08:32
Intake and Output
05/30/24 05/31/24 06/01/24
06:59 06:59 06:59
Intake Total 2079 / 2719
Balance 2079 / 2719
SaO2: 96
Nasal Cannula flow liters per minute: 2
Physical Exam
General: Respiratory Distress (negative), Comfortable, Chills (negative), Sweats (negative), Poor Appetite and Other (Appears uncomfortable)
HEENT: Normocephalic, Anicteric, Thrush (negative) and Other (Thick neck)
Cardiovascular: Regular Rhythm, Murmur (n), Rub (n) and Peripheral Edema (n)
Respiratory: Wheeze (Both upper and lower airway expiratory wheeze), Crackles (Bibasilar), Rhonchi (negative), Non-Labored Respirations and Stridor (negative)
GI: Soft, Non Distended (Obese), Non Tender and Normal Bowel Sounds
Neurology: Awake, Alert, No Motor Deficits and Tremors (negative)
Skin: Warm, Dry, Cyanosis (n), Jaundice (n) and Rash (n)
Labs/Micro/Reports
Microbiology
05/28/24 14:22 Blood/Venous Blood Culture - Preliminary
No Growth in 48 hours- Final report to follow
05/28/24 12:46 Blood/Venous Blood Culture - Preliminary
No Growth in 48 hours- Final report to follow
05/28/24 10:05 Throat/Pharynx Streptococcus Screen (NIRAJ) - Final
No Beta Hemolytic Streptococci Isolated
05/28/24 10:05 Throat/Pharynx Streptococcus Rapid Screen - Final
Rapid Strep Screen (Group A) Negative
05/28/24 17:43 Nose Nasal Screen MRSA (PCR) - Final
Staph aureus MRSA
--- NOTE | 2024-05-31 10:15 | W.PN.HOSP.TC ---
Today's Communication/Plan
-
Solumedrol continue
pending read for abd CT/pelvis
UGI series with no acute pathology
abd x ray -large amount of residual oral contrast with mild diverticulosis
Assessment / Plan
Assessment / Plan
Impression
Acute exacerbation most likely secondary to viral disease/bronchitis
MRSA positive
Vomiting and nausea with p.o. intolerance
GERD
Steroid-induced anxiety
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
APS with history of PE
Plan
Asthma exacerbation most likely 2/2 viral disease/bronchitis
COVID and mono negative. Flu negative. Blood culture no growth to date.
Continue IV Dilaudid
Bronchodilators
cont Solumedrol, may reduce the dose today per pulmonology
Azithromycin for immunomodulatory properties
Wheezing noted throughout all lung garcia including upper airway even with pursed lip breathing
Pulmonary following
Nebulizer treatments ATC
IV methylpred
S/p nasopharyngeal laryngoscope. Noted mild edema. Already on steroids and PPIs. Outpatient ENT follow-up
MRSA positive
ID following
Start IV vancomycin
Continue cefepime 1 g IV every 6
Blood culture negative, repeat pending
Follow temperature curve and WBC
#Vomiting and nausea with p.o. intolerance
#GERD
Upper GI series today
Continue IV PPI twice daily per GI
Continue Carafate
Nystatin swish and swallow for thrush
Low residue diet
GI following
Steroid induced anxiety
-IV Ativan
#B/l intermittent LE weakness
#Hx of GBS
#Hx of acute inflammatory demyelinating neuropathy
#NPH with BOWLING PIN REFINISHER shunt
#Migraine headaches
abdominal portion of the shunt in appropriate position without fluid collection
Head CT - no ventricular dilation, shunt in appropriate position
Neurology consult: functional d/o
Previous MRI showed no abnormalities
Recurrent fevers
Has been afebrile since 05/18 1945
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
LLQ pain
-CT A/P w/IV 05/17/24: No acute findings in the abdomen or pelvis. Partially visualized right-sided ventriculoperitoneal shunt catheter which appears continuous throughout its visualized course and terminates in the right lower quadrant. Multiple
cysts within the right ovary with a 2.4 cm dominant follicle. Mild splenomegaly.
- CT A/P with PO and IV contrast- read pending
Abdominal x-ray shows large amount of residual oral contrast throughout the colon which is new. Mild diverticulosis
APS with history of PE
No DVT on LE US
PTT >200 . Repeat PTT
Heparin drip was stopped.
On xaralto
FULL/Xarelto
Anticipated Discharge: > 48 hours
Subjective/Interval History
-
Date of Service: May 31, 2024
No overnight event
Objective Data
-
Labs:
Laboratory Results
05/31/24
07:27
WBC Pending
Hgb Pending
Hct Pending
Plt Count Pending
Sodium Pending
Potassium Pending
Chloride Pending
Carbon Dioxide Pending
BUN Pending
Creatinine Pending
Glucose Pending
Calcium Pending
Vital Signs:
Vital Signs
Temp Pulse Resp BP Pulse Ox
97.4 F 88 18 152/89 96
05/31/24 07:00 05/31/24 07:00 05/31/24 08:32 05/31/24 07:00 05/31/24 10:10
I&O
05/30/24 05/31/24 06/01/24
06:59 06:59 06:59
Intake Total 2079 / 2719
Balance 2079 / 2719
Review of Systems
-
All other systems: Reviewed and negative
Physical Exam
-
General: No Apparent Distress and Comfortable
HEENT: Normocephalic and Atraumatic
Respiratory: Wheezes and Decreased Breath Sounds
Cardiac: Regular Rhythm and S1/S2
GI: Soft, Nondistended, Normal Bowel Sounds and Tender
Neuro: AO x 3
Psych: Calm
Data Reviewed
-
Labs: Labs Reviewed by me and Discussed with Physician
--- NOTE | 2024-05-31 10:48 | PTCARENOTE ---
Patient awake and alert. C/O pain in 'my abdomen into my chest' received Dilaudid as requested with minimal relief. Pt stated she took her own 'rectal temp' and it was 102 resident aware and pt instructed to show nurse if this is the case again.
Pt verbalized understanding . Oral temp 97.4. Resting at present , call avelar in reach.
--- NOTE | 2024-05-31 11:38 | W.PN.UPDATE ---
Addendum entered and electronically signed by Yassine Umaña MD 06/01/24 12:47:
Total time spent on d/c = 40 min. This included today's physical exam, progress note, review of laboratory and diagnostic data, preparation of discharge documents and prescriptions, and discussions about the pt's hospital course and discharge plan
with the patient and other medical center director involved in the patient's care.
Original Note:
Update Note
Progress Note Update
Pt seen and examined with nurse Neyda Rosado present at bedside for the entirety of the interview and physical exam.
No new complaints.
Gen: NAD, AAOx3.
Eyes: EOMI, PERRLA, no scleral icterus.
Neck: supple.
CV: continues to remain RRR, +S1/S2, no m/r/g.
Resp: continues to remain B/L wheezes and rhonchi
Abd: +BS, soft, ND, NT to light palpation
Skin: No rashes.
Neuro: CN 2-12 intact, non-focal.
Psych: Normal mood and affect.
05/28/24 14:22 Blood/Venous Blood Culture - Preliminary
No Growth in 48 hours- Final report to follow
05/28/24 12:46 Blood/Venous Blood Culture - Preliminary
No Growth in 48 hours- Final report to follow
05/28/24 10:05 Throat/Pharynx Streptococcus Screen (NIRAJ) - Final
No Beta Hemolytic Streptococci Isolated
05/28/24 10:05 Throat/Pharynx Streptococcus Rapid Screen - Final
Rapid Strep Screen (Group A) Negative
05/28/24 17:43 Nose Nasal Screen MRSA (PCR) - Final
Staph aureus MRSA
05/18/24 19:33 Blood/Venous Blood Culture - Final
No Growth - Final Report
05/18/24 19:33 Blood/Venous Blood Culture - Final
No Growth - Final Report
CTA chest 05/19/24:
1. No evidence of pulmonary embolism.
2. Bibasilar atelectasis, more pronounced on the right.
3. Mild prominence of the mediastinal lymph nodes which may be reactive.
CT neck 05/28/24: No CT evidence for an acute process in the neck.
CT sinuses 05/28/24: No evidence for significant sinusitis. Dental caries and periapical lucencies for which dental consultation is suggested.
Acute asthma exacerbation:
-likely due to viral disease/bronchitis
-COVID/Flu/mono negative
-pulm following, discussed with Dr. Landa
-CT neck and sinuses unremarkable as above
-cont Solumedrol while awaiting CT A/P (contrast allergy)
-cont Pulmicort/IBDA
-s/p NPL by ENT. Noted mild edema. Already on steroids and PPIs. Outpatient ENT follow-up.
Dysphagia:
-pt had been witnessed to eat entire meals and has not had any witnessed vomiting. Just prior to my visit on 05/29/23 nursing stated that the pt had an entire cheesesteak.
-discussed with GI at length on 05/29/24
-UGI-series 05/29/24: Small sliding-type hiatal hernia with mild esophageal dysmotility. No evidence of stricture or obstructing lesion. No aspiration or penetration was noted on cervical portion of the examination.
Fever:
-no source of infection identified as of yet
-BCxs NGTD
-currently on Fluconazole for oral thrush (not the cause of fever)
-currently on Cefepime/Vanco as per ID
-pt has referral to outpt rheum already for recurrent fevers
Severe epigastric and retrosternal pain:
-underlying chronic whole-body aches, managed by PCP
-no signs of ST elevation on EKG
-No abnormality on CT chest
-serial troponin NEG
Reports of vaginal bleeding on 05/30/24AM:
-unwitnessed, pt stated that she 'clean it up.' Nursing did not see any evidence of blood on the floor, only a small amount of blood on the pt's towel. Hb stable, cont to trend. Reports h/o hysterectomy in 2019.
LLQ Abd pain:
-CT A/P w/IV 05/17/24: No acute findings in the abdomen or pelvis. Partially visualized right-sided ventriculoperitoneal shunt catheter which appears continuous throughout its visualized course and terminates in the right lower quadrant. Multiple
cysts within the right ovary with a 2.4 cm dominant follicle. Mild splenomegaly.
-check CT A/P with PO and IV contrast once prior contrast from UGI-series passes
Other problems:
Steroid induced anxiety: IV Ativan PRN
Obesity due to excess calories
Prediabetes
B/L intermittent LE weakness
h/o of GBS
h/o AIDP, NPH with ARTIFICIAL LIMB MAKER shunt, Migraine headaches: Abdominal portion of the shunt in appropriate position without fluid collection. CT brain without ventricular dilation, shunt in appropriate position. Previous MRI brain showed no abnormalities.
Neurology saw in c/s and diagnosed pt currently with functional d/o.
h/o VTE, APLAb syndrome: cont Xarelto
Anxiety d/o
FULL/Xarelto
Dispo: awaiting CT A/P and if results to not warrant further hospitalization the pt will be discharged.
Total time spent on today's encounter was 50 minutes which included time spent in counseling the patient/family regarding diagnosis and treatment plan as listed above, goals of care, and symptom management. Case was discussed with nursing staff,
specialists, and care coordinators/case management. All labs and imaging personally reviewed by me. Remainder the time spent in detailed review of previous records, lab data, imaging, and other medical provider documentation.
[2024-05-31] MEDS: ATIVAN 0.5 MG PO (11:47)
[2024-05-31 12:20] LABS: Hematocrit 30.6 % (37.0-47.0); Hemoglobin 10.7 g/dL (12.0-16.0); Mean Corpuscular Hgb 27.6 pg (27.0-31.0); Mean Corpuscular Volume 78.9 fL (81.0-99.0); Mean Platelet Volume 9.4 fL (7.4-10.4); Platelet Count 300 10^3/uL (130-400); Red Blood Cell Count 3.88 10^6/uL (4.20-5.40); White Blood Cell Count 23.1 10^3/uL (4.8-10.8)
[2024-05-31 13:16] LABS: Blood Urea Nitrogen 27 mg/dl (7-17); Calcium 9.2 mg/dl (8.4-10.2); Carbon Dioxide 25 mmol/L (22-30); Chloride 99 mmol/L (98-107); Estimated Creatinine Clearance 123 ml/min; Glucose 158 mg/dl (70-99); Potassium 4.5 mmol/L (3.5-5.1); Sodium 133 mmol/L (135-145); eGFR > 60.00
[2024-05-31] MEDS: PERCOCET 5/325 1 TABLET PO (13:53)
--- NOTE | 2024-05-31 14:08 | W.PN.ID1 ---
Date of Service
Date of Service: May 31, 2024
Today's Communication
Continue cefepime day 4 of 5 and Vanco day 3 of .
Now on po fluconazole till 06/03.
Assessment / Plan
# Purulent Bronchitis - improving
# Fever resolved with abx.
# MRSA colonized
- CT neck no epiglottitis
- CT sinus: dental caries and lucencies, but patient without dental symptoms.
-Procal x 2 negative
-COVID, Influenza negative
- blood cx's neg.
- Pt reports was coughing up green sputum (?Pseudomonas), now nonproductive.
- Continue cefepime 1g IV q6 (d4 of 5)
- Vancomycin (d3) as per hospitalist
# Asthma with persistent upper airway wheezing
# Leukocytosis due to steroid
- Pulmonary managing
# Dysphagia
- Mild edema/inflammation of hypopharynx per ENT
- UGI series: no aspiration or stricture. Small sliding hiatal hernia.
- On high dose steroid and nebs - possible Cristy esophagitis
- Transition IV fluconazole (d4) to po fluconazole 100mg po daily (can take with pudding) through 06/03/24.
# Vaginal bleeding
# LLQ abd pain
For CT a/p when previous po contrast no longer in intestines.
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
Lupus
Antiphospholipid antibody syndrome
RLE DVT/PE
Acute inflammatory demyelinating polyneuropathy
Asthma
Migraine headaches
Anxiety
IBS
History of Guillain-Mlelo� syndrome status post plasmapheresis (2022)
Right foot surgery with screws
Cholecystectomy
Chief Complaint
-: Fever
Subjective / Review of Systems
Still with vaginal bleeding.
Odynophagia stable.
Vital Signs / Physical Exam
Vital Signs
Vital Signs
Temp Pulse Resp BP Pulse Ox
97.4 F 88 18 152/89 96
05/31/24 07:00 05/31/24 07:00 05/31/24 08:32 05/31/24 07:00 05/31/24 10:10
Physical Exam
Constitutional: No Acute Distress
Cardiovascular: Regular Rate and S1/S2
Pulmonary: Clear
Gastrointestinal: Soft, Tender (LLQ) and Non Distended
Neurological: AO x 3
Objective Data
Lab Data
Lab Results
05/31/24 11:48
05/31/24 11:48
ESR Cancelled 05/19/24 13:22
APTT Cancelled 05/29/24 14:30
Estimated Creat Clear 123 ml/min 05/31/24 11:48
Total Bilirubin 0.2 mg/dl (0.2-1.3) 05/20/24 02:34
AST 27 U/L (14-36) 05/20/24 02:34
ALT 26 U/L (0-35) 05/20/24 02:34
Alkaline Phosphatase 56 U/L (38-126) 05/20/24 02:34
C-Reactive Protein < 5.00 mg/L (0.0-10.00) 05/24/24 08:24
Most recent labs reviewed.
Micro Results:
05/28/24 12:46 Blood Culture - Preliminary
Blood/Venous No Growth in 72 hours- Final report to follow
05/28/24 14:22 Blood Culture - Preliminary
Blood/Venous No Growth in 48 hours- Final report to follow
05/28/24 10:05 Streptococcus Screen (NIRAJ) - Final
Throat/Pharynx No Beta Hemolytic Streptococci Isolated
Streptococcus Rapid Screen - Final
Rapid Strep Screen (Group A) Negative
05/28/24 17:43 Nasal Screen MRSA (PCR) - Final
Nose Staph aureus MRSA
05/18/24 19:33 Blood Culture - Final
Blood/Venous No Growth - Final Report
05/18/24 19:33 Blood Culture - Final
Blood/Venous No Growth - Final Report
05/17/24 CT a/p: No acute findings in the abdomen or pelvis. Partially visualized right-sided ventriculoperitoneal shunt catheter which appears continuous throughout its visualized course and terminates in the right lower quadrant.
05/19/[address]: No evidence of pulmonary embolism. Bibasilar atelectasis, more pronounced on the right. Mild prominence of the mediastinal lymph nodes which may be reactive.
05/19/24 Peripheral vascular US: No sonographic evidence for lower extremity venous thrombosis.
05/28/24 CT neck: No CT evidence for an acute process in the neck.
05/28/24 CT sinuses: No evidence for significant sinusitis. Dental caries and periapical lucencies for which dental consultation is suggested.
--- NOTE | 2024-05-31 14:28 | PHA.VAN.FU ---
Vancomycin Assessment / Plan
- Assessment
Renal Function: Stable
WBC's are: Trending Up
Concomitant Antimicrobials: cefepime, fluconazole
- Dosing Plan
Continue: Vanc 1500mg Q12H
- Monitoring Plan
No level(s) ordered at this time: will hold off on levels given anticipated duration < 1 week
- Follow Up
Pharmacy will continue to follow.
Vancomycin Follow UP
- -
Patient Age: 38
Patient Sex: Female
Vancomycin Day #: 3
Indication: Bacteremia
Requesting Provider: Dr. Ford (resident) / Dr. Carolina
Pertinent Antimicrobial Allergies:
latex, doxycycline
Height / Weight:
Height 5 ft 4 in
Actual Weight 100.839 kg
IBW in k.7
Adjusted BW in k.2
Pertinent Past Medical History: BMI ~38
- Vital Signs / Lab Results
Temp Pulse Resp BP Pulse Ox
97.4 F 88 18 152/89 96
05/31/24 07:00 05/31/24 07:00 05/31/24 08:32 05/31/24 07:00 05/31/24 10:10
Lab Results - Hematology
05/29/24 05/30/24 05/31/24
05:43 08:20 11:48
WBC 23.0 H 20.6 H 23.1 H
Lab Results - Chemistry
05/29/24 05/31/24
05:43 11:48
BUN 20 H 27 H
Creatinine 0.8 0.7
Estimated Creat Clear 108 123
Microbiology Results
05/28/24 12:46 Blood Culture - Preliminary
Blood/Venous No Growth in 72 hours- Final report to follow
05/28/24 14:22 Blood Culture - Preliminary
Blood/Venous No Growth in 48 hours- Final report to follow
01/05/25 10:05 Streptococcus Screen (NIRAJ) - Final
Throat/Pharynx No Beta Hemolytic Streptococci Isolated
Streptococcus Rapid Screen - Final
Rapid Strep Screen (Group A) Negative
[2024-05-31 14:32] LABS: % Basophils 0.4 % (0-2); % Immature Granulocytes 7.1 % (0-0.5); % Lymphocytes 4.1 % (20.5-51.1); % Monocytes 4.4 % (1.7-9.3); Absolute Basophils 0.1 10^3/uL (0-0.2); Absolute Immature Granulocytes 1.7 10^3/uL (0-0.05); Absolute Lymphocytes 0.9 10^3/uL (1.2-3.4); Absolute Neutrophils 19.4 10^3/uL (1.4-6.5); Nucleated Red Blood Cells % 0 %
--- NOTE | 2024-05-31 14:32 | CM ---
CM reviewed chart, patient remains on IV antibiotics. CM will continue to follow for all discharge planning needs.
Plan; home no needs likely.
[2024-05-31 15:02] VITALS: BP 143/82
[2024-05-31] MEDS: DIFLUCAN 100 MG PO (15:19)
[2024-05-31] MEDS: DILAUDID 1 MG PO ×2 (15:25→22:24)
[2024-05-31] MEDS: XARELTO 20 MG PO (17:03)
[2024-05-31] MEDS: BENADRYL 100 MG IV (22:15)
[2024-06-01] MEDS: DILAUDID 1 MG PO (04:56)
[2024-06-01] MEDS: SOLU-MEDROL PF 40 MG IV (05:00)
[2024-06-01] MEDS: MAXIPIME 1000 MG IV (05:02)
[2024-06-01] MEDS: STERILE WATER FOR INJECTION 10 ML IV (05:03)
[2024-06-01] MEDS: VANCOCIN 530 MG IV (05:06)
[2024-06-01] MEDS: PHENERGAN WITH CODEINE SYRUP 10 ML PO (05:07)
[2024-06-01] MEDS: ATIVAN 0.5 MG PO (05:30)
[2024-06-01 05:54] LABS: Hematocrit 31.2 % (37.0-47.0); Hemoglobin 10.7 g/dL (12.0-16.0); Mean Corp Hgb Conc. 34.3 g/dL (33.0-37.0); Mean Corpuscular Hgb 27.4 pg (27.0-31.0); Mean Platelet Volume 9.8 fL (7.4-10.4); Platelet Count 292 10^3/uL (130-400); Red Cell Dist. Width 15.2 % (11.5-14.5); White Blood Cell Count 18.8 10^3/uL (4.8-10.8)
[2024-06-01 07:00] VITALS: BP 171/90
[2024-06-01] MEDS: PULMICORT 0.5 MG INH (07:27)
[2024-06-01] MEDS: DUONEB 3 ML INH ×2 (07:27→11:15)
--- NOTE | 2024-06-01 07:32 | W.PN.HOSP.TC ---
Today's Communication/Plan
-
Await for CT abdomen/pelvis oral and IV contrast
Transition to p.o. fluconazole per ID
Assessment / Plan
Assessment / Plan
Impression
Acute exacerbation most likely secondary to viral disease/bronchitis
MRSA positive
Vomiting and nausea with p.o. intolerance
GERD
Steroid-induced anxiety
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
APS with history of PE
Plan
Asthma exacerbation most likely 2/2 viral disease/bronchitis
COVID and mono negative. Flu negative. Blood culture no growth to date.
Continue IV Dilaudid
Bronchodilators
cont Solumedrol, may reduce the dose today per pulmonology
Azithromycin for immunomodulatory properties
Wheezing noted throughout all lung garcia including upper airway even with pursed lip breathing
Pulmonary following
Nebulizer treatments ATC
IV methylpred
S/p nasopharyngeal laryngoscope. Noted mild edema. Already on steroids and PPIs. Outpatient ENT follow-up
MRSA positive
ID following
Start IV vancomycin
Continue cefepime 1 g IV every 6
Blood culture negative, repeat pending
Follow temperature curve and WBC
#Vomiting and nausea with p.o. intolerance
#GERD
# Dysphagia
Upper GI series today
Continue IV PPI twice daily per GI
Continue Carafate
Nystatin swish and swallow for thrush
Transition to p.o. fluconazole 100 mg p.o. daily till 06/03-possible Cristy esophagitis per ID
ID following
Steroid induced anxiety
-IV Ativan
#B/l intermittent LE weakness
#Hx of GBS
#Hx of acute inflammatory demyelinating neuropathy
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
#Migraine headaches
abdominal portion of the shunt in appropriate position without fluid collection
Head CT - no ventricular dilation, shunt in appropriate position
Neurology consult: functional d/o
Previous MRI showed no abnormalities
Recurrent fevers
Has been afebrile since 05/18 1945
Outpatient second steward - already was referred by PCP
LLQ pain
-CT A/P w/IV 05/17/24: No acute findings in the abdomen or pelvis. Partially visualized right-sided ventriculoperitoneal shunt catheter which appears continuous throughout its visualized course and terminates in the right lower quadrant. Multiple
cysts within the right ovary with a 2.4 cm dominant follicle. Mild splenomegaly.
-Await CT A/P with PO and IV contrast. If things are looking okay then possible discharge today
Abdominal x-ray shows large amount of residual oral contrast throughout the colon which is new. Mild diverticulosis
APS with history of PE
No DVT on LE US
PTT >200 . Repeat PTT
Heparin drip was stopped.
On xaralto
FULL/Xarelto
Anticipated Discharge: Within 24 hours
Subjective/Interval History
-
Date of Service: June 01, 2024
No overnight events
Objective Data
-
Labs:
Laboratory Results
06/01/24
05:22
WBC 18.8 H
Hgb 10.7 L
Hct 31.2 L
Plt Count 292
Vital Signs:
Vital Signs
Temp Pulse Resp BP Pulse Ox
97.6 F 83 18 143/82 96
05/31/24 15:02 06/01/24 07:30 06/01/24 07:30 05/31/24 15:02 06/01/24 07:30
I&O
05/31/24 06/01/24 06/02/24
06:59 06:59 06:59
Intake Total 2719 / 2719
Balance 2719 / 2719
Review of Systems
-
All other systems: Reviewed and negative
Physical Exam
-
General: No Apparent Distress and Comfortable
HEENT: Normocephalic and Atraumatic
Respiratory: Wheezes
Cardiac: Regular Rhythm and S1/S2
GI: Soft, Nondistended, Normal Bowel Sounds and Tender
Musculoskeletal: No Edema
Neuro: AO x 3
Psych: Calm
Data Reviewed
-
Labs: Labs Reviewed by me and Discussed with Physician
[2024-06-01] MEDS: DIFLUCAN 100 MG PO (08:02)
[2024-06-01] MEDS: CARAFATE SUSPENSION 1 GM PO (08:03)
[2024-06-01] MEDS: PROTONIX IV 40 MG IV (08:04)
[2024-06-01] MEDS: NSS (PRESERVATIVE FREE) 10 ML IV (08:04)
[2024-06-01] MEDS: MUCINEX 600 MG PO (08:04)
--- NOTE | 2024-06-01 08:23 | W.PN.UPDATE ---
Update Note
Progress Note Update
Pt seen and examined with nurse Neyda Rosado present at bedside for the entirety of the interview and physical exam.
No new complaints.
Gen: NAD, AAOx3.
Eyes: EOMI, PERRLA, no scleral icterus.
Neck: supple.
CV: continues to remain RRR, +S1/S2, no m/r/g.
Resp: mild B/L end expiratory wheezes
Abd: +BS, soft, ND, LLQ TTP
Skin: No rashes.
Neuro: remains CN 2-12 intact, non-focal.
Psych: Normal mood and affect.
05/28/24 14:22 Blood/Venous Blood Culture - Preliminary
No Growth in 72 hours- Final report to follow
05/28/24 12:46 Blood/Venous Blood Culture - Preliminary
No Growth in 72 hours- Final report to follow
05/28/24 10:05 Throat/Pharynx Streptococcus Screen (NIRAJ) - Final
No Beta Hemolytic Streptococci Isolated
05/28/24 10:05 Throat/Pharynx Streptococcus Rapid Screen - Final
Rapid Strep Screen (Group A) Negative
05/28/24 17:43 Nose Nasal Screen MRSA (PCR) - Final
Staph aureus MRSA
05/18/24 19:33 Blood/Venous Blood Culture - Final
No Growth - Final Report
05/18/24 19:33 Blood/Venous Blood Culture - Final
No Growth - Final Report
CTA chest 05/19/24:
1. No evidence of pulmonary embolism.
2. Bibasilar atelectasis, more pronounced on the right.
3. Mild prominence of the mediastinal lymph nodes which may be reactive.
CT neck 05/28/24: No CT evidence for an acute process in the neck.
CT sinuses 05/28/24: No evidence for significant sinusitis. Dental caries and periapical lucencies for which dental consultation is suggested.
Acute asthma exacerbation:
-likely due to viral disease/bronchitis
-COVID/Flu/mono negative
-pulm following, discussed with Dr. Landa
-CT neck and sinuses unremarkable as above
-cont Solumedrol while awaiting CT A/P (contrast allergy)
-cont Pulmicort/IBDA
-s/p NPL by ENT. Noted mild edema. Already on steroids and PPIs. Outpatient ENT follow-up.
Dysphagia:
-pt had been witnessed to eat entire meals and has not had any witnessed vomiting. Just prior to my visit on 05/29/23 nursing stated that the pt had an entire cheesesteak.
-discussed with GI at length on 05/29/24
-UGI-series 05/29/24: Small sliding-type hiatal hernia with mild esophageal dysmotility. No evidence of stricture or obstructing lesion. No aspiration or penetration was noted on cervical portion of the examination.
Fever:
-no source of infection identified as of yet
-BCxs NGTD
-currently on Fluconazole for oral thrush (not the cause of fever)
-currently on Cefepime/Vanco as per ID
-pt has referral to outpt rheum already for recurrent fevers
Severe epigastric and retrosternal pain:
-underlying chronic whole-body aches, managed by PCP
-no signs of ST elevation on EKG
-No abnormality on CT chest
-serial troponin NEG
Reports of vaginal bleeding on 05/30/24AM:
-unwitnessed, pt stated that she 'clean it up.' Nursing did not see any evidence of blood on the floor, only a small amount of blood on the pt's towel. Hb stable, cont to trend. Reports h/o hysterectomy in 2019.
LLQ Abd pain:
-CT A/P w/IV 05/17/24: No acute findings in the abdomen or pelvis. Partially visualized right-sided ventriculoperitoneal shunt catheter which appears continuous throughout its visualized course and terminates in the right lower quadrant. Multiple
cysts within the right ovary with a 2.4 cm dominant follicle. Mild splenomegaly.
-check CT A/P with PO and IV contrast once prior contrast from UGI-series passes
Other problems:
Steroid induced anxiety: IV Ativan PRN
Obesity due to excess calories
Prediabetes
B/L intermittent LE weakness
h/o of GBS
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 CT brain without ventricular dilation, shunt in appropriate position. Previous MRI brain showed no abnormalities.
Neurology saw in c/s and diagnosed pt currently with functional d/o.
h/o VTE, APLAb syndrome: cont Xarelto
Anxiety d/o
FULL/Xarelto
Dispo: awaiting CT A/P and if results to not warrant further hospitalization the pt will be discharged.
--- NOTE | 2024-06-01 11:07 | W.PN.ID1 ---
Date of Service
Date of Service: June 01, 2024
Today's Communication
DC cefepime and Vancomycin.
Continue po fluconazole 100mg po qd till 06/03.
ID will sign off.
Assessment / Plan
# Purulent Bronchitis - resolved
# Fever resolved with abx.
# MRSA colonized
- CT neck no epiglottitis
- CT sinus: dental caries and lucencies, but patient without dental symptoms.
-Procal x 2 negative
-COVID, Influenza negative
- blood cx's neg.
- Pt reports was coughing up green sputum (?Pseudomonas), now nonproductive.
- Can dc cefepime 1g IV q6 (d5 of 5)
- Can dc Vancomycin (d4)
# Asthma with upper airway wheezing, improved
# Leukocytosis due to steroid, trending down
- Pulmonary managing
# Dysphagia
- Mild edema/inflammation of hypopharynx per ENT
- UGI series: no aspiration or stricture. Small sliding hiatal hernia.
- On high dose steroid and nebs - possible Cristy esophagitis
- Continue po fluconazole 100mg po daily (can take with pudding) through 06/03/24.
# Vaginal bleeding
# LLQ abd pain
# hx hysterectomy
# Ovarian cysts
- CT a/p cancelled due to po contrast (from UGI series) retension in intestines.
- Follow up with her BRAKE REPAIR SUPERVISOR .
ID will sign off.
# Conditions ADOPTION MANAGER
Idiopathic intracranial hypertension status post right-sided LITERACY SPECIALIST shunt (2011)
Lupus
Antiphospholipid antibody syndrome
RLE DVT/PE
Acute inflammatory demyelinating polyneuropathy
Asthma
Migraine headaches
Anxiety
IBS
History of Guillain-Mello� syndrome status post plasmapheresis (2022)
Right foot surgery with screws
Cholecystectomy
Chief Complaint
-: Fever
Subjective / Review of Systems
No new complaints. Throat rawness slightly better.
Going home today.
Vital Signs / Physical Exam
Vital Signs
Vital Signs
Temp Pulse Resp BP Pulse Ox
97.9 F 83 18 171/90 96
06/01/24 07:00 06/01/24 07:30 06/01/24 07:30 06/01/24 07:00 06/01/24 07:30
Physical Exam
Constitutional: No Acute Distress and Comfortable
Eyes: No Conjunctival Hemorrhage and Sclera Anicteric
Oropharyngeal: Negative Erythema
Pulmonary: Clear
Gastrointestinal: Soft and Non Distended
Neurological: AO x 3
Objective Data
Lab Data
Lab Results
06/01/24 05:22
05/31/24 11:48
ESR Cancelled 05/19/24 13:22
APTT Cancelled 05/29/24 14:30
Estimated Creat Clear 123 ml/min 05/31/24 11:48
Total Bilirubin 0.2 mg/dl (0.2-1.3) 05/20/24 02:34
AST 27 U/L (14-36) 05/20/24 02:34
ALT 26 U/L (0-35) 05/20/24 02:34
Alkaline Phosphatase 56 U/L (38-126) 05/20/24 02:34
C-Reactive Protein < 5.00 mg/L (0.0-10.00) 05/24/24 08:24
Most recent labs reviewed.
Micro Results:
05/28/24 14:22 Blood Culture - Preliminary
Blood/Venous No Growth in 72 hours- Final report to follow
05/28/24 12:46 Blood Culture - Preliminary
Blood/Venous No Growth in 72 hours- Final report to follow
05/28/24 10:05 Streptococcus Screen (NIRAJ) - Final
Throat/Pharynx No Beta Hemolytic Streptococci Isolated
Streptococcus Rapid Screen - Final
Rapid Strep Screen (Group A) Negative
05/28/24 17:43 Nasal Screen MRSA (PCR) - Final
Nose Staph aureus MRSA
05/18/24 19:33 Blood Culture - Final
Blood/Venous No Growth - Final Report
05/18/24 19:33 Blood Culture - Final
Blood/Venous No Growth - Final Report
05/17/24 CT a/p: No acute findings in the abdomen or pelvis. Partially visualized right-sided ventriculoperitoneal shunt catheter which appears continuous throughout its visualized course and terminates in the right lower quadrant.
05/19/[address]: No evidence of pulmonary embolism. Bibasilar atelectasis, more pronounced on the right. Mild prominence of the mediastinal lymph nodes which may be reactive.
05/19/24 Peripheral vascular US: No sonographic evidence for lower extremity venous thrombosis.
05/28/24 CT neck: No CT evidence for an acute process in the neck.
05/28/24 CT sinuses: No evidence for significant sinusitis. Dental caries and periapical lucencies for which dental consultation is suggested.
Care Review
Plan reviewed with: Physician (Dr. Edmundo Ford)
--- NOTE | 2024-06-01 11:21 | W.DCSUMMARY ---
Discharge Summary
Discharge Data
Date of Admission: 05/18/24
Date of Discharge: 06/01/24
-
Pending Results: No
Hospital Course
Discharging Physician : Dr Hunter Ford, Dr Yassine Umaña
Disposition : home
Primary care physician : Naot Callejas Jr.
Principal Discharge diagnosis :
Acute exacerbation most likely secondary to viral disease/bronchitis
MRSA positive
Vomiting and nausea with p.o. intolerance
GERD
Steroid-induced anxiety
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
APS with history of PE
Chronic Discharge diagnosis :
Anxeity
GBS
APS
Asthma moderate persistent
Hospital Course :
Patient is a 38-year-old female with past medical history significant for asthma, Guillain-Mello� syndrome, hypercoagulable state, Hx PE, normal pressure hydrocephalus with shunt and acute inflammatory demyelinating polyneuropathy who presented to
[place] ED for evaluation of persistent URI symptoms, wheezing, diarrhea. She underwent CT abdomen pelvis which showed no acute findings. Chest x-ray was also negative. COVID and influenza were negative. Patient had worsening symptoms of
wheezing and cough with fever of 101. Bilateral wheezing with diminished air entry bilaterally on exam. Patient was clinically in sepsis secondary to acute bronchitis/asthma exacerbation. Patient was started on IV fluids, doxycycline, DuoNebs,
Dexamethasone. BC, stool studies, norovirus, C. difficile were ordered. Patient was started IV heparin for history of APS and DVT prophylaxis. Pulmonology was consulted. Patient was started on solumedrol IV 60 mg along with bronchodilators,
nebulizers, incentive spirometry. Patient reported of N,V, epigastric pain. No signs of ST elevation, serial trops were normal . Ct chest was ordered to evaluate for esophagus and mediastinum with normal results. Patient was started on reglan for
vomiting/nausea. Patient continued to have cough with a hoarse voice. She reported of difficulty swallowing. Speech and ENT were consulted. Endoscopy shows normal vocal cords, motion bilaterally .Mild edema of hypopharynx, no lesions. Patient was
put on low residue diet. Patient reported of being anxious and unable to sleep, benedryl was given. BC were negative. Patient had recurrent fevers and was found to have MRSA positive. ID was consulted and cefepime and vancomycin were started. IV
fluconazole was started for possible candidal esophagitis. Even after starting low residue diet she reported of inability to swallow oral intake and swallow pills. GI was consulted and upon discussion with patient's nurse she is seen eating 100% of
all low residue meals and ordered UBER eats with [employer] last night for dinner. Upper GI seried was ordered which showed no acute pathology. Carafate and PPI were added. Patient also started reporting of LLQ, previous ct of ab/pelvis without
contrast did not show any acute pathology except for mild diverticulosis. CT abd/pelvis with oral and IV contrast was ordered for LLQ pain. Unfortunately after the prep for iv and oral contrast the scan was not done. Abd x ray remaining contrast in
the stomach and colon. We tried to repeat the CT scan but due to persistent remaining contrast were unable to do the scan.
On the day of discharge the patient is medically stable, HB stable, leukocytosis due to steroids, vitals are stable. She is on room air. Antibiotic course was completed. Patient is discharged on slow taper prednisone, pantoprazole 40 mg ,
guaifenesin. Transitioned to PO fluconazole 100 mg daily till 06/03. Outpatient follow up with pulmonology in 2-3 weeks and follow up with family physician in less than one week.
Important imaging findings :
CXR - No acute cardiopulmonary abnormality
Abd/pelvis CT without contrast - No acute findings in the abdomen or pelvis. Partially visualized right-sided ventriculoperitoneal shunt catheter which appears continuous throughout its visualized course and terminates in the right lower
quadrant.Multiple cysts within the right ovary with a 2.4 cm dominant follicle. Mild splenomegaly.
Head CT - No acute intracranial abnormalities appreciated. Right frontal approach ventriculostomy catheter is in expected position. No significant ventricular dilation.
Chest CT
1. No evidence of pulmonary embolism.
2. Bibasilar atelectasis, more pronounced on the right.
3. Mild prominence of the mediastinal lymph nodes which may be reactive.
Peripheral vascular US - No sonographic evidence for lower extremity venous thrombosis.
Neck CT- No CT evidence for an acute process in the neck.
Upper GI series - Small sliding-type hiatal hernia with mild esophageal dysmotility. There is no evidence of stricture or obstructing lesion. No aspiration or penetration was noted on cervical portion of the examination.
Abd X ray - Large amount of residual oral contrast throughout the colon. New. Mild diverticulosis. Stable
Procedure findings :
Nasal laryngoscopy - Endoscopy shows normal vocal cords, motion bilaterally. Mild edema of hypopharynx, no lesions
Discharge Plan
-
Patient Disposition: Home (Routine Discharge)
Discharge Diagnosis/Procedures: Acute exacerbation most likely secondary to viral disease/bronchitis
MRSA positive
Vomiting and nausea with p.o. intolerance
GERD
Steroid-induced anxiety
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
APS with history of PE
Condition: Good
Diet: As tolerated
Activity: No restrictions
Driving Restrictions: As prior to admission
Bathing Restrictions: None
Others Tests: recommend CT scan of abd/pelvis with iv and oral contrast if LLQ pain persists
Referrals:
Nato Callejas Jr., [Family Provider] - in less than 1 week
Rakesh Austin MD [Active] - in two to four weeks (full PFTs on day of office visit)
Additional Discharge Medication Instructions: Slow prednisone taper
50 mg take one tablet daily for 4 days
40 mg take one tablet daily for 4 days
30 mg take one tablet daily for 4 days
20 mg take one tablet daily for 4 days then see the rabbler.
Pantoprazole 40 mg - take one tablet daily
Fluconazole 100 mg take one tablet daily for the next 2 days until 06/03/24
Guaifenesin 400 mg tab take one tablet three times a day
Continue using all home inhalers
Please make an appointment with rabbler once you are at dose of 20 mg of prednisone.
Please make an appointment with family doctor in one week
Recommend CT scan of abdomen/pelvis outpatient for LLQ pain.
Prescriptions:
New
fluconazole 100 mg Tablet
100 mg PO DAILY Qty: 2 0RF
prednisone 50 mg tablet
50 mg PO DAILY 4 Days Qty: 4 0RF
prednisone 20 mg tablet
20 mg PO BID 4 Days Qty: 8 0RF
Rx Instructions:
take 2 tablets daily
prednisone 10 mg tablet
10 mg PO TID 4 Days Qty: 12 0RF
Rx Instructions:
take three tablets daily - total dose 30 mg daily
prednisone 20 mg tablet
20 mg PO DAILY 4 Days Qty: 4 0RF
Rx Instructions:
take one tablet daily
pantoprazole 40 mg tablet,delayed release (DR/EC)
40 mg PO DAILY 30 Days Qty: 30 0RF
guaifenesin 400 mg tablet
400 mg PO TID 30 Days Qty: 90 0RF
Rx Instructions:
take one tablet three times a day
Continued
tizanidine 4 mg Tablet
4 mg PO TID
cyanocobalamin (vitamin B-12) 1,000 mcg/mL Solution
1,000 mcg IM QMONTH
montelukast [Singulair] 10 mg Tablet
10 mg PO HS
hydroxyzine HCl 25 mg Tablet
25 mg PO BID
furosemide [Lasix] 20 mg Tablet
20 mg PO BID@0800,1200
Xarelto 20 mg Tablet
20 mg PO QPM
Emgality Syringe 120 mg/mL Syringe
120 mg SC QMONTH
promethazine 25 mg tablet
25 mg PO Q12H
albuterol sulfate 90 mcg/actuation HFA aerosol inhaler
1 puff INHALATION R Q4HPRN PRN (Reason: sob/wheezing)
sertraline 50 mg Tablet
50 mg PO HS
potassium chloride [Klor-Con M10] 10 mEq Tablet,Er Particles/Crystals
10 meq PO DAILY
eszopiclone [Lunesta] 3 mg Tablet
3 mg PO HS
Discontinued
famotidine [Pepcid] 20 mg Tablet
20 mg PO HS
Discharge Orders:
Discharge Patient (As Directed); Ordered 06/01/24
Ordered By: Hunter Ford
Discharge Date and Time
Discharge Date/Time: 06/01/24 12:22
Print Language: MONGOLIAN
--- NOTE | 2024-06-01 11:40 | CM ---
CM reviewed chart, patient seen bedside, for discharge today. Patient reports she drove herself to Hospital, will transport home. Patient denies needs upon discharge. CM will continue to follow for all discharge planning needs.
Plan; home no needs.
--- NOTE | 2024-06-01 15:34 | W.PN.PUL.V3 ---
Today's Communication / Plan
-
.
Continue nebulizers.
Increase activity.
Slow prednisone taper-reviewed with resident.
Outpatient pulmonary follow-up
Assessment
-
38-year-old female with history of asthma, history of PE with antiphospholipid syndrome on Xarelto, history of NPH s/p PLACEMENT DIRECTOR shunt, history of AIDP, anxiety and primary insomnia who presents with shortness of breath with dry cough ongoing for about 3
to 5 days. 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 We are asked to comment on her pulmonary process
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
Acute asthmatic exacerbation-in a patient likely has asthma-moderate. Persistent
Predominantly upper airway wheeze
No stridor
Dysphagia to pills
Obesity
GERD
Migraine headaches
APS with Hx of PE on Xarelto
Leukocytosis.
Anemia.
Hyperglycemia
Plan
Respiratory status slightly improved-continues with significant wheezing-had similar presentation earlier in 2023 at which time she was noncompliant with her inhalers
Supplemental oxygen as needed-room air 96% saturation
Mucolytic-on Mucinex
Antitussives.
Steroids-Methylprednisolone 40 mg IV every 8 hours- converted to prednisone 50 mg daily, slow taper when able to swallow
Symbicort and Spiriva.
Azithromycin for immunomodulating effects
Nebulizers-dual nebs and Pulmicort
Mucus clearing devices...
CT chest 05/19/24-no evidence for PE, basilar atelectasis, mildly prominent mediastinal lymph nodes which may be reactive
CT neck 05/28/24-no evidence for acute process.
CT sinus, 05/28/24-no evidence for acute sinusitis..
CT abdomen and pelvis 05/31/2462-[id number] to be performed due to retained barium
Abdominal x-ray 06/01/24-large amount of residual contrast in the colon, unchanged
Cultures reviewed
Infectious disease following-correspondence reviewed-continue current antibiotics
MRSA positive.
Vancomycin initiated-Also on cefepime and azithromycin
GI following.
Upper GI -small sliding hiatal hernia, no evidence for stricture or obstructing lesion, no aspiration.
Oral thrush therapy for GI or ENT.
ENT-no need for repeat laryngoscopy.
Continue PPI and acids and Carafate..
CT abdomen and pelvis for left lower quadrant abdominal pain 05/30/2427-[id number] due to incomplete elimination of previous barium study
GI following-correspondence reviewed
Reports significant insomnia despite Ativan
She states that she has high tolerance to sedatives, during multiple surgeries she has received significant amounts of doses.
Insomnia may be triggered by high dose of steroids
Unfortunately unable to take any oral medications
Continue Benadryl as needed at bedtime - raise dose to 100mg - hold for sedation.
Smoking and marijuana cessation counseling ongoing
DVT prophylaxis-on Xarelto
Nutrition
Increase activity/physical therapy..
If discharged-recommend slow prednisone taper-prednisone 50 mg daily for 4 days, then 40 mg daily for 4 days, then 30 mg daily for 4 days and then 20 mg daily until seen by pulmonary
Reviewed with Dr. Umaña
Consider Biologics if difficult to control asthma with recurrent exacerbations requiring prednisone.
Importance of pulmonary follow-up. Reviewed with her. She has not seen her gravure printing machinist since February 2023 despite recommendations after recent hospital stay earlier this year; she wishes to follow-up with us now after discharge; will obtain full
PFTs in the office
Subjective Data
-
Date of Service:
Date of Service: June 01, 2024
Chief Complaint: Pulmonary Follow Up (Asthma exacerbation) and Dyspnea Follow Up
Subjective:
Respiratory status slowly improving, still has some chest congestion, wheezing, dyspnea on exertion-though improving
Review of Systems
General: Other (. HPI)
Objective Data
Data Reviewed
Vital Signs / I&O:
Vital Signs
Temp Pulse Resp BP Pulse Ox
97.9 F 80 16 171/90 97
06/01/24 07:00 06/01/24 11:17 06/01/24 11:17 06/01/24 07:00 06/01/24 11:17
Intake and Output
05/31/24 06/01/24 06/02/24
06:59 06:59 06:59
Intake Total 2719 / 2719
Balance 2719 / 2719
SaO2: 97
Nasal Cannula flow liters per minute: 2
Physical Exam
General: Respiratory Distress (negative), Comfortable, Chills (negative), Sweats (negative), Poor Appetite and Other (Appears uncomfortable)
HEENT: Normocephalic, Anicteric, Thrush (negative) and Other (Thick neck)
Cardiovascular: Regular Rhythm, Murmur (n), Rub (n) and Peripheral Edema (n)
Respiratory: Wheeze (Both upper and lower airway expiratory wheeze), Crackles (Bibasilar), Rhonchi (negative), Non-Labored Respirations and Stridor (negative)
GI: Soft, Non Distended (Obese), Non Tender and Normal Bowel Sounds
Neurology: Awake, Alert, No Motor Deficits and Tremors (negative)
Skin: Warm, Dry, Cyanosis (n), Jaundice (n) and Rash (n)
Labs/Micro/Reports
Lab Data
06/01/24 05:22
05/31/24 11:48
Microbiology
05/28/24 14:22 Blood/Venous Blood Culture - Preliminary
No Growth in 4 days- Final report to follow
05/28/24 12:46 Blood/Venous Blood Culture - Preliminary
No Growth in 4 days- Final report to follow
05/28/24 10:05 Throat/Pharynx Streptococcus Screen (NIRAJ) - Final
No Beta Hemolytic Streptococci Isolated
05/28/24 10:05 Throat/Pharynx Streptococcus Rapid Screen - Final
Rapid Strep Screen (Group A) Negative
== END 2024-06-01 12:22 | disposition home or self-care (01) | DRG 872 ==
LOC: 4 WEST ACU 21:46
PROVIDERS: Hospitalist; Internal Medicine; Internal Medicine Critical Care Medicine; Nurse Practitioner Family; Physician Assistant; Student in an Organized Health Care Education/Training Program; ADMITTING PHYSICIAN Hospitalist; ATTENDING PHYSICIAN Internal Medicine; CONSULT PHYSICIAN Internal Medicine Critical Care Medicine; CONSULT PHYSICIAN Internal Medicine Gastroenterology; CONSULT PHYSICIAN Internal Medicine Infectious Disease; CONSULT PHYSICIAN Otolaryngology; CONSULT PHYSICIAN Psychiatry & Neurology Neurology; EMERGENCY PHYSICIAN Emergency Medicine; FAMILY PHYSICIAN Family Medicine
DX: A41.9 Sepsis, unspecified organism (principal); J45.901 Unspecified asthma with (acute) exacerbation; K92.0 Hematemesis; G62.81 Critical illness polyneuropathy; G91.2 (Idiopathic) normal pressure hydrocephalus; K44.9 Diaphragmatic hernia without obstruction or gangrene; J20.9 Acute bronchitis, unspecified; A49.02 Methicillin resistant Staphylococcus aureus infection, unspecified site; K21.9 Gastro-esophageal reflux disease without esophagitis; F41.9 Anxiety disorder, unspecified; F12.19 Cannabis abuse with unspecified cannabis-induced disorder
CPT/HCPCS: 70450; 70486; 70491; 71045; 71275; 74018; 74246; 80048; 80053; 80306; 80307; 82607; 82728; 82746; 83036; 83540; 83550; 83690; 84145; 84439; 84443; 84484; 85014; 85018; 85025; 85027; 85379; 85652; 85730; 86140; 86308; 87040; 87070; 87641; 87880; 93005; 93970; 94640; 96374; 96375; 99285; Q9967

== ENCOUNTER 2024-06-12 16:01 | Emergency (ER) | payer OTHER, SELFPAY ==
[2024-06-12 16:08] VITALS: BP 158/100
[2024-06-12 16:18] LABS: Glucose - Point of Care 100 mg/dl (70-99)
[2024-06-12 17:23] VITALS: BP 135/60
--- NOTE | 2024-06-12 17:42 | ED.GENMED ---
History of Present Illness
General
Chief Complaint: Abdominal Symptoms
Time Seen by Provider: 06/12/24 17:40
History of Present Illness
History of Present Illness:
TIME OF INITIAL ENCOUNTER: 5:50 PM
HPI: The patient has multiple complaints but was very concerned about bringing up a blood clot earlier. She think she should have vomited (not coughed) a clot. She states she has not been able to tolerate p.o. She is on Xarelto. She has been
vomiting. She does have an associated headache.
EXAM:
GENERAL: Well appearing in no distress
HEENT: Moist oral mucosa
CARDIOVASCULAR: No murmurs, normal heart rate, regular rhythm, No chest wall tenderness
PULMONARY: No respiratory distress, breath sounds are clear and equal
ABDOMEN: Soft with no peritoneal signs, no tenderness
NEUROLOGIC: Excellent strength all extremities, no coordination deficits, tremor noted to the extremities
PSYCHIATRIC: Appropriate mental status, normal insight and judgement, appears anxious
EXTREMITIES: Nontender, no edema, moves all extremities equally
SKIN: No rash, no lesions
NUMBER AND COMPLEXITY OF PROBLEMS ADDRESSED AT THE ENCOUNTER
� Chronic conditions affecting care: Guillain-Mello�, GENERAL ACCOUNTANT shunt for NPH, inflammatory demyelinating polyneuropathy, PE/DVT, IBS, has had hysterectomy
� Acute Exacerbation and/or Progression of Chronic Illness: This is an acute problem
� Differential Diagnosis includes: Coagulopathy, thrombocytopenia, nosebleed
AMOUNT AND/OR COMPLEXITY OF DATA TO BE REVIEWED AND ANALYZED
� I performed an independent evaluation of and my interpretation is:
EKG:
CT:
X-rays:
Laboratory Studies: Bicarb is low at 18, hemoglobin is higher than prior now at 11.5 up from 10.7
Other:
� Review of other/old records: I reviewed records, the patient was admitted earlier this month. At that time CTA chest showed no PE. She was admitted with what was felt to be related to an acute exacerbation of viral
bronchitis. She had a hoarse voice last admission and was seen by ENT and endoscopy showed normal vocal cords. She was placed on IV antibiotics and was also placed on IV fluconazole for possible candidal esophagitis. It is documented that she was
able to order [employer] for dinner 1 night.
� Clinical information was obtained by an independent historian: None needed
� Prescriptions/Medications Considered but not given:
� Further testing considered but not performed:
RISK OF COMPLICATIONS AND/OR MORBIDITY OR MORTALITY OF PATIENT MANAGEMENT
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
� Discussion with other providers:
� Escalation of care including admission/observation vs risk of discharge considered: The patient is borderline tachycardic and tremulous. She is a very difficult IV access. IV team came down. Blood work was obtained.
Hemoglobin is improved compared to prior but she is borderline tachycardic. She states she cannot tolerate p.o. She also states that she checked a rectal temperature and was [address] Cintron's note which indicates that
endoscopy showed normal cords however the patient states she did not have any endoscopy or NPL. Dr. Reyes's note indicates that the patient had EGD/colonoscopy at [facility].
ANY OTHER UPDATES:
The patient has ongoing headache throughout her stay in the [facility] apartment. She states she cannot tolerate p.o. We have given her IV fluids. She states she cannot take NSAIDs due to allergy and is also on Xarelto. She does not take Xarelto
today. Last CTA was negative for PE therefore I recommended she hold the Xarelto. Regarding the nosebleed, I suspect that this could have been the source of the blood clot that she brought up earlier. I further reviewed records which indicate
although she was complaining of not being able to tolerate p.o. she was eating '100% of her meals' per consult and hospitalist documentation. Hemoglobin is improved. Heart rate has come down to the 90s. Her main complaint is ongoing nausea�we
gave Zofran and will also give Phenergan. Patient states that she does have Phenergan Zofran at home.
Past History
Past History
ED Past Medical History: Asthma, Psychiatric (Anxiety) and Other (Guillan-[place], Migraine, Demyelination Poly Neuropathy, PE/DVT, IBS, Anemia, )
ED Past Surgical History: Gynecological (Hysterectomy), Orthopedic (Screw right foot) and Other (GENERAL ACCOUNTANT shunt, )
Social History
Tobacco: Non-smoker
Alcohol: None
Drug: None
Personal: Single
Living: alone
Employment: Employed
Phy Exam
Physical Exam
Physical Exam:
See HPI
Course
Orders/Labs/Results
Orders:
Orders
06/12/24 18:23
Basic Metabolic Panel Urgent
Complete Blood Count/With Diff Urgent
06/12/24 19:39
Ondansetron Injectable [Zofran] 4 mg .ROUTE .STK-MED ONE
06/12/24 20:30
Ondansetron Injectable [Zofran] 4 mg IV NOW STA
06/12/24 20:32
0.9% Sodium Chloride 1000 ml [Nss] 1,000 ml IV BOLUS
06/12/24 21:18
Acetaminophen 1000MG/100Ml [Ofirmev] 1,000 mg in 100 ml IV ONCE
Acetaminophen IV Indication:: No HI & No Enteral Access
06/12/24 21:28
Tranexamic Acid 1,000 mg .ROUTE .STK-MED ONE
06/12/24 21:44
Ondansetron Injectable [Zofran] 4 mg IV NOW STA
06/12/24 22:43
Promethazine 25 mg IVPB NOW Promethazine [Phenergan] 25 mg 0.9% Sodium Chloride 50 ml [Nss] 50 ml IV NOW
Abnormal Lab Results
06/12/24 06/12/24
16:16 18:23
Hgb 11.5 L g/dL
(12.0-16.0)
Hct 33.3 L %
(37.0-47.0)
MCV 78.4 L fL
(81.0-99.0)
RDW 15.5 H %
(11.5-14.5)
Absolute Neuts (auto) 7.5 H 10^3/uL
(1.4-6.5)
Lymphocytes % 20.1 L %
(20.5-51.1)
Carbon Dioxide 18 L mmol/L
(22-30)
POC Glucose 100 H mg/dl
(70-99)
06/12/24 18:23
06/12/24 18:23
Vital Signs
Initial and Last Documented VS:
Initial Vital Signs
Temp Pulse Resp BP Pulse Ox
37.0 C 114 20 158/100 97
06/12/24 16:08 06/12/24 16:08 06/12/24 16:08 06/12/24 16:08 06/12/24 16:08
Last Documented Vital Signs
Temp Pulse Resp BP Pulse Ox
37.0 C 90 23 145/73 97
06/12/24 16:08 06/12/24 22:00 06/12/24 22:00 06/12/24 22:00 06/12/24 22:00
Procedures
Nosebleed
Drug treatment: Tranexamic Acid
Treatment: Silver nitrate cautery
Additional information:
I initially put silver nitrate cauterization in the anterior aspect of the left nasal septum and then I used TXA soaked cotton.
*Critical Care Note
Total Time (30-74mins, 75-104mins- exclusive of procedures): Not Applicable
ED Attending Note
-
Portions of this chart may have been created with voice recognition software.� Occasional wrong word or��sound alike� substitutions may have occurred due to the inherent limitations of voice recognition software.
Discharge Plan
Departure
Patient Disposition: Home (Routine Discharge)
Date of Disposition: 06/12/24
Time of Disposition: 22:43
Patient with high blood pressure during this ER visit?: Yes
Discharge Problem:
Nausea
Instructions: Nausea and Vomiting, Adult (DC), Nosebleeds ED
Prescriptions:
No Action
tizanidine 4 mg Tablet
4 mg PO TID
cyanocobalamin (vitamin B-12) 1,000 mcg/mL Solution
1,000 mcg IM QMONTH
montelukast [Singulair] 10 mg Tablet
10 mg PO HS
hydroxyzine HCl 25 mg Tablet
25 mg PO BID
furosemide [Lasix] 20 mg Tablet
20 mg PO BID@0800,1200
Xarelto 20 mg Tablet
20 mg PO QPM
Emgality Syringe 120 mg/mL Syringe
120 mg SC QMONTH
promethazine 25 mg tablet
25 mg PO Q12H
albuterol sulfate 90 mcg/actuation HFA aerosol inhaler
1 puff INHALATION R Q4HPRN PRN (Reason: sob/wheezing)
sertraline 50 mg Tablet
50 mg PO HS
potassium chloride [Klor-Con M10] 10 mEq Tablet,Er Particles/Crystals
10 meq PO DAILY
eszopiclone [Lunesta] 3 mg Tablet
3 mg PO HS
fluconazole 100 mg Tablet
100 mg PO DAILY Qty: 2 0RF
prednisone 50 mg tablet
50 mg PO DAILY 4 Days Qty: 4 0RF
prednisone 20 mg tablet
20 mg PO BID 4 Days Qty: 8 0RF
Rx Instructions:
take 2 tablets daily
prednisone 10 mg tablet
10 mg PO TID 4 Days Qty: 12 0RF
Rx Instructions:
take three tablets daily - total dose 30 mg daily
prednisone 20 mg tablet
20 mg PO DAILY 4 Days Qty: 4 0RF
Rx Instructions:
take one tablet daily
pantoprazole 40 mg tablet,delayed release (DR/EC)
40 mg PO DAILY 30 Days Qty: 30 0RF
guaifenesin 400 mg tablet
400 mg PO TID 30 Days Qty: 90 0RF
Rx Instructions:
take one tablet three times a day
Referrals:
Nato Callejas Jr., DO [Family Provider] -
Willie Henderson MD [Active] - Follow up in 2-3 days
Stand Alone Forms: Return to Work
Activity Restrictions/Additional Instructions:
I recommend that you not take the Xarelto at all today. You could resume tomorrow. Your hemoglobin has improved compared to prior. I suspect that your nausea is related to swallowing the blood from the nosebleed. I cauterized the nosebleed and
also used TXA soaked rudy. I have given the contact information for local ENT doctor to follow-up with�you were seen by Dr. Cintron the last time that you are here in the hospital. We gave you a liter of fluid to rehydrate you. Return here if
worse or other concerns.
Interventions
Interventions:
*Risk Screen - Suicide Last Done: 06/12/24 16:08
*General Assessment Last Done: 06/12/24 16:08
*Neglect/Abuse Screening Last Done: 06/12/24 16:08
*ED COVID-19 Vaccine History Last Done: 06/12/24 16:08
RP-Mtomxw-Rkgsozfhqa Assessment Last Done: 06/12/24 21:43
Discharge Date and Time
Print Language: FAROESE
[2024-06-12 18:32] LABS: % Basophils 0.7 % (0-2); % Immature Granulocytes 0.3 % (0-0.5); % Lymphocytes 20.1 % (20.5-51.1); % Monocytes 5.7 % (1.7-9.3); % Neutrophils 71.2 % (42.2-75.2); Absolute Basophils 0.1 10^3/uL (0-0.2); Absolute Eosinophils 0.2 10^3/uL (0-0.7); Absolute Lymphocytes 2.1 10^3/uL (1.2-3.4); Absolute Monocytes 0.6 10^3/uL (0.1-0.6); Absolute Neutrophils 7.5 10^3/uL (1.4-6.5); Hematocrit 33.3 % (37.0-47.0); Hemoglobin 11.5 g/dL (12.0-16.0); Mean Corp Hgb Conc. 34.5 g/dL (33.0-37.0); Mean Corpuscular Hgb 27.1 pg (27.0-31.0); Mean Corpuscular Volume 78.4 fL (81.0-99.0); Nucleated Red Blood Cells % 0 %; Platelet Count 235 10^3/uL (130-400); Red Blood Cell Count 4.25 10^6/uL (4.20-5.40); Red Cell Dist. Width 15.5 % (11.5-14.5); White Blood Cell Count 10.6 10^3/uL (4.8-10.8)
[2024-06-12 18:48] LABS: Blood Urea Nitrogen 7 mg/dl (7-17); Calcium 9.3 mg/dl (8.4-10.2); Carbon Dioxide 18 mmol/L (22-30); Chloride 107 mmol/L (98-107); Glucose 89 mg/dl (70-99); Sodium 140 mmol/L (135-145); eGFR > 60.00
[2024-06-12 20:22] VITALS: BP 129/84
[2024-06-12] MEDS: ZOFRAN 4 MG IV ×2 (20:31→21:48)
[2024-06-12] MEDS: NSS 1000 IV (20:32)
[2024-06-12 21:09] VITALS: BP 157/86
[2024-06-12] MEDS: OFIRMEV 100 IV (21:28)
[2024-06-12 22:00] VITALS: BP 145/73
[2024-06-12] MEDS: PHENERGAN 51 MG IV (22:58)
[2024-06-12 23:00] VITALS: BP 153/70
== END 2024-06-12 23:32 | disposition home or self-care (01) ==
LOC: EMR 16:01
PROVIDERS: EMERGENCY PHYSICIAN Emergency Medicine; FAMILY PHYSICIAN Family Medicine
DX: R11.0 Nausea (principal); R04.0 Epistaxis; J45.909 Unspecified asthma, uncomplicated; F41.9 Anxiety disorder, unspecified; G62.9 Polyneuropathy, unspecified; K58.9 Irritable bowel syndrome, unspecified; Z79.01 Long term (current) use of anticoagulants; Z86.718 Personal history of other venous thrombosis and embolism; Z90.710 Acquired absence of both cervix and uterus; Z98.2 Presence of cerebrospinal fluid drainage device
CPT/HCPCS: 99283; 30901; 96365; 96375; 96376; 80048; 82962; 85025